=== PATIENT | male | born 1965 | race African-American/Black ===

== ENCOUNTER 2018-11-26 22:31 | Emergency (ER) | payer OTHER ==
[2018-11-27 00:40] LABS: Absolute Lymphocytes (CBC) 1.5 K/uL (0.7-4.9); Absolute Monocytes 0.5 K/uL (0.1-1.3); Absolute Neutrophil 3.4 K/uL (1.8-8.0); Basophils % 0.4 % (0-1.3); Hematocrit 39.9 % (39.6-49.0); Lymphocytes % 27.3 % (15.3-44.8); MPV 11.8 fL (7.6-11.3); Monocytes % 8.3 % (3.3-12.3); RBC Red Blood Cell Count 4.22 M/uL (4.33-5.43)
[2018-11-27 00:41] LABS: Protime INR 0.99
[2018-11-27 00:57] LABS: ALT/SGPT 129 U/L (12-78); AST/SGOT 76 U/L (15-37); Albumin 3.2 g/dL (3.4-5.0); Alkaline Phosphatase 85 U/L (45-117); BUN Blood Urea Nitrogen 17 mg/dL (7-18); Bicarbonate 30 mmol/L (21-32); Bilirubin Direct < 0.1 mg/dL (0-0.2); Bilirubin Total 0.2 mg/dL (0.2-1.0); Creatine Phosphokinase 102 U/L (39-308); Glucose Level 74 mg/dL (74-106); Lipase 246 U/L (73-393); Potassium 4.1 mmol/L (3.5-5.1); Sodium Level 140 mmol/L (136-145); Troponin (Emerg Dept Use Only) < 0.02 ng/mL (0.0-0.045)
[2018-11-27] MEDS ORDERED: NA CHLORIDE 0.9% 1,000 ML ONE (01:10)
[2018-11-27 01:36] LABS: Urine Bacteria <20 /HPF (NONE SEEN); Urine Culture Reflex Order NOT NEEDED; Urine Mucus LIGHT /HPF (NONE SEEN); Urine RBC <5 /HPF (NONE SEEN)
[2018-11-27 01:58] LABS: Urine Blood NEGATIVE (NEG); Urine Glucose NEGATIVE (NEG); Urine Protein NEGATIVE (NEG)
[2018-11-27] MEDS ORDERED: D50W 25 GM/50 ML SYRINGE IV ONE (03:33)
[2018-11-27] MEDS ORDERED: D5 0.45 NS 1,000 ML IV ONE (03:33)
--- NOTE | 2018-11-27 04:40 | EDPHYS ---
Physician Documentation [facility] Name: Mariano Mauricio Age: 53 yrs Sex: Male : 1965 Arrival Date: 11/26/2018 Time: 22:32 Bed 4 Private MD: ED Physician Valerio Goff HPI: 11/27 04:31 This 53 yrs old Black Male presents to ER via EMS with complaints of Probable Seizure. gs 04:31 The patient presents after having a single isolated seizure, that lasted 30 second(s). gs Character of seizure(s): Loss of consciousness: the patient experienced loss of consciousness, Motor activity: focal activity. Seizure onset: just prior to arrival. Seizure Hx: Seizure medications: valproic acid. Associated injury: The patient did not suffer any apparent associated injury. Current symptoms: confusion, decreased level of consciousness. Unable to obtain HPI due to obtunded state. It is unknown whether or not the patient has had similar symptoms in the past. Historical: - Allergies: 11/26 23:07 No Known Allergies; lp1 - Home Meds: 23:07 baclofen 10 mg Oral tab twice a day [Active]; Depakote ER 500 mg Oral Tb24 1.5 tabs lp1 three times a day [Active]; docusate sodium 100 mg Oral cap 1 cap once daily [Active]; Risperdal Consta 12.5 mg/2 mL intramuscular syrg 2 mL every 14 days [Active]; trazodone 50 mg Oral tab nightly [Active]; acetaminophen-codeine 300 mg-30 mg /12.5 mL Oral soln 1 tab twice a day [Active]; Valium 5 mg Oral tab 2 times per day [Active]; Vitamin D2 50,000 unit oral cap [Active]; Vitamin D3 5,000 unit oral tab daily [Active]; Zyprexa 15 mg oral tab nightly [Active]; - PMHx: 23:07 Schizophrenia; Acute conjunctivitis; Vit D deficiency; Insomnia; Dehydration; Autonomic 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 - Social history:: Smoking status: unknown. - Ebola Screening: : No symptoms or risks identified at this time. ROS: 11/27 04:31 Unable to obtain ROS due to obtunded state. gs Exam: 04:31 Head/Face: Normocephalic, atraumatic. Neck: Trachea midline, no thyromegaly or masses gs palpated, and no cervical lymphadenopathy. Supple, full range of motion without nuchal rigidity, or vertebral point tenderness. No Meningismus. Chest/axilla: Normal chest wall appearance and motion. Nontender with no deformity. No lesions are appreciated. Cardiovascular: Regular rate and rhythm with a normal S1 and S2. No gallops, murmurs, or rubs. Normal PMI, no JVD. No pulse deficits. Respiratory: Lungs have equal breath sounds bilaterally, clear to auscultation and percussion. No rales, rhonchi or wheezes noted. No increased work of breathing, no retractions or nasal flaring. Abdomen/GI: Soft, non-tender, with normal bowel sounds. No distension or tympany. No guarding or rebound. No evidence of tenderness throughout. Back: No spinal tenderness. No costovertebral tenderness. Full range of motion. 04:31 Constitutional: The patient appears comatose. 04:31 ECG was reviewed by the Attending Physician. 04:31 Neuro: Orientation: Not oriented to person, place, time, situation. Vital Signs: 11/26 22:54 BP 110 / 72; Pulse 62; Resp 13; Temp 95.5(A); Pulse Ox 100% on R/A; Weight 83.91 kg; lp1 23:13 BP 123 / 75; Pulse 53; Resp 13; Temp 94.3(R); Pulse Ox 100% on R/A; mw2 23:35 BP 113 / 86; Pulse 52; Resp 14; Pulse Ox 100% on R/A; lp1 11/27 00:00 BP 98 / 71; Pulse 47; Resp 12; Pulse Ox 100% on R/A; lp1 00:30 BP 116 / 69; Pulse 46; Resp 12; Pulse Ox 100% on R/A; lp1 01:00 BP 122 / 77; Pulse 54; Resp 12; Temp 92.2(C); Pulse Ox 100% on R/A; lp1 01:30 BP 116 / 64; Pulse 54; Resp 20; Pulse Ox 100% on R/A; lp1 02:00 BP 101 / 49; Pulse 53; Resp 13; Temp 92.7(C); Pulse Ox 96% on R/A; lp1 02:30 BP 108 / 59; Pulse 62; Resp 15; Pulse Ox 95% on R/A; lp1 03:00 BP 113 / 57; Pulse 69; Resp 18; Temp 94.2(C); Pulse Ox 94% on R/A; lp1 03:30 BP 111 / 54; Pulse 91; Resp 19; Pulse Ox 97% on R/A; lp1 04:00 BP 118 / 73; Pulse 101; Resp 20; Temp 96.5(C); Pulse Ox 97% on R/A; lp1 04:30 BP 99 / 52; Pulse 98; Resp 20; Pulse Ox 97% on R/A; lp1 05:00 BP 125 / 80; Pulse 99; Resp 20; Temp 96.6(C); Pulse Ox 98% on R/A; lp1 Thayer Coma Score: 11/26 23:00 Eye Response: spontaneous(4). Verbal Response: confused(4). Motor Response: localizes lp1 pain(5). Total: 13. 23:00 Eye Response: spontaneous(4). Verbal Response: confused(4). Motor Response: localizes lp1 pain(5). Total: 13. 11/27 04:00 Eye Response: spontaneous(4). Verbal Response: oriented(5). Motor Response: obeys lp1 commands(6). Total: 15. MDM: 11/26 22:55 Patient medically screened. 11/27 04:31 Differential diagnosis: cerebral vascular accident, cardiac arrhythmia, seizure, gs hypoglycemia. Data reviewed: vital signs, nurses notes, lab test result(s), EKG, radiologic studies. Response to treatment: the patient's symptoms have markedly improved after treatment. ED course: pt bs was 75 still obtunded, bs dropped to 44 temp improving, gave d50, pt much more alert what is probably his baseline dr cormier will still see in icu. 11/26 23:03 Order name: Basic Metabolic Panel 11/26 23:03 Order name: Blood Culture Adult (2) 11/26 23:03 Order name: CBC with Diff 11/26 23:03 Order name: CPK; Complete Time: 02:24 11/26 23:03 Order name: Lactate; Complete Time: 02:24 gs 11/26 23:03 Order name: LFT's; Complete Time: 02:24 gs 11/26 23:03 Order name: Lipase; Complete Time: 02:24 gs 11/26 23:03 Order name: Procalcitonin; Complete Time: 02:24 gs 11/26 23:03 Order name: Protime (+inr); Complete Time: 02:24 gs 11/26 23:03 Order name: Troponin (emerg Dept Use Only); Complete Time: 02:24 gs 11/26 23:03 Order name: Urine Microscopic Only; Complete Time: 02:24 gs 11/26 23:04 Order name: Basic Metabolic Panel; Complete Time: 02:24 EDMS 11/26 23:04 Order name: Blood Culture EDMS 11/26 23:04 Order name: CBC with Automated Diff; Complete Time: 02:24 EDMS 11/26 23:03 Order name: CT Head Brain wo Cont gs 11/26 23:03 Order name: Chest Single View XRAY gs 11/26 23:03 Order name: Accucheck; Complete Time: 23:52 gs 11/26 23:03 Order name: Cardiac monitoring; Complete Time: 23:52 gs 11/26 23:03 Order name: EKG - Nurse/Tech; Complete Time: 23:53 gs 11/26 23:03 Order name: IV Saline Lock - Large Bore; Complete Time: 00:56 gs 11/26 23:03 Order name: Labs collected and sent; Complete Time: 01:22 gs 11/26 23:08 Order name: Glucose, Ancillary Testing; Complete Time: 00:24 EDMS 11/27 01:26 Order name: Urine Dipstick--Ancillary (enter results); Complete Time: 02:24 ms 11/27 03:21 Order name: Depakote; Complete Time: 04:40 gs 11/27 04:05 Order name: Glucose, Ancillary Testing; Complete Time: 04:40 EDMS 11/27 04:06 Order name: Glucose, Ancillary Testing; Complete Time: 04:40 EDMS 11/26 23:03 Order name: O2 Per Protocol; Complete Time: 23:53 gs 11/26 23:03 Order name: O2 Sat Monitoring; Complete Time: 23:53 gs 11/26 23:03 Order name: Urine Dipstick-Ancillary (obtain specimen); Complete Time: 01:33 gs 11/27 00:25 Order name: Luisa. Order; Complete Time: : gs 11/27 00:25 Order name: Dolores Robb; Complete Time: 00:30 EC: Rate is 60 beats/min. Rhythm is regular. [place] interval is normal. QRS interval is normal. gs QT interval is normal. Clinical impression: NSR w/ Non-specific ST/T Changes. Interpreted by me. Administered Medications: 01:00 Drug: NS 0.9% 1000 ml Route: IV; Rate: 1 bolus; Site: right antecubital; lp1 02:30 Follow up: IV Status: Completed infusion; IV Intake: 1000ml lp1 03:25 Drug: D50W 50 ml Route: IVP; Site: right antecubital; lp1 04:00 Follow up: Response: Blood sugar is elevated lp1 03:30 Drug: D5-1/2 NS 125 ml Route: IV; Rate: bolus; Site: right antecubital; lp1 05:30 Follow up: IV Status: Infusion continued upon transfer lp1 Point of Care Testing: Blood Glucose: 11/26 23:07 Blood Glucose: 78 mg/dL; lp1 11/27 03:20 Blood Glucose: 44 mg/dL; lp1 04:06 Blood Glucose: 115 mg/dL; mw2 Ranges: Critical Glucose Levels:Adult <50 mg/dl or >400 mg/dl <40 mg/dl or >180 mg/dl Disposition: 11/27/18 04:39 Transfer ordered to [facility]. Diagnosis are Epilepsy and recurrent seizures, Hypoglycemia, unspecified, Hypothermia. - Reason for transfer: Higher level of care. - Accepting physician is cormier. - Condition is Stable. - Problem is new. - Symptoms have improved. Critical care time excluding procedures: :31 Critical care time: Bedside Care: 10 minutes, Consultation: 10 minutes, Family gs Intervention: 10 minutes. Total time: 30 minutes Signatures: Dispatcher [employer] Mery Lazar RN RN lp1 Valerio Goff MD MD gs Corrections: (The following items were deleted from the chart) 05:47 04:39 11/27/2018 04:39 Transfer ordered to [facility]. Diagnosis is lp1 Epilepsy and recurrent seizures; Hypoglycemia, unspecified; Hypothermia. Reason for transfer: Higher level of care. Accepting physician is genia. Condition is Stable. Problem is new. Symptoms have improved. gs
--- NOTE | 2018-11-27 04:40 | ER ---
Nurse's Notes [facility] Name: Mariano Mauricio Age: 53 yrs Sex: Male : 1965 Arrival Date: 11/26/2018 Time: 22:32 Bed 4 Private MD: Diagnosis: Epilepsy and recurrent seizures;Hypoglycemia, unspecified;Hypothermia Presentation: 11/26 22:40 Presenting complaint: EMS states: Called for patient who had witnessed seizure lasting lp1 about 30 seconds by staff at 2140 where "he was shaking", Staff states patient was post ictal after but never went back to his baseline mental status and called EMS;. Transition of care: patient was not received from another setting of care. Onset of symptoms was November 26, 2018 at 21:40. Risk Assessment: Do you want to hurt yourself or someone else? Patient reports no desire to harm self or others. Initial Sepsis Screen:. Care prior to arrival: Glucose check: 80. 22:40 Method Of Arrival: EMS: [facility] lp1 22:40 Acuity: KEV 2 lp1 23:15 Initial Sepsis Screen: Does the patient meet any 2 criteria? Temp <36.0*C (96.8*F)) or lp1 > 38.3*C (100.9*F). Altered Mental Status. Yes. 11/27 05:43 Initial Sepsis Screen: Does the patient have a suspected source of infection? No. lp1 Patient's initial sepsis screen is negative. Historical: - Allergies: 11/26 23:07 No Known Allergies; lp1 - Home Meds: 23:07 baclofen 10 mg Oral tab twice a day [Active]; Depakote ER 500 mg Oral Tb24 1.5 tabs lp1 three times a day [Active]; docusate sodium 100 mg Oral cap 1 cap once daily [Active]; Risperdal Consta 12.5 mg/2 mL intramuscular syrg 2 mL every 14 days [Active]; trazodone 50 mg Oral tab nightly [Active]; acetaminophen-codeine 300 mg-30 mg /12.5 mL Oral soln 1 tab twice a day [Active]; Valium 5 mg Oral tab 2 times per day [Active]; Vitamin D2 50,000 unit oral cap [Active]; Vitamin D3 5,000 unit oral tab daily [Active]; Zyprexa 15 mg oral tab nightly [Active]; - PMHx: 23:07 Schizophrenia; Acute conjunctivitis; Vit D deficiency; Insomnia; Dehydration; Autonomic 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 - Social history:: Smoking status: unknown. - Ebola Screening: : No symptoms or risks identified at this time. Screenin/07 00:20 Abuse screen: Denies threats or abuse. Denies injuries from another. Nutritional lp1 screening: No deficits noted. Tuberculosis screening: No symptoms or risk factors identified. Fall Risk Total Quinn Fall Scale indicates High Risk Score (45 or more points). Fall prevention measures have been instituted. Side Rails Up X 2 Placed Close to Nursing Station Frequent Obs/Assessments Occuring. Assessment: 11/26 23:00 General: Appears ill, Behavior is drowsy. Pain: Unable to use pain scale. Does not lp1 appear to understand pain scale. FLACC scale score is 0 out of 10. Neuro: Level of Consciousness is lethargic, Oriented to person, Pupils are PERRLA. Cardiovascular: Capillary refill < 3 seconds in bilateral fingers Rhythm is sinus rhythm. Respiratory: Airway is patent Respiratory effort is even, unlabored, Respiratory pattern is regular, Breath sounds are clear bilaterally. GI: Abdomen is flat. : No deficits noted. EENT: No deficits noted. Derm: Skin with poor turgor Skin is dry, Skin is normal, Skin temperature is warm. Musculoskeletal: Contractures noted to right and left hands. 11/27 00:00 Reassessment: Patient resting, eyes closed, respirations unlabored. Cardiovascular: lp1 Rhythm is sinus bradycardia. 00:10 Reassessment: Lab at bedside for blood draw. lp1 01:10 Reassessment: Patient appears in no apparent distress at this time. Patient resting, lp1 eyes closed, respirations unlabored; States "I'm peeing on myself", educated on Burkett catheter placement. 02:15 Reassessment: Patient appears in no apparent distress at this time. Patient and/or lp1 family updated on plan of care and expected duration. Pain level reassessed. Patient resting, eyes closed, respirations unlabored; Dolores hugger remains in place. 03:10 Reassessment: Patient appears in no apparent distress at this time. No changes from lp1 previously documented assessment. Patient and/or family updated on plan of care and expected duration. Pain level reassessed. 04:06 Reassessment: Patient more alert at this time; uncooperative with blood glucose, lp1 shouting; States "Y'all aren't going to poke me anymore". Reassessment: Dolores hugger removed by patient at this time, refusing to keep it on. Neuro: Level of Consciousness is awake, alert, Oriented to person, place. Respiratory: Respiratory effort is even, unlabored. 04:57 Reassessment: Report called to TEDDY Ambrosio at [facility] for patient for transfer. lp1 05:00 Reassessment: Patient appears in no apparent distress at this time. Patient and/or lp1 family updated on plan of care and expected duration. Pain level reassessed. Patient resting, eyes closed, respirations unlabored;. Vital Signs: 11/26 22:54 BP 110 / 72; Pulse 62; Resp 13; Temp 95.5(A); Pulse Ox 100% on R/A; Weight 83.91 kg; lp1 23:13 BP 123 / 75; Pulse 53; Resp 13; Temp 94.3(R); Pulse Ox 100% on R/A; mw2 23:35 BP 113 / 86; Pulse 52; Resp 14; Pulse Ox 100% on R/A; lp1 11/27 00:00 BP 98 / 71; Pulse 47; Resp 12; Pulse Ox 100% on R/A; lp1 00:30 BP 116 / 69; Pulse 46; Resp 12; Pulse Ox 100% on R/A; lp1 01:00 BP 122 / 77; Pulse 54; Resp 12; Temp 92.2(C); Pulse Ox 100% on R/A; lp1 01:30 BP 116 / 64; Pulse 54; Resp 20; Pulse Ox 100% on R/A; lp1 02:00 BP 101 / 49; Pulse 53; Resp 13; Temp 92.7(C); Pulse Ox 96% on R/A; lp1 02:30 BP 108 / 59; Pulse 62; Resp 15; Pulse Ox 95% on R/A; lp1 03:00 BP 113 / 57; Pulse 69; Resp 18; Temp 94.2(C); Pulse Ox 94% on R/A; lp1 03:30 BP 111 / 54; Pulse 91; Resp 19; Pulse Ox 97% on R/A; lp1 04:00 BP 118 / 73; Pulse 101; Resp 20; Temp 96.5(C); Pulse Ox 97% on R/A; lp1 04:30 BP 99 / 52; Pulse 98; Resp 20; Pulse Ox 97% on R/A; lp1 05:00 BP 125 / 80; Pulse 99; Resp 20; Temp 96.6(C); Pulse Ox 98% on R/A; lp1 Raffy Coma Score: 11/26 23:00 Eye Response: spontaneous(4). Verbal Response: confused(4). Motor Response: localizes lp1 pain(5). Total: 13. 23:00 Eye Response: spontaneous(4). Verbal Response: confused(4). Motor Response: localizes lp1 pain(5). Total: 13. 11/27 04:00 Eye Response: spontaneous(4). Verbal Response: oriented(5). Motor Response: obeys lp1 commands(6). Total: 15. ED Course: 11/26 22:32 Patient arrived in ED. bb 22:34 Valerio Goff MD is Attending Physician. gs 22:40 Mery Shankar, RN is Primary Nurse. lp1 22:51 Triage completed. lp1 22:52 Arm band placed on right wrist. lp1 23:00 Patient has correct armband on for positive identification. Placed in gown. Side rails lp1 up X2. Seizure precautions initiated. monitoring tech on. Pulse ox on. NIBP on. 23:18 Radiology exam delayed due to Patient is currently have labs drawn. kw1 23:30 Missed attempt(s): 22 gauge in left forearm. Missed attempt(s): 22 gauge in left lp1 antecubital area. 23:30 First set of blood cultures drawn by me. lp1 23:57 CT Head Brain wo Cont In Process Unspecified. EDMS 23:58 Chest Single View XRAY In Process Unspecified. EDMS 11/27 00:45 Missed attempt(s): 18 gauge in right upper arm. Bleeding controlled, band aid applied, bb catheter tip intact. 00:56 Inserted saline lock: 22 gauge in right antecubital area, using aseptic technique. bb 01:00 Burkett cath inserted, using sterile technique, 16 Fr., by ks, balloon inflated, to lp1 gravity drainage, urine specimen collected. 01:00 Thermoregulation: Dolores blanket applied. lp1 05:04 No provider procedures requiring assistance completed. lp1 05:30 Patient transferred, IV remains in place. lp1 Administered Medications: 01:00 Drug: NS 0.9% 1000 ml Route: IV; Rate: 1 bolus; Site: right antecubital; lp1 02:30 Follow up: IV Status: Completed infusion; IV Intake: 1000ml lp1 03:25 Drug: D50W 50 ml Route: IVP; Site: right antecubital; lp1 04:00 Follow up: Response: Blood sugar is elevated lp1 03:30 Drug: D5-1/2 NS 125 ml Route: IV; Rate: bolus; Site: right antecubital; lp1 05:30 Follow up: IV Status: Infusion continued upon transfer lp1 Point of Care Testing: Blood Glucose: 11/26 23:07 Blood Glucose: 78 mg/dL; lp1 04/07 03:20 Blood Glucose: 44 mg/dL; lp1 04:06 Blood Glucose: 115 mg/dL; mw2 Ranges: Intake: 02:30 IV: 1000ml; Total: 1000ml. lp1 Outcome: 04:39 ER care complete, transfer ordered by . 05:30 Transferred by ground EMS to [facility], Transfer form completed. lp1 X-rays sent w/ patient. 05:30 Condition: improved 05:30 Instructed on the need for transfer. 05:30 Patient left the ED. lp1 Signatures: Dispatcher [employer] EDMS Neha Willard RN RN Mery Freitas RN RN lp1 Valerio Goff MD MD Ai Ledesma kw1 Geovanna De Leon mw2 Corrections: (The following items were deleted from the chart) 05:48 05:47 Patient left the ED. lp1 lp1
--- NOTE | 2018-11-27 11:40 | RAD REPORT ---
EXAM DESCRIPTION: RAD - Chest Single View - 11/27/2018 12:00 am CLINICAL HISTORY: FEVER Chest pain. COMPARISON: No comparisons FINDINGS: Portable technique limits examination quality. The lungs are grossly clear. The heart is normal in size. No displaced fractures. IMPRESSION: No acute intrathoracic process suspected.
--- NOTE | 2018-11-28 13:47 | RAD REPORT ---
EXAM DESCRIPTION: CT of the head without contrast CLINICAL HISTORY: SEIZURE COMPARISON: None available TECHNIQUE: Axial CT of the head obtained from the skull apex to the skull base without contrast. FINDINGS: No acute intracranial hemorrhage identified. No mass, mass effect, shift of the midline, a bnormal extra-axial fluid collection or CT evidence of acute ischemic change identified. The ventricu lar system is enlarged and proportional to the sulcal spaces. Scattered areas of hypodensity throug hout the supratentorial white matter are nonspecific and may be related to chronic small vessel ische chance change. The visualized paranasal sinuses and the mastoids are clear. No skull fracture identified. Visua lized orbits and globes are unremarkable. DLP: 96.8 mGy-cm IMPRESSION: 1. No acute intracranial abnormality by CT criteria. 2. The ventricular system is enlarged proportion to the sulcal spaces. Communicating hydrocephalus could produce this appearance. This exam was performed according to our departmental dose-optimization program, which includes autom ated exposure control, adjustment of the mA and/or kV according to patient size and/or use of iterati ve reconstruction technique. Electronically signed by: Victor M Maynard 11/27/2018 12:37 AM CDT Due to temporary technical issues with the PACS/Fluency reporting system, reports are being signed by the in house radiologist as a courtesy to ensure prompt reporting. The interpreting radiologist is f ully responsible for the content of the report.
--- NOTE | 2018-11-29 11:38 | EKG ---
Test Date: 2018-11-26 Test Time: 22:42:18 Manual Arts Therapist: DEMETRI MEASUREMENT RESULTS: Intervals: Rate: 60 [place]: 156 QRSD: 96 QT: 412 QTc: 412 [place]: P: 56 [place]: 156 QRS: 34 T: 193 INTERPRETIVE STATEMENTS: Normal sinus rhythm ST & T wave abnormality, consider inferolateral ischemia Abnormal ECG Compared to ECG 06/22/2016 09:46:59 ST (T wave) deviation now present Possible ischemia now present Electronically Signed On 11-28-18 10:53:17 CDT by Moose Briseno
== END 2018-11-27 05:47 | disposition short-term general hospital (02) ==
LOC: ER 22:31
DX: G40.909 Epilepsy, unspecified, not intractable, without status epilepticus (principal); E16.2 Hypoglycemia, unspecified; T68.XXXA Hypothermia, initial encounter; F20.9 Schizophrenia, unspecified; E55.9 Vitamin D deficiency, unspecified; F32.9 Major depressive disorder, single episode, unspecified; F41.9 Anxiety disorder, unspecified
CPT/HCPCS: 36415; 51702; 70450; 71045; 80048; 80076; 80164; 81003; 81015; 82550; 82962; 83605; 83690; 84145; 84484; 85025; 85610; 87040; 93005; 96361; 96374; 99285; J7030

== ENCOUNTER 2018-12-24 21:10 | Emergency (ER) | payer OTHER ==
--- OUTSIDE RECORDS SUMMARY | 2018-12-24 21:14 | XMS REPORT | Clinical Summary ---
:1965 Author Organization [facility] Address [address] [place] [address] Care Team Providers Name Role Phone Unavailable Primary Care Provider Unavailable Allergies No Known Allergies Medications Medication Sig Dispensed Refills Start End Date Status Date baclofen Take 10 mg by mouth 0 Active (LIORESAL) 10 MG 3 (three) times tablet daily. docusate sodium Take 100 mg by 0 Active (COLACE) 100 MG mouth daily. capsule traZODone Take 50 mg by mouth 0 Active (DESYREL) 50 MG nightly. tablet acetaminophen-code Take 1 tablet by 0 Active ine (TYLENOL #3) mouth 2 (two) times 300-30 mg per daily. tablet ergocalciferol Take 50,000 Units 0 Active (ERGOCALCIFEROL) by mouth once a 50,000 unit week Every Wednesday . capsule OLANZapine Take 15 mg by mouth 0 Active (ZYPREXA) 15 MG nightly. tablet diazePAM (VALIUM) Take 1 tablet (5 mg 30 tablet 0 Active 5 MG tablet total) by mouth 3 9 (three) times daily. Max Daily Amount: 15 mg divalproex Take 1 tablet (500 0 Active (DEPAKOTE) 500 MG mg total) by mouth 9 24 hr tablet 3 (three) times daily. divalproex Take by mouth. 0 12/08/19 Discontinued (DEPAKOTE) 500 MG 19 24 hr tablet risperiDONE Inject 12.5 mg 0 12/08/19 Discontinued microspheres intramuscularly 19 (RISPERDAL CONSTA) every 14 (fourteen) 25 mg/2 mL days On Wednesdays injection . diazePAM (VALIUM) Take 5 mg by mouth 0 12/08/19 Discontinued 5 MG tablet 2 (two) times 19 daily. diazePAM (VALIUM) Take 10 mg by mouth 0 12/08/19 Discontinued 10 MG tablet every 6 (six) hours 9 19 as needed (for agitation). Active Problems Problem Noted Date Seizures 11/27/2018 Acute encephalopathy 11/27/2018 Hypoglycemia 11/27/2018 Thrombocytopenia 11/27/2018 Elevated liver enzymes 11/27/2018 Macrocytic anemia 11/27/2018 Encounters Date Type Specialty Care Team Description 12/06/2018 Travel 11/27/2018 [facility] Son, Hypoglycemia ( Primary Dx); - Encounter Medicine Chethan Seizures (HCC); 12/07/2018 MD Brad Hypothermia, initial encounter; Nilson Kamara Acute encephalopathy; MD Alissa Elevated liver enzymes; Yue Pedroza Macrocytic anemia; MD Olivia Thrombocytopenia (HCC); Polysubstance abuse (HCC); Spell of abnormal behavior; Disorganized schizophrenia (HCC); Traumatic brain injury of unknown intent (HCC) after 12/23/2017 Social History Tobacco Use Types Packs/Day Years Used Date Former Smoker Smokeless Tobacco: Never Used Comments: unable to assess Alcohol Use Drinks/Week oz/Week Comments No Alcohol Habits Answer Date Recorded How often do you have a drink containing alcohol? Never 11/29/2018 How many drinks containing alcohol do you have on a typical Not asked day when you are drinking? How often do you have six or more drinks on one occasion? Not asked Sex Assigned at Date Recorded Not on file Job Start Date Occupation Industry Not on file Not on file Not on file Travel History Travel Start Travel End No recent travel history available. Last Filed Vital Signs Vital Sign Reading Time Taken Blood Pressure 103/58 12/07/2018 5:23 AM CDT Pulse 73 12/07/2018 5:23 AM CDT Temperature 36.7 C (98.1 F) 12/07/2018 5:23 AM CDT Respiratory Rate 18 12/07/2018 5:23 AM CDT Oxygen Saturation 94% 12/07/2018 5:23 AM CDT Inhaled Oxygen Concentration - - Weight 91.6 kg (202 lb) 12/07/2018 6:00 AM CDT Height - - Body Mass Index - - Plan of Treatment Not on file Procedures Procedure Name Priority Date/Time Associated Comments Diagnosis RHYTHM STRIP - SCAN 12/08/2018 11:40 AM CDT POCT-GLUCOSE METER Routine 12/07/2018 5:15 Results for this AM CDT procedure are in the results section. POCT-GLUCOSE METER Routine 12/06/2018 9:44 Results for this PM CDT procedure are in the results section. POCT-GLUCOSE METER Routine 12/06/2018 5:50 Results for this PM CDT procedure are in the results section. CORTISOL,60 MIN Routine 12/06/2018 5:41 Results for this PM CDT procedure are in the results section. CORTISOL,30 MIN Routine 12/06/2018 5:09 Results for this PM CDT procedure are in the results section. ACTH STIMULATION Routine 12/06/2018 5:09 Results for this PM CDT procedure are in the results section. BLOOD CULTURE STAT 12/06/2018 1:15 Results for this PM CDT procedure are in the results section. CORTISOL,BASELINE Routine 12/06/2018 1:14 Results for this PM CDT procedure are in the results section. CBC W/PLT COUNT & AUTO Routine 12/06/2018 1:14 Results for this DIFFERENTIAL PM CDT procedure are in the results section. ACTH STIMULATION Routine 12/06/2018 1:14 Results for this PM CDT procedure are in the results section. LACTIC ACID, ARTERIAL Routine 12/06/2018 1:14 Results for this PM CDT procedure are in the results section. BASIC METABOLIC PANEL Routine 12/06/2018 1:14 Results for this (7) PM CDT procedure are in the results section. CBC W/PLT COUNT & AUTO Routine 12/06/2018 1:14 Results for this DIFFERENTIAL PM CDT procedure are in the results section. PROTHROMBIN TIME/INR Routine 12/06/2018 1:14 Results for this PM CDT procedure are in the results section. MISCELLANEOUS LAB Routine 12/06/2018 1:13 ORDER PM CDT POCT-GLUCOSE METER Routine 12/06/2018 1:07 Results for this PM CDT procedure are in the results section. POCT-GLUCOSE METER Routine 12/06/2018 8:07 Results for this AM CDT procedure are in the results section. POCT-GLUCOSE METER Routine 12/06/2018 7:22 Results for this AM CDT procedure are in the results section. POCT-GLUCOSE METER Routine 12/06/2018 1:40 Results for this AM CDT procedure are in the results section. POCT-GLUCOSE METER Routine 12/05/2018 6:52 Results for this PM CDT procedure are in the results section. POCT-GLUCOSE METER Routine 12/05/2018 6:09 Results for this PM CDT procedure are in the results section. POCT-GLUCOSE METER Routine 12/05/2018 1:16 Results for this PM CDT procedure are in the results section. POCT-GLUCOSE METER Routine 12/05/2018 8:04 Results for this AM CDT procedure are in the results section. POCT-GLUCOSE METER Routine 12/05/2018 7:26 Results for this AM CDT procedure are in the results section. URINALYSIS WITH Routine 12/05/2018 5:14 Results for this MICROSCOPIC IF AM CDT procedure are in INDICATED the results section. XR CHEST 1 VIEW Routine 12/04/2018 10:11 Results for this PORTABLE/BEDSIDE PM CDT procedure are in the results section. POCT-GLUCOSE METER Routine 12/04/2018 9:28 Results for this PM CDT procedure are in the results section. PROTHROMBIN TIME/INR Routine 12/04/2018 8:28 Results for this PM CDT procedure are in the results section. LACTIC ACID, VENOUS STAT 12/04/2018 8:27 Results for this PM CDT procedure are in the results section. VALPROIC ACID LEVEL, STAT 12/04/2018 8:27 Results for this TOTAL PM CDT procedure are in the results section. POCT-HEMOGLOBIN Routine 12/04/2018 8:03 Results for this PM CDT procedure are in the results section. POCT-HEMATOCRIT Routine 12/04/2018 8:03 Results for this PM CDT procedure are in the results section. POCT-CALCIUM IONIZED Routine 12/04/2018 8:03 Results for this PM CDT procedure are in the results section. POCT-GLUCOSE Routine 12/04/2018 8:03 Results for this PM CDT procedure are in the results section. POCT-POTASSIUM Routine 12/04/2018 8:03 Results for this PM CDT procedure are in the results section. POCT-SODIUM Routine 12/04/2018 8:03 Results for this PM CDT procedure are in the results section. POCT-BLOOD GASES, Routine 12/04/2018 8:03 Results for this VENOUS PM CDT procedure are in the results section. BLOOD CULTURE STAT 12/04/2018 8:01 Results for this PM CDT procedure are in the results section. CBC W/PLT COUNT & AUTO Routine 12/04/2018 8:00 Results for this DIFFERENTIAL PM CDT procedure are in the results section. CBC W/PLT COUNT & AUTO Routine 12/04/2018 8:00 Results for this DIFFERENTIAL PM CDT procedure are in the results section. BASIC METABOLIC PANEL STAT 12/04/2018 8:00 Results for this (7) PM CDT procedure are in the results section. MAGNESIUM Routine 12/04/2018 8:00 Results for this PM CDT procedure are in the results section. PHOSPHORUS Routine 12/04/2018 8:00 Results for this PM CDT procedure are in the results section. POCT-LACTIC ACID, Routine 12/04/2018 7:52 Results for this ARTERIAL PM CDT procedure are in the results section. POCT-GLUCOSE METER Routine 12/04/2018 7:08 Results for this PM CDT procedure are in the results section. POCT-GLUCOSE METER Routine 12/03/2018 10:25 Results for this PM CDT procedure are in the results section. INSULIN-LIKE GROWTH Routine 12/03/2018 7:52 Results for this FACTOR AM CDT procedure are in the results section. POCT-GLUCOSE METER Routine 12/03/2018 4:50 Results for this AM CDT procedure are in the results section. POCT-GLUCOSE METER Routine 12/03/2018 12:07 Results for this AM CDT procedure are in the results section. POCT-GLUCOSE METER Routine 12/02/2018 9:36 Results for this PM CDT procedure are in the results section. POCT-GLUCOSE METER Routine 12/02/2018 6:38 Results for this AM CDT procedure are in the results section. POCT-GLUCOSE METER Routine 12/02/2018 6:06 Results for this AM CDT procedure are in the results section. POCT-GLUCOSE METER Routine 12/02/2018 5:18 Results for this AM CDT procedure are in the results section. POCT-GLUCOSE METER Routine 12/02/2018 3:12 Results for this AM CDT procedure are in the results section. POCT-GLUCOSE METER Routine 12/02/2018 12:41 Results for this AM CDT procedure are in the results section. POCT-GLUCOSE METER Routine 12/01/2018 6:13 Results for this PM CDT procedure are in the results section. POCT-GLUCOSE METER Routine 12/01/2018 12:34 Results for this PM CDT procedure are in the results section. POCT-GLUCOSE METER Routine 12/01/2018 12:02 Results for this AM CDT procedure are in the results section. POCT-GLUCOSE METER Routine 11/30/2018 6:02 Results for this PM CDT procedure are in the results section. REPORT OF PROCEDURE - 11/30/2018 1:35 ENDOSCOPY SCAN PM CDT POCT-GLUCOSE METER Routine 11/30/2018 1:18 Results for this PM CDT procedure are in the results section. POCT-GLUCOSE METER Routine 11/30/2018 10:08 Results for this AM CDT procedure are in the results section. POCT-GLUCOSE METER Routine 11/30/2018 8:59 Results for this AM CDT procedure are in the results section. POCT-GLUCOSE METER Routine 11/30/2018 8:15 Results for this AM CDT procedure are in the results section. POCT-GLUCOSE METER Routine 11/29/2018 9:47 Results for this PM CDT procedure are in the results section. POCT-GLUCOSE METER Routine 11/29/2018 8:03 Results for this PM CDT procedure are in the results section. POCT-GLUCOSE METER Routine 11/29/2018 5:49 Results for this PM CDT procedure are in the results section. POCT-GLUCOSE METER Routine 11/29/2018 5:06 Results for this PM CDT procedure are in the results section. POCT-GLUCOSE METER Routine 11/29/2018 4:31 Results for this PM CDT procedure are in the results section. POCT-GLUCOSE METER Routine 11/29/2018 3:24 Results for this PM CDT procedure are in the results section. POCT-GLUCOSE METER Routine 11/29/2018 1:56 Results for this PM CDT procedure are in the results section. POCT-GLUCOSE METER Routine 11/29/2018 1:04 Results for this PM CDT procedure are in the results section. POCT-GLUCOSE METER Routine 11/29/2018 12:13 Results for this PM CDT procedure are in the results section. POCT-GLUCOSE METER Routine 11/29/2018 11:03 Results for this AM CDT procedure are in the results section. POCT-GLUCOSE METER Routine 11/29/2018 10:01 Results for this AM CDT procedure are in the results section. POCT-GLUCOSE METER Routine 11/29/2018 9:00 Results for this AM CDT procedure are in the results section. POCT-GLUCOSE METER Routine 11/29/2018 8:19 Results for this AM CDT procedure are in the results section. POCT-GLUCOSE METER Routine 11/29/2018 7:27 Results for this AM CDT procedure are in the results section. US ABDOMINAL WITH Routine 11/29/2018 6:40 Results for this DOPPLER AM CDT procedure are in the results section. POCT-GLUCOSE METER Routine 11/29/2018 6:09 Results for this AM CDT procedure are in the results section. POCT-GLUCOSE METER Routine 11/29/2018 4:57 Results for this AM CDT procedure are in the results section. POCT-GLUCOSE METER Routine 11/29/2018 4:08 Results for this AM CDT procedure are in the results section. POCT-GLUCOSE METER Routine 11/29/2018 3:11 Results for this AM CDT procedure are in the results section. HEMOGLOBIN A1C Routine 11/29/2018 2:29 Results for this AM CDT procedure are in the results section. CBC W/PLT COUNT & AUTO Routine 11/29/2018 2:28 Results for this DIFFERENTIAL AM CDT procedure are in the results section. BASIC METABOLIC PANEL Routine 11/29/2018 2:28 Results for this (7) AM CDT procedure are in the results section. CBC W/PLT COUNT & AUTO Routine 11/29/2018 2:28 Results for this DIFFERENTIAL AM CDT procedure are in the results section. MAGNESIUM Routine 11/29/2018 2:28 Results for this AM CDT procedure are in the results section. PHOSPHORUS Routine 11/29/2018 2:28 Results for this AM CDT procedure are in the results section. PROTHROMBIN TIME/INR Routine 11/29/2018 2:28 Results for this AM CDT procedure are in the results section. MISCELLANEOUS LAB Routine 11/29/2018 2:28 ORDER AM CDT POCT-GLUCOSE METER Routine 11/29/2018 2:00 Results for this AM CDT procedure are in the results section. GLUCOSE Routine 11/29/2018 1:56 Results for this AM CDT procedure are in the results section. GROWTH HORMONE Routine 11/29/2018 1:56 Results for this AM CDT procedure are in the results section. C-PEPTIDE Routine 11/29/2018 1:56 Results for this AM CDT procedure are in the results section. CORTISOL Routine 11/29/2018 1:56 Results for this AM CDT procedure are in the results section. KETONE, BLOOD Routine 11/29/2018 1:56 Results for this AM CDT procedure are in the results section. INSULIN, FASTING Routine 11/29/2018 1:56 Results for this AM CDT procedure are in the results section. INSULIN-LIKE GROWTH Routine 11/29/2018 1:56 Results for this FACTOR AM CDT procedure are in the results section. POCT-GLUCOSE METER Routine 11/29/2018 1:19 Results for this AM CDT procedure are in the results section. POCT-GLUCOSE METER Routine 11/28/2018 11:50 Results for this PM CDT procedure are in the results section. POCT-GLUCOSE METER Routine 11/28/2018 9:52 Results for this PM CDT procedure are in the results section. POCT-GLUCOSE METER Routine 11/28/2018 9:14 Results for this PM CDT procedure are in the results section. POCT-GLUCOSE METER Routine 11/28/2018 6:18 Results for this PM CDT procedure are in the results section. XR CHEST 1 VIEW Routine 11/28/2018 5:40 Results for this PORTABLE/BEDSIDE PM CDT procedure are in the results section. XR SKULL LESS THAN 4 Routine 11/28/2018 5:35 Results for this VIEWS PM CDT procedure are in the results section. EEG AWAKE AND DROWSY Routine 11/28/2018 3:36 Results for this PM CDT procedure are in the results section. POCT-GLUCOSE METER Routine 11/28/2018 2:14 Results for this PM CDT procedure are in the results section. POCT-GLUCOSE METER Routine 11/28/2018 1:35 Results for this PM CDT procedure are in the results section. POCT-GLUCOSE METER Routine 11/28/2018 1:16 Results for this PM CDT procedure are in the results section. HEPATITIS PANEL, ACUTE Routine 11/28/2018 11:27 Results for this AM CDT procedure are in the results section. VITAMIN B12 Routine 11/28/2018 11:27 Results for this AM CDT procedure are in the results section. FOLATE, SERUM Routine 11/28/2018 11:27 Results for this AM CDT procedure are in the results section. VALPROIC ACID LEVEL, Routine 11/28/2018 11:27 Results for this TOTAL AM CDT procedure are in the results section. CBC W/PLT COUNT & AUTO Routine 11/28/2018 11:23 Results for this DIFFERENTIAL AM CDT procedure are in the results section. BASIC METABOLIC PANEL Routine 11/28/2018 11:23 Results for this (7) AM CDT procedure are in the results section. CBC W/PLT COUNT & AUTO Routine 11/28/2018 11:23 Results for this DIFFERENTIAL AM CDT procedure are in the results section. COMPREHENSIVE Routine 11/28/2018 11:23 Results for this METABOLIC PANEL AM CDT procedure are in the results section. POCT-GLUCOSE METER Routine 11/28/2018 9:17 Results for this AM CDT procedure are in the results section. POCT-GLUCOSE METER Routine 11/28/2018 8:56 Results for this AM CDT procedure are in the results section. POCT-GLUCOSE METER Routine 11/27/2018 11:19 Results for this PM CDT procedure are in the results section. POCT-GLUCOSE METER Routine 11/27/2018 8:30 Results for this PM CDT procedure are in the results section. POCT-GLUCOSE METER Routine 11/27/2018 6:28 Results for this PM CDT procedure are in the results section. POCT-GLUCOSE METER Routine 11/27/2018 12:10 Results for this PM CDT procedure are in the results section. COMPREHENSIVE Routine 11/27/2018 10:45 Results for this METABOLIC PANEL AM CDT procedure are in the results section. DRUG SCREEN, URINE, Routine 11/27/2018 9:03 COMPREHENSIVE AM CDT CBC W/PLT COUNT & AUTO Routine 11/27/2018 8:59 Results for this DIFFERENTIAL AM CDT procedure are in the results section. CORTISOL Routine 11/27/2018 8:59 Results for this AM CDT procedure are in the results section. TSH/FREE T4 IF Routine 11/27/2018 8:59 Results for this INDICATED AM CDT procedure are in the results section. PROTHROMBIN TIME/INR Routine 11/27/2018 8:59 Results for this AM CDT procedure are in the results section. CBC W/PLT COUNT & AUTO Routine 11/27/2018 8:59 Results for this DIFFERENTIAL AM CDT procedure are in the results section. TROPONIN I Routine 11/27/2018 8:59 Results for this AM CDT procedure are in the results section. POCT-GLUCOSE METER Routine 11/27/2018 7:11 Results for this AM CDT procedure are in the results section. POCT-GLUCOSE METER Routine 11/27/2018 6:36 Results for this AM CDT procedure are in the results section. after 12/23/2017 Results RHYTHM STRIP - SCAN (12/08/2018 11:40 AM CDT) Narrative Performed At POC-Glucose meter (12/07/2018 5:15 AM CDT)Only the most recent of66 resultswithin the time period is included. POC-Glucose Meter 83Comment: TESTED AT 70 - 110 mg/dL [facility] [address] [facility] [id number] Specimen Blood Performing Organization Address City/State/Zipcode Phone Number [address] [phone] CENTER CORTISOL,60 MIN (12/06/2018 5:41 PM CDT) Cortisol, Baseline 9.7 mcg/dL [facility] [place] [place] Cortisol 30 minute 17.8 mcg/dL [facility] [place] [place] Cortisol, 60 Minute 23.6 ug/dL [facility] [place] [place] Specimen Blood Narrative Performed At ACTH STIMULATION TEST INTERPRETATION [facility] [place] [place] GUIDELINES (Synonyms: Cortrosyn Test, Cosyntropin or Corticotropin Stimulation Test) Adenocorticotropic hormone (ACTH)is a tropic hormone, made in the pituitary gland, which travels trhough the bloodstream and stimulates the cortex of the adrenal glands to release cortisol. Cortisol is a primary hormone, which aids the body's metabolism of fats, carbohydrates, and protein as well as sodium and potassium regulation. ACTH Stimulation Test: Exogenous administration of biologically active ACTH stimulates the secretion of cortisol from the adrenal gland. This test is used to evaluate adrenal function by measuring cortisol levels at baseline and at 30 and 60 minutes after the administration of 250 micrograms of cosyntropin (Cortrosyn). Patients who have received exogenous corticosteroids immediately prior to performing the ACTH Stimulation Test will often have elevated baseline cortisol levels, which may lead to erroneous interpretation of test results. The notable exception is with dexamethasone. Normal Response: An increase in cortisol after stimulation by ACTH is normal. Post-stimulation cortisol concentration should be greater than 20 mcg/dL or the rate of rise from baseline cortisol should be greater than or equal to 9 mcg/dL. Patients with sepsis or septic shock: According to a study by Harjinder et al (CARLOS 2000,283(8):3829-45), the ACTH Stimulation Test provides important prognostic information. This study defined 3 groups of patients with sepsis or septic shock: 1. Good Survival: Low basal cortisol (<or=34 mcg/dL) and high ACTH response (>9mcg/dL) 2.Intermediate Survival: Low basal cortisol (<34 mcg/dL) and low response to ACTH (<or=9 mcg/dL) OR High basal cortisol (>34 mcg/dL) or high ACTH response (>9 mcg/dL) 3.Poor Survival: High basal cortisol (>34 mcg/dL) and low ACTH response (<or=9 mcg/dL). Treatment of patients with relative adrenal dysfunction may be indicated based on test results and the clinical condition of the patient. Additional information, including treatment recommendations, is available in critically ill patients, approved by the Pharmacy, Nutrition, and Therapeutics Committee on 08/01/2004 and available through the Pharmacy Policy and Procedure Section on [employer]. Do not run this test if systemic hydrocortisone, methylprednisolone, prednisolone or prednisone has been administered within the past 24 hours.Draw baseline cortisol level just prior to cosyntropin administration.Administer cosyntropin 0.25 mg diluted in 2-5 mL of normal saline slow IV Push over a period of 2 minutes.Draw serum cortisol level 30 minutes after cosyntropin administration.Draw serum cortisol level 60 minutes after cosyntropin administration. Performing Organization Address City/State/Zipcode Phone Number [address] [address] CENTER CORTISOL,30 MIN (12/06/2018 5:09 PM CDT) Cortisol, Baseline 9.7 mcg/dL [facility] [place] [place] Cortisol, 30 Minute 17.8 ug/dL [facility] [place] [place] Specimen Blood Narrative Performed At ACTH STIMULATION TEST INTERPRETATION [facility] [place] [place] GUIDELINES (Synonyms: Cortrosyn Test, Cosyntropin or Corticotropin Stimulation Test) Adenocorticotropic hormone (ACTH)is a tropic hormone, made in the pituitary gland, which travels trhough the bloodstream and stimulates the cortex of the adrenal glands to release cortisol. Cortisol is a primary hormone, which aids the body's metabolism of fats, carbohydrates, and protein as well as sodium and potassium regulation. ACTH Stimulation Test: Exogenous administration of biologically active ACTH stimulates the secretion of cortisol from the adrenal gland. This test is used to evaluate adrenal function by measuring cortisol levels at baseline and at 30 and 60 minutes after the administration of 250 micrograms of cosyntropin (Cortrosyn). Patients who have received exogenous corticosteroids immediately prior to performing the ACTH Stimulation Test will often have elevated baseline cortisol levels, which may lead to erroneous interpretation of test results. The notable exception is with dexamethasone. Normal Response: An increase in cortisol after stimulation by ACTH is normal. Post-stimulation cortisol concentration should be greater than 20 mcg/dL or the rate of rise from baseline cortisol should be greater than or equal to 9 mcg/dL. Patients with sepsis or septic shock: According to a study by Harjinder et al (CARLOS 2000,283(8):1038-45), the ACTH Stimulation Test provides important prognostic information. This study defined 3 groups of patients with sepsis or septic shock: 1. Good Survival: Low basal cortisol (<or=34 mcg/dL) and high ACTH response (>9mcg/dL) 2.Intermediate Survival: Low basal cortisol (<34 mcg/dL) and low response to ACTH (<or=9 mcg/dL) OR High basal cortisol (>34 mcg/dL) or high ACTH response (>9 mcg/dL) 3.Poor Survival: High basal cortisol (>34 mcg/dL) and low ACTH response (<or=9 mcg/dL). Treatment of patients with relative adrenal dysfunction may be indicated based on test results and the clinical condition of the patient. Additional information, including treatment recommendations, is available in critically ill patients, approved by the Pharmacy, Nutrition, and Therapeutics Committee on 08/01/2004 and available through the Pharmacy Policy and Procedure Section on [employer]. Do not run this test if systemic hydrocortisone, methylprednisolone, prednisolone or prednisone has been administered within the past 24 hours.Draw baseline cortisol level just prior to cosyntropin administration.Administer cosyntropin 0.25 mg diluted in 2-5 mL of normal saline slow IV Push over a period of 2 minutes.Draw serum cortisol level 30 minutes after cosyntropin administration.Draw serum cortisol level 60 minutes after cosyntropin administration. Performing Organization Address City/[facility]/Zipcode Phone Number [facility] [address] [place] [address] [place] Blood Culture - Routine (Left Venipuncture) (12/06/2018 1:15 PM CDT)Only the most recent of2 resultswithin the time period is included. Result No growth in [address] [facility] Specimen Blood Performing Organization Address City/[facility]/Zipcode Phone Number [facility] [address] [place] [address] [place] CORTISOL,BASELINE (12/06/2018 1:14 PM CDT) Cortisol, Baseline 9.7 ug/dL [facility] Specimen Blood Narrative Performed At ACTH STIMULATION TEST INTERPRETATION [facility] [place] GUIDELINES (Synonyms: Cortrosyn Test, Cosyntropin or Corticotropin Stimulation Test) Adenocorticotropic hormone (ACTH)is a tropic hormone, made in the pituitary gland, which travels trhough the bloodstream and stimulates the cortex of the adrenal glands to release cortisol. Cortisol is a primary hormone, which aids the body's metabolism of fats, carbohydrates, and protein as well as sodium and potassium regulation. ACTH Stimulation Test: Exogenous administration of biologically active ACTH stimulates the secretion of cortisol from the adrenal gland. This test is used to evaluate adrenal function by measuring cortisol levels at baseline and at 30 and 60 minutes after the administration of 250 micrograms of cosyntropin (Cortrosyn). Patients who have received exogenous corticosteroids immediately prior to performing the ACTH Stimulation Test will often have elevated baseline cortisol levels, which may lead to erroneous interpretation of test results. The notable exception is with dexamethasone. Normal Response: An increase in cortisol after stimulation by ACTH is normal. Post-stimulation cortisol concentration should be greater than 20 mcg/dL or the rate of rise from baseline cortisol should be greater than or equal to 9 mcg/dL. Patients with sepsis or septic shock: According to a study by Harjinder et al (CARLOS 2000,283(8):7010-45), the ACTH Stimulation Test provides important prognostic information. This study defined 3 groups of patients with sepsis or septic shock: 1. Good Survival: Low basal cortisol (<or=34 mcg/dL) and high ACTH response (>9mcg/dL) 2.Intermediate Survival: Low basal cortisol (<34 mcg/dL) and low response to ACTH (<or=9 mcg/dL) OR High basal cortisol (>34 mcg/dL) or high ACTH response (>9 mcg/dL) 3.Poor Survival: High basal cortisol (>34 mcg/dL) and low ACTH response (<or=9 mcg/dL). Treatment of patients with relative adrenal dysfunction may be indicated based on test results and the clinical condition of the patient. Additional information, including treatment recommendations, is available in critically ill patients, approved by the Pharmacy, Nutrition, and Therapeutics Committee on 08/01/2004 and available through the Pharmacy Policy and Procedure Section on The Source. Performing Organization Address City/State/Zipcode Phone Number [address] [address] CENTER CBC with platelet count + automated diff (12/06/2018 1:14 PM CDT)Only the most recent of5 resultswithin the time period is included. WBC 7.8 3.5 - 10.5 K/L [facility] [place] [place] RBC 3.96 (L) 4.63 - 6.08 M/L [facility] [place] [place] Hemoglobin 12.4 (L) 13.7 - 17.5 GM/DL [facility] [place] [place] Hematocrit 39.0 (L) 40.1 - 51.0 % [facility] [place] [place] MCV 98.5 (H) 79.0 - 92.[address] [facility] [place] MCH 31.3 25.7 - 32.[address] [facility] [place] MCHC 31.8 (L) 32.3 - 36.5 GM/DL [facility] [place] RDW 15.6 (H) 11.6 - 14.4 % [facility] [place] Platelets 219 150 - 450 K/CU MM [facility] MPV 12.3 9.4 - 12.[address] [facility] nRBC 0 0 - 0 /[address] [facility] % Neutros 43 % [facility] [place] % Lymphs 44 % [facility] [place] % Monos 10 % [facility] [place] % Eos 3 % [facility] % Baso 0 % [facility] [place] # Neutros 3.32 1.78 - 5.38 K/L [facility] [place] # Lymphs 3.41 1.32 - 3.57 K/L [facility] [place] # Monos 0.81 0.30 - 0.82 K/L [facility] [place] # Eos 0.20 0.04 - 0.54 K/L [facility] # Baso 0.03 0.01 - 0.08 K/L [facility] [place] Immature Granulocytes-Relative 0 0 - 1 % [facility] [place] Specimen Blood Performing Organization Address City/State/Zipcode Phone Number [address] [address] [phone] [place] Lactic Acid, Arterial (12/06/2018 1:14 PM CDT) Lactate, Art 4.6 (H)Comment: Specimen 0.5 - 2.2 mmol/L [facility] slightly hemolyzed [facility]ICAL [place] Specimen Blood, Arterial Performing Organization Address City/[facility]/Zipcode Phone Number [facility] [address] [place] [address] CENTER Prothrombin time/INR (12/06/2018 1:14 PM CDT)Only the most recent of4 resultswithin the time period is included. Protime 12.4 11.7 - 14.[address] [facility] [place] INR 0.9 <=5.[address] [facility] Specimen Blood Narrative Performed At RECOMMENDED COUMADIN/WARFARIN INR THERAPY [facility] [place] RANGES STANDARD DOSE: 2.0 - 3.0 Includes: PROPHYLAXIS for venous thrombosis, systemic embolization; TREATMENT for venous thrombosis and/or pulmonary embolus. HIGH RISK: Target INR is 2.5-3.5 for patients with mechanical heart valves. Performing Organization Address City/[facility]/Zipcode Phone Number [address] [phone] CENTER Basic Metabolic Panel (12/06/2018 1:14 PM CDT)Only the most recent of4 resultswithin the time period is included. Sodium 142 136 - 145 meq/L [facility] [place] Potassium 4.8Comment: Specimen slightly 3.5 - 5.1 meq/L [facility] Chlor[facility] 103 98 - 107 meq/L [facility] [place] [place] CO2 30 (H) 22 - 29 meq/L [facility] [place] BUN 10 7 - 21 mg/dL [facility] [place] Creatinine 0.67Comment: Specimen 0.57 - 1.25 mg/dL [facility] slightly hemolyzed [facility] Glucose 105 70 - 105 mg/dL [facility] [place] [place] Calcium 9.7 8.4 - 10.2 mg/dL [facility] EGFR 150Comment: ESTIMATED GFR IS mL/min/1.73 sq m [facility] NOT ACCURATE CREATININE [facility] CENTER CLEARANCE IN PREDICTING GLOMERULAR FILTRATION RATE. ESTIMATED GFR IS NOT APPLICABLE FOR DIALYSIS PATIENTS. Specimen Blood Performing Organization Address [facility] Centercode Phone Number [place] [phone] [place] [address] [phone] CENTER Insulin-like Growth Factor 2 (IGF-2) (12/06/2018 1:13 PM CDT)Only the most recent of2 resultswithin the time period is included. Scan Result [facility] Specimen Blood Narrative Performed At Performing Organization Address City/State/Zipcode Phone Number [facility] [address] [place], [place] Urinalysis with Microscopic If Indicated (12/05/2018 5:14 AM CDT) Color, UA Yellow [facility] [place] Clarity, UA Clear [facility] Specific [place], UA 1.016 1.001 - 1.[address] [facility] pH, UA 7.0 5.0 - 8.[address] [facility] Protein, UA Negative Negative [facility] Glucose, UA Negative Negative [facility] Ketones, UA Negative Negative [facility] Bilirubin, UA Negative Negative [facility] Blood, UA Negative Negative [facility] Nitrite, UA Negative Negative [facility] Leukocytes, UA Negative Negative [facility] Urobilinogen, UA 0.2 0.2 - 1.0 mg/dL [facility] Specimen Source [facility] Specimen Urine Performing Organization Address City/State/Zipcode Phone Number [facility] [address] [place] [address] CENTER XR chest 1 view portable / bedside (12/04/2018 10:11 PM CDT)Only the most recent of2 resultswithin the time period is included. Specimen Narrative Performed At FINAL REPORT [facility] INDICATION: Fever COMPARISON: November 28, 2018 TECHNIQUE: Single frontal view of the chest. FINDINGS: Lungs and pleura: Asymmetric airspace opacity within the left lung. No effusion. Heart and mediastinum: Normal heart size. Unremarkable mediastinal contours. Osseous structures: No acute abnormality. Other: None. IMPRESSION: Asymmetric airspace opacity within the left lung, which, in the appropriate clinical setting, may represent sequela of infection Signed: Ro Correa MD Report Verified Date/Time:12/04/2018 23:12:24 Reading Location: [facility] [id number] Neuro Reading Room Procedure Note Interface, External Ris In - 12/04/2018 11:14 PM CDT FINAL REPORT INDICATION: Fever COMPARISON: November 28, 2018 TECHNIQUE: Single frontal view of the chest. FINDINGS: Lungs and pleura: Asymmetric airspace opacity within the left lung. No effusion. Heart and mediastinum: Normal heart size. Unremarkable mediastinal contours. Osseous structures: No acute abnormality. Other: None. IMPRESSION: Asymmetric airspace opacity within the left lung, which, in the appropriate clinical setting, may represent sequela of infection Signed: Ro Correa MD Report Verified Date/Time: 12/04/2018 23:12:24 Reading Location: [address] Neuro Reading Room Performing Organization Address City/[facility] Centercode Phone Number GE RIS Lactic acid, venous (12/04/2018 8:27 PM CDT) Lactate, Venous 2.3 (H)Comment: Specimen 0.5 - 2.2 mmol/L [facility] slightly hemolyzed [facility] Specimen Blood Performing Organization Address [facility] Centercode Phone Number [address] [address] [phone] [place] Valproic acid level, total (12/04/2018 8:27 PM CDT)Only the most recent of2 resultswithin the time period is included. Valproic Acid, Total 37 (L) 50 - 100 ug/mL [facility] Specimen Blood Narrative Performed At Therapeutic range for some clinical [facility] [place] conditions may be >100 ug/mL Performing Organization Address [facility] CentercoGeoVS Phone Number [address] [address] CENTER POCT-HEMATOCRIT (12/04/2018 8:03 PM CDT) POC-Hematocrit 34 (L)Comment: TESTED AT 40 - 50 % [facility] [address] [place] [address] Specimen Blood Performing Organization Address City/[facility] Centercode Phone Number [address] [address] [phone] [place] POCT-HEMOGLOBIN (12/04/2018 8:03 PM CDT) POC-Hemoglobin 11.6 (L)Comment: TESTED AT 13.0 - 16.8 g/dL [address] [place] [address]OSBRRG AT [address] [address] Specimen Blood Performing Organization Address [facility] Centerconj Phone Number [address] [address] [phone] [place] POCT-GLUCOSE (12/04/2018 8:03 PM CDT) POC-Glucose 84Comment: TESTED AT [facility] 70 - 110 mg/dL [address] [address] Specimen Blood Performing Organization Address [facility] Phone Number [address] [address] [place] POC-Sodium (12/04/2018 8:03 PM CDT) POC-Sodium 136Comment: TESTED AT [facility] 135 - 148 meq/L [address] [address] Specimen Blood Performing Organization Address [facility] Centerconj Phone Number [address] [address] [place] POC-Potassium (12/04/2018 8:03 PM CDT) POC-Potassium 4.5Comment: TESTED AT [facility] 3.6 - 5.5 meq/L [address] [address] Specimen Blood Performing Organization Address [facility] Centerconj Phone Number [address] [address] [place] POC-Calcium ionized (12/04/2018 8:03 PM CDT) POC-Calcium Ionized 1.25Comment: TESTED AT 1.12 - 1.27 mmol/L [address] [address] Specimen Blood Performing Organization Address City/[facility]/Zipcode Phone Number [address] [address] [place] POC-Blood gases, venous (12/04/2018 8:03 PM CDT) Temp. Celsius-POC 37.[address] [facility] FIO2-POC Comment: TESTED AT [address] [address] pH, Venous-POC 7.483 (H) 7.320 - 7.[address] [facility] [place] PCO2, Venous-POC 42.8 41.0 - 51.[address] [facility] PO2, Venous-POC 50.0 (H) 25.0 - 40.[address] [facility] SO2, Venous-POC 87.0 (H) 40.0 - 70.0 % [facility] HCO3, Venous-POC 32.1 (H) 21.0 - 29.0 meq/L [facility] [place] BE, Venous-POC 9.0 (H) -2.0 - 3.0 meq/L [facility] Specimen Blood Performing Organization Address City/[facility] Centercode Phone Number [address] [address] [phone] [place] Phosphorus (12/04/2018 8:00 PM CDT)Only the most recent of2 resultswithin the time period is included. Phosphorus 2.9 2.3 - 4.7 mg/dL [facility] Specimen Blood Narrative Performed At Check Serum Phosphorus level 4 hours after IV [facility] [place] phosphorus replacement or 8 hours after PO replacement completed. Performing Organization Address City/State/Zipcode Phone Number [address] [place] [address] CENTER Magnesium (12/04/2018 8:00 PM CDT)Only the most recent of2 resultswithin the time period is included. Magnesium 1.7 1.6 - 2.6 mg/dL [facility] Specimen Blood Narrative Performed At Check Serum Phosphorus level 4 hours after IV [facility] [place] phosphorus replacement or 8 hours after PO replacement completed. Performing Organization Address City/[facility] Centerconj Phone Number [address] [address] [place] POC-Lactic Acid, Arterial (12/04/2018 7:52 PM CDT) POC-Lactic Acid, 2.6 (H)Comment: 0.4 - 1.3 mmol/L [facility] Arterial TESTED AT [address] [address] Specimen Blood Performing Organization Address [facility] Phone Number [address] [address] [place] Insulin-like growth factor (12/03/2018 7:52 AM CDT)Only the most recent of2 resultswithin the time period is included. Igf-1(Somatomedin-C) 92 50 - 317 ng/mL [facility] Z-Score Male: -0.9 -2.0 - 2.0 SD [facility] Comment: [facility] This test was developed and its analytical performance characteristics have been determined by [facility]. It has not been cleared or approved by FDA. This assay has been validated pursuant to the CLIA regulations and is used for clinical purposes. Z-Score Female: DNR [facility] Specimen Blood Narrative Performed At Performing Lab [facility] EZ [facility] [address] [address] Mohsen Fair MD, PhD, KATHY Performing Organization Address City/[facility] Centercode Phone Number [employer] [place] [address] [address] [place] [address] EKG-SCANNED (11/30/2018 1:35 PM CDT) Narrative Performed At US abdominal with doppler (11/29/2018 6:40 AM CDT) Specimen Narrative Performed At FINAL REPORT [facility] HISTORY : Transaminitis COMPARISON : None. COMMENT : Ultrasound examination of the right upper quadrant with color Doppler and spectral evaluation of the abdominal vasculature was performed. Please note evaluation of midline structures is limited secondary to prominent overlying bowel gas. The patient has pancreas is unremarkable. The liver is normal in size measuring 13.7 cm in length. There is a focal hyperechoic lesion identified within the right hepatic lobe measuring 2.6 x 2.3 x 2.4 cm. The remaining hepatic parenchyma is homogeneous. The gallbladder is unremarkable. There is no evidence for cholelithiasis, gallbladder wall thickening, or pericholecystic fluid. There is no intra or extrahepatic biliary ductal dilatation. The common bile duct measures 4 mm. Sonographic Servin's sign is negative. The spleen is normal in size measuring 10.4 cm in length and demonstrates unremarkable sonographic appearance. The kidneys are normal in size measuring 12.3 cm in length on the right and 11.0 cm in length on the left. Cortical thickness and echogenicity are within normal limits. There is no evidence for solid renal mass, hydronephrosis, or shadowing calculi. There is no ascites or pleural fluid visualized. Vascular: The main portal vein is patent with antegrade flow and diameter of 0.9 cm. Peak systolic velocity is 34.7 cm/s. The right and left portal veins are patent with antegrade flow. The proper hepatic artery is patent with resistive index of 0.6. The right left hepatic arteries are patent with resistive indices of 0.6 bilaterally. The IVC is patent and unremarkable. The middle, right, and left hepatic veins are patent. The visualized splenic artery and vein are patent and unremarkable. The aorta tapers normally. IMPRESSION : 1. 2.6 x 2.3 x 2.4 cm hyperechoic lesion identified within the right hepatic lobe which is not definitively characterized on this ultrasound examination. Further evaluation with dedicated contrast enhanced liver CT or MRI is recommended. 2. Otherwise, unremarkable abdominal ultrasound examination and Doppler evaluation. Signed: Gonzalo Richard MD Report Verified Date/Time:11/29/2018 08:23:38 Reading Location: [facility] [id number] Ultrasound Reading Room Procedure Note Interface, External Ris In - 11/29/2018 8:25 AM CDT FINAL REPORT HISTORY : Transaminitis COMPARISON : None. COMMENT : Ultrasound examination of the right upper quadrant with color Doppler and spectral evaluation of the abdominal vasculature was performed. Please note evaluation of midline structures is limited secondary to prominent overlying bowel gas. The patient has pancreas is unremarkable. The liver is normal in size measuring 13.7 cm in length. There is a focal hyperechoic lesion identified within the right hepatic lobe measuring 2.6 x 2.3 x 2.4 cm. The remaining hepatic parenchyma is homogeneous. The gallbladder is unremarkable. There is no evidence for cholelithiasis, gallbladder wall thickening, or pericholecystic fluid. There is no intra or extrahepatic biliary ductal dilatation. The common bile duct measures 4 mm. Sonographic Servin's sign is negative. The spleen is normal in size measuring 10.4 cm in length and demonstrates unremarkable sonographic appearance. The kidneys are normal in size measuring 12.3 cm in length on the right and 11.0 cm in length on the left. Cortical thickness and echogenicity are within normal limits. There is no evidence for solid renal mass, hydronephrosis, or shadowing calculi. There is no ascites or pleural fluid visualized. Vascular: The main portal vein is patent with antegrade flow and diameter of 0.9 cm. Peak systolic velocity is 34.7 cm/s. The right and left portal veins are patent with antegrade flow. The proper hepatic artery is patent with resistive index of 0.6. The right left hepatic arteries are patent with resistive indices of 0.6 bilaterally. The IVC is patent and unremarkable. The middle, right, and left hepatic veins are patent. The visualized splenic artery and vein are patent and unremarkable. The aorta tapers normally. IMPRESSION : 1. 2.6 x 2.3 x 2.4 cm hyperechoic lesion identified within the right hepatic lobe which is not definitively characterized on this ultrasound examination. Further evaluation with dedicated contrast enhanced liver CT or MRI is recommended. 2. Otherwise, unremarkable abdominal ultrasound examination and Doppler evaluation. Signed: Gonzalo Richard MD Report Verified Date/Time: 11/29/2018 08:23:38 Reading Location: [facility] [id number] Ultrasound Reading Room Performing Organization Address City/State/[facility] Centercode Phone Number GE RIS Hemoglobin A1c (11/29/2018 2:29 AM CDT) Hemoglobin A1C 5.5 4.3 - 6.1 % [facility] [place] Specimen Blood Performing Organization Address City/[facility] Centercode Phone Number [address] [address] CENTER Cortisol (11/29/2018 1:56 AM CDT)Only the most recent of2 resultswithin the time period is included. Cortisol, Total 10.1 3.7 - 19.4 ug/dL [facility] [place] Specimen Blood Narrative Performed At Obtain if BG < [address] [facility] [place] Performing Organization Address [facility] Centerconj Phone Number [address] [address] [place] Insulin, fasting (11/29/2018 1:56 AM CDT) Insulin, Fasting 3.0 2.0 - 19.6 uIU/mL [facility] Comment: [facility] This insulin shows strong cross-reactivity for some insulin analogs (lispro, aspart, and glargine) and much lower cross-reactivity with others (detemir, glulisine). Specimen Blood Narrative Performed At Performing Lab [facility] [id number] [place] [address] Mohsen Fair MD, PhD, KATHY Performing Organization Address City/[facility] Centerconj Phone Number [place] [address] [facility] [address] [facility] Growth hormone (11/29/2018 1:56 AM CDT) Growth Hormone 0.6 < OR=7.1 ng/mL [facility] Comment: INC[facility]POR[facility] Because of a pulsatile secretion pattern, random (unstimulated) growth hormone (GH) levels are frequently undetectable in normal children and adults and are not reliable for diagnosing GH deficiency. Regarding suppression tests, failure to suppress GH is diagnostic of acromegaly. Typical GH response in healthy subjects: Using the glucose tolerance (GH suppression) test, acromegaly would be ruled out if the patient's GH level is <1.0 ng/mL at any point in the timed sequence.[Vivian L, [facility], Rich S, et al. Acromegaly: an Endocrine Society Clinical Practice Guideline. J Clin Endocrinol Metab 2014; 99: 5029-0095]. Using GH stimulation testing, the following result at any point in the timed sequence makes GH deficiency unlikely: Adults (> or=20 years): Insulin Hypoglycemia > or=5.1 ng/mL Arginine/GHRH> or=4.1 ng/mL Glucagon > or=3.0 ng/mL Children (<20 years): All Stimulation Tests> or=10.0 ng/mL Specimen Blood Narrative Performed At Performing Lab [facility] [id number] [place] [address] Mohsen Fair MD, PhD, KATHY Performing Organization Address [facility] [place] [address] [employer] [id number] [facility] C-peptide (11/29/2018 1:56 AM CDT) C-Peptide 1.00 0.80 - 3.85 ng/mL [facility] Specimen Blood Narrative Performed At Performing Lab [facility] [address] [address] Mohsen Fair MD, PhD, KATHY Performing Organization Address [facility] [place] [address] [employer] [address] [facility] Glucose (11/29/2018 1:56 AM CDT) Glucose 59 (L) 70 - 105 mg/dL [facility] [place] Specimen Blood Narrative Performed At Obtain if BG < [address] [facility] [place] [place] Performing Organization Address [facility]/Zipcode Phone Number [address] [address] CENTER Ketone, blood (11/29/2018 1:56 AM CDT) Ketones, Blood 0.1 <0.4 mmol/L [facility] C[facility] Specimen Blood Performing Organization Address City/[facility]/Zipcode Phone Number [facility] [address] [place] [address] CENTER XR skull less than 4 views (11/28/2018 5:35 PM CDT) Specimen Narrative Performed At FINAL REPORT GE RIS Skull dated 11/28/2018 Comment: 2 views of skull obtained in frontal and lateral projection. No metallic foreign body is seen in the calvarium. The frontal, sphenoid, ethmoid, maxillary sinuses are clear. Orbital rim is intact. Signed: Jaciel Rodriguez MD Report Verified Date/Time:11/29/2018 17:37:13 Reading Location: [address] Consult Reading Room Procedure Note Interface, External Ris In - 11/29/2018 5:39 PM CDT FINAL REPORT Skull dated 11/28/2018 Comment: 2 views of skull obtained in frontal and lateral projection. No metallic foreign body is seen in the calvarium. The frontal, sphenoid, ethmoid, maxillary sinuses are clear. Orbital rim is intact. Signed: Jaciel Rodriguez MD Report Verified Date/Time: 11/29/2018 17:37:13 Reading Location: [facility] C013 Consult Reading Room Performing Organization Address City/State/[facility] Centercode Phone Number GE GEOLID EEG AWAKE AND DROWSY (11/28/2018 3:36 PM CDT) Specimen Narrative Performed At Date(s) of EE11/28/18 GE RIS DATE OF REPORT: 11/28/18 ACC: [id number] EEG Number: [id number] Test Location: Inpatient ICU Start time: 15:15 Stop time: 15:36 ICD-10: R56.9 CPT Code: 51343 HISTORY: 53 yo male with history of schizophrenia, autonomic neuropathy, TBI, MDD, anxiety who presents from OSH after a 30 second generalized seizure with LOC. MEDICATIONS THAT COULD AFFECT EEG: Baclofen, Divalproex, Docusate sodium, Famotidine, Lidocaine, NS, Olanzapine TECHNICAL SUMMARY: This is a digital video-EEG recorded with 32 input channels reviewed with bipolar and referential montages using the modified [employer] system nomenclature. DESCRIPTION OF RECORD: During the maximally alert state, a poorly formed 7-8 Hz posterior dominant rhythm which is symmetric, minimally reactive to eye opening and closure. Low voltage beta activity was seen diffusely, prominent. Drowsiness was characterized by decreased EMG activity, eye blinks, increased frontocentral theta. No stage II sleep structures were seen. SIGNIFICANT VIDEO EVENTS: None SIGNIFICANT ELECTROCARDIOGRAM EVENTS:Normal EKG HV: Hyperventilation was not performed PHOTIC STIMULATION: Photic stimulation was not performed. IMPRESSION: Abnormal Awake and Drowsy EEG Background slow CLINICAL CORRELATION: This is an abnormal EEG consistent with a mild encephalopathy. No epileptiform discharges or areas of focal dysfunction were seen. An EEG without epileptiform discharges does not exclude the possibility of epilepsy. If the clinical suspicion of epilepsy remains, consider additional EEG recordings. Edu Burns MD, MS Neurophysiology/Epilepsy Attending Procedure Note Interface, External Ris In - 11/28/2018 4:20 PM CDT Date(s) of EE11/28/18 DATE OF REPORT: 11/28/18 ACC: [id number] EEG Number: [id number] Test Location: Inpatient ICU Start time: 15:15 Stop time: 15:36 ICD-10: R56.9 CPT Code: 29665 HISTORY: 53 yo male with history of schizophrenia, autonomic neuropathy, TBI, MDD, anxiety who presents from OSH after a 30 second generalized seizure with LOC. MEDICATIONS THAT COULD AFFECT EEG: Baclofen, Divalproex, Docusate sodium, Famotidine, Lidocaine, NS, Olanzapine TECHNICAL SUMMARY: This is a digital video-EEG recorded with 32 input channels reviewed with bipolar and referential montages using the modified [employer] system nomenclature. DESCRIPTION OF RECORD: During the maximally alert state, a poorly formed 7-8 Hz posterior dominant rhythm which is symmetric, minimally reactive to eye opening and closure. Low voltage beta activity was seen diffusely, prominent. Drowsiness was characterized by decreased EMG activity, eye blinks, increased frontocentral theta. No stage II sleep structures were seen. SIGNIFICANT VIDEO EVENTS: None SIGNIFICANT ELECTROCARDIOGRAM EVENTS: Normal EKG HV: Hyperventilation was not performed PHOTIC STIMULATION: Photic stimulation was not performed. IMPRESSION: Abnormal Awake and Drowsy EEG Background slow CLINICAL CORRELATION: This is an abnormal EEG consistent with a mild encephalopathy. No epileptiform discharges or areas of focal dysfunction were seen. An EEG without epileptiform discharges does not exclude the possibility of epilepsy. If the clinical suspicion of epilepsy remains, consider additional EEG recordings. Edu Burns MD, MS Neurophysiology/Epilepsy Attending Performing Organization Address City/State/[facility] Centercode Phone Number [facility] Hepatitis panel, acute (11/28/2018 11:27 AM CDT) Hep A IgM HEPATITIS A TEST NEGATIVE Nonreactive [facility] [place] Hep B C IgM NON-REACTIVE Nonreactive [facility] [place] Hepatitis C Ab NON-REACTIVE Nonreactive [facility] [place] hepatitis B Surface Ag NON-REACTIVE Nonreactive [facility] [place] [place] Specimen Blood Performing Organization Address [facility] Phone Number [address] [address] [phone] [place] Folate, Serum (11/28/2018 11:27 AM CDT) Folate 9.4 >=7.0 ng/mL [facility] [place] Specimen Blood Performing Organization Address [facility] Centercode Phone Number [address] [address] [place] Vitamin B12 (11/28/2018 11:27 AM CDT) Vitamin B12 1,054 (H) 213 - 816 pg/mL [facility] [place] [place] Specimen Blood Performing Organization Address [facility] Centercode Phone Number [address] [address] [phone] [place] Comprehensive metabolic panel (11/28/2018 11:23 AM CDT)Only the most recent of2 resultswithin the time period is included. Protein, Total 6.9Comment: Specimen 6.0 - 8.3 gm/dL [facility] hemolyzed [facility] Albumin 3.0 (L)Comment: Specimen 3.5 - 5.0 g/dL [facility] hemolyzed [facility] Alkaline Phosphatase 66 40 - 150 U/L [facility] [place] [place] Total Bilirubin 0.3Comment: Specimen 0.2 - 1.2 mg/dL [facility] hemolyzed [facility] Sodium 140 136 - 145 meq/L [facility] [place] [place] Potassium 4.4Comment: Specimen 3.5 - 5.1 meq/L [facility] Chloride 107 98 - 107 meq/L [facility] [place] [place] CO2 26 22 - 29 meq/L [facility] [place] [place] BUN 8 7 - 21 mg/dL [facility] [place] [place] Creatinine 0.60Comment: Specimen 0.57 - 1.25 mg/dL [facility] hemolyzed [facility] Glucose 70 70 - 105 mg/dL [facility] [place] [place] Calcium 9.2 8.4 - 10.2 mg/dL [facility] [place] [place] AST 42 (H)Comment: Specimen 5 - 34 U/L [facility] ALT 70 (H)Comment: Specimen 6 - 55 U/L [facility] hemolyzed [facility] EGFR 171Comment: ESTIMATED mL/min/1.73 sq m [facility] GFR IS NOT ACCURATE [facility] CREATININE CLEARANCE IN PREDICTING GLOMERULAR FILTRATION RATE. ESTIMATED GFR IS NOT APPLICABLE FOR DIALYSIS PATIENTS. Specimen Blood Performing Organization Address City/State/Zipcode Phone Number [facility] [address] [place] [address] CENTER Drug screen, urine, comprehensive (11/27/2018 9:03 AM CDT) Specimen Urine Narrative Performed At TSH/Free T4 If Indicated (11/27/2018 8:59 AM CDT) TSH 0.48 0.35 - 4.94 uIU/mL [facility] [place] [place] Specimen Blood Performing Organization Address [facility] Centercode Phone Number [address] [address] CENTER Troponin I (11/27/2018 8:59 AM CDT) Troponin I <0.01 0.00 - 0.03 ng/mL [facility] [place] [place] Specimen Blood Narrative Performed At Troponin I (TnI) levels must be interpreted [facility] [place] in the context of the presenting symptoms and the clinical findings. Elevated TnI levels indicate myocardial damage, but are not specific for ischemic heart disease. Elevated TnI levels are seen in patients with other cardiac conditions (including myocarditis and congestive heart failure), and slight TnI elevations occur in patients with other conditions, including sepsis, renal failure, acidosis, acute neurological disease, and persistent tachyarrhythmia. Performing Organization Address [facility] Phone Number [address] [address] [place] after 12/23/2017 Insurance Payer Benefit Plan / Group Subscriber ID Type Phone Address MEDICAID - MEDICAID MEDICAID [employer] xxxxxxxxx Medicaid [employer]GD CARE Non-Contracted Advance Directives For more information, please contact:[address] [phone] Code Status Date Activated Date Inactivated Comments Full Code 11/27/2018 6:40 AM 12/07/2018 6:23 PM This code status was determined by: Patient
--- OUTSIDE RECORDS SUMMARY | 2018-12-24 21:15 | XMS REPORT ---
:1965 [facility] [address] [place] [address] Care Team Providers Name Role Phone JEANNIE MONROE GERARDOJESSI GUNTER Unavailable Unavailable Problems This patient has no known problems. Allergies, Adverse Reactions, Alerts This patient has no known allergies or adverse reactions. Medications This patient has no known medications. Results Test Description Test Time Test Comments Text Results Atomic Results Result Comments MISCELLANEOUS LAB ORDER 2018-12-13 11:35:00 Test Item Value Reference Range Comments SCAN RESULT (test mozs=[id number]) MISCELLANEOUS LAB [id number] 12:54:00 Test Item Value Reference Range Comments SCAN RESULT (test ctlo=[id number]) BLOOD [id number] 20:01:00 Test Item Value Reference Range Comments CULTURE (BEAKER) (test ocfd=9697) No growth in 5 days BLOOD [id number] 02:01:00 Test Item Value Reference Range Comments CULTURE (BEAKER) (test bdxj=5488) No growth in 5 days POCT-GLUCOSE [id number] 05:16:00 Test Item Value Reference Range Comments POC-GLUCOSE METER (BEAKER) 83 mg/dL 70-[address] [facility] [address] [facility] (test qtqv=3833) [employer] [address] POCT-GLUCOSE [id number] 21:57:00 Test Item Value Reference Range Comments POC-GLUCOSE METER (BEAKER) 75 mg/dL 70-[address] [facility] [address] [facility] (test quba=0298) [employer] [address] CORTISOL,60 [id number] 18:57:00 Test Item Value Reference Range Comments CORTISOL BASELINE NETWORKED (BEAKER) (test 9.7 mcg/dL itom=6576) CORTISOL 30 MINUTE NETWORKED (BEAKER) (test 17.8 mcg/dL irfx=4095) CORTISOL, 60 MINUTE (BEAKER) (test lnli=3969) 23.6 ug/dL ACTH STIMULATION TEST INTERPRETATION GUIDELINES(Synonyms: Cortrosyn Test, Cosyntropin or Corticotropin Stimulation Test)Adenocorticotropic hormone (ACTH) is a tropic hormone, made in the pituitary gland, which travels trhough the bloodstream and stimulates the cortex of the adrenal glands to release cortisol. Cortisol is a primary hormone, which aids the body's metabolism of fats, carbohydrates, and protein as well as sodium and potassium regulation.ACTH Stimulation Test: Exogenous administrationof biologically active ACTH stimulates the secretion of cortisol from the adrenal gland. This test is used to evaluate adrenal function by measuring cortisol levels at baseline and at 30 and 60 minutesafter the administration of 250 micrograms of cosyntropin (Cortrosyn). Patients who have received exogenous corticosteroids immediately prior to performing the ACTH Stimulation Test will often have elevated baseline cortisol levels, which may lead to erroneous interpretation of test results. The notable exception is with dexamethasone.Normal Response: An increase in cortisol after stimulation by ACTHis normal. Post-stimulation cortisol concentration should be greater than 20 mcg/dL or the rate of rise from baseline cortisol should be greater than or equal to 9 mcg/dL.Patients with sepsis or septicshock: According to a study by Harjinder et al (CARLOS 2000,283( 8):1038-45), the ACTH Stimulation Test provides important prognostic information. This study defined 3 groups of patients with sepsis or septic shock : 1. Good Survival: Low basal cortisol (<or=34 mcg/dL) and high ACTH response (>9mcg/dL) 2. Intermediate Survival: Low basal cortisol (< 34 mcg/dL) and low response to ACTH (<or=9 mcg/dL) OR High basal cortisol (>34 mcg/dL) or high ACTH response (>9 mcg/dL) 3.Poor Survival: High basal cortisol (>34 mcg/dL) and low ACTH response (<or=9 mcg/dL) .Treatment of patients with relative adrenal dysfunction may be indicated based on test results and the clinical condition of the patient. Additional information, including treatment recommendations, is available in critically ill patients, approved by the Pharmacy, Nutrition, and Therapeutics Committee on 08/01/2004 and available through the Pharmacy Policy and Procedure Section on The Source.Do not run this test if systemic hydrocortisone, methylprednisolone, prednisolone or prednisone has been administered within the past 24 hours. Draw baseline cortisol level just prior to cosyntropin administration. Administer cosyntropin 0.25 mg diluted in 2-5 mL of normal saline slow IV Push over a period of 2 minutes. Draw serum cortisol level 30 minutes after cosyntropin administration. Draw serum cortisollevel 60 minutes after cosyntropin administration.CORTISOL,30 [id number] 18:11:00 Test Item Value Reference Range Comments CORTISOL BASELINE NETWORKED (BEAKER) (test 9.7 mcg/dL plfj=8903) CORTISOL, 30 MINUTE (BEAKER) (test oawm=4241) 17.8 ug/dL ACTH STIMULATION TEST INTERPRETATION GUIDELINES(Synonyms: Cortrosyn Test, Cosyntropin or Corticotropin Stimulation Test)Adenocorticotropic hormone (ACTH) is a tropic hormone, made in the pituitary gland, which travels trhough the bloodstream and stimulates the cortex of the adrenal glands to release cortisol. Cortisol is a primary hormone, which aids the body's metabolism of fats, carbohydrates, and protein as well as sodium and potassium regulation.ACTH Stimulation Test: Exogenous administrationof biologically active ACTH stimulates the secretion of cortisol from the adrenal gland. This test is used to evaluate adrenal function by measuring cortisol levels at baseline and at 30 and 60 minutesafter the administration of 250 micrograms of cosyntropin (Cortrosyn). Patients who have received exogenous corticosteroids immediately prior to performing the ACTH Stimulation Test will often have elevated baseline cortisol levels, which may lead to erroneous interpretation of test results. The notable exception is with dexamethasone.Normal Response: An increase in cortisol after stimulation by ACTHis normal. Post-stimulation cortisol concentration should be greater than 20 mcg/dL or the rate of rise from baseline cortisol should be greater than or equal to 9 mcg/dL.Patients with sepsis or septicshock: According to a study by Harjinder et al (CARLOS 2000,283( 8):1038-45), the ACTH Stimulation Test provides important prognostic information. This study defined 3 groups of patients with sepsis or septic shock : 1. Good Survival: Low basal cortisol (<or=34 mcg/dL) and high ACTH response (>9mcg/dL) 2. Intermediate Survival: Low basal cortisol (< 34 mcg/dL) and low response to ACTH (<or=9 mcg/dL) OR High basal cortisol (>34 mcg/dL) or high ACTH response (>9 mcg/dL) 3.Poor Survival: High basal cortisol (>34 mcg/dL) and low ACTH response (<or=9 mcg/dL) .Treatment of patients with relative adrenal dysfunction may be indicated based on test results and the clinical condition of the patient. Additional information, including treatment recommendations, is available in critically ill patients, approved by the Pharmacy, Nutrition, and Therapeutics Committee on 08/01/2004 and available through the Pharmacy Policy and Procedure Section on The Source.Do not run this test if systemic hydrocortisone, methylprednisolone, prednisolone or prednisone has been administered within the past 24 hours. Draw baseline cortisol level just prior to cosyntropin administration. Administer cosyntropin 0.25 mg diluted in 2-5 mL of normal saline slow IV Push over a period of 2 minutes. Draw serum cortisol level 30 minutes after cosyntropin administration. Draw serum cortisollevel 60 minutes after cosyntropin administration.POCT-GLUCOSE [id number] 17:52:00 Test Item Value Reference Range Comments POC-GLUCOSE METER (BEAKER) 74 mg/dL 70-110 TESTED AT [address] (test adhi=8878) [employer] [address] CORTISOL,[id number] 15:02:00 Test Item Value Reference Range Comments CORTISOL, BASELINE (BEAKER) (test qltf=3681) 9.7 ug/dL ACTH STIMULATION TEST INTERPRETATION GUIDELINES(Synonyms: Cortrosyn Test, Cosyntropin or Corticotropin Stimulation Test)Adenocorticotropic hormone (ACTH) is a tropic hormone, made in the pituitary gland, which travels trhough the bloodstream and stimulates the cortex of the adrenal glands to release cortisol. Cortisol is a primary hormone, which aids the body's metabolism of fats, carbohydrates, and protein as well as sodium and potassium regulation.ACTH Stimulation Test: Exogenous administrationof biologically active ACTH stimulates the secretion of cortisol from the adrenal gland. This test is used to evaluate adrenal function by measuring cortisol levels at baseline and at 30 and 60 minutesafter the administration of 250 micrograms of cosyntropin (Cortrosyn). Patients who have received exogenous corticosteroids immediately prior to performing the ACTH Stimulation Test will often have elevated baseline cortisol levels, which may lead to erroneous interpretation of test results. The notable exception is with dexamethasone.Normal Response: An increase in cortisol after stimulation by ACTHis normal. Post-stimulation cortisol concentration should be greater than 20 mcg/dL or the rate of rise from baseline cortisol should be greater than or equal to 9 mcg/dL.Patients with sepsis or septicshock: According to a study by Harjinder et al (CARLOS 2000,283( 8):1038-45), the ACTH Stimulation Test provides important prognostic information. This study defined 3 groups of patients with sepsis or septic shock : 1. Good Survival: Low basal cortisol (<or=34 mcg/dL) and high ACTH response (>9mcg/dL) 2. Intermediate Survival: Low basal cortisol (< 34 mcg/dL) and low response to ACTH (<or=9 mcg/dL) OR High basal cortisol (>34 mcg/dL) or high ACTH response (>9 mcg/dL) 3.Poor Survival: High basal cortisol (>34 mcg/dL) and low ACTH response (<or=9 mcg/dL) .Treatment of patients with relative adrenal dysfunction may be indicated based on test results and the clinical condition of the patient. Additional information, including treatment recommendations, is available in critically ill patients, approved by the Pharmacy, Nutrition, and Therapeutics Committee on 08/01/2004 and available through the Pharmacy Policy and Procedure Section on The Source.BASIC METABOLIC [id number] 14:44:00 Test Item Value Reference Range Comments SODIUM (BEAKER) (test 142 meq/L 136-145 qbqg=495) POTASSIUM (BEAKER) (test 4.8 meq/L 3.5-5.1 Specimen slightly yfxl=358) hemolyzed CHLORIDE (BEAKER) (test 103 meq/L 98-107 zvzl=803) CO2 (BEAKER) (test 30 meq/L 22-29 zuoa=327) BLOOD UREA NITROGEN 10 mg/dL 7-21 (BEAKER) (test fgdl=416) CREATININE (BEAKER) (test 0.67 mg/dL 0.57-1.25 Specimen slightly pfdj=492) hemolyzed GLUCOSE RANDOM (BEAKER) 105 mg/dL 70-105 (test hbxh=356) CALCIUM (BEAKER) (test 9.7 mg/dL 8.4-10.2 fisu=659) EGFR (BEAKER) (test 150 mL/min/1.73 sq m ESTIMATED GFR IS NOT rxef=2385) ACCURATE CREATININE CLEARANCE IN PREDICTING GLOMERULAR FILTRATION RATE. ESTIMATED GFR IS NOT APPLICABLE FOR DIALYSIS PATIENTS. LACTIC ACID, [id number] 14:39:00 Test Item Value Reference Range Comments LACTATE BLOOD ARTERIAL (2) 4.6 mmol/L 0.5-2.2 Specimen slightly hemolyzed (BEAKER) (test mjbc=5260) PROTHROMBIN [id number] 14:05:00 Test Item Value Reference Range Comments PROTIME (BEAKER) (test ktsu=391) 12.4 seconds 11.7-14.7 INR (BEAKER) (test jttt=310) 0.9 <=5.9 RECOMMENDED COUMADIN/WARFARIN INR THERAPY RANGESSTANDARD DOSE: 2.0 - 3.0 Includes: PROPHYLAXIS forvenous thrombosis, systemic embolization; TREATMENT for venous thrombosis and/or pulmonary embolus.HIGH RISK: Target INR is 2.5-3.5 for patients with mechanical heart valves.CBC W/PLT COUNT & AUTO [id number] 14:02:00 Test Item Value Reference Range Comments WHITE BLOOD CELL COUNT (BEAKER) (test myab=140) 7.8 K/ L 3.5-10.5 RED BLOOD CELL COUNT (BEAKER) (test hmgy=206) 3.96 M/ L 4.63-6.08 HEMOGLOBIN (BEAKER) (test zwvh=913) 12.4 GM/DL 13.7-17.5 HEMATOCRIT (BEAKER) (test oegw=095) 39.0 % 40.1-51.0 MEAN CORPUSCULAR VOLUME (BEAKER) (test iwcs=868) 98.5 fL 79.0-92.2 MEAN CORPUSCULAR HEMOGLOBIN (BEAKER) (test 31.3 pg 25.7-32.2 ejdt=069) MEAN CORPUSCULAR HEMOGLOBIN CONC (BEAKER) (test 31.8 GM/DL 32.3-36.5 ymod=922) RED CELL DISTRIBUTION WIDTH (BEAKER) (test 15.6 % 11.6-14.4 ysjf=466) PLATELET COUNT (BEAKER) (test bbka=188) 219 K/CU MM 150-450 MEAN PLATELET VOLUME (BEAKER) (test dhrv=438) 12.3 fL 9.4-12.4 NUCLEATED RED BLOOD CELLS (BEAKER) (test 0 /100 WBC 0-0 ljff=993) NEUTROPHILS RELATIVE PERCENT (BEAKER) (test 43 % blmz=686) LYMPHOCYTES RELATIVE PERCENT (BEAKER) (test 44 % jgyp=280) MONOCYTES RELATIVE PERCENT (BEAKER) (test 10 % czsx=927) EOSINOPHILS RELATIVE PERCENT (BEAKER) (test 3 % gbzv=445) BASOPHILS RELATIVE PERCENT (BEAKER) (test 0 % wdme=532) NEUTROPHILS ABSOLUTE COUNT (BEAKER) (test 3.32 K/ L 1.78-5.38 dvjs=467) LYMPHOCYTES ABSOLUTE COUNT (BEAKER) (test 3.41 K/ L 1.32-3.57 zazk=765) MONOCYTES ABSOLUTE COUNT (BEAKER) (test 0.81 K/ L 0.30-0.82 ewyv=194) EOSINOPHILS ABSOLUTE COUNT (BEAKER) (test 0.20 K/ L 0.04-0.54 jjdt=651) BASOPHILS ABSOLUTE COUNT (BEAKER) (test 0.03 K/ L 0.01-0.08 sfyc=240) IMMATURE GRANULOCYTES-RELATIVE PERCENT (BEAKER) 0 % 0-1 (test nhzk=2494) POCT-GLUCOSE [id number] 13:12:00 Test Item Value Reference Range Comments POC-GLUCOSE METER (BEAKER) 126 mg/dL 70-110 TESTED AT [address] (test wkso=4074) [employer] [address] POCT-GLUCOSE [id number] 08:09:00 Test Item Value Reference Range Comments POC-GLUCOSE METER (BEAKER) 87 mg/dL 70-110 TESTED AT [address] (test jcbh=4225) [employer] [address] POCT-GLUCOSE [id number] 07:29:00 Test Item Value Reference Range Comments POC-GLUCOSE METER (BEAKER) 52 mg/dL 70-110 TESTED AT [address] (test hatj=0238) [employer] [address] POCT-GLUCOSE [id number] 01:49:00 Test Item Value Reference Range Comments POC-GLUCOSE METER (BEAKER) 94 mg/dL 70-110 TESTED AT [address] (test qxpi=8210) [employer] [address] POCT-GLUCOSE [id number] 18:53:00 Test Item Value Reference Range Comments POC-GLUCOSE METER (BEAKER) 124 mg/dL 70-110 TESTED AT [address] (test iaov=5845) [employer] [address] POCT-GLUCOSE [id number] 18:12:00 Test Item Value Reference Range Comments POC-GLUCOSE METER (BEAKER) 60 mg/dL 70-110 Notified TEDDY GREENBERG/TESTED AT [facility] (test rtcp=5496) [address] [place] [address] POCT-GLUCOSE [id number] 13:18:00 Test Item Value Reference Range Comments POC-GLUCOSE METER (BEAKER) 81 mg/dL 70-110 TESTED AT [address] (test hljp=6635) [employer] [address] POCT-GLUCOSE [id number] 08:05:00 Test Item Value Reference Range Comments POC-GLUCOSE METER (BEAKER) 108 mg/dL 70-110 TESTED AT [address] (test gbwp=0950) [place] [id number] POCT-GLUCOSE [id number] 08:02:00 Test Item Value Reference Range Comments POC-GLUCOSE METER (BEAKER) 67 mg/dL 70-110 Notified TEDDY GREENBERG/TESTED AT [facility] (test xixd=4292) [address] [place], [place] [id number] URINALYSIS WITH MICROSCOPIC IF [id number] 06:38:00 Test Item Value Reference Range Comments COLOR (BEAKER) (test mvgw=947) Yellow CLARITY (BEAKER) (test rvlk=935) Clear SPECIFIC GRAVITY UA (BEAKER) (test jyyt=503) 1.016 1.001-1.035 PH UA (BEAKER) (test vbdl=774) 7.0 5.0-8.0 PROTEIN UA (BEAKER) (test yqip=047) Negative Negative GLUCOSE UA (BEAKER) (test ttts=967) Negative Negative KETONES UA (BEAKER) (test sdvq=104) Negative Negative BILIRUBIN UA (BEAKER) (test iuiv=538) Negative Negative BLOOD UA (BEAKER) (test nluy=750) Negative Negative NITRITE UA (BEAKER) (test pgok=985) Negative Negative LEUKOCYTE ESTERASE UA (BEAKER) (test hbfb=106) Negative Negative UROBILINOGEN UA (BEAKER) (test cxcl=631) 0.2 mg/dL 0.2-1.0 SOURCE(BEAKER) (test vrmj=0612) RAD, CHEST, 1 VIEW, NON [id number] 23:12:00Reason for exam:->FeverShould this be performed at the bedside?->YesFINAL REPORT INDICATION: Fever COMPARISON: November 28, 2018 TECHNIQUE: Single frontal view of the chest. FINDINGS: Lungs and pleura: Asymmetric airspace opacity within the left lung. No effusion.Heart and mediastinum: Normal heart size. Unremarkable mediastinal contours.Osseous structures: No acute abnormality.Other: None. IMPRESSION: Asymmetric airspace opacity within the left lung, which, in the appropriate clinical setting, may represent sequela of infection Signed: Ro Correaeport Verified Date/Time: 12/04/2018 23:12:24 Reading Location: [address] [facility] Reading[facility] VALPROIC ACID LEVEL, [id number] 21:41:00 Test Item Value Reference Range Comments VALPROIC ACID TOTAL (BEAKER) (test jhss=128) 37 ug/mL 50-100 Therapeutic range for some clinical conditions may be >100 ug/mLPOCT-GLUCOSE [id number] 21:30:00 Test Item Value Reference Range Comments POC-GLUCOSE METER (BEAKER) 86 mg/dL 70-110 TESTED AT [address] (test bigk=3854) [employer] [address] PROTHROMBIN [id number] 21:00:00 Test Item Value Reference Range Comments PROTIME (BEAKER) (test lchc=021) 13.9 seconds 11.7-14.7 INR (BEAKER) (test drlt=601) 1.1 <=5.9 RECOMMENDED COUMADIN/WARFARIN INR THERAPY RANGESSTANDARD DOSE: 2.0 - 3.0 Includes: PROPHYLAXIS forvenous thrombosis, systemic embolization; TREATMENT for venous thrombosis and/or pulmonary embolus.HIGH RISK: Target INR is 2.5-3.5 for patients with mechanical heart valves.LACTIC ACID, [id number] 20:58:00 Test Item Value Reference Range Comments LACTATE BLOOD VENOUS (2) 2.3 mmol/L 0.5-2.2 Specimen slightly hemolyzed (BEAKER) (test ipng=8697) [id number] 20:51:00 Test Item Value Reference Range Comments PHOSPHORUS (BEAKER) (test hcmu=360) 2.9 mg/dL 2.3-4.7 Check Serum Phosphorus level 4 hours after IV phosphorus replacement or 8 hours after PO replacementcompleted.[id number] 20:51:00 Test Item Value Reference Range Comments MAGNESIUM (BEAKER) (test anhu=873) 1.7 mg/dL 1.6-2.6 Check Serum Phosphorus level 4 hours after IV phosphorus replacement or 8 hours after PO replacementcompleted.BASIC METABOLIC [id number] 20:51:00 Test Item Value Reference Range Comments SODIUM (BEAKER) (test 138 meq/L 136-145 kdue=096) POTASSIUM (BEAKER) (test 4.2 meq/L 3.5-5.1 cjkn=159) CHLORIDE (BEAKER) (test 101 meq/L 98-107 vmtq=980) CO2 (BEAKER) (test 30 meq/L 22-29 zzkr=588) BLOOD UREA NITROGEN 13 mg/dL 7-21 (BEAKER) (test sbsa=338) CREATININE (BEAKER) (test 0.74 mg/dL 0.57-1.25 ctlq=696) GLUCOSE RANDOM (BEAKER) 84 mg/dL 70-105 (test aaxb=120) CALCIUM (BEAKER) (test 9.4 mg/dL 8.4-10.2 obhk=489) EGFR (BEAKER) (test 134 mL/min/1.73 sq m ESTIMATED GFR IS NOT bxwz=5096) ACCURATE CREATININE CLEARANCE IN PREDICTING GLOMERULAR FILTRATION RATE. ESTIMATED GFR IS NOT APPLICABLE FOR DIALYSIS PATIENTS. Check Serum Phosphorus level 4 hours after IV phosphorus replacement or 8 hours after PO replacementcompleted.CBC W/PLT COUNT & AUTO [id number] 20:28:00 Test Item Value Reference Range Comments WHITE BLOOD CELL COUNT (BEAKER) (test zpff=934) 8.7 K/ L 3.5-10.5 RED BLOOD CELL COUNT (BEAKER) (test qajs=263) 3.66 M/ L 4.63-6.08 HEMOGLOBIN (BEAKER) (test lbgf=405) 11.3 GM/DL 13.7-17.5 HEMATOCRIT (BEAKER) (test wyfq=113) 34.8 % 40.1-51.0 MEAN CORPUSCULAR VOLUME (BEAKER) (test xlpf=408) 95.1 fL 79.0-92.2 MEAN CORPUSCULAR HEMOGLOBIN (BEAKER) (test 30.9 pg 25.7-32.2 pikx=035) MEAN CORPUSCULAR HEMOGLOBIN CONC (BEAKER) (test 32.5 GM/DL 32.3-36.5 phvn=199) RED CELL DISTRIBUTION WIDTH (BEAKER) (test 15.4 % 11.6-14.4 kgnb=264) PLATELET COUNT (BEAKER) (test shtu=375) 191 K/CU MM 150-450 MEAN PLATELET VOLUME (BEAKER) (test senh=948) 11.6 fL 9.4-12.4 NUCLEATED RED BLOOD CELLS (BEAKER) (test 0 /100 WBC 0-0 sqrh=651) NEUTROPHILS RELATIVE PERCENT (BEAKER) (test 33 % xrvx=964) LYMPHOCYTES RELATIVE PERCENT (BEAKER) (test 52 % wfyo=523) MONOCYTES RELATIVE PERCENT (BEAKER) (test 13 % difv=376) EOSINOPHILS RELATIVE PERCENT (BEAKER) (test 3 % upzu=315) BASOPHILS RELATIVE PERCENT (BEAKER) (test 0 % ywaj=309) NEUTROPHILS ABSOLUTE COUNT (BEAKER) (test 2.81 K/ L 1.78-5.38 vumb=156) LYMPHOCYTES ABSOLUTE COUNT (BEAKER) (test 4.50 K/ L 1.32-3.57 ycdp=609) MONOCYTES ABSOLUTE COUNT (BEAKER) (test 1.10 K/ L 0.30-0.82 meaq=767) EOSINOPHILS ABSOLUTE COUNT (BEAKER) (test 0.23 K/ L 0.04-0.54 whdq=448) BASOPHILS ABSOLUTE COUNT (BEAKER) (test 0.03 K/ L 0.01-0.08 mkmm=583) IMMATURE GRANULOCYTES-RELATIVE PERCENT (BEAKER) 0 % 0-1 (test bgqu=8875) [id number] 20:09:00 Test Item Value Reference Range Comments POC-HEMATOCRIT (BEAKER) (test 34 % 40-50 TESTED AT [address] qhfc=5987) [place] [address] [id number] 20:09:00 Test Item Value Reference Range Comments POC-HEMOGLOBIN (BEAKER) 11.6 g/dL 13.0-16.8 TESTED AT [address] (test bhhn=8209) [place] [address]TESTED AT [place] [address] POCT-BLOOD GASES, [id number] 20:08:00 Test Item Value Reference Range Comments TEMP, CELSIUS-POC (BEAKER) 37.0 (test bcar=9695) FIO2-POC (BEAKER) (test TESTED AT [address] cuip=1057) [place] [address] PH, VENOUS-POC (BEAKER) 7.483 7.320-7.420 (test rrjc=3334) PCO2, VENOUS-POC (BEAKER) 42.8 mm Hg 41.0-51.0 (test qlxw=6480) PO2, VENOUS-POC (BEAKER) 50.0 mm Hg 25.0-40.0 (test vhri=8871) SO2, VENOUS-POC (BEAKER) 87.0 % 40.0-70.0 (test dycv=1785) HCO3, VENOUS-POC (BEAKER) 32.1 meq/L 21.0-29.0 (test gpdr=1849) BASE EXCESS, VENOUS-POC 9.0 meq/L -2.0-3.0 (BEAKER) (test zuzf=7322) [id number] 20:08:00 Test Item Value Reference Range Comments POC-SODIUM (BEAKER) (test 136 meq/L 135-148 TESTED AT [address] kwkj=0920) [place] [address] [id number] 20:08:00 Test Item Value Reference Range Comments POC-POTASSIUM (BEAKER) (test 4.5 meq/L 3.6-5.5 TESTED AT [address] hngw=8982) [place] [address] [id number] 20:08:00 Test Item Value Reference Range Comments POC-GLUCOSE (BEAKER) (test 84 mg/dL 70-110 TESTED AT [address] panh=9405) [place] [address] POCT-CALCIUM [id number] 20:08:00 Test Item Value Reference Range Comments POC-CALCIUM IONIZED (BEAKER) 1.25 mmol/L 1.12-1.27 TESTED AT [address] (test ijej=7816) [employer] [address] POCT-LACTIC ACID, [id number] 20:08:00 Test Item Value Reference Range Comments POC-LACTIC ACID, ARTERIAL 2.6 mmol/L 0.4-1.3 TESTED AT [address] (BEAKER) (test jmoy=2396) [employer] [address] POCT-GLUCOSE [id number] 19:25:00 Test Item Value Reference Range Comments POC-GLUCOSE METER (BEAKER) 81 mg/dL 70-110 TESTED AT [address] (test wpxm=1558) [employer] [address] POCT-GLUCOSE [id number] 22:27:00 Test Item Value Reference Range Comments POC-GLUCOSE METER (BEAKER) 110 mg/dL 70-110 TESTED AT [address] (test djlv=8842) [employer] [address] POCT-GLUCOSE [id number] 04:51:00 Test Item Value Reference Range Comments POC-GLUCOSE METER (BEAKER) 75 mg/dL 70-110 TESTED AT [address] (test bubx=6422) [employer] [address] POCT-GLUCOSE [id number] 00:08:00 Test Item Value Reference Range Comments POC-GLUCOSE METER (BEAKER) 76 mg/dL 70-110 TESTED AT [address] (test bnuo=5832) [employer] [address] POCT-GLUCOSE [id number] 21:37:00 Test Item Value Reference Range Comments POC-GLUCOSE METER (BEAKER) 69 mg/dL 70-110 TESTED AT [address] (test gcqv=1805) [employer] [address] POCT-GLUCOSE [id number] 06:40:00 Test Item Value Reference Range Comments POC-GLUCOSE METER (BEAKER) 72 mg/dL 70-110 TESTED AT [address] (test oncz=5890) [employer] [address] POCT-GLUCOSE [id number] 06:14:00 Test Item Value Reference Range Comments POC-GLUCOSE METER (BEAKER) 64 mg/dL 70-110 TESTED AT [address] (test nrer=9192) [employer] [address] POCT-GLUCOSE [id number] 05:42:00 Test Item Value Reference Range Comments POC-GLUCOSE METER (BEAKER) 58 mg/dL 70-110 TESTED AT [address] (test fjig=5719) [employer] [address] POCT-GLUCOSE [id number] 03:44:00 Test Item Value Reference Range Comments POC-GLUCOSE METER (BEAKER) 73 mg/dL 70-110 TESTED AT [address] (test hizq=1396) [employer] [address] POCT-GLUCOSE [id number] 00:42:00 Test Item Value Reference Range Comments POC-GLUCOSE METER (BEAKER) 77 mg/dL 70-110 TESTED AT [address] (test vvlo=5713) [employer] [address] POCT-GLUCOSE [id number] 18:17:00 Test Item Value Reference Range Comments POC-GLUCOSE METER (BEAKER) 84 mg/dL 70-110 TESTED AT [address] (test dggj=0511) [employer] [address] POCT-GLUCOSE [id number] 12:37:00 Test Item Value Reference Range Comments POC-GLUCOSE METER (BEAKER) 90 mg/dL 70-110 TESTED AT [address] (test weic=5338) [employer] [address] POCT-GLUCOSE [id number] 00:13:00 Test Item Value Reference Range Comments POC-GLUCOSE METER (BEAKER) 82 mg/dL 70-110 TESTED AT [address] (test udzq=5373) [employer] [address] POCT-GLUCOSE [id number] 18:06:00 Test Item Value Reference Range Comments POC-GLUCOSE METER (BEAKER) 109 mg/dL 70-110 TESTED AT [address] (test qrpe=7930) [employer] [address] POCT-GLUCOSE [id number] 13:37:00 Test Item Value Reference Range Comments POC-GLUCOSE METER (BEAKER) 103 mg/dL 70-110 TESTED AT [address] (test bzqf=0399) [employer] [address] POCT-GLUCOSE [id number] 10:10:00 Test Item Value Reference Range Comments POC-GLUCOSE METER (BEAKER) 72 mg/dL 70-110 TESTED AT [address] (test wyex=9472) [employer] [address] POCT-GLUCOSE [id number] 09:02:00 Test Item Value Reference Range Comments POC-GLUCOSE METER (BEAKER) 65 mg/dL 70-110 TESTED AT [address] (test vhnb=0919) [employer] [address] POCT-GLUCOSE [id number] 08:18:00 Test Item Value Reference Range Comments POC-GLUCOSE METER (BEAKER) 67 mg/dL 70-110 Notified TEDDY GREENBERG/TESTED AT [facility] (test qqjg=4995) [address] [place] [address] POCT-GLUCOSE [id number] 21:48:00 Test Item Value Reference Range Comments POC-GLUCOSE METER (BEAKER) 101 mg/dL 70-110 TESTED AT [address] (test oibp=9707) [place] [id number] POCT-GLUCOSE [id number] 20:09:00 Test Item Value Reference Range Comments POC-GLUCOSE METER (BEAKER) 75 mg/dL 70-110 TESTED AT [address] (test vave=1121) [employer] [address] POCT-GLUCOSE [id number] 18:29:00 Test Item Value Reference Range Comments POC-GLUCOSE METER (BEAKER) 100 mg/dL 70-110 TESTED AT [address] (test xagu=9412) [place] [address] RAD, SKULL, LESS THAN 4 [id number] 17:37:00Reason for exam:->h/o head trauma, need to r/o retained metal or implantsShould this be performedat the bedside?->NoFINAL REPORT Skull dated 11/28/2018 Comment : 2 views of skull obtained in frontal and lateral projection. No metallic foreign body is seen in the calvarium. The frontal, sphenoid, ethmoid, maxillary sinuses are clear. Orbital rim is intact. Signed: Jaciel Rodriguez MDReport Verified Date/Time: 11/29/2018 17:37:13 Reading Location: [facility] C0[facility] Consult Reading Room Electronicallysigned by: JACIEL RODRIGUEZ M.D. on 11/29/2018 05:37 PMPOCT-GLUCOSE [id number] 17:08:00 Test Item Value Reference Range Comments POC-GLUCOSE METER (BEAKER) 75 mg/dL 70-110 TESTED AT [address] (test ppfr=2431) [employer] [address] POCT-GLUCOSE [id number] 16:33:00 Test Item Value Reference Range Comments POC-GLUCOSE METER (BEAKER) 87 mg/dL 70-110 TESTED AT [address] (test cwat=7655) [place] [id number] POCT-GLUCOSE [id number] 15:26:00 Test Item Value Reference Range Comments POC-GLUCOSE METER (BEAKER) 162 mg/dL 70-110 TESTED AT [address] (test jsnh=4556) [place] [address] POCT-GLUCOSE [id number] 13:59:00 Test Item Value Reference Range Comments POC-GLUCOSE METER (BEAKER) 96 mg/dL 70-110 TESTED AT [address] (test jxpf=6849) [place] [address] POCT-GLUCOSE [id number] 13:07:00 Test Item Value Reference Range Comments POC-GLUCOSE METER (BEAKER) 116 mg/dL 70-110 TESTED AT [address] (test lqbc=9508) [employer] [address] POCT-GLUCOSE [id number] 12:15:00 Test Item Value Reference Range Comments POC-GLUCOSE METER (BEAKER) 89 mg/dL 70-110 TESTED AT [address] (test hcya=9300) [place] [address] POCT-GLUCOSE [id number] 11:06:00 Test Item Value Reference Range Comments POC-GLUCOSE METER (BEAKER) 102 mg/dL 70-110 TESTED AT [address] (test xbbc=6745) [place] [address] POCT-GLUCOSE [id number] 10:02:00 Test Item Value Reference Range Comments POC-GLUCOSE METER (BEAKER) 87 mg/dL 70-110 TESTED AT [address] (test ntym=4031) [place] [address] HEMOGLOBIN [id number] 09:45:00 Test Item Value Reference Range Comments HEMOGLOBIN A1C (BEAKER) (test azju=987) 5.5 % 4.3-6.1 POCT-GLUCOSE [id number] 09:04:00 Test Item Value Reference Range Comments POC-GLUCOSE METER (BEAKER) 93 mg/dL 70-[address] [facility] [address] [facility] (test xphq=2197) [employer] [address] POCT-GLUCOSE [id number] 08:26:00 Test Item Value Reference Range Comments POC-GLUCOSE METER (BEAKER) 78 mg/dL 70-[address] [facility] [address] [facility] (test soha=9173) [employer] [address] U/S, ABDOMINAL, WITH [id number] 08:23:00Reason for exam:-> Transaminitis. RUQ U/s with doppler requested.FINAL REPORT HISTORY : Transaminitis COMPARISON : None. COMMENT :Ultrasound examination of the right upper quadrant with [...] in size measuring 10.4 cm in length anddemonstrates unremarkable sonographic appearance. The kidneys are normal in size measuring 12.3 cm in length on the right and 11.0 cm in length on the left. Cortical thickness and echogenicity are within normal limits. There is no evidence for solid renal mass , hydronephrosis, or shadowing calculi. There is no ascites or pleural fluid visualized. Vascular:The main portal vein is patent with antegradeflow and diameter of 0.9 cm. Peak systolic velocity is 34.7 cm/s. The right and left portal veins are patent with antegrade flow. The proper hepatic artery is patent with resistive index of 0.6. The right left hepatic arteries are patent with resistive indices of 0.6 bilaterally. The IVC is patent andunremarkable. The middle, right, and left hepatic veins are patent. The visualized splenic artery and vein are patent and unremarkable. The aorta tapers normally. IMPRESSION : 1. 2.6 x 2.3 x 2.4 cm hyperechoic lesion identified within the right hepatic lobe which is not definitively characterized onthis ultrasound examination. Further evaluation with dedicated contrast enhanced liver CT or MRI is recommended. 2. Otherwise, unremarkable abdominal ultrasound examination and Doppler evaluation. Signed: Gonzalo Richard Verified Date/Time: 04/2019 08:23:38 Reading Location: [facility] P006J Ultrasound Reading Room POCT- GLUCOSE [id number] 07:29:00 Test Item Value Reference Range Comments POC-GLUCOSE METER (BEAKER) 86 mg/dL 70-110 TESTED AT [address] (test wwfo=1407) [place] [address] POCT-GLUCOSE [id number] 06:50:00 Test Item Value Reference Range Comments POC-GLUCOSE METER (BEAKER) 56 mg/dL 70-110 TESTED AT [address] (test rdpm=8620) [place] [address] POCT-GLUCOSE [id number] 06:12:00 Test Item Value Reference Range Comments POC-GLUCOSE METER (BEAKER) 83 mg/dL 70-110 TESTED AT [address] (test betk=3378) [employer] [address] POCT-GLUCOSE [id number] 05:03:00 Test Item Value Reference Range Comments POC-GLUCOSE METER (BEAKER) 87 mg/dL 70-110 TESTED AT [address] (test whta=6101) [employer] [address] POCT-GLUCOSE [id number] 04:11:00 Test Item Value Reference Range Comments POC-GLUCOSE METER (BEAKER) 61 mg/dL 70-110 TESTED AT [address] (test albp=6786) [employer] [address] PROTHROMBIN [id number] 03:34:00 Test Item Value Reference Range Comments PROTIME (BEAKER) (test guas=030) 13.1 seconds 11.7-14.7 INR (BEAKER) (test osjb=578) 1.0 <=5.9 RECOMMENDED COUMADIN/WARFARIN INR THERAPY RANGESSTANDARD DOSE: 2.0 - 3.0 Includes: PROPHYLAXIS forvenous thrombosis, systemic embolization; TREATMENT for venous thrombosis and/or pulmonary embolus.HIGH RISK: Target INR is 2.5-3.5 for patients with mechanical heart valves.POCT-GLUCOSE [id number] 03:14:00 Test Item Value Reference Range Comments POC-GLUCOSE METER (BEAKER) 62 mg/dL 70-[address] [facility] [address] [facility] (test unan=0402) [employer] [address] [id number] 03:08:00 Test Item Value Reference Range Comments PHOSPHORUS (BEAKER) (test xglp=203) 2.7 mg/dL 2.3-4.7 Check Serum Phosphorus level 4 hours after IV phosphorus replacement or 8 hours after PO replacementcompleted.[id number] 03:08:00 Test Item Value Reference Range Comments MAGNESIUM (BEAKER) (test dzkb=123) 1.8 mg/dL 1.6-2.6 Check Serum Phosphorus level 4 hours after IV phosphorus replacement or 8 hours after PO replacementcompleted.BASIC METABOLIC [id number] 03:08:00 Test Item Value Reference Range Comments SODIUM (BEAKER) (test 139 meq/L 136-145 sdun=318) POTASSIUM (BEAKER) (test 4.3 meq/L 3.5-5.1 pcwi=356) CHLORIDE (BEAKER) (test 104 meq/L 98-107 hioq=959) CO2 (BEAKER) (test 29 meq/L 22-29 uhrs=203) BLOOD UREA NITROGEN 8 mg/dL 7-21 (BEAKER) (test bacq=470) CREATININE (BEAKER) (test 0.56 mg/dL 0.57-1.25 ipgs=531) GLUCOSE RANDOM (BEAKER) 62 mg/dL 70-105 (test jtng=683) CALCIUM (BEAKER) (test 9.2 mg/dL 8.4-10.2 rlgu=640) EGFR (BEAKER) (test 185 mL/min/1.73 sq m ESTIMATED GFR IS NOT kvyx=9349) ACCURATE CREATININE CLEARANCE IN PREDICTING GLOMERULAR FILTRATION RATE. ESTIMATED GFR IS NOT APPLICABLE FOR DIALYSIS PATIENTS. Check Serum Phosphorus level 4 hours after IV phosphorus replacement or 8 hours after PO replacementcompleted.[id number] 03:04:00 Test Item Value Reference Range Comments CORTISOL, TOTAL (BEAKER) (test fnjn=1265) 10.1 ug/dL 3.7-19.4 Obtain if BG < 60CBC W/PLT COUNT & AUTO [id number] 02:53:00 Test Item Value Reference Range Comments WHITE BLOOD CELL COUNT (BEAKER) (test vfko=872) 5.7 K/ L 3.5-10.5 RED BLOOD CELL COUNT (BEAKER) (test fknr=949) 3.49 M/ L 4.63-6.08 HEMOGLOBIN (BEAKER) (test fjyc=941) 11.0 GM/DL 13.7-17.5 HEMATOCRIT (BEAKER) (test lhkr=206) 34.0 % 40.1-51.0 MEAN CORPUSCULAR VOLUME (BEAKER) (test nyth=267) 97.4 fL 79.0-92.2 MEAN CORPUSCULAR HEMOGLOBIN (BEAKER) (test 31.5 pg 25.7-32.2 gmxe=030) MEAN CORPUSCULAR HEMOGLOBIN CONC (BEAKER) (test 32.4 GM/DL 32.3-36.5 dtpz=855) RED CELL DISTRIBUTION WIDTH (BEAKER) (test 15.8 % 11.6-14.4 gtfd=939) PLATELET COUNT (BEAKER) (test bqoc=759) 118 K/CU MM 150-450 MEAN PLATELET VOLUME (BEAKER) (test moai=969) 13.4 fL 9.4-12.4 NUCLEATED RED BLOOD CELLS (BEAKER) (test 0 /100 WBC 0-0 pmkw=045) NEUTROPHILS RELATIVE PERCENT (BEAKER) (test 38 % kfva=622) LYMPHOCYTES RELATIVE PERCENT (BEAKER) (test 49 % pjeg=851) MONOCYTES RELATIVE PERCENT (BEAKER) (test 10 % kbrx=771) EOSINOPHILS RELATIVE PERCENT (BEAKER) (test 2 % nlzc=107) BASOPHILS RELATIVE PERCENT (BEAKER) (test 1 % qgie=632) NEUTROPHILS ABSOLUTE COUNT (BEAKER) (test 2.17 K/ L 1.78-5.38 xfhz=086) LYMPHOCYTES ABSOLUTE COUNT (BEAKER) (test 2.79 K/ L 1.32-3.57 wmqg=183) MONOCYTES ABSOLUTE COUNT (BEAKER) (test 0.58 K/ L 0.30-0.82 gzoa=380) EOSINOPHILS ABSOLUTE COUNT (BEAKER) (test 0.13 K/ L 0.04-0.54 zbjk=116) BASOPHILS ABSOLUTE COUNT (BEAKER) (test 0.03 K/ L 0.01-0.08 itsj=397) IMMATURE GRANULOCYTES-RELATIVE PERCENT (BEAKER) 0 % 0-1 (test olik=5769) KETONE, [id number] 02:53:00 Test Item Value Reference Range Comments KETONES, BLOOD (BEAKER) (test xsfg=4470) 0.1 mmol/L <0.4 [id number] 02:39:00 Test Item Value Reference Range Comments GLUCOSE RANDOM (BEAKER) (test cifn=917) 59 mg/dL 70-105 Obtain if BG < 60POCT-GLUCOSE [id number] 02:05:00 Test Item Value Reference Range Comments POC-GLUCOSE METER (BEAKER) 55 mg/dL 70-[address] [facility] [address] [facility] (test ljpz=4018) [employer] [address] POCT-GLUCOSE [id number] 01:23:00 Test Item Value Reference Range Comments POC-GLUCOSE METER (BEAKER) 51 mg/dL 70-110 TESTED AT [address] (test dpoy=0101) [employer] [address] RAD, CHEST, 1 VIEW, NON [id number] 22:00:00Reason for exam:->assess for retained metal piecesShould this be performed at the bedside?->NoFINAL REPORT EXAMINATION: AP PORTABLE CHEST RADIOGRAPH CLINICAL INDICATION: Assess for retained metal. IMPRESSION: No evidence of a a metal foreign body. No evidence of focal lung consolidation, pleural effusion or pneumothorax. Heart is mildly prominent but magnified by the AP portable technique. Mediastinal contours are sharp. No evidence of an acute osseous abnormality. A subtle crescentic asymmetric radiolucency is noted along the peripheral margin of the left lung. Artifact versus a tiny pneumothorax. Consider dedicated upright PA and lateral chest radiograph for furtherevaluation. There is gaseous distention of the stomach and visualized bowel in the upper abdomen, nonspecific but possibly reflecting dysmotility. Dedicated abdominal imaging could be performed for further evaluation if warranted. Signed: Nicole Real MDReport Verified Date/Time: 11/28/2018 22:00: 23 Reading Location: [address] Reading Room POCT-GLUCOSE [id number] 21:53:00 Test Item Value Reference Range Comments POC-GLUCOSE METER (BEAKER) 146 mg/dL 70-110 TESTED AT [address] (test kqnh=9343) [place] [id number] POCT-GLUCOSE [id number] 21:50:00 Test Item Value Reference Range Comments POC-GLUCOSE METER (BEAKER) 57 mg/dL 70-110 TESTED AT [address] (test zvvx=4310) [place] [address] POCT-GLUCOSE [id number] 18:21:00 Test Item Value Reference Range Comments POC-GLUCOSE METER (BEAKER) 87 mg/dL 70-110 TESTED AT [address] (test dhaf=6581) [place] [address] EEG AWAKE AND [id number] 16:20:00Reason for exam:->seizureShould this be performed at the bedside?->YesDate(s) of EE11/28/18 DATE OF REPORT: ACC: [id number] EEG Number: [id number] Test Location: Inpatient ICU Start time: 15 :15 Stop time: 15:36 ICD-10: R56.9 CPT Code: 36565 HISTORY: 53 yo male withhistory of schizophrenia, autonomic neuropathy, TBI, MDD, anxiety who presents from OSH after a 30 second generalized seizure with LOC. MEDICATIONS THAT COULD AFFECT EEG: Baclofen, Divalproex, Docusate sodium, Famotidine, Lidocaine, NS, Olanzapine TECHNICAL SUMMARY: This is a digital video-EEG recorded with 32 input channels reviewed with bipolar and referential montages using the modified combinatorial system nomenclature. DESCRIPTION OF RECORD: During the maximally alert state, a poorlyformed 7-8 Hz posterior dominant rhythm which is [...] recordings. Edu Burns MD, MS Neurophysiology/Epilepsy Attending POCT- GLUCOSE [id number] 14:15:00 Test Item Value Reference Range Comments POC-GLUCOSE METER (BEAKER) 94 mg/dL 70-110 TESTED AT [address] (test dmbd=1773) [place] [address] VITAMIN [id number] 13:57:00 Test Item Value Reference Range Comments VITAMIN B12 (BEAKER) (test hxwa=981) 1054 pg/mL 213-816 FOLATE, [id number] 13:57:00 Test Item Value Reference Range Comments FOLATE (BEAKER) (test snzm=027) 9.4 ng/mL >=7.0 POCT-GLUCOSE [id number] 13:38:00 Test Item Value Reference Range Comments POC-GLUCOSE METER (BEAKER) 68 mg/dL 70-110 TESTED AT [address] (test boao=8609) [place] [id number] POCT-GLUCOSE [id number] 13:30:00 Test Item Value Reference Range Comments POC-GLUCOSE METER (BEAKER) 62 mg/dL 70-110 TESTED AT [address] (test trys=3506) [place] [address] VALPROIC ACID LEVEL, [id number] 13:18:00 Test Item Value Reference Range Comments VALPROIC ACID TOTAL (BEAKER) (test idqs=173) 43 ug/mL 50-100 Therapeutic range for some clinical conditions may be >100 ug/mLHEPATITIS PANEL, [id number] 13:14:00 Test Item Value Reference Range Comments HEPATITIS A IGM ANTIBODY (BEAKER) (test Nonreactive Nonreactive ekdz=192) HEPATITIS B CORE IGM ANTIBODY (BEAKER) (test Nonreactive Nonreactive pbpg=619) HEPATITIS C ANTIBODY (BEAKER) (test xfos=397) Nonreactive Nonreactive HEPATITIS B SURFACE ANTIGEN (2) (BEAKER) (test Nonreactive Nonreactive cxvj=4749) BASIC METABOLIC [id number] 12:07:00 Test Item Value Reference Range Comments SODIUM (BEAKER) (test 140 meq/L 136-145 lgto=914) POTASSIUM (BEAKER) (test 4.4 meq/L 3.5-5.1 Specimen slightly xgyr=796) hemolyzed CHLORIDE (BEAKER) (test 107 meq/L 98-107 urnz=858) CO2 (BEAKER) (test 26 meq/L 22-29 umjb=906) BLOOD UREA NITROGEN 8 mg/dL 7-21 (BEAKER) (test jzix=345) CREATININE (BEAKER) (test 0.60 mg/dL 0.57-1.25 Specimen slightly qhno=020) hemolyzed GLUCOSE RANDOM (BEAKER) 70 mg/dL 70-105 (test uqgc=763) CALCIUM (BEAKER) (test 9.2 mg/dL 8.4-10.2 vcfd=153) EGFR (BEAKER) (test 171 mL/min/1.73 sq m ESTIMATED GFR IS NOT wget=8954) ACCURATE CREATININE CLEARANCE IN PREDICTING GLOMERULAR FILTRATION RATE. ESTIMATED GFR IS NOT APPLICABLE FOR DIALYSIS PATIENTS. COMPREHENSIVE METABOLIC [id number] 12:07:00 Test Item Value Reference Range Comments TOTAL PROTEIN (BEAKER) 6.9 gm/dL 6.0-8.3 Specimen slightly (test kfva=328) hemolyzed ALBUMIN (BEAKER) (test 3.0 g/dL 3.5-5.0 Specimen slightly skof=0091) hemolyzed ALKALINE PHOSPHATASE 66 U/L 40-150 (BEAKER) (test vqos=821) BILIRUBIN TOTAL (BEAKER) 0.3 mg/dL 0.2-1.2 Specimen slightly (test otwn=900) hemolyzed SODIUM (BEAKER) (test 140 meq/L 136-145 ccmp=217) POTASSIUM (BEAKER) (test 4.4 meq/L 3.5-5.1 Specimen slightly tmqe=416) hemolyzed CHLORIDE (BEAKER) (test 107 meq/L 98-107 evzp=332) CO2 (BEAKER) (test 26 meq/L 22-29 nzuk=704) BLOOD UREA NITROGEN 8 mg/dL 7-21 (BEAKER) (test mhxu=633) CREATININE (BEAKER) (test 0.60 mg/dL 0.57-1.25 Specimen slightly jdjl=352) hemolyzed GLUCOSE RANDOM (BEAKER) 70 mg/dL 70-105 (test kmln=835) CALCIUM (BEAKER) (test 9.2 mg/dL 8.4-10.2 fxgf=883) AST (SGOT) (BEAKER) (test 42 U/L 5-34 Specimen slightly nlvc=343) hemolyzed ALT (SGPT) (BEAKER) (test 70 U/L 6-55 Specimen slightly sojs=740) hemolyzed EGFR (BEAKER) (test 171 mL/min/1.73 sq ESTIMATED GFR IS NOT eqoh=0816) m ACCURATE CREATININE CLEARANCE IN PREDICTING GLOMERULAR FILTRATION RATE. ESTIMATED GFR IS NOT APPLICABLE FOR DIALYSIS PATIENTS. CBC W/PLT COUNT & AUTO [id number] 11:39:00 Test Item Value Reference Range Comments WHITE BLOOD CELL COUNT (BEAKER) (test weil=897) 4.5 K/ L 3.5-10.5 RED BLOOD CELL COUNT (BEAKER) (test nhjj=956) 3.53 M/ L 4.63-6.08 HEMOGLOBIN (BEAKER) (test nyxr=123) 11.1 GM/DL 13.7-17.5 HEMATOCRIT (BEAKER) (test lrth=068) 36.2 % 40.1-51.0 MEAN CORPUSCULAR VOLUME (BEAKER) (test rdnb=174) 102.5 fL 79.0-92.2 MEAN CORPUSCULAR HEMOGLOBIN (BEAKER) (test 31.4 pg 25.7-32.2 tfbt=195) MEAN CORPUSCULAR HEMOGLOBIN CONC (BEAKER) (test 30.7 GM/DL 32.3-36.5 buxl=648) RED CELL DISTRIBUTION WIDTH (BEAKER) (test 16.2 % 11.6-14.4 sual=671) PLATELET COUNT (BEAKER) (test ckhp=959) 116 K/CU MM 150-450 MEAN PLATELET VOLUME (BEAKER) (test plta=952) 12.9 fL 9.4-12.4 NUCLEATED RED BLOOD CELLS (BEAKER) (test 0 /100 WBC 0-0 weuj=898) NEUTROPHILS RELATIVE PERCENT (BEAKER) (test 42 % wbdx=925) LYMPHOCYTES RELATIVE PERCENT (BEAKER) (test 51 % xxxh=513) MONOCYTES RELATIVE PERCENT (BEAKER) (test 6 % icgf=810) EOSINOPHILS RELATIVE PERCENT (BEAKER) (test 2 % xnut=263) BASOPHILS RELATIVE PERCENT (BEAKER) (test 0 % yrkn=585) NEUTROPHILS ABSOLUTE COUNT (BEAKER) (test 1.87 K/ L 1.78-5.38 lvzm=388) LYMPHOCYTES ABSOLUTE COUNT (BEAKER) (test 2.28 K/ L 1.32-3.57 budd=501) MONOCYTES ABSOLUTE COUNT (BEAKER) (test 0.25 K/ L 0.30-0.82 jfan=569) EOSINOPHILS ABSOLUTE COUNT (BEAKER) (test 0.09 K/ L 0.04-0.54 mdxu=276) BASOPHILS ABSOLUTE COUNT (BEAKER) (test 0.01 K/ L 0.01-0.08 rnro=820) IMMATURE GRANULOCYTES-RELATIVE PERCENT (BEAKER) 0 % 0-1 (test phoj=5062) POCT-GLUCOSE [id number] 09:29:00 Test Item Value Reference Range Comments POC-GLUCOSE METER (BEAKER) 71 mg/dL 70-110 TESTED AT [address] (test wujw=7492) [place] [address] POCT-GLUCOSE [id number] 08:59:00 Test Item Value Reference Range Comments POC-GLUCOSE METER (BEAKER) 49 mg/dL 70-110 TESTED AT [address] (test jnpm=9876) [place] [address] POCT-GLUCOSE [id number] 23:27:00 Test Item Value Reference Range Comments POC-GLUCOSE METER (BEAKER) 96 mg/dL 70-110 TESTED AT [address] (test nofc=5367) [place] [address] POCT-GLUCOSE [id number] 20:35:00 Test Item Value Reference Range Comments POC-GLUCOSE METER (BEAKER) 85 mg/dL 70-110 TESTED AT [address] (test rmqb=2272) [place] [address] POCT-GLUCOSE [id number] 18:55:00 Test Item Value Reference Range Comments POC-GLUCOSE METER (BEAKER) 98 mg/dL 70-110 TESTED AT [address] (test dqtv=1843) [place] [id number] POCT-GLUCOSE [id number] 12:28:00 Test Item Value Reference Range Comments POC-GLUCOSE METER (BEAKER) 74 mg/dL 70-[address] [facility] [facility] (test clab=8638) [employer] [address] COMPREHENSIVE METABOLIC [id number] 11:21:00 Test Item Value Reference Range Comments TOTAL PROTEIN (BEAKER) 7.6 gm/dL 6.0-8.3 (test vkec=738) ALBUMIN (BEAKER) (test 3.5 g/dL 3.5-5.0 dkvr=0436) ALKALINE PHOSPHATASE 76 U/L 40-150 (BEAKER) (test jgvp=675) BILIRUBIN TOTAL (BEAKER) 0.4 mg/dL 0.2-1.2 (test etqp=926) SODIUM (BEAKER) (test 140 meq/L 136-145 jrhd=977) POTASSIUM (BEAKER) (test 4.5 meq/L 3.5-5.1 rscf=990) CHLORIDE (BEAKER) (test 105 meq/L 98-107 shyz=546) CO2 (BEAKER) (test 30 meq/L 22-29 uulx=077) BLOOD UREA NITROGEN 12 mg/dL 7-21 (BEAKER) (test fgck=994) CREATININE (BEAKER) (test 0.62 mg/dL 0.57-1.25 ijdq=395) GLUCOSE RANDOM (BEAKER) 73 mg/dL 70-105 (test pkpi=894) CALCIUM (BEAKER) (test 9.5 mg/dL 8.4-10.2 wsjq=393) AST (SGOT) (BEAKER) (test 53 U/L 5-34 iqmy=915) ALT (SGPT) (BEAKER) (test 93 U/L 6-55 hade=974) EGFR (BEAKER) (test 164 mL/min/1.73 sq ESTIMATED GFR IS NOT zicd=9817) m ACCURATE CREATININE CLEARANCE IN PREDICTING GLOMERULAR FILTRATION RATE. ESTIMATED GFR IS NOT APPLICABLE FOR DIALYSIS PATIENTS. [id number] 10:19:00 Test Item Value Reference Range Comments CORTISOL, TOTAL (BEAKER) (test hjbu=0657) 6.9 ug/dL 3.7-19.4 TSH/FREE T4 IF [id number] 10:19:00 Test Item Value Reference Range Comments THYROID STIMULATING HORMONE (BEAKER) (test 0.48 uIU/mL 0.35-4.94 lmkh=580) TROPONIN [id number] 10:05:00 Test Item Value Reference Range Comments TROPONIN I (BEAKER) (test tnyq=064) < ng/mL 0.00-0.03 Troponin I (TnI) levels must be interpreted in the context of the presenting symptoms and the clinical findings. Elevated TnI levels indicate myocardial damage, but are not specific for ischemic heart disease. Elevated TnI levels are seen in patients with other cardiac conditions (including myocarditis and congestive heart failure), and slight TnI elevations occur in patients with other conditions, including sepsis, renal failure, acidosis, acute neurological disease, and persistent tachyarrhythmia.PROTHROMBIN [id number] 09:31:00 Test Item Value Reference Range Comments PROTIME (BEAKER) (test yeaa=053) 16.2 seconds 11.7-14.7 INR (BEAKER) (test keim=783) 1.3 <=5.9 RECOMMENDED COUMADIN/WARFARIN INR THERAPY RANGESSTANDARD DOSE: 2.0 - 3.0 Includes: PROPHYLAXIS forvenous thrombosis, systemic embolization; TREATMENT for venous thrombosis and/or pulmonary embolus.HIGH RISK: Target INR is 2.5-3.5 for patients with mechanical heart valves.CBC W/PLT COUNT & AUTO [id number] 09:26:00 Test Item Value Reference Range Comments WHITE BLOOD CELL COUNT (BEAKER) (test uqxv=746) 4.8 K/ L 3.5-10.5 RED BLOOD CELL COUNT (BEAKER) (test jtaw=447) 2.94 M/ L 4.63-6.08 HEMOGLOBIN (BEAKER) (test pouz=023) 9.2 GM/DL 13.7-17.5 HEMATOCRIT (BEAKER) (test zjjs=900) 30.1 % 40.1-51.0 MEAN CORPUSCULAR VOLUME (BEAKER) (test ohqa=445) 102.4 fL 79.0-92.2 MEAN CORPUSCULAR HEMOGLOBIN (BEAKER) (test 31.3 pg 25.7-32.2 jlum=760) MEAN CORPUSCULAR HEMOGLOBIN CONC (BEAKER) (test 30.6 GM/DL 32.3-36.5 mspo=420) RED CELL DISTRIBUTION WIDTH (BEAKER) (test 16.2 % 11.6-14.4 iinh=475) PLATELET COUNT (BEAKER) (test repu=136) 93 K/CU MM 150-450 MEAN PLATELET VOLUME (BEAKER) (test kwde=019) 12.9 fL 9.4-12.4 NUCLEATED RED BLOOD CELLS (BEAKER) (test 0 /100 WBC 0-0 stng=101) NEUTROPHILS RELATIVE PERCENT (BEAKER) (test 66 % bwga=839) LYMPHOCYTES RELATIVE PERCENT (BEAKER) (test 23 % ajit=603) MONOCYTES RELATIVE PERCENT (BEAKER) (test 10 % btwe=878) EOSINOPHILS RELATIVE PERCENT (BEAKER) (test 1 % omka=772) BASOPHILS RELATIVE PERCENT (BEAKER) (test 0 % gtym=133) NEUTROPHILS ABSOLUTE COUNT (BEAKER) (test 3.18 K/ L 1.78-5.38 hrkf=018) LYMPHOCYTES ABSOLUTE COUNT (BEAKER) (test 1.10 K/ L 1.32-3.57 lxkq=752) MONOCYTES ABSOLUTE COUNT (BEAKER) (test mguf=146) 0.47 K/ L 0.30-0.82 EOSINOPHILS ABSOLUTE COUNT (BEAKER) (test 0.06 K/ L 0.04-0.54 qoig=574) BASOPHILS ABSOLUTE COUNT (BEAKER) (test fbjj=394) 0.01 K/ L 0.01-0.08 IMMATURE GRANULOCYTES-RELATIVE PERCENT (BEAKER) 0 % 0-1 (test jfak=4660) POCT-GLUCOSE [id number] 07:19:00 Test Item Value Reference Range Comments POC-GLUCOSE METER (BEAKER) 128 mg/dL 70-110 TESTED AT [address] (test jhwn=[id number]) [place] [address] POCT-GLUCOSE [id number] 07:19:00 Test Item Value Reference Range Comments POC-GLUCOSE METER (BEAKER) 46 mg/dL 70-110 TESTED AT [address] (test qntk=2959) [place] [id number]
[2018-12-24] MEDS ORDERED: NA CHLORIDE 0.9% 1,000 ML ONE (21:54)
[2018-12-24 22:59] LABS: Absolute Lymphocytes (CBC) 1.6 K/uL (0.7-4.9); Absolute Monocytes 0.6 K/uL (0.1-1.3); Absolute Neutrophil 1.2 K/uL (1.8-8.0); Basophils % 0.6 % (0-1.3); Eosinophils % 2.4 % (0-4.4); Hematocrit 35.2 % (39.6-49.0); Lymphocytes % 44.8 % (15.3-44.8); MPV 10.8 fL (7.6-11.3); Monocytes % 18.1 % (3.3-12.3); RBC Red Blood Cell Count 3.73 M/uL (4.33-5.43)
[2018-12-24] MEDS ORDERED: D50W 25 GM/50 ML SYRINGE IV ONE (23:06)
[2018-12-24 23:18] LABS: BUN Blood Urea Nitrogen 18 mg/dL (7-18); Bicarbonate 30 mmol/L (21-32); Glucose Level 68 mg/dL (74-106); Sodium Level 142 mmol/L (136-145)
[2018-12-24 23:19] LABS: Potassium 5.6 mmol/L (3.5-5.1)
[2018-12-24] MEDS ORDERED: HALOPERIDOL LACT 5 MG/ML INJ ONE (23:44)
[2018-12-24 23:52] LABS: Blood Morphology Comment NOT SEEN (NOT SEEN); Platelet Estimate ADEQ; Urine White Blood Cell Casts OK
[2018-12-25] MEDS ORDERED: D50W 25 GM/50 ML SYRINGE IV ONE (00:34)
--- NOTE | 2018-12-25 03:16 | EDPHYS ---
Physician Documentation [facility] Name: Mariano Mauricio Age: 53 yrs Sex: Male : 1965 Arrival Date: 12/24/2018 Time: 21:12 Bed 7 Private MD: ED Physician Jesus Spear HPI: 12/24 22:04 This 53 yrs old Black Male presents to ER via EMS with complaints of seizure. rn 22:04 The patient presents after having a single isolated seizure. Seizure onset: just prior rn to arrival. Associated injury: The patient did not suffer any apparent associated injury. Current symptoms: Currently, the patient is not experiencing any symptoms. The patient has experienced similar episodes in the past. + known seizure disorder, had seizure at long-term, take s seizure medication, patient reports not being fed, unknown baseline, patient more alert and holding conversation, no meds given by EMS, EMS blood sugar in 70s. . Historical: - Allergies: 23:09 No Known Allergies; rv - PMHx: 23:09 Anxiety; Autonomic neuropathy; constipation; dehydration; insomnia; Major Depressive rv Disorder; personailty disorder; pseudobulbar affect; Schizophrenia; traumatic brain injury; vit d deficiency; - PSHx: 23:09 Unable to obtain; rv - Immunization history:: Adult Immunizations unknown. - Social history:: Smoking status: unknown. - Family history:: not pertinent. - Ebola Screening: : Patient negative for fever greater than or equal to 101.5 degrees Fahrenheit, and additional compatible Ebola Virus Disease symptoms Patient denies exposure to infectious person Patient denies travel to an Ebola-affected area in the 21 days before illness onset. - Hospitalizations: : No recent hospitalization is reported. ROS: 22:04 Constitutional: Negative for fever, chills, and weight loss, Eyes: Negative for injury, rn pain, redness, and discharge, Cardiovascular: Negative for chest pain, palpitations, and edema, Respiratory: Negative for shortness of breath, cough, wheezing, and pleuritic chest pain, Abdomen/GI: Negative for abdominal pain, nausea, vomiting, diarrhea, and constipation, MS/Extremity: Negative for injury and deformity, Skin: Negative for injury, rash, and discoloration, Neuro: Negative for headache, weakness, numbness, tingling Exam: 22:04 Constitutional: Patient laying in bed, awake, alert, talking, evidence of previous rn TBI. Head/Face: Normocephalic, atraumatic. ENT: MMM Cardiovascular: Regular rate, no murmur Respiratory: No increased work of breathing, no retractions or nasal flaring. Abdomen/GI: soft, non-tender MS/ Extremity: + upper and lower ext contractures Neuro: Awake, alert, talkative, and answers questions, playful and joking Vital Signs: 21:15 BP 156 / 110 LA Supine; Pulse 96; Resp 17 S; Pulse Ox 100% on R/A; rv 22:00 BP 128 / 81; Pulse 85; Resp 18; Pulse Ox 100% ; rv 23:00 BP 131 / 86; Pulse 87; Resp 18; Pulse Ox 100% ; rv 12/25 00:00 BP 124 / 86; Pulse 78; Resp 15; Pulse Ox 100% ; rv 00:30 BP 112 / 69; Pulse 78; Resp 17; Pulse Ox 100% ; rv 02:49 BP 116 / 65; Pulse 57; Resp 16; Temp 97.0; Pulse Ox 100% on R/A; Pain 0/10; aa1 03:30 BP 99 / 74; Pulse 62; Resp 18; Pulse Ox 100% on R/A; aa1 04:54 BP 102 / 89; Pulse 60; Resp 18; Pulse Ox 100% on R/A; Pain 0/10; aa1 05:59 BP 99 / 65; Pulse 56; Resp 18; Temp 97.2; Pulse Ox 100% on R/A; Pain 0/10; aa1 MDM: 12/24 21:12 Patient medically screened. rn 12/25 03:13 Differential diagnosis: seizure, hypoglycemia. Data reviewed: vital signs, nurses rn notes, lab test result(s), EKG, radiologic studies, CT scan, and as a result, I will admit patient. Counseling: I had a detailed discussion with the patient and/or guardian regarding: the historical points, exam findings, and any diagnostic results supporting the discharge/admit diagnosis, lab results, radiology results, the need for further work-up and treatment in the hospital. Response to treatment: the patient's symptoms have mildly improved after treatment, and as a result, I will admit patient. Admission orders: after a detailed discussion of the patient's condition and case, the admit orders are written by me. ED course: Not sure why patient continues to become hypoglycemic, requiring multiple doses of d50 and started on D5 infusion, still low, ct head no change, and recent full neurological w/u that resulted in discharge with continuation of his medication. . 03:55 ED course: Spoke with Dr. Nichols, requests transfer due to seizure and no neuro here rn for consultation. . 04:26 ED course: Patient accepted for transfer to [facility] for further evaluation of rn seizures, and persistent hypoglycemia. . 12/24 21:13 Order name: CBC with Diff; Complete Time: 00:24 rn 12/24 21:13 Order name: Basic Metabolic Panel; Complete Time: 23:28 rn 12/24 22:51 Order name: Glucose, Ancillary Testing; Complete Time: 22:59 EDMS 12/24 23:28 Order name: Glucose, Ancillary Testing; Complete Time: 00:24 EDMS 12/24 23:52 Order name: CBC Smear Scan; Complete Time: 00:24 EDMS 12/24 21:13 Order name: CT Head Brain wo Cont rn 12/25 00:46 Order name: Glucose, Ancillary Testing; Complete Time: 01:23 EDMS 12/25 00:46 Order name: Glucose, Ancillary Testing; Complete Time: 01:23 EDMS 12/25 01:25 Order name: Glucose, Ancillary Testing; Complete Time: 01:50 EDMS 12/25 02:07 Order name: Glucose, Ancillary Testing; Complete Time: 03:10 EDMS 12/24 21:13 Order name: IV Start; Complete Time: 22:56 rn 12/24 21:13 Order name: Glucose Level; Complete Time: 22:55 rn 12/24 22:17 Order name: EKG; Complete Time: 22:17 [facility] 12/24 22:43 Order name: Glucose Level; Complete Time: 22:55 rn Administered Medications: 12/24 22:30 Drug: NS 0.9% 1000 ml Route: IV; Rate: 1000 ml; Site: left upper arm; rv 23:00 Drug: D50W 50 ml Route: IVP; Site: left upper arm; rv 23:37 Follow up: Response: Blood sugar is elevated rv 23:37 Drug: HALdol (as decanoate) 5 mg Route: IM; Site: right deltoid; rv 12/25 00:28 Follow up: Response: No adverse reaction rv 00:30 Drug: D50W 50 ml Route: IVP; Site: left upper arm; rv 00:30 Drug: D5W 1000 ml Route: IV; Rate: 100 ml/hr; Site: left upper arm; rv 05:15 Follow up: IV Status: Infusion continued upon transfer aa1 Point of Care Testing: Blood Glucose: 00:30 Blood Glucose: 40 mg/dL; rv 02:04 Blood Glucose: 77 mg/dL; lt1 05:00 Blood Glucose: 70 mg/dL; ea 06:16 Blood Glucose: 83 mg/dL; aa1 Ranges: Critical Glucose Levels:Adult <50 mg/dl or >400 mg/dl <40 mg/dl or >180 mg/dl Disposition: 12/25/18 04:27 Transfer ordered to [facility]. Diagnosis are Epilepsy and recurrent seizures, Dehydration, Hypoglycemia, unspecified. - Reason for transfer: Higher level of care. - Accepting physician is . - Condition is Stable. - Problem is new. - Symptoms have improved. Signatures: Dispatcher [employer] EDKelli Melvin RN RN aa1 Jesus Spear MD MD rn Vicente, Ronaldo, RN RN rv Corrections: (The following items were deleted from the chart) 03:55 03:15 Hospitalization Ordered by Rosalina Ingram MD for Observation. Preliminary rn diagnosis is Epilepsy and recurrent seizures; Hypoglycemia, unspecified; Dehydration. Bed requested for Telemetry/MedSurg (observation). Status is Observation. Condition is Stable. Problem is new. Symptoms have improved. UTI on Admission? No. rn 06:40 04:27 12/25/2018 04:27 Transfer ordered to [facility]. Diagnosis is aa1 Epilepsy and recurrent seizures; Dehydration; Hypoglycemia, unspecified. Reason for transfer: Higher level of care. Accepting physician is . Condition is Stable. Problem is new. Symptoms have improved. rn
--- NOTE | 2018-12-25 03:16 | ER ---
Nurse's Notes [facility] Name: Mariano Mauricio Age: 53 yrs Sex: Male : 1965 Arrival Date: 12/24/2018 Time: 21:12 Bed 7 Private MD: Diagnosis: Epilepsy and recurrent seizures;Dehydration;Hypoglycemia, unspecified Presentation: 12/24 21:14 Presenting complaint: EMS states: PATIENT IS FROM [facility]. HAD A rv SEIZURE ONCE. UNRESPONSIVE UPON ARRIVAL. CHECKED BLOOD SUGAR, 72. PATIENT IS HYPERTENSIVE AT THE TIME. MARYCHUY LYNIKAKATHY OF [facility]: PATIENT IS A AND O X 3. SPEECH IS CLEAR. 21:14 Method Of Arrival: EMS: [facility] rv 22:58 Transition of care: [facility]. Onset of symptoms was December 24, 2018 at rv 21:00. Risk Assessment: Do you want to hurt yourself or someone else? Patient reports no desire to harm self or others. Initial Sepsis Screen: Does the patient meet any 2 criteria? No. Patient's initial sepsis screen is negative. Does the patient have a suspected source of infection? No. Patient's initial sepsis screen is negative. Care prior to arrival: None. 22:58 Acuity: KEV 3 rv Triage Assessment: 21:17 General: Appears in no apparent distress. Behavior is anxious, combative. Pain: Denies rv pain. EENT: No signs and/or symptoms were reported regarding the EENT system. Neuro: Level of Consciousness is confused, Oriented to none. Cardiovascular: Capillary refill < 3 seconds. Respiratory: Airway is patent. GI: No signs and/or symptoms were reported involving the gastrointestinal system. : No signs and/or symptoms were reported regarding the genitourinary system. Derm: Skin with poor turgor. Musculoskeletal: No signs and/or symptoms reported regarding the musculoskeletal system. Historical: - Allergies: 23:09 No Known Allergies; rv - PMHx: 23:09 Anxiety; Autonomic neuropathy; constipation; dehydration; insomnia; Major Depressive rv Disorder; personailty disorder; pseudobulbar affect; Schizophrenia; traumatic brain injury; vit d deficiency; - PSHx: 23:09 Unable to obtain; rv - Immunization history:: Adult Immunizations unknown. - Social history:: Smoking status: unknown. - Family history:: not pertinent. - Ebola Screening: : Patient negative for fever greater than or equal to 101.5 degrees Fahrenheit, and additional compatible Ebola Virus Disease symptoms Patient denies exposure to infectious person Patient denies travel to an Ebola-affected area in the 21 days before illness onset. - Hospitalizations: : No recent hospitalization is reported. Screenin:58 Abuse screen: Denies threats or abuse. Denies injuries from another. Nutritional rv screening: No deficits noted. Tuberculosis screening: No symptoms or risk factors identified. Fall Risk No fall in past 12 months (0 pts). Secondary diagnosis (15 points) dementia, No IV (0 pts). Ambulatory Aid- None/Bed Rest/Nurse Assist (0 pts). Gait- Impaired (20 pts.). Mental Status- Overestimates/Forgets Limitations (15 pts.). Total Quinn Fall Scale indicates High Risk Score (45 or more points). Side Rails Up X 2 Placed Close to Nursing Station Frequent Obs/Assessments Occuring. Assessment: 22:59 Reassessment: Patient appears in no apparent distress at this time. No changes from rv previously documented assessment. Patient and/or family updated on plan of care and expected duration. Pain level reassessed. Patient is alert, oriented x 3, equal unlabored respirations, skin warm/dry/pink. patient is extremely combative. 12/25 00:34 Reassessment: Patient appears in no apparent distress at this time. Patient and/or rv family updated on plan of care and expected duration. Pain level reassessed. Patient is alert, oriented x 3, equal unlabored respirations, skin warm/dry/pink. patient sleeping after the Haldol IM was given. awaiting CT scan result. 03:10 Reassessment: Patient appears in no apparent distress at this time. Pt resting quietly, aa1 eyes closed. Respirations even and unlabored. Skin warm and dry. 04:00 Reassessment: Patient appears in no apparent distress at this time. No changes from [facility] previously documented assessment. Awaiting admission. 05:06 Reassessment: Patient appears in no apparent distress at this time. Resting quietly, aa1 respirations even \T\ unlabored. Report given to Macie Hector RN at [facility]. 05:10 Reassessment: Notified pt's guardian Kerri Donis that pt is being transferred to [address] [place] med [place]. 05:59 Reassessment: Patient appears in no apparent distress at this time. No changes from aa1 previously documented assessment. Awaiting EMS for transfer. 06:16 Reassessment: Patient appears in no apparent distress at this time. No changes from aa1 previously documented assessment. [facility] present for transfer. Vital Signs: 12/24 21:15 BP 156 / 110 LA Supine; Pulse 96; Resp 17 S; Pulse Ox 100% on R/A; rv 22:00 BP 128 / 81; Pulse 85; Resp 18; Pulse Ox 100% ; rv 23:00 BP 131 / 86; Pulse 87; Resp 18; Pulse Ox 100% ; rv 05 00:00 BP 124 / 86; Pulse 78; Resp 15; Pulse Ox 100% ; rv 00:30 BP 112 / 69; Pulse 78; Resp 17; Pulse Ox 100% ; rv 02:49 BP 116 / 65; Pulse 57; Resp 16; Temp 97.0; Pulse Ox 100% on R/A; Pain 0/10; aa1 03:30 BP 99 / 74; Pulse 62; Resp 18; Pulse Ox 100% on R/A; aa1 04:54 BP 102 / 89; Pulse 60; Resp 18; Pulse Ox 100% on R/A; Pain 0/10; aa1 05:59 BP 99 / 65; Pulse 56; Resp 18; Temp 97.2; Pulse Ox 100% on R/A; Pain 0/10; aa1 ED Course: 12/24 21:12 Patient arrived in ED. rv 21:12 Jesus Spear MD is Attending Physician. rn 21:28 Abdoul Rosenthal RN is Primary Nurse. rv 21:49 Radiology exam delayed due to PT NOT READY, RITU TO CALL WHEN PT IS. mw3 22:39 Radiology exam delayed due to PT WILL NOT STAY STILL FOR EXAM. NURSE STILL TRYING TO mw3 GET IV ON PT TO GIVE MEDS. 22:59 Triage completed. rv 23:00 Arm band placed on right wrist. rv 23:10 Patient has correct armband on for positive identification. Bed in low position. Call rv light in reach. Side rails up X2. Pulse ox on. NIBP on. 23:10 Inserted saline lock: 22 gauge in left upper arm, using aseptic technique. Blood rv collected. Missed attempt(s): 20 gauge in left antecubital area. 12/25 00:41 CT Head Brain wo Cont Sent. rv 03:15 Rosalina Ingram MD is Hospitalizing Provider. rn 03:20 pt blood sugar 80 TEDDY DAVIS NOTIFIED. kj1 04:22 CT Head Brain wo Cont In Process Unspecified. EDMS Administered Medications: 12/24 22:30 Drug: NS 0.9% 1000 ml Route: IV; Rate: 1000 ml; Site: left upper arm; rv 23:00 Drug: D50W 50 ml Route: IVP; Site: left upper arm; rv 23:37 Follow up: Response: Blood sugar is elevated rv 23:37 Drug: HALdol (as decanoate) 5 mg Route: IM; Site: right deltoid; rv 12/25 00:28 Follow up: Response: No adverse reaction rv 00:30 Drug: D50W 50 ml Route: IVP; Site: left upper arm; rv 00:30 Drug: D5W 1000 ml Route: IV; Rate: 100 ml/hr; Site: left upper arm; rv 05:15 Follow up: IV Status: Infusion continued upon transfer aa1 Point of Care Testing: Blood Glucose: 00:30 Blood Glucose: 40 mg/dL; rv 02:04 Blood Glucose: 77 mg/dL; lt1 05:00 Blood Glucose: 70 mg/dL; ea 06:16 Blood Glucose: 83 mg/dL; aa1 Ranges: Outcome: 03:15 Decision to Hospitalize by Provider. rn 04:27 ER care complete, transfer ordered by MD. rn 06:40 Patient left the ED. aa1 Signatures: Dispatcher [employer] EDMS Kelli Silva RN RN aa1 Jesus Spear MD MD rn Antunez, Elena, RN RN ea Willis, Michelle mw3 Abdoul Rosenthal RN RN rv Tran, Leah lt1 Lisbeth Land kj1 Corrections: (The following items were deleted from the chart) 02:50 02:49 BP 116 / 5; Pulse 57bpm; Resp 16bpm; Pulse Ox 100% RA; Temp 97.0F; Pain 0/10; aa1 aa1
[2018-12-25] MEDS ORDERED: D5W 1,000 ML IV ONE (03:31)
--- NOTE | 2018-12-27 10:52 | RAD REPORT ---
EXAM DESCRIPTION: CT - Head Brain Wo Cont - 12/25/2018 4:22 am CLINICAL HISTORY: Seizure COMPARISON: 2016 TECHNIQUE: Computed axial tomography of the head was obtained. IV contrast was not requested. All CT scans are performed using dose optimization technique as appropriate and may include automated exposure control or mA/KV adjustment according to patient size. FINDINGS: An intracranial bleed is not seen . The ventricles are normal in caliber. No extra-axial fluid collection is noted. Cerebral atrophy. Prominence of the ventricles is is withou t significant change from 2016 presumably related to white matter atrophy Fluid within the sinuses/ mastoids is not seen. IMPRESSION: No significant change since 2016. No acute abnormality displayed. If patient's symptoms persist unexplained MR of the brain would be recommended Exam was discussed with Dr Spear in the Emergency Room
== END 2018-12-25 06:40 | disposition short-term general hospital (02) ==
LOC: ER 21:10
DX: G40.909 Epilepsy, unspecified, not intractable, without status epilepticus (principal); R56.9 Unspecified convulsions; E16.2 Hypoglycemia, unspecified; E86.0 Dehydration
CPT/HCPCS: 36415; 70450; 80048; 82962; 85025; 96361; 96372; 96374; 99285; J1630; J7030; J7060

== ENCOUNTER 2019-07-30 18:14 | Emergency (ER) | payer OTHER ==
--- OUTSIDE RECORDS SUMMARY | 2019-07-30 18:20 | XMS REPORT ---
:1965 Author Organization [facility] Address [address] [place] [address] Care Team Providers Name Role Phone LAISHA CUBA Unavailable Unavailable CHASE KING Unavailable Unavailable Problems This patient has no known problems. Allergies, Adverse Reactions, Alerts This patient has no known allergies or adverse reactions. Medications This patient has no known medications. Results Test Description Test Time Test Comments Text Results Atomic Results Result Comments POCT-GLUCOSE METER 2019-01-07 05:12:00 Test Item Value Reference Range Comments POC-GLUCOSE METER (BEAKER) (test 83 mg/dL 70-110 TESTED AT [address] gfjm=7783) [facility] [address] POCT-GLUCOSE [id number] 00:21:00 Test Item Value Reference Range Comments POC-GLUCOSE METER (BEAKER) 105 mg/dL 70-110 TESTED AT [address] (test cjzj=4612) [facility] [address] POCT-GLUCOSE [id number] 21:50:00 Test Item Value Reference Range Comments POC-GLUCOSE METER (BEAKER) 131 mg/dL 70-110 TESTED AT [address] (test fksh=2567) [facility] [address] POCT-GLUCOSE [id number] 21:11:00 Test Item Value Reference Range Comments POC-GLUCOSE METER (BEAKER) 117 mg/dL 70-110 TESTED AT [address] (test ljmw=3043) [facility] [address] POCT-GLUCOSE [id number] 06:11:00 Test Item Value Reference Range Comments POC-GLUCOSE METER (BEAKER) 70 mg/dL 70-110 TESTED AT [address] (test dhjz=8977) [facility] [address] BASIC METABOLIC [id number] 04:55:00 Test Item Value Reference Range Comments SODIUM (BEAKER) (test 141 meq/L 136-145 eyfi=370) POTASSIUM (BEAKER) (test 4.0 meq/L 3.5-5.1 ofpu=214) CHLORIDE (BEAKER) (test 103 meq/L 98-107 nyvy=472) CO2 (BEAKER) (test 33 meq/L 22-29 vjdx=649) BLOOD UREA NITROGEN 8 mg/dL 7-21 (BEAKER) (test wscm=265) CREATININE (BEAKER) (test 0.62 mg/dL 0.57-1.25 dktx=334) GLUCOSE RANDOM (BEAKER) 76 mg/dL 70-105 (test vnkk=520) CALCIUM (BEAKER) (test 9.0 mg/dL 8.4-10.2 pbpx=989) EGFR (BEAKER) (test 164 mL/min/1.73 sq m ESTIMATED GFR IS NOT awgv=3529) ACCURATE CREATININE CLEARANCE IN PREDICTING GLOMERULAR FILTRATION RATE. ESTIMATED GFR IS NOT APPLICABLE FOR DIALYSIS PATIENTS. POCT-GLUCOSE [id number] 04:08:00 Test Item Value Reference Range Comments POC-GLUCOSE METER (BEAKER) 78 mg/dL 70-110 TESTED AT [address] (test mlwj=5481) [facility] [address] POCT-GLUCOSE [id number] 02:11:00 Test Item Value Reference Range Comments POC-GLUCOSE METER (BEAKER) 106 mg/dL 70-110 TESTED AT [address] (test fppv=2200) [facility] [address] POCT-GLUCOSE [id number] 23:55:00 Test Item Value Reference Range Comments POC-GLUCOSE METER (BEAKER) 101 mg/dL 70-110 TESTED AT [address] (test ltok=9851) [facility] [address] POCT-GLUCOSE [id number] 22:27:00 Test Item Value Reference Range Comments POC-GLUCOSE METER (BEAKER) 86 mg/dL 70-110 TESTED AT [address] (test fbqx=2172) [facility] [address] POCT-GLUCOSE [id number] 20:03:00 Test Item Value Reference Range Comments POC-GLUCOSE METER (BEAKER) 139 mg/dL 70-110 TESTED AT [address] (test qntd=3439) [facility] [address] POCT-GLUCOSE [id number] 12:24:00 Test Item Value Reference Range Comments POC-GLUCOSE METER (BEAKER) 89 mg/dL 70-110 TESTED AT [address] (test cxvu=3776) [facility] [address] MISCELLANEOUS LAB [id number] 07:51:00 Test Item Value Reference Range Comments SCAN RESULT (test nuey=[id number]) POCT-GLUCOSE [id number] 05:36:00 Test Item Value Reference Range Comments POC-GLUCOSE METER (BEAKER) 73 mg/dL 70-110 TESTED AT [address] (test nvsn=0395) [facility] [address] POCT-GLUCOSE [id number] 02:11:00 Test Item Value Reference Range Comments POC-GLUCOSE METER (BEAKER) 86 mg/dL 70-110 TESTED AT [address] (test blrh=0245) [facility] [address] POCT-GLUCOSE [id number] 00:09:00 Test Item Value Reference Range Comments POC-GLUCOSE METER (BEAKER) 84 mg/dL 70-110 TESTED AT [address] (test gudh=9489) [facility] [address] POCT-GLUCOSE [id number] 22:11:00 Test Item Value Reference Range Comments POC-GLUCOSE METER (BEAKER) 93 mg/dL 70-110 TESTED AT [address] (test dfdg=2442) [facility] [address] POCT-GLUCOSE [id number] 20:14:00 Test Item Value Reference Range Comments POC-GLUCOSE METER (BEAKER) 98 mg/dL 70-110 TESTED AT [address] (test ahgv=1636) [facility] [address] POCT-GLUCOSE [id number] 15:36:00 Test Item Value Reference Range Comments POC-GLUCOSE METER (BEAKER) 60 mg/dL 70-110 TESTED AT [address] (test kjbr=1009) [facility] [address] POCT-GLUCOSE [id number] 12:10:00 Test Item Value Reference Range Comments POC-GLUCOSE METER (BEAKER) 73 mg/dL 70-110 TESTED AT [address] (test yfsz=4814) [facility] [address] POCT-GLUCOSE [id number] 09:25:00 Test Item Value Reference Range Comments POC-GLUCOSE METER (BEAKER) 95 mg/dL 70-[address] [facility] [address] (test ufoq=5959) [facility] [address] BASIC METABOLIC [id number] 07:34:00 Test Item Value Reference Range Comments SODIUM (BEAKER) (test 138 meq/L 136-145 jcpi=466) POTASSIUM (BEAKER) (test 3.9 meq/L 3.5-5.1 ebtn=579) CHLORIDE (BEAKER) (test 101 meq/L 98-107 yhhu=645) CO2 (BEAKER) (test 30 meq/L 22-29 rbvb=140) BLOOD UREA NITROGEN 11 mg/dL 7-21 (BEAKER) (test hqcy=618) CREATININE (BEAKER) (test 0.64 mg/dL 0.57-1.25 clnm=348) GLUCOSE RANDOM (BEAKER) 71 mg/dL 70-105 (test okgy=010) CALCIUM (BEAKER) (test 9.5 mg/dL 8.4-10.2 rywh=520) EGFR (BEAKER) (test 159 mL/min/1.73 sq m ESTIMATED GFR IS NOT tyed=3482) ACCURATE CREATININE CLEARANCE IN PREDICTING GLOMERULAR FILTRATION RATE. ESTIMATED GFR IS NOT APPLICABLE FOR DIALYSIS PATIENTS. CBC W/PLT COUNT & AUTO [id number] 06:35:00 Test Item Value Reference Range Comments WHITE BLOOD CELL COUNT (BEAKER) (test wmpc=318) 8.7 K/ L 3.5-10.5 RED BLOOD CELL COUNT (BEAKER) (test siej=385) 3.71 M/ L 4.63-6.08 HEMOGLOBIN (BEAKER) (test xtqe=765) 11.4 GM/DL 13.7-17.5 HEMATOCRIT (BEAKER) (test ttuj=794) 35.1 % 40.1-51.0 MEAN CORPUSCULAR VOLUME (BEAKER) (test ruba=810) 94.6 fL 79.0-92.2 MEAN CORPUSCULAR HEMOGLOBIN (BEAKER) (test 30.7 pg 25.7-32.2 wvvh=584) MEAN CORPUSCULAR HEMOGLOBIN CONC (BEAKER) (test 32.5 GM/DL 32.3-36.5 zrxy=666) RED CELL DISTRIBUTION WIDTH (BEAKER) (test 15.6 % 11.6-14.4 gztz=016) PLATELET COUNT (BEAKER) (test wqeo=503) 139 K/CU MM 150-450 MEAN PLATELET VOLUME (BEAKER) (test uwnq=760) 11.1 fL 9.4-12.4 NUCLEATED RED BLOOD CELLS (BEAKER) (test 0 /100 WBC 0-0 mljc=980) NEUTROPHILS RELATIVE PERCENT (BEAKER) (test 44 % itjk=941) LYMPHOCYTES RELATIVE PERCENT (BEAKER) (test 45 % bjut=608) MONOCYTES RELATIVE PERCENT (BEAKER) (test 7 % omye=510) EOSINOPHILS RELATIVE PERCENT (BEAKER) (test 3 % lusy=082) BASOPHILS RELATIVE PERCENT (BEAKER) (test 0 % ajtc=533) NEUTROPHILS ABSOLUTE COUNT (BEAKER) (test 3.79 K/ L 1.78-5.38 fjkf=449) LYMPHOCYTES ABSOLUTE COUNT (BEAKER) (test 3.95 K/ L 1.32-3.57 yowl=003) MONOCYTES ABSOLUTE COUNT (BEAKER) (test 0.57 K/ L 0.30-0.82 uzyu=539) EOSINOPHILS ABSOLUTE COUNT (BEAKER) (test 0.25 K/ L 0.04-0.54 ymes=787) BASOPHILS ABSOLUTE COUNT (BEAKER) (test 0.03 K/ L 0.01-0.08 rozl=299) IMMATURE GRANULOCYTES-RELATIVE PERCENT (BEAKER) 2 % 0-1 (test oomg=7320) POCT-GLUCOSE [id number] 23:54:00 Test Item Value Reference Range Comments POC-GLUCOSE METER (BEAKER) 105 mg/dL 70-110 TESTED AT [address] (test hetv=7359) [place] [id number] POCT-GLUCOSE [id number] 20:19:00 Test Item Value Reference Range Comments POC-GLUCOSE METER (BEAKER) 128 mg/dL 70-110 TESTED AT [address] (test zqgz=9626) [place] [address] [id number] 13:24:00 Test Item Value Reference Range Comments GLUCOSE RANDOM (BEAKER) (test nqth=774) 99 mg/dL 70-105 BASIC METABOLIC [id number] 13:24:00 Test Item Value Reference Range Comments SODIUM (BEAKER) (test 136 meq/L 136-145 cgss=743) POTASSIUM (BEAKER) (test 4.7 meq/L 3.5-5.1 Specimen slightly ibrz=019) hemolyzed CHLORIDE (BEAKER) (test 101 meq/L 98-107 qipt=475) CO2 (BEAKER) (test 27 meq/L 22-29 rsji=901) BLOOD UREA NITROGEN 13 mg/dL 7-21 (BEAKER) (test ywpe=160) CREATININE (BEAKER) (test 0.78 mg/dL 0.57-1.25 Specimen slightly cbcb=475) hemolyzed GLUCOSE RANDOM (BEAKER) 99 mg/dL 70-105 (test fnaw=249) CALCIUM (BEAKER) (test 9.6 mg/dL 8.4-10.2 hhcs=548) EGFR (BEAKER) (test 126 mL/min/1.73 sq m ESTIMATED GFR IS NOT fstu=0681) ACCURATE CREATININE CLEARANCE IN PREDICTING GLOMERULAR FILTRATION RATE. ESTIMATED GFR IS NOT APPLICABLE FOR DIALYSIS PATIENTS. KETONE, [id number] 13:11:00 Test Item Value Reference Range Comments KETONES, BLOOD (BEAKER) (test wbid=4743) 0.1 mmol/L <0.4 TISSUE [id number] 12:48:00Surgical Pathology Report Case: [id number] Authorizing Provider: Blaine Venegas Collected: 12/30/2018 1728 Ordering Location: [place] [address] ICU Received: 01/02/2019 0754 Pathologist: Catracho Early MD Specimens: A) - Stomach, Antrum, Lesser curvature Bx B) - Pancreas, Head, fnb of lesion C) -Pancreas, mando-pancreatic mass fnb PART A GASTRIC ANTRUM LESSER CURVATURE, BIOPSY:ACTIVE CHRONIC GASTRITIS WITH INTESTINAL METAPLASIA.NEGATIVE FOR DYSPLASIAOR INVASIVE CARCINOMA.WARTHIN STARRY STAIN FOR HELICOBACTER IS NEGATIVE.IMMUNOSTAINS FOR HELICOBACTER ARE NEGATIVE.PART B HEAD OF PANCREAS, BIOPSY FOR SUSPECTED MASS:SCANT PORTIONS OF BENIGN GLANDULAR TISSUE.INSUFFICIENT FOR CONFIRMATION OR EXCLUSION OF MALIGNANCY.PART C MANDO-PANCREATIC TISSUE, BIOPSYFOR SUSPECTED MASS:RARE LYMPHOID MATERIAL.INSUFFICIENT FOR CONFIRMATION OR EXCLUSION OF MALIGNANCY.SEE DIAGNOSTIC COMMENT. Signing Pathologist Direct Phone Line: [phone] Preliminary result electronically signed by Catracho Early MD on 01/02 at 5:33 PMPART A: A dense reactive lymphoid population is identified in the lamina propria. Immunohistochemical studies performed on block A1 demonstrate the lymphoid population to be comprised of CD20 positive B cells and CD3 positive T cells. Plasma cells are small and mature and they are polytypic for kappa and lambda light chains. There is no evidence of a hematopoietic neoplasm.PART C: Histological sections demonstrate rare portions of cytologically unremarkable lymphoid tissue. Immunohistochemical studies performed on block C1 demonstrate this population to be positive for CD45 and negative for cam 5.2 and synaptophysin. The sampled material is insufficient to confirm or exclude the presence of a malignancy.[id number], 36334, 93324q5, 50092k1 , 20788Iurpqbsxl is upper endoscopy, biopsy, FNA with ultrasound. Preoperative and postoperative diagnoses pancreatic mass.A. Stomach antrum lesser curvature biopsy. B. Pancreas head FNB of lesion. C. Pancreas peripancreatic mass FNBThe specimen is received in three parts labeled with the patient's name, Marvin Mauricio, and accession number, [id number], which corresponds to the accompanying requisition.Specimen A is received in a biohazard bag in a specimen container and in formalin labeled "stomach antrum" and consistsof four irregular fragments of veliz-white tissue measuring 0.5 x 0.4 x 0.2 cm in aggregate, which aresubmitted in toto in one cassette.Specimen B is received in the same biohazard bag in a specimen container and in formalin labeled "pancreas head" and consists of a single minute core of veliz-red tissuemeasuring 0.3 cm in length x less than 0.1 cm in diameter, which is submitted in toto in one cassette.Specimen C is received in the same biohazard bag in a specimen container and in formalin labeled "pancreas" and consists of three cores of veliz- red tissue measuring 1.5 cm in length x less than 0.1 cm in diameter on average , which are submitted in toto in one cassette. AG/ew Performed. The interpretation of this case included the use of immunohistochemistry or special stains.BLOCK A1- HELICOBACTER, CD20, CD3, KAPPA, LAMBDA WARTHIN STARRYBLOCK C1- CD45, CAM 5.2, SYNAPTOPHYSINControl Slides Examined:In-house known positive controls were evaluated along with the test tissue. These control slides run alongside of the patients sample show appropriate staining. Internal positive and negative controlswhen available are evaluated Immunohistochemistry technical testing was performed at [facility] Pathology Laboratory where it was developed and its performance characteristics were determined. It has not been cleared or approved by the U.S. Food and Drug Administration. The FDA has determined that such clearance or approval is not necessary. The test is used for clinical purposes. It should not be regarded as investigational or for research. This laboratory is certified under the Clinical Laboratory Improvement Amendments of 1988 (CLIA-88) as qualified to perform high complexity clinical laboratory testing.POCT-GLUCOSE [id number] 08:57:00 Test Item Value Reference Range Comments POC-GLUCOSE METER (BEAKER) 60 mg/dL 70-110 TESTED AT [address] (test vkvm=9250) [place] [address] POCT-GLUCOSE [id number] 18:36:00 Test Item Value Reference Range Comments POC-GLUCOSE METER (BEAKER) 82 mg/dL 70-110 TESTED AT [address] (test tkbt=8877) [place] [address] BLOOD [id number] 12:01:00 Test Item Value Reference Range Comments CULTURE (BEAKER) (test mlwu=7617) No growth in 5 days BLOOD [id number] 12:01:00 Test Item Value Reference Range Comments CULTURE (BEAKER) (test fxuj=4175) No growth in 5 days [id number] 08:38:00 Test Item Value Reference Range Comments SCAN RESULT (test eytx=[id number]) INSULIN-LIKE GROWTH [id number] 08:38:00 Test Item Value Reference Range Comments SCAN RESULT (test boyy=1370125) POCT-GLUCOSE [id number] 20:47:00 Test Item Value Reference Range Comments POC-GLUCOSE METER (BEAKER) 109 mg/dL 70-110 TESTED AT [address] (test sxnt=2650) [place] [address] POCT-GLUCOSE [id number] 19:04:00 Test Item Value Reference Range Comments POC-GLUCOSE METER (BEAKER) 86 mg/dL 70-110 TESTED AT [address] (test amjo=0531) [facility] [address] BASIC METABOLIC [id number] 16:38:00 Test Item Value Reference Range Comments SODIUM (BEAKER) (test 141 meq/L 136-145 gaqq=823) POTASSIUM (BEAKER) (test 4.7 meq/L 3.5-5.1 jvwz=181) CHLORIDE (BEAKER) (test 105 meq/L 98-107 iecc=029) CO2 (BEAKER) (test 29 meq/L 22-29 rwee=865) BLOOD UREA NITROGEN 5 mg/dL 7-21 (BEAKER) (test kvdj=181) CREATININE (BEAKER) (test 0.67 mg/dL 0.57-1.25 byax=741) GLUCOSE RANDOM (BEAKER) 75 mg/dL 70-105 (test kcbs=446) CALCIUM (BEAKER) (test 9.3 mg/dL 8.4-10.2 bxbz=194) EGFR (BEAKER) (test 150 mL/min/1.73 sq m ESTIMATED GFR IS NOT wmws=4927) ACCURATE CREATININE CLEARANCE IN PREDICTING GLOMERULAR FILTRATION RATE. ESTIMATED GFR IS NOT APPLICABLE FOR DIALYSIS PATIENTS. CBC W/PLT COUNT & AUTO [id number] 07:03:00 Test Item Value Reference Range Comments WHITE BLOOD CELL COUNT (BEAKER) (test lfml=486) 6.1 K/ L 3.5-10.5 RED BLOOD CELL COUNT (BEAKER) (test vpyt=729) 3.18 M/ L 4.63-6.08 HEMOGLOBIN (BEAKER) (test wifa=901) 9.8 GM/DL 13.7-17.5 HEMATOCRIT (BEAKER) (test acdg=709) 30.7 % 40.1-51.0 MEAN CORPUSCULAR VOLUME (BEAKER) (test ynog=085) 96.5 fL 79.0-92.2 MEAN CORPUSCULAR HEMOGLOBIN (BEAKER) (test 30.8 pg 25.7-32.2 ufvn=694) MEAN CORPUSCULAR HEMOGLOBIN CONC (BEAKER) (test 31.9 GM/DL 32.3-36.5 serf=502) RED CELL DISTRIBUTION WIDTH (BEAKER) (test 15.9 % 11.6-14.4 zxzw=778) PLATELET COUNT (BEAKER) (test qwuv=465) 128 K/CU MM 150-450 MEAN PLATELET VOLUME (BEAKER) (test pfvp=596) 11.8 fL 9.4-12.4 NUCLEATED RED BLOOD CELLS (BEAKER) (test 0 /100 WBC 0-0 tygk=348) NEUTROPHILS RELATIVE PERCENT (BEAKER) (test 43 % eubg=523) LYMPHOCYTES RELATIVE PERCENT (BEAKER) (test 45 % ahzs=053) MONOCYTES RELATIVE PERCENT (BEAKER) (test 7 % eqho=692) EOSINOPHILS RELATIVE PERCENT (BEAKER) (test 4 % xdri=266) BASOPHILS RELATIVE PERCENT (BEAKER) (test 1 % ttyy=496) NEUTROPHILS ABSOLUTE COUNT (BEAKER) (test 2.62 K/ L 1.78-5.38 dmxi=556) LYMPHOCYTES ABSOLUTE COUNT (BEAKER) (test 2.71 K/ L 1.32-3.57 hiyc=545) MONOCYTES ABSOLUTE COUNT (BEAKER) (test 0.40 K/ L 0.30-0.82 fljj=754) EOSINOPHILS ABSOLUTE COUNT (BEAKER) (test 0.22 K/ L 0.04-0.54 clvq=727) BASOPHILS ABSOLUTE COUNT (BEAKER) (test 0.03 K/ L 0.01-0.08 vflb=288) IMMATURE GRANULOCYTES-RELATIVE PERCENT (BEAKER) 1 % 0-1 (test sazb=7424) [id number] 06:49:00 Test Item Value Reference Range Comments PHOSPHORUS (BEAKER) (test nyua=595) 4.0 mg/dL 2.3-4.7 [id number] 06:49:00 Test Item Value Reference Range Comments MAGNESIUM (BEAKER) (test ctdo=528) 1.7 mg/dL 1.6-2.6 BASIC METABOLIC [id number] 06:49:00 Test Item Value Reference Range Comments SODIUM (BEAKER) (test 142 meq/L 136-145 cacq=139) POTASSIUM (BEAKER) (test 3.8 meq/L 3.5-5.1 bwcj=595) CHLORIDE (BEAKER) (test 105 meq/L 98-107 cuel=991) CO2 (BEAKER) (test 31 meq/L 22-29 vexq=431) BLOOD UREA NITROGEN 7 mg/dL 7-21 (BEAKER) (test wlfs=327) CREATININE (BEAKER) (test 0.62 mg/dL 0.57-1.25 dlvo=422) GLUCOSE RANDOM (BEAKER) 99 mg/dL 70-105 (test odiy=771) CALCIUM (BEAKER) (test 8.9 mg/dL 8.4-10.2 regt=945) EGFR (BEAKER) (test 164 mL/min/1.73 sq m ESTIMATED GFR IS NOT jzgg=1845) ACCURATE CREATININE CLEARANCE IN PREDICTING GLOMERULAR FILTRATION RATE. ESTIMATED GFR IS NOT APPLICABLE FOR DIALYSIS PATIENTS. POCT-GLUCOSE [id number] 06:18:00 Test Item Value Reference Range Comments POC-GLUCOSE METER (BEAKER) 112 mg/dL 70-110 TESTED AT [address] (test gbrr=9379) [place] [address] POCT-GLUCOSE [id number] 02:10:00 Test Item Value Reference Range Comments POC-GLUCOSE METER (BEAKER) 106 mg/dL 70-110 TESTED AT [address] (test pzoz=2146) [place] [address] BASIC METABOLIC [id number] 23:16:00 Test Item Value Reference Range Comments SODIUM (BEAKER) (test 140 meq/L 136-145 bndm=107) POTASSIUM (BEAKER) (test 3.8 meq/L 3.5-5.1 Specimen slightly zaur=526) hemolyzed CHLORIDE (BEAKER) (test 105 meq/L 98-107 oxkz=932) CO2 (BEAKER) (test 26 meq/L 22-29 elka=116) BLOOD UREA NITROGEN 7 mg/dL 7-21 (BEAKER) (test rxoo=467) CREATININE (BEAKER) (test 0.70 mg/dL 0.57-1.25 Specimen slightly ekqy=760) hemolyzed GLUCOSE RANDOM (BEAKER) 134 mg/dL 70-105 (test pipo=903) CALCIUM (BEAKER) (test 8.9 mg/dL 8.4-10.2 bebm=485) EGFR (BEAKER) (test 143 mL/min/1.73 sq m ESTIMATED GFR IS NOT bybe=3879) ACCURATE CREATININE CLEARANCE IN PREDICTING GLOMERULAR FILTRATION RATE. ESTIMATED GFR IS NOT APPLICABLE FOR DIALYSIS PATIENTS. POCT-GLUCOSE [id number] 22:45:00 Test Item Value Reference Range Comments POC-GLUCOSE METER (BEAKER) 151 mg/dL 70-110 TESTED AT [address] (test rjvb=7067) [facility] [address] POCT-GLUCOSE [id number] 16:40:00 Test Item Value Reference Range Comments POC-GLUCOSE METER (BEAKER) 83 mg/dL 70-110 TESTED AT [address] (test jerm=5480) [place] [id number] VALPROIC ACID LEVEL, [id number] 14:48:00 Test Item Value Reference Range Comments VALPROIC ACID TOTAL (BEAKER) (test pbbk=928) 36 ug/mL 50-100 Therapeutic range for some clinical conditions may be >100 ug/mLDraw as trough 30-60 minutes prior to next dosePOCT-GLUCOSE [id number] 11:42:00 Test Item Value Reference Range Comments POC-GLUCOSE METER (BEAKER) 88 mg/dL 70-110 TESTED AT [address] (test fqvg=8572) [place] [id number] POCT-GLUCOSE [id number] 08:35:00 Test Item Value Reference Range Comments POC-GLUCOSE METER (BEAKER) 127 mg/dL 70-110 TESTED AT [address] (test vrtd=4443) [place] [id number] CBC W/PLT COUNT & AUTO [id number] 08:20:00 Test Item Value Reference Range Comments WHITE BLOOD CELL COUNT (BEAKER) (test jpjg=947) 5.9 K/ L 3.5-10.5 RED BLOOD CELL COUNT (BEAKER) (test iyor=203) 3.27 M/ L 4.63-6.08 HEMOGLOBIN (BEAKER) (test qclr=016) 10.2 GM/DL 13.7-17.5 HEMATOCRIT (BEAKER) (test iufx=210) 31.5 % 40.1-51.0 MEAN CORPUSCULAR VOLUME (BEAKER) (test wwfk=935) 96.3 fL 79.0-92.2 MEAN CORPUSCULAR HEMOGLOBIN (BEAKER) (test 31.2 pg 25.7-32.2 ihlp=672) MEAN CORPUSCULAR HEMOGLOBIN CONC (BEAKER) (test 32.4 GM/DL 32.3-36.5 ukzx=317) RED CELL DISTRIBUTION WIDTH (BEAKER) (test 16.2 % 11.6-14.4 gcwu=492) PLATELET COUNT (BEAKER) (test kjmx=841) 142 K/CU MM 150-450 MEAN PLATELET VOLUME (BEAKER) (test zyxj=447) 12.3 fL 9.4-12.4 NUCLEATED RED BLOOD CELLS (BEAKER) (test 0 /100 WBC 0-0 aley=288) NEUTROPHILS RELATIVE PERCENT (BEAKER) (test 49 % ilst=624) LYMPHOCYTES RELATIVE PERCENT (BEAKER) (test 37 % vqnz=742) MONOCYTES RELATIVE PERCENT (BEAKER) (test 11 % nlgx=659) EOSINOPHILS RELATIVE PERCENT (BEAKER) (test 3 % pgif=914) BASOPHILS RELATIVE PERCENT (BEAKER) (test 1 % aryj=504) NEUTROPHILS ABSOLUTE COUNT (BEAKER) (test 2.89 K/ L 1.78-5.38 sfud=817) LYMPHOCYTES ABSOLUTE COUNT (BEAKER) (test 2.15 K/ L 1.32-3.57 nhkw=140) MONOCYTES ABSOLUTE COUNT (BEAKER) (test 0.63 K/ L 0.30-0.82 xkpu=884) EOSINOPHILS ABSOLUTE COUNT (BEAKER) (test 0.15 K/ L 0.04-0.54 swzx=803) BASOPHILS ABSOLUTE COUNT (BEAKER) (test 0.03 K/ L 0.01-0.08 lufd=673) IMMATURE GRANULOCYTES-RELATIVE PERCENT (BEAKER) 1 % 0-1 (test vezz=6560) [id number] 05:58:00 Test Item Value Reference Range Comments PHOSPHORUS (BEAKER) (test bvxs=710) 3.7 mg/dL 2.3-4.7 [id number] 05:58:00 Test Item Value Reference Range Comments MAGNESIUM (BEAKER) (test dbhw=292) 1.9 mg/dL 1.6-2.6 BASIC METABOLIC [id number] 05:58:00 Test Item Value Reference Range Comments SODIUM (BEAKER) (test 143 meq/L 136-145 aesh=128) POTASSIUM (BEAKER) (test 4.0 meq/L 3.5-5.1 rpni=965) CHLORIDE (BEAKER) (test 106 meq/L 98-107 aodw=533) CO2 (BEAKER) (test 30 meq/L 22-29 ynkp=555) BLOOD UREA NITROGEN 5 mg/dL 7-21 (BEAKER) (test xoga=607) CREATININE (BEAKER) (test 0.63 mg/dL 0.57-1.25 qsnq=202) GLUCOSE RANDOM (BEAKER) 101 mg/dL 70-105 (test auhq=738) CALCIUM (BEAKER) (test 9.1 mg/dL 8.4-10.2 embm=149) EGFR (BEAKER) (test 161 mL/min/1.73 sq m ESTIMATED GFR IS NOT zjjb=3007) ACCURATE CREATININE CLEARANCE IN PREDICTING GLOMERULAR FILTRATION RATE. ESTIMATED GFR IS NOT APPLICABLE FOR DIALYSIS PATIENTS. POCT-GLUCOSE [id number] 21:55:00 Test Item Value Reference Range Comments POC-GLUCOSE METER (BEAKER) 114 mg/dL 70-[address] [facility] [address] [facility] (test ajkg=2748) [facility] [address] BASIC METABOLIC [id number] 19:08:00 Test Item Value Reference Range Comments SODIUM (BEAKER) (test 143 meq/L 136-145 jyrx=584) POTASSIUM (BEAKER) (test 3.7 meq/L 3.5-5.1 stty=709) CHLORIDE (BEAKER) (test 106 meq/L 98-107 mgpt=944) CO2 (BEAKER) (test 31 meq/L 22-29 wewx=989) BLOOD UREA NITROGEN 5 mg/dL 7-21 (BEAKER) (test ozfk=830) CREATININE (BEAKER) (test 0.66 mg/dL 0.57-1.25 uacb=539) GLUCOSE RANDOM (BEAKER) 116 mg/dL 70-105 (test ayck=606) CALCIUM (BEAKER) (test 8.7 mg/dL 8.4-10.2 dnrb=785) EGFR (BEAKER) (test 153 mL/min/1.73 sq m ESTIMATED GFR IS NOT jtmu=5091) ACCURATE CREATININE CLEARANCE IN PREDICTING GLOMERULAR FILTRATION RATE. ESTIMATED GFR IS NOT APPLICABLE FOR DIALYSIS PATIENTS. VANCOMYCIN LEVEL, [id number] 13:10:00 Test Item Value Reference Range Comments VANCOMYCIN TROUGH (BEAKER) (test dxuw=363) 14.6 ug/mL 10.0-20.0 INSULIN, [id number] 12:44:00 Test Item Value Reference Range Comments SCAN RESULT (test [id number]) POCT-GLUCOSE [id number] 12:29:00 Test Item Value Reference Range Comments POC-GLUCOSE METER (BEAKER) 113 mg/dL 70-[address] [facility] [address] [facility] (test hfwo=6723) [facility] [address] POCT-GLUCOSE [id number] 08:28:00 Test Item Value Reference Range Comments POC-GLUCOSE METER (BEAKER) 102 mg/dL 70-[address] [facility] [address] [facility] (test xhiv=2453) [facility] [address] VANCOMYCIN LEVEL, [id number] 04:16:00 Test Item Value Reference Range Comments VANCOMYCIN TROUGH (BEAKER) (test zsnu=786) 38.8 ug/mL 10.0-20.0 CBC W/PLT COUNT & AUTO [id number] 03:36:00 Test Item Value Reference Range Comments WHITE BLOOD CELL COUNT (BEAKER) (test nuzh=076) 5.6 K/ L 3.5-10.5 RED BLOOD CELL COUNT (BEAKER) (test rijq=797) 3.13 M/ L 4.63-6.08 HEMOGLOBIN (BEAKER) (test ovpi=344) 9.7 GM/DL 13.7-17.5 HEMATOCRIT (BEAKER) (test oxgl=215) 30.2 % 40.1-51.0 MEAN CORPUSCULAR VOLUME (BEAKER) (test knkv=781) 96.5 fL 79.0-92.2 MEAN CORPUSCULAR HEMOGLOBIN (BEAKER) (test 31.0 pg 25.7-32.2 raki=489) MEAN CORPUSCULAR HEMOGLOBIN CONC (BEAKER) (test 32.1 GM/DL 32.3-36.5 mkhw=769) RED CELL DISTRIBUTION WIDTH (BEAKER) (test 16.4 % 11.6-14.4 osuy=373) PLATELET COUNT (BEAKER) (test yirl=546) 144 K/CU MM 150-450 MEAN PLATELET VOLUME (BEAKER) (test ibvf=174) 11.4 fL 9.4-12.4 NUCLEATED RED BLOOD CELLS (BEAKER) (test 0 /100 WBC 0-0 gbrm=178) NEUTROPHILS RELATIVE PERCENT (BEAKER) (test 31 % jclw=861) LYMPHOCYTES RELATIVE PERCENT (BEAKER) (test 52 % cixw=989) MONOCYTES RELATIVE PERCENT (BEAKER) (test 14 % adet=867) EOSINOPHILS RELATIVE PERCENT (BEAKER) (test 1 % gwry=486) BASOPHILS RELATIVE PERCENT (BEAKER) (test 0 % gzzb=632) NEUTROPHILS ABSOLUTE COUNT (BEAKER) (test 1.71 K/ L 1.78-5.38 lntn=119) LYMPHOCYTES ABSOLUTE COUNT (BEAKER) (test 2.90 K/ L 1.32-3.57 afhe=567) MONOCYTES ABSOLUTE COUNT (BEAKER) (test 0.80 K/ L 0.30-0.82 ycmv=014) EOSINOPHILS ABSOLUTE COUNT (BEAKER) (test 0.08 K/ L 0.04-0.54 pjav=905) BASOPHILS ABSOLUTE COUNT (BEAKER) (test 0.01 K/ L 0.01-0.08 vhei=596) IMMATURE GRANULOCYTES-RELATIVE PERCENT (BEAKER) 1 % 0-1 (test xsex=2979) [id number] 03:35:00 Test Item Value Reference Range Comments PHOSPHORUS (BEAKER) (test asfv=057) 4.4 mg/dL 2.3-4.7 [id number] 03:35:00 Test Item Value Reference Range Comments MAGNESIUM (BEAKER) (test csfy=591) 1.7 mg/dL 1.6-2.6 BASIC METABOLIC [id number] 03:35:00 Test Item Value Reference Range Comments SODIUM (BEAKER) (test 146 meq/L 136-145 hepm=790) POTASSIUM (BEAKER) (test 3.9 meq/L 3.5-5.1 hxnw=066) CHLORIDE (BEAKER) (test 108 meq/L 98-107 xjii=929) CO2 (BEAKER) (test 32 meq/L 22-29 syni=656) BLOOD UREA NITROGEN 6 mg/dL 7-21 (BEAKER) (test daxw=579) CREATININE (BEAKER) (test 0.69 mg/dL 0.57-1.25 fpuu=650) GLUCOSE RANDOM (BEAKER) 96 mg/dL 70-105 (test jibz=549) CALCIUM (BEAKER) (test 9.5 mg/dL 8.4-10.2 mdlx=340) EGFR (BEAKER) (test 145 mL/min/1.73 sq m ESTIMATED GFR IS NOT aktt=5261) ACCURATE CREATININE CLEARANCE IN PREDICTING GLOMERULAR FILTRATION RATE. ESTIMATED GFR IS NOT APPLICABLE FOR DIALYSIS PATIENTS. POCT-GLUCOSE [id number] 00:16:00 Test Item Value Reference Range Comments POC-GLUCOSE METER (BEAKER) 91 mg/dL 70-110 TESTED AT [address] (test ltbd=5978) [facility] [address] POCT-GLUCOSE [id number] 17:57:00 Test Item Value Reference Range Comments POC-GLUCOSE METER (BEAKER) 88 mg/dL 70-110 TESTED AT [address] (test ktnj=4930) [facility] [address] POCT-GLUCOSE [id number] 11:45:00 Test Item Value Reference Range Comments POC-GLUCOSE METER (BEAKER) 81 mg/dL 70-110 TESTED AT [address] (test khqs=9450) [facility] [address] POCT-GLUCOSE [id number] 09:14:00 Test Item Value Reference Range Comments POC-GLUCOSE METER (BEAKER) 92 mg/dL 70-110 TESTED AT [address] (test isfw=8998) [facility] [address] POCT-GLUCOSE [id number] 08:32:00 Test Item Value Reference Range Comments POC-GLUCOSE METER (BEAKER) 69 mg/dL 70-110 Notified TEDDY GREENBERG/TESTED AT [facility] (test ihqe=1686) [address] [place] [address] HEPATIC FUNCTION [id number] 07:07:00 Test Item Value Reference Range Comments TOTAL PROTEIN (BEAKER) (test xken=779) 5.9 gm/dL 6.0-8.3 ALBUMIN (BEAKER) (test tbgb=4961) 2.6 g/dL 3.5-5.0 BILIRUBIN TOTAL (BEAKER) (test lmbd=116) 0.2 mg/dL 0.2-1.2 BILIRUBIN DIRECT (BEAKER) (test ajye=267) 0.1 mg/dL 0.1-0.5 ALKALINE PHOSPHATASE (BEAKER) (test fecs=556) 55 U/L 40-150 AST (SGOT) (BEAKER) (test dntu=460) 29 U/L 5-34 ALT (SGPT) (BEAKER) (test vabr=543) 41 U/L 6-55 POCT-GLUCOSE [id number] 06:29:00 Test Item Value Reference Range Comments POC-GLUCOSE METER (BEAKER) 82 mg/dL 70-[address] [facility] [address] (test wrxx=0275) [facility] [address] [id number] 05:12:00 Test Item Value Reference Range Comments PHOSPHORUS (BEAKER) (test ljvd=480) 3.1 mg/dL 2.3-4.7 [id number] 05:12:00 Test Item Value Reference Range Comments MAGNESIUM (BEAKER) (test zlvu=112) 1.6 mg/dL 1.6-2.6 BASIC METABOLIC [id number] 05:12:00 Test Item Value Reference Range Comments SODIUM (BEAKER) (test 143 meq/L 136-145 cgna=378) POTASSIUM (BEAKER) (test 3.7 meq/L 3.5-5.1 zywh=359) CHLORIDE (BEAKER) (test 107 meq/L 98-107 jerr=351) CO2 (BEAKER) (test 31 meq/L 22-29 untu=514) BLOOD UREA NITROGEN 3 mg/dL 7-21 (BEAKER) (test jkie=117) CREATININE (BEAKER) (test 0.61 mg/dL 0.57-1.25 xfuo=585) GLUCOSE RANDOM (BEAKER) 79 mg/dL 70-105 (test ngzy=223) CALCIUM (BEAKER) (test 8.6 mg/dL 8.4-10.2 qprj=929) EGFR (BEAKER) (test 168 mL/min/1.73 sq m ESTIMATED GFR IS NOT qofe=9495) ACCURATE CREATININE CLEARANCE IN PREDICTING GLOMERULAR FILTRATION RATE. ESTIMATED GFR IS NOT APPLICABLE FOR DIALYSIS PATIENTS. LACTIC ACID, [id number] 05:05:00 Test Item Value Reference Range Comments LACTATE BLOOD VENOUS (2) (BEAKER) (test 0.8 mmol/L 0.5-2.2 qxzd=3641) CBC W/PLT COUNT & AUTO [id number] 04:51:00 Test Item Value Reference Range Comments WHITE BLOOD CELL COUNT (BEAKER) (test nqml=258) 5.6 K/ L 3.5-10.5 RED BLOOD CELL COUNT (BEAKER) (test myrq=914) 3.03 M/ L 4.63-6.08 HEMOGLOBIN (BEAKER) (test ftfr=866) 9.4 GM/DL 13.7-17.5 HEMATOCRIT (BEAKER) (test htwe=508) 29.6 % 40.1-51.0 MEAN CORPUSCULAR VOLUME (BEAKER) (test qqxa=675) 97.7 fL 79.0-92.2 MEAN CORPUSCULAR HEMOGLOBIN (BEAKER) (test 31.0 pg 25.7-32.2 szff=417) MEAN CORPUSCULAR HEMOGLOBIN CONC (BEAKER) (test 31.8 GM/DL 32.3-36.5 bsxy=323) RED CELL DISTRIBUTION WIDTH (BEAKER) (test 16.5 % 11.6-14.4 wdur=639) PLATELET COUNT (BEAKER) (test eaid=550) 150 K/CU MM 150-450 MEAN PLATELET VOLUME (BEAKER) (test xwim=881) 12.0 fL 9.4-12.4 NUCLEATED RED BLOOD CELLS (BEAKER) (test 0 /100 WBC 0-0 pqmh=525) NEUTROPHILS RELATIVE PERCENT (BEAKER) (test 39 % pwns=171) LYMPHOCYTES RELATIVE PERCENT (BEAKER) (test 48 % dzvw=671) MONOCYTES RELATIVE PERCENT (BEAKER) (test 11 % fday=422) EOSINOPHILS RELATIVE PERCENT (BEAKER) (test 1 % gzps=428) BASOPHILS RELATIVE PERCENT (BEAKER) (test 0 % pgfs=051) NEUTROPHILS ABSOLUTE COUNT (BEAKER) (test 2.18 K/ L 1.78-5.38 itjx=637) LYMPHOCYTES ABSOLUTE COUNT (BEAKER) (test 2.69 K/ L 1.32-3.57 xtsj=095) MONOCYTES ABSOLUTE COUNT (BEAKER) (test 0.59 K/ L 0.30-0.82 qnqo=565) EOSINOPHILS ABSOLUTE COUNT (BEAKER) (test 0.05 K/ L 0.04-0.54 iuwf=458) BASOPHILS ABSOLUTE COUNT (BEAKER) (test 0.02 K/ L 0.01-0.08 tnls=566) IMMATURE GRANULOCYTES-RELATIVE PERCENT (BEAKER) 1 % 0-1 (test jwfc=2794) CT, [id number] 03:14:00Pt will require sedation given by the nurses prior to the his exam. He has TBI and does not have capacity to make decisions. Guardian consents to sedation for CT scanFINAL REPORT EXAMINATION: Noncontrast and contrast-enhanced CT examinations of the abdomen and pelvis CLINICAL HISTORY: Hypoglycemia concerning for pancreatic mass. Pancreatic mass protocol. COMPARISON EXAM: Ultrasound 11/29/2018. TECHNIQUE : Axial noncontrast tomographic images were initially acquired through the abdomen. Following the administration of IV contrast, axial tomographic images were acquired during the arterial phase through the abdomen. After a brief delay additional axial tomographic images were acquired during the venous and delayed phases through the abdomen and pelvis. Postprocessing was performed and coronal and sagittal reformatted images were created and reviewed. The exam was performed according to our departmental dose optimization program which includes automated exposure control, adjustment of the mA and/or kV according to patient's size and/or use of iterative reconstructive technique. FINDINGS: The heart is mildly enlarged. Trace fluid is noted in the dependent portion of both pleural spaces. Subtle opacities are also noted at the lung bases, right greater than left. Although a component of the lung consolidation is favored to reflect atelectasis, asymmetric reticulonodular opacities are also noted in the right lower lobe which may reflect a superimposed pneumonia. The pancreas demonstrates homogeneous enhancement but is mildly atrophic withfatty infiltration. No evidence of a discrete pancreatic mass, pancreatitis or pancreatic ductal dilatation.. The liver demonstrates relatively homogeneous contrast-enhancement without discrete mass. The gallbladder and bile ducts are decompressed. The spleen is unremarkable. The adrenal glands are normal in size and shape. No evidence of renal obstruction, nephrolithiasis or perinephric edema. The left kidney is associated with a 4 cm cyst. The ureters are decompressed. The bladder demonstrates circumferential wall thickening, nonspecific but possibly reflecting chronic mucosal hypertrophy related to low- grade lateral obstruction. A cystitis or underlying mucosal mass lesion cannot be excluded. The abdominal aorta is normal in caliber. Contrast also opacifies the portal venous system, mesenteric vessels, renal vessels, IVC, iliac and visualized femoral vessels. Evaluation of the bowel is limited by the absence of enteric contrast. The stomach is grossly unremarkable. The loops of small bowel are normal in caliber. A large volume of inspissated stool is noted in the colon extending to the rectum including a large stool ball in the rectal vault. In the left flank deep subcutaneous tissues there is an oval-shaped 8 cm fluid collection with a thickened wall, chronicity and clinical significance indeterminate. Diffuse degenerative changes are noted involving the lumbar spine , most pronounced at L4-L5 with associated spinal canal narrowing/stenosis. IMPRESSION: Asymmetric incompletely imaged right lung reticulonodular opacities (axial image 1, series 1). Although a component may reflect atelectasis, the morphology is concerning for a possible superimposed pneumonia. Recommend clinical correlation. Dedicated chest CT could be performed for further characterization if warranted. Mildly enlarged heart and small bilateral pleural effusions, possible mild fluid overload / CHF. No evidence of a liver mass to correlate with the recent ultrasound (11/29/2018). Nonspecific bladder wall thickening,urinalysis correlation recommended. Large colonic fecal burden concerning for constipation/impaction. No evidence of a pancreatic mass. Signed: Nicole Real MDReport Verified Date/Time: 12/29/2018 03:14:03 Reading Location: [address] Reading Room POCT- GLUCOSE [id number] 00:20:00 Test Item Value Reference Range Comments POC-GLUCOSE METER (BEAKER) 88 mg/dL 70-110 TESTED AT [address] (test leee=5044) [place] [address] POCT-GLUCOSE [id number] 22:16:00 Test Item Value Reference Range Comments POC-GLUCOSE METER (BEAKER) 70 mg/dL 70-110 TESTED AT [address] (test xfub=5446) [place] [address] POCT-GLUCOSE [id number] 18:45:00 Test Item Value Reference Range Comments POC-GLUCOSE METER (BEAKER) 87 mg/dL 70-110 TESTED AT [address] (test lrbn=0907) [place] [address] LACTIC ACID, [id number] 17:43:00 Test Item Value Reference Range Comments LACTATE BLOOD VENOUS (2) (BEAKER) (test 0.6 mmol/L 0.5-2.2 eoid=8707) POCT-GLUCOSE [id number] 15:52:00 Test Item Value Reference Range Comments POC-GLUCOSE METER (BEAKER) 74 mg/dL 70-110 TESTED AT [address] (test hfrt=5344) [place] [address] URINALYSIS W/ REFLEX URINE [id number] 15:43:00 Test Item Value Reference Range Comments COLOR (BEAKER) (test eoul=501) Light Yellow CLARITY (BEAKER) (test emph=843) Clear SPECIFIC GRAVITY UA (BEAKER) (test mjwr=036) 1.003 1.001-1.035 PH UA (BEAKER) (test wzlj=915) 6.5 5.0-8.0 PROTEIN UA (BEAKER) (test ywgn=377) Negative Negative GLUCOSE UA (BEAKER) (test lscc=298) Negative Negative KETONES UA (BEAKER) (test jftx=378) Negative Negative BILIRUBIN UA (BEAKER) (test jimh=823) Negative Negative BLOOD UA (BEAKER) (test nupb=848) Negative Negative NITRITE UA (BEAKER) (test yiam=567) Negative Negative LEUKOCYTE ESTERASE UA (BEAKER) (test rhaz=653) Negative Negative UROBILINOGEN UA (BEAKER) (test skpz=073) 0.2 mg/dL 0.2-1.0 RBC UA (BEAKER) (test ebgx=389) < /HPF WBC UA (BEAKER) (test avwq=511) < /HPF SOURCE(BEAKER) (test tplb=5541) RAPID DRUG SCREEN, [id number] 15:31:00 Test Item Value Reference Range Comments BARBITURATE URINE (BEAKER) (test mbuj=015) Negative Negative BENZODIAZEPINE SCREEN URINE (BEAKER) (test Positive Negative kznf=379) COCAINE (METAB.) SCREEN (BEAKER) (test xuvy=9681) Negative Negative METHADONE SCREEN (BEAKER) (test mdwz=6058) Negative Negative OPIATE SCREEN URINE (BEAKER) (test clos=998) Positive Negative CANNABINOID SCREEN URINE (BEAKER) (test xsjx=111) Negative Negative AMPH/METHAMPH SCREEN (BEAKER) (test axju=4212) Negative Negative PHENCYCLIDINE SCREEN URINE (BEAKER) (test bakx=012) Negative Negative OXYCODONE SCREEN URINE (BEAKER) (test xzhl=2342) Negative Negative DRUG CUTOFF CONC.Cocaine 300 ng/mL Cannabinoid 50 ng/mL Benzodiazepine 200 ng/mLBarbiturate 200 ng/ mLPhencyclidine 25 ng/mLOpiate 300 ng/mLMethadone 300 ng/mLAmphetamine/ 1000 ng/mL MethamphetamineOxycodone 300 ng/mLThis assay provides an unconfirmed qualitative test result for the clinical management of patients in emergency situations. Chain of custody not maintained. Some eoli-ahf-ehaecmu medications, as well as adulterants, may cause inaccurate results. Clinical correlation should be applied. A more comprehensive drug screen or confirmation of a detected drug may be performed upon request.LACTIC ACID, [id number] 15:22:00 Test Item Value Reference Range Comments LACTATE BLOOD VENOUS (2) 0.7 mmol/L 0.5-2.2 Specimen slightly hemolyzed (BEAKER) (test glbl=0952) POCT-GLUCOSE [id number] 15:02:00 Test Item Value Reference Range Comments POC-GLUCOSE METER (BEAKER) 69 mg/dL 70-110 Notified TEDDY GREENBERG/TESTED AT [facility] (test saek=0753) [address] [place] [address] POCT-GLUCOSE [id number] 14:09:00 Test Item Value Reference Range Comments POC-GLUCOSE METER (BEAKER) 59 mg/dL 70-110 Notified TEDDY GREENBERG/TESTED AT [facility] (test dbfz=9603) [address] [place] [address] [id number] 13:13:00 Test Item Value Reference Range Comments PROCALCITONIN (BEAKER) (test zoxw=3458) < ng/mL <0.05 SEPSIS RISK (ng/mL)Low: 0.05-0.50Intermediate: 0.51-2.00High: & gt;=2.01LACTIC ACID, [id number] 12:59:00 Test Item Value Reference Range Comments LACTATE BLOOD VENOUS (2) 0.7 mmol/L 0.5-2.2 Specimen slightly hemolyzed (BEAKER) (test nvnm=6118) POCT-GLUCOSE [id number] 12:59:00 Test Item Value Reference Range Comments POC-GLUCOSE METER (BEAKER) 74 mg/dL 70-110 TESTED AT [address] (test qiaq=8513) [facility] [address] [id number] 11:13:00 Test Item Value Reference Range Comments PHOSPHORUS (BEAKER) (test bkqe=150) 2.7 mg/dL 2.3-4.7 [id number] 11:13:00 Test Item Value Reference Range Comments MAGNESIUM (BEAKER) (test stlr=385) 1.7 mg/dL 1.6-2.6 POCT-GLUCOSE [id number] 11:03:00 Test Item Value Reference Range Comments POC-GLUCOSE METER (BEAKER) 198 mg/dL 70-[address] [facility] [address] [facility] (test mggq=4379) [facility] [address] CBC W/PLT COUNT & AUTO [id number] 10:56:00 Test Item Value Reference Range Comments WHITE BLOOD CELL COUNT (BEAKER) (test ljdu=785) 5.9 K/ L 3.5-10.5 RED BLOOD CELL COUNT (BEAKER) (test hipo=648) 3.11 M/ L 4.63-6.08 HEMOGLOBIN (BEAKER) (test siqd=445) 9.6 GM/DL 13.7-17.5 HEMATOCRIT (BEAKER) (test crfs=733) 30.1 % 40.1-51.0 MEAN CORPUSCULAR VOLUME (BEAKER) (test cgmy=006) 96.8 fL 79.0-92.2 MEAN CORPUSCULAR HEMOGLOBIN (BEAKER) (test 30.9 pg 25.7-32.2 pzie=161) MEAN CORPUSCULAR HEMOGLOBIN CONC (BEAKER) (test 31.9 GM/DL 32.3-36.5 jhuv=018) RED CELL DISTRIBUTION WIDTH (BEAKER) (test 16.2 % 11.6-14.4 tllr=555) PLATELET COUNT (BEAKER) (test cbue=110) 158 K/CU MM 150-450 MEAN PLATELET VOLUME (BEAKER) (test fjpx=460) 11.9 fL 9.4-12.4 NUCLEATED RED BLOOD CELLS (BEAKER) (test 0 /100 WBC 0-0 iwbc=220) (CELLAVISION MANUAL DIFF)[id number] 10:56:00 Test Item Value Reference Range Comments NEUTROPHILS - REL (CELLAVISION)(BEAKER) (test 54 % bcsz=8580) LYMPHOCYTES - REL (CELLAVISION)(BEAKER) (test 30 % xsdc=0110) MONOCYTES - REL (CELLAVISION)(BEAKER) (test 8 % kxpb=7531) EOSINOPHILS - REL (CELLAVISION)(BEAKER) (test 1 % ckqg=8681) BANDS - REL (CELLAVISION)(BEAKER) (test yxea=2754) 7 % 0-10 NEUTROPHILS - ABS (CELLAVISION)(BEAKER) (test 3.19 K/ul 1.78-5.38 qysl=1589) LYMPHOCYTES - ABS (CELLAVISION)(BEAKER) (test 1.77 K/ul 1.32-3.57 yeku=1142) MONOCYTES - ABS (CELLAVISION)(BEAKER) (test 0.47 K/uL 0.30-0.82 lbvm=8106) EOSINOPHILS - ABS (CELLAVISION)(BEAKER) (test 0.06 K/uL 0.04-0.54 cjop=3327) BANDS - ABS (CELLAVISION)(BEAKER) (test bsoc=4009) 0.41 K/uL 0.00-0.80 TOTAL COUNTED (BEAKER) (test luht=1070) 100 GIANT PLATELETS (BEAKER) (test lltn=837) Present TOXIC GRANULATION (BEAKER) (test vfmd=399) Present ANISOCYTOSIS (BEAKER) (test bwzw=984) 1+ few MACROCYTES (BEAKER) (test sbxk=315) 1+ few POIKILOCYTES (BEAKER) (test xkor=505) 1+ few ROULEAUX (BEAKER) (test rohb=055) 1+ few OVALOCYTES (BEAKER) (test ajpx=070) 1+ few BASOPHILIC STIPPLING (BEAKER) (test kuuy=360) Present ARTIFACT (CELLAVISION)(BEAKER) (test xibr=7160) Present PLATELET CONCENTRATION (CELLAVISION)(BEAKER) (test Adequate bpia=2621) Received comment: User comments: Slide comments:BLOOD GAS, [id number] 10 :55:00 Test Item Value Reference Range Comments PH ARTERIAL (BEAKER) (test ypvh=010) 7.41 7.35-7.45 PCO2 ARTERIAL (BEAKER) (test jqxf=040) 49 mmHg 35-45 PO2 ARTERIAL (BEAKER) (test zfvc=778) 73 mmHg 80-90 O2 SATURATION ARTERIAL (BEAKER) (test hhqs=776) 96.6 % 96.0-97.0 HCO3 ARTERIAL (BEAKER) (test mxlt=914) 31 mmol/L 21-29 BASE EXCESS ARTERIAL (BEAKER) (test rtpj=243) 4.5 mmol/L -2.0-3.0 PATIENT TEMPERATURE (BEAKER) (test aanz=1665) 33.0 C FIO2 (BEAKER) (test arjj=9374) 21.0 % LACTIC ACID, [id number] 10:20:00 Test Item Value Reference Range Comments LACTATE BLOOD VENOUS (2) 0.7 mmol/L 0.5-2.2 Specimen markedly hemolyzed (BEAKER) (test hvgm=8847) POCT-GLUCOSE [id number] 10:17:00 Test Item Value Reference Range Comments POC-GLUCOSE METER (BEAKER) 78 mg/dL 70-110 TESTED AT [address] (test gywx=4193) [facility] [address] BLOOD GAS, [id number] 10:04:00 Test Item Value Reference Range Comments PH VENOUS (BEAKER) (test bnxu=204) 7.41 7.32-7.42 PCO2 VENOUS (BEAKER) (test brqz=456) 49 mmHg 41-51 PO2 VENOUS (BEAKER) (test igbb=396) 33 mmHg 25-40 O2 SATURATION VENOUS (BEAKER) (test aqvd=484) 79.6 % 40.0-70.0 HCO3 VENOUS (BEAKER) (test zdeb=720) 33 mmol/L 21-29 BASE EXCESS VENOUS (BEAKER) (test igbq=926) 5.4 mmol/L -2.0-3.0 PATIENT TEMPERATURE (BEAKER) (test jibn=1257) 32.0 C FIO2 (BEAKER) (test jblw=8673) 21.0 % POCT-GLUCOSE [id number] 08:21:00 Test Item Value Reference Range Comments POC-GLUCOSE METER (BEAKER) 98 mg/dL 70-110 TESTED AT [address] (test vdrf=9511) [facility] [address] POCT-GLUCOSE [id number] 05:51:00 Test Item Value Reference Range Comments POC-GLUCOSE METER (BEAKER) 108 mg/dL 70-110 TESTED AT [address] (test okba=4001) [facility] [address] POCT-GLUCOSE [id number] 04:28:00 Test Item Value Reference Range Comments POC-GLUCOSE METER (BEAKER) 112 mg/dL 70-110 TESTED AT [address] (test zdvk=5114) [facility] [address] TSH/FREE T4 IF [id number] 04:05:00 Test Item Value Reference Range Comments THYROID STIMULATING HORMONE (BEAKER) (test 0.58 uIU/mL 0.35-4.94 suxn=431) BASIC METABOLIC [id number] 03:47:00 Test Item Value Reference Range Comments SODIUM (BEAKER) (test 141 meq/L 136-145 cguy=353) POTASSIUM (BEAKER) (test 3.9 meq/L 3.5-5.1 lzzf=396) CHLORIDE (BEAKER) (test 108 meq/L 98-107 xmnk=691) CO2 (BEAKER) (test 30 meq/L 22-29 mubk=294) BLOOD UREA NITROGEN 4 mg/dL 7-21 (BEAKER) (test fzwz=746) CREATININE (BEAKER) (test 0.48 mg/dL 0.57-1.25 rwbr=733) GLUCOSE RANDOM (BEAKER) 122 mg/dL 70-105 (test hxxb=659) CALCIUM (BEAKER) (test 8.9 mg/dL 8.4-10.2 hsfm=489) EGFR (BEAKER) (test 221 mL/min/1.73 sq m ESTIMATED GFR IS NOT rujf=3902) ACCURATE CREATININE CLEARANCE IN PREDICTING GLOMERULAR FILTRATION RATE. ESTIMATED GFR IS NOT APPLICABLE FOR DIALYSIS PATIENTS. POCT-GLUCOSE [id number] 01:57:00 Test Item Value Reference Range Comments POC-GLUCOSE METER (BEAKER) 130 mg/dL 70-110 TESTED AT [address] (test zpjy=1097) [facility] [address] POCT-GLUCOSE [id number] 00:11:00 Test Item Value Reference Range Comments POC-GLUCOSE METER (BEAKER) 122 mg/dL 70-110 TESTED AT [address] (test jqwu=8423) [facility] [address] POCT-GLUCOSE [id number] 22:23:00 Test Item Value Reference Range Comments POC-GLUCOSE METER (BEAKER) 103 mg/dL 70-110 TESTED AT [address] (test dohk=2090) [facility] [address] POCT-GLUCOSE [id number] 20:34:00 Test Item Value Reference Range Comments POC-GLUCOSE METER (BEAKER) 114 mg/dL 70-110 TESTED AT [address] (test fhqd=9521) [place] [id number] POCT-GLUCOSE [id number] 15:59:00 Test Item Value Reference Range Comments POC-GLUCOSE METER (BEAKER) 158 mg/dL 70-110 TESTED AT [address] (test sabg=7009) [place] [id number] POCT-GLUCOSE [id number] 12:26:00 Test Item Value Reference Range Comments POC-GLUCOSE METER (BEAKER) 104 mg/dL 70-110 TESTED AT [address] (test mzkf=1986) [place] [address] KETONE, [id number] 10:04:00 Test Item Value Reference Range Comments KETONES, BLOOD (BEAKER) (test wkaw=8538) 0.1 mmol/L <0.4 POCT-GLUCOSE [id number] 08:37:00 Test Item Value Reference Range Comments POC-GLUCOSE METER (BEAKER) 153 mg/dL 70-110 TESTED AT [address] (test pmsh=3966) [place] [id number] POCT-GLUCOSE [id number] 08:37:00 Test Item Value Reference Range Comments POC-GLUCOSE METER (BEAKER) 61 mg/dL 70-110 Notified TEDDY GREENBERG/TESTED AT [facility] (test fcmd=9651) [address] [place] [address] VALPROIC ACID LEVEL, [id number] 06:44:00 Test Item Value Reference Range Comments VALPROIC ACID TOTAL (BEAKER) (test kcts=785) 34 ug/mL 50-100 Therapeutic range for some clinical conditions may be >100 ug/mLPOCT-GLUCOSE [id number] 06:30:00 Test Item Value Reference Range Comments POC-GLUCOSE METER (BEAKER) 129 mg/dL 70-110 TESTED AT [address] (test rijq=7432) [place] [id number] POCT-GLUCOSE [id number] 00:19:00 Test Item Value Reference Range Comments POC-GLUCOSE METER (BEAKER) 113 mg/dL 70-110 TESTED AT [address] (test zmli=1491) [place] [id number] POCT-GLUCOSE [id number] 20:22:00 Test Item Value Reference Range Comments POC-GLUCOSE METER (BEAKER) 74 mg/dL 70-110 TESTED AT [address] (test lxoe=7635) [facility] [address] POCT-GLUCOSE [id number] 18:07:00 Test Item Value Reference Range Comments POC-GLUCOSE METER (BEAKER) 108 mg/dL 70-110 TESTED AT [address] (test dylk=0418) [facility] [address] [id number] 18:02:00 Test Item Value Reference Range Comments GLUCOSE RANDOM (BEAKER) (test lpgj=481) 65 mg/dL 70-105 [place], [id number] 18:00:00 Test Item Value Reference Range Comments KETONES, BLOOD (BEAKER) (test kulv=9559) 0.1 mmol/L <0.4 POCT-GLUCOSE [id number] 17:03:00 Test Item Value Reference Range Comments POC-GLUCOSE METER (BEAKER) 66 mg/dL 70-110 Notified TEDDY GREENBERG/TESTED AT [facility] (test lmgv=6361) [address] [place] [address] POCT-GLUCOSE [id number] 16:05:00 Test Item Value Reference Range Comments POC-GLUCOSE METER (BEAKER) 76 mg/dL 70-110 TESTED AT [address] (test fqrj=6090) [facility] [address] POCT-GLUCOSE [id number] 13:19:00 Test Item Value Reference Range Comments POC-GLUCOSE METER (BEAKER) 103 mg/dL 70-110 TESTED AT [address] (test uhcf=7817) [facility] [address] POCT-GLUCOSE [id number] 10:02:00 Test Item Value Reference Range Comments POC-GLUCOSE METER (BEAKER) 75 mg/dL 70-110 TESTED AT [address] (test pkzg=6967) [facility] [address] POCT-GLUCOSE [id number] 08:29:00 Test Item Value Reference Range Comments POC-GLUCOSE METER (BEAKER) 89 mg/dL 70-110 TESTED AT [address] (test whgg=2034) [facility] [address] POCT-GLUCOSE [id number] 04:10:00 Test Item Value Reference Range Comments POC-GLUCOSE METER (BEAKER) 114 mg/dL 70-110 TESTED AT [address] (test kswa=7678) [facility] [address] POCT-GLUCOSE [id number] 01:15:00 Test Item Value Reference Range Comments POC-GLUCOSE METER (BEAKER) 137 mg/dL 70-110 TESTED AT [address] (test dyfb=9945) [place] [id number] POCT-GLUCOSE [id number] 21:27:00 Test Item Value Reference Range Comments POC-GLUCOSE METER (BEAKER) 105 mg/dL 70-110 TESTED AT [address] (test eqix=6096) [place] [id number] POCT-GLUCOSE [id number] 17:30:00 Test Item Value Reference Range Comments POC-GLUCOSE METER (BEAKER) 109 mg/dL 70-110 TESTED AT [address] (test zcut=7559) [place] [id number] POCT-GLUCOSE [id number] 13:03:00 Test Item Value Reference Range Comments POC-GLUCOSE METER (BEAKER) 125 mg/dL 70-110 TESTED AT [address] (test gpht=6335) [place] [id number] POCT-GLUCOSE [id number] 13:03:00 Test Item Value Reference Range Comments POC-GLUCOSE METER (BEAKER) 63 mg/dL 70-110 TESTED AT [address] (test drfo=4868) [facility] [address] BASIC METABOLIC [id number] 12:34:00 Test Item Value Reference Range Comments SODIUM (BEAKER) (test 140 meq/L 136-145 ffus=560) POTASSIUM (BEAKER) (test 4.3 meq/L 3.5-5.1 Specimen slightly yinq=880) hemolyzed CHLORIDE (BEAKER) (test 105 meq/L 98-107 imgo=439) CO2 (BEAKER) (test 30 meq/L 22-29 dohh=335) BLOOD UREA NITROGEN 10 mg/dL 7-21 (BEAKER) (test wysf=779) CREATININE (BEAKER) (test 0.52 mg/dL 0.57-1.25 Specimen slightly bmrq=530) hemolyzed GLUCOSE RANDOM (BEAKER) 60 mg/dL 70-105 (test rbqz=585) CALCIUM (BEAKER) (test 8.7 mg/dL 8.4-10.2 zwoz=233) EGFR (BEAKER) (test 201 mL/min/1.73 sq m ESTIMATED GFR IS NOT kftj=2039) ACCURATE CREATININE CLEARANCE IN PREDICTING GLOMERULAR FILTRATION RATE. ESTIMATED GFR IS NOT APPLICABLE FOR DIALYSIS PATIENTS. CBC W/PLT COUNT & AUTO [id number] 11:13:00 Test Item Value Reference Range Comments WHITE BLOOD CELL COUNT (BEAKER) (test zjxi=405) 4.2 K/ L 3.5-10.5 RED BLOOD CELL COUNT (BEAKER) (test zmoy=731) 3.51 M/ L 4.63-6.08 HEMOGLOBIN (BEAKER) (test zgmn=018) 11.1 GM/DL 13.7-17.5 HEMATOCRIT (BEAKER) (test wycx=010) 34.0 % 40.1-51.0 MEAN CORPUSCULAR VOLUME (BEAKER) (test jrbr=222) 96.9 fL 79.0-92.2 MEAN CORPUSCULAR HEMOGLOBIN (BEAKER) (test 31.6 pg 25.7-32.2 zfzn=835) MEAN CORPUSCULAR HEMOGLOBIN CONC (BEAKER) (test 32.6 GM/DL 32.3-36.5 exdp=935) RED CELL DISTRIBUTION WIDTH (BEAKER) (test 16.1 % 11.6-14.4 uphe=600) PLATELET COUNT (BEAKER) (test cczf=080) 211 K/CU MM 150-450 MEAN PLATELET VOLUME (BEAKER) (test ytym=418) 11.2 fL 9.4-12.4 NUCLEATED RED BLOOD CELLS (BEAKER) (test 0 /100 WBC 0-0 yvlo=063) NEUTROPHILS RELATIVE PERCENT (BEAKER) (test 42 % lodv=883) LYMPHOCYTES RELATIVE PERCENT (BEAKER) (test 40 % ilzk=111) MONOCYTES RELATIVE PERCENT (BEAKER) (test 15 % leae=794) EOSINOPHILS RELATIVE PERCENT (BEAKER) (test 3 % bmiq=324) BASOPHILS RELATIVE PERCENT (BEAKER) (test 1 % idja=671) NEUTROPHILS ABSOLUTE COUNT (BEAKER) (test 1.78 K/ L 1.78-5.38 kipa=237) LYMPHOCYTES ABSOLUTE COUNT (BEAKER) (test 1.67 K/ L 1.32-3.57 zsya=752) MONOCYTES ABSOLUTE COUNT (BEAKER) (test 0.62 K/ L 0.30-0.82 wezz=614) EOSINOPHILS ABSOLUTE COUNT (BEAKER) (test 0.12 K/ L 0.04-0.54 gfmd=114) BASOPHILS ABSOLUTE COUNT (BEAKER) (test 0.02 K/ L 0.01-0.08 jgrl=498) IMMATURE GRANULOCYTES-RELATIVE PERCENT (BEAKER) 0 % 0-1 (test lyyc=4050) POCT-GLUCOSE [id number] 10:16:00 Test Item Value Reference Range Comments POC-GLUCOSE METER (BEAKER) 130 mg/dL 70-110 TESTED AT [address] (test hhar=9133) [place] [address] POCT-GLUCOSE [id number] 08:29:00 Test Item Value Reference Range Comments POC-GLUCOSE METER (BEAKER) 75 mg/dL 70-110 TESTED AT [address] (test kkys=7740) [place] [address] POCT-GLUCOSE [id number] 08:29:00 Test Item Value Reference Range Comments POC-GLUCOSE METER (BEAKER) 48 mg/dL 70-110 Notified TEDDY GREENBERG/TESTED AT [facility] (test rcbk=6913) [address] [place] [address] MISCELLANEOUS LAB [id number] 11:35:00 Test Item Value Reference Range Comments SCAN RESULT (test tbds=[id number]) MISCELLANEOUS LAB [id number] 12:54:00 Test Item Value Reference Range Comments SCAN RESULT (test neeq=[id number]) BLOOD [id number] 20:01:00 Test Item Value Reference Range Comments CULTURE (BEAKER) (test aulg=0003) No growth in 5 days BLOOD [id number] 02:01:00 Test Item Value Reference Range Comments CULTURE (BEAKER) (test equk=1076) No growth in 5 days POCT-GLUCOSE [id number] 05:16:00 Test Item Value Reference Range Comments POC-GLUCOSE METER (BEAKER) 83 mg/dL 70-110 TESTED AT [address] (test uqsp=0738) [place] [id number] POCT-GLUCOSE [id number] 21:57:00 Test Item Value Reference Range Comments POC-GLUCOSE METER (BEAKER) 75 mg/dL 70-110 TESTED AT [address] (test gowg=7341) [place] [address] CORTISOL,60 [id number] 18:57:00 Test Item Value Reference Range Comments CORTISOL BASELINE NETWORKED (BEAKER) (test 9.7 mcg/dL hgcs=3577) CORTISOL 30 MINUTE NETWORKED (BEAKER) (test 17.8 mcg/dL kkyz=0534) CORTISOL, 60 MINUTE (BEAKER) (test fjgf=6733) 23.6 ug/dL ACTH STIMULATION TEST INTERPRETATION GUIDELINES(Synonyms: [...] study by Harjinder et al (CARLOS 2000,283( 8):6327-45), the ACTH Stimulation Test provides important prognostic [...] serum cortisollevel 60 minutes after cosyntropin administration.CORTISOL,30 [id number] 18:11:00 Test Item Value Reference Range Comments CORTISOL BASELINE NETWORKED (BEAKER) (test 9.7 mcg/dL ajjk=4097) CORTISOL, 30 MINUTE (BEAKER) (test fpti=0500) 17.8 ug/dL ACTH STIMULATION TEST INTERPRETATION GUIDELINES(Synonyms: [...] serum cortisollevel 60 minutes after cosyntropin administration.POCT-GLUCOSE [id number] 17:52:00 Test Item Value Reference Range Comments POC-GLUCOSE METER (BEAKER) 74 mg/dL 70-[address] [facility] [address] [facility] (test qjwd=0273) [facility] [address] CORTISOL,[id number] 15:02:00 Test Item Value Reference Range Comments CORTISOL, BASELINE (BEAKER) (test qudn=7967) 9.7 ug/dL ACTH STIMULATION TEST INTERPRETATION GUIDELINES(Synonyms: [...] and Procedure Section on [employer] Source.BASIC METABOLIC [id number] 14:44:00 Test Item Value Reference Range Comments SODIUM (BEAKER) (test 142 meq/L 136-145 prxb=644) POTASSIUM (BEAKER) (test 4.8 meq/L 3.5-5.1 Specimen slightly crnd=052) hemolyzed CHLORIDE (BEAKER) (test 103 meq/L 98-107 egcf=967) CO2 (BEAKER) (test 30 meq/L 22-29 twto=377) BLOOD UREA NITROGEN 10 mg/dL 7-21 (BEAKER) (test xkze=035) CREATININE (BEAKER) (test 0.67 mg/dL 0.57-1.25 Specimen slightly grju=212) hemolyzed GLUCOSE RANDOM (BEAKER) 105 mg/dL 70-105 (test qscl=716) CALCIUM (BEAKER) (test 9.7 mg/dL 8.4-10.2 hpac=896) EGFR (BEAKER) (test 150 mL/min/1.73 sq m ESTIMATED GFR IS NOT bnnl=5839) ACCURATE CREATININE CLEARANCE IN PREDICTING GLOMERULAR FILTRATION RATE. ESTIMATED GFR IS NOT APPLICABLE FOR DIALYSIS PATIENTS. LACTIC ACID, [id number] 14:39:00 Test Item Value Reference Range Comments LACTATE BLOOD ARTERIAL (2) 4.6 mmol/L 0.5-2.2 Specimen slightly hemolyzed (BEAKER) (test sjwc=3378) PROTHROMBIN [id number] 14:05:00 Test Item Value Reference Range Comments PROTIME (BEAKER) (test omnf=063) 12.4 seconds 11.7-14.7 INR (BEAKER) (test whbw=696) 0.9 <=5.9 RECOMMENDED COUMADIN/WARFARIN INR THERAPY RANGESSTANDARD DOSE: 2.0 - 3.0 Includes: PROPHYLAXIS forvenous thrombosis, systemic embolization; TREATMENT for venous thrombosis and/or pulmonary embolus.HIGH RISK: Target INR is 2.5-3.5 for patients with mechanical heart valves.CBC W/PLT COUNT & AUTO [id number] 14:02:00 Test Item Value Reference Range Comments WHITE BLOOD CELL COUNT (BEAKER) (test vqmf=702) 7.8 K/ L 3.5-10.5 RED BLOOD CELL COUNT (BEAKER) (test tnum=674) 3.96 M/ L 4.63-6.08 HEMOGLOBIN (BEAKER) (test dogb=004) 12.4 GM/DL 13.7-17.5 HEMATOCRIT (BEAKER) (test uoas=043) 39.0 % 40.1-51.0 MEAN CORPUSCULAR VOLUME (BEAKER) (test fqyn=714) 98.5 fL 79.0-92.2 MEAN CORPUSCULAR HEMOGLOBIN (BEAKER) (test 31.3 pg 25.7-32.2 xpap=136) MEAN CORPUSCULAR HEMOGLOBIN CONC (BEAKER) (test 31.8 GM/DL 32.3-36.5 vkpp=255) RED CELL DISTRIBUTION WIDTH (BEAKER) (test 15.6 % 11.6-14.4 wwnh=644) PLATELET COUNT (BEAKER) (test kdpp=603) 219 K/CU MM 150-450 MEAN PLATELET VOLUME (BEAKER) (test bznf=988) 12.3 fL 9.4-12.4 NUCLEATED RED BLOOD CELLS (BEAKER) (test 0 /100 WBC 0-0 cyxh=482) NEUTROPHILS RELATIVE PERCENT (BEAKER) (test 43 % gvbp=871) LYMPHOCYTES RELATIVE PERCENT (BEAKER) (test 44 % vozd=621) MONOCYTES RELATIVE PERCENT (BEAKER) (test 10 % tnxr=662) EOSINOPHILS RELATIVE PERCENT (BEAKER) (test 3 % tmbb=492) BASOPHILS RELATIVE PERCENT (BEAKER) (test 0 % ltcz=831) NEUTROPHILS ABSOLUTE COUNT (BEAKER) (test 3.32 K/ L 1.78-5.38 flfw=275) LYMPHOCYTES ABSOLUTE COUNT (BEAKER) (test 3.41 K/ L 1.32-3.57 wehg=837) MONOCYTES ABSOLUTE COUNT (BEAKER) (test 0.81 K/ L 0.30-0.82 gxio=631) EOSINOPHILS ABSOLUTE COUNT (BEAKER) (test 0.20 K/ L 0.04-0.54 iutn=627) BASOPHILS ABSOLUTE COUNT (BEAKER) (test 0.03 K/ L 0.01-0.08 uzjw=899) IMMATURE GRANULOCYTES-RELATIVE PERCENT (BEAKER) 0 % 0-1 (test mdid=1683) POCT-GLUCOSE [id number] 13:12:00 Test Item Value Reference Range Comments POC-GLUCOSE METER (BEAKER) 126 mg/dL 70-110 TESTED AT [address] (test kjjy=3950) [facility] [address] POCT-GLUCOSE [id number] 08:09:00 Test Item Value Reference Range Comments POC-GLUCOSE METER (BEAKER) 87 mg/dL 70-110 TESTED AT [address] (test ludj=4178) [facility] [address] POCT-GLUCOSE [id number] 07:29:00 Test Item Value Reference Range Comments POC-GLUCOSE METER (BEAKER) 52 mg/dL 70-110 TESTED AT [address] (test gljq=2788) [facility] [address] POCT-GLUCOSE [id number] 01:49:00 Test Item Value Reference Range Comments POC-GLUCOSE METER (BEAKER) 94 mg/dL 70-110 TESTED AT [address] (test wntv=6224) [facility] [address] POCT-GLUCOSE [id number] 18:53:00 Test Item Value Reference Range Comments POC-GLUCOSE METER (BEAKER) 124 mg/dL 70-110 TESTED AT [address] (test hjcd=9695) [place] [id number] POCT-GLUCOSE [id number] 18:12:00 Test Item Value Reference Range Comments POC-GLUCOSE METER (BEAKER) 60 mg/dL 70-110 Notified TEDDY GREENBERG/TESTED AT [facility] (test clez=2946) [address] [place], [place] [address] POCT-GLUCOSE [id number] 13:18:00 Test Item Value Reference Range Comments POC-GLUCOSE METER (BEAKER) 81 mg/dL 70-110 TESTED AT [address] (test eyxx=0909) [place] [id number] POCT-GLUCOSE [id number] 08:05:00 Test Item Value Reference Range Comments POC-GLUCOSE METER (BEAKER) 108 mg/dL 70-110 TESTED AT [address] (test eanr=1376) [place] [id number] POCT-GLUCOSE [id number] 08:02:00 Test Item Value Reference Range Comments POC-GLUCOSE METER (BEAKER) 67 mg/dL 70-110 Notified TEDDY GREENBERG/TESTED AT [facility] (test hgqv=8082) [address] [place], [place] [address] URINALYSIS WITH MICROSCOPIC IF [id number] 06:38:00 Test Item Value Reference Range Comments COLOR (BEAKER) (test oibw=362) Yellow CLARITY (BEAKER) (test zjom=352) Clear SPECIFIC GRAVITY UA (BEAKER) (test yfkn=038) 1.016 1.001-1.035 PH UA (BEAKER) (test bkpc=151) 7.0 5.0-8.0 PROTEIN UA (BEAKER) (test evzs=116) Negative Negative GLUCOSE UA (BEAKER) (test ecyu=077) Negative Negative KETONES UA (BEAKER) (test eqox=110) Negative Negative BILIRUBIN UA (BEAKER) (test tjnw=159) Negative Negative BLOOD UA (BEAKER) (test dzhz=514) Negative Negative NITRITE UA (BEAKER) (test lnab=316) Negative Negative LEUKOCYTE ESTERASE UA (BEAKER) (test kavi=025) Negative Negative UROBILINOGEN UA (BEAKER) (test vxuj=886) 0.2 mg/dL 0.2-1.0 SOURCE(BEAKER) (test lkul=9697) RAD, CHEST, 1 VIEW, NON [id number] 23:12:00Reason for exam:->FeverShould this be performed at [...] may represent sequela of infection Signed: Ro Suazo MDR[facility]ort Verified Date/Time: 12/04/2018 23:12:24 Reading Location: [address] Neuro ReadingRoom VALPROIC ACID LEVEL, [id number] 21:41:00 Test Item Value Reference Range Comments VALPROIC ACID TOTAL (BEAKER) (test lanm=295) 37 ug/mL 50-100 Therapeutic range for some clinical conditions may be >100 ug/mLPOCT-GLUCOSE [id number] 21:30:00 Test Item Value Reference Range Comments POC-GLUCOSE METER (BEAKER) 86 mg/dL 70-[address] [facility] [address] [facility] (test seki=1686) [facility] [address] PROTHROMBIN [id number] 21:00:00 Test Item Value Reference Range Comments PROTIME (BEAKER) (test mtod=129) 13.9 seconds 11.7-14.7 INR (BEAKER) (test grxz=317) 1.1 <=5.9 RECOMMENDED COUMADIN/WARFARIN INR THERAPY RANGESSTANDARD DOSE: 2.0 - 3.0 Includes: PROPHYLAXIS forvenous thrombosis, systemic embolization; TREATMENT for venous thrombosis and/or pulmonary embolus.HIGH RISK: Target INR is 2.5-3.5 for patients with mechanical heart valves.LACTIC ACID, [id number] 20:58:00 Test Item Value Reference Range Comments LACTATE BLOOD VENOUS (2) 2.3 mmol/L 0.5-2.2 Specimen slightly hemolyzed (BEAKER) (test skdl=4494) [id number] 20:51:00 Test Item Value Reference Range Comments PHOSPHORUS (BEAKER) (test yfgg=501) 2.9 mg/dL 2.3-4.7 Check Serum Phosphorus level 4 hours after IV phosphorus replacement or 8 hours after PO replacementcompleted.[id number] 20:51:00 Test Item Value Reference Range Comments MAGNESIUM (BEAKER) (test ustx=939) 1.7 mg/dL 1.6-2.6 Check Serum Phosphorus level 4 hours after IV phosphorus replacement or 8 hours after PO replacementcompleted.BASIC METABOLIC [id number] 20:51:00 Test Item Value Reference Range Comments SODIUM (BEAKER) (test 138 meq/L 136-145 swuq=074) POTASSIUM (BEAKER) (test 4.2 meq/L 3.5-5.1 oeyl=774) CHLORIDE (BEAKER) (test 101 meq/L 98-107 nphj=457) CO2 (BEAKER) (test 30 meq/L 22-29 jnco=626) BLOOD UREA NITROGEN 13 mg/dL 7-21 (BEAKER) (test fkop=645) CREATININE (BEAKER) (test 0.74 mg/dL 0.57-1.25 wseh=254) GLUCOSE RANDOM (BEAKER) 84 mg/dL 70-105 (test upfm=816) CALCIUM (BEAKER) (test 9.4 mg/dL 8.4-10.2 luao=167) EGFR (BEAKER) (test 134 mL/min/1.73 sq m ESTIMATED GFR IS NOT kvgd=1346) ACCURATE CREATININE CLEARANCE IN PREDICTING GLOMERULAR FILTRATION RATE. ESTIMATED GFR IS NOT APPLICABLE FOR DIALYSIS PATIENTS. Check Serum Phosphorus level 4 hours after IV phosphorus replacement or 8 hours after PO replacementcompleted.CBC W/PLT COUNT & AUTO [id number] 20:28:00 Test Item Value Reference Range Comments WHITE BLOOD CELL COUNT (BEAKER) (test qztx=047) 8.7 K/ L 3.5-10.5 RED BLOOD CELL COUNT (BEAKER) (test cmmc=441) 3.66 M/ L 4.63-6.08 HEMOGLOBIN (BEAKER) (test ovux=739) 11.3 GM/DL 13.7-17.5 HEMATOCRIT (BEAKER) (test iery=146) 34.8 % 40.1-51.0 MEAN CORPUSCULAR VOLUME (BEAKER) (test nhri=661) 95.1 fL 79.0-92.2 MEAN CORPUSCULAR HEMOGLOBIN (BEAKER) (test 30.9 pg 25.7-32.2 sxyj=195) MEAN CORPUSCULAR HEMOGLOBIN CONC (BEAKER) (test 32.5 GM/DL 32.3-36.5 geax=755) RED CELL DISTRIBUTION WIDTH (BEAKER) (test 15.4 % 11.6-14.4 iywa=604) PLATELET COUNT (BEAKER) (test gldc=074) 191 K/CU MM 150-450 MEAN PLATELET VOLUME (BEAKER) (test zbpt=413) 11.6 fL 9.4-12.4 NUCLEATED RED BLOOD CELLS (BEAKER) (test 0 /100 WBC 0-0 qxkv=900) NEUTROPHILS RELATIVE PERCENT (BEAKER) (test 33 % azaj=622) LYMPHOCYTES RELATIVE PERCENT (BEAKER) (test 52 % izph=736) MONOCYTES RELATIVE PERCENT (BEAKER) (test 13 % hwcl=652) EOSINOPHILS RELATIVE PERCENT (BEAKER) (test 3 % kgvk=066) BASOPHILS RELATIVE PERCENT (BEAKER) (test 0 % xvwi=400) NEUTROPHILS ABSOLUTE COUNT (BEAKER) (test 2.81 K/ L 1.78-5.38 tdrw=174) LYMPHOCYTES ABSOLUTE COUNT (BEAKER) (test 4.50 K/ L 1.32-3.57 dfxg=566) MONOCYTES ABSOLUTE COUNT (BEAKER) (test 1.10 K/ L 0.30-0.82 izvm=608) EOSINOPHILS ABSOLUTE COUNT (BEAKER) (test 0.23 K/ L 0.04-0.54 xaox=775) BASOPHILS ABSOLUTE COUNT (BEAKER) (test 0.03 K/ L 0.01-0.08 vufy=987) IMMATURE GRANULOCYTES-RELATIVE PERCENT (BEAKER) 0 % 0-1 (test waex=3680) [id number] 20:09:00 Test Item Value Reference Range Comments POC-HEMATOCRIT (BEAKER) (test 34 % 40-50 TESTED AT [address] ywiz=6345) [place] [address] [id number] 20:09:00 Test Item Value Reference Range Comments POC-HEMOGLOBIN (BEAKER) 11.6 g/dL 13.0-16.8 TESTED AT [address] (test yckx=8449) [place] [address]TESTED AT [place] [address] POCT-BLOOD GASES, [id number] 20:08:00 Test Item Value Reference Range Comments TEMP, CELSIUS-POC (BEAKER) 37.0 (test cxwt=5407) FIO2-POC (BEAKER) (test TESTED AT [address] bigw=9114) [place] [address] PH, VENOUS-POC (BEAKER) 7.483 7.320-7.420 (test jbfa=6937) PCO2, VENOUS-POC (BEAKER) 42.8 mm Hg 41.0-51.0 (test wfws=5259) PO2, VENOUS-POC (BEAKER) 50.0 mm Hg 25.0-40.0 (test kpmr=1683) SO2, VENOUS-POC (BEAKER) 87.0 % 40.0-70.0 (test loit=2531) HCO3, VENOUS-POC (BEAKER) 32.1 meq/L 21.0-29.0 (test qsyc=4545) BASE EXCESS, VENOUS-POC 9.0 meq/L -2.0-3.0 (BEAKER) (test uexe=4425) [id number] 20:08:00 Test Item Value Reference Range Comments POC-SODIUM (BEAKER) (test 136 meq/L 135-148 TESTED AT [address] noar=1147) [place] [address] [id number] 20:08:00 Test Item Value Reference Range Comments POC-POTASSIUM (BEAKER) (test 4.5 meq/L 3.6-5.5 TESTED AT [address] eomu=8316) [place] [address] [id number] 20:08:00 Test Item Value Reference Range Comments POC-GLUCOSE (BEAKER) (test 84 mg/dL 70-110 TESTED AT [address] phfx=0076) [facility] [address] POCT-CALCIUM [id number] 20:08:00 Test Item Value Reference Range Comments POC-CALCIUM IONIZED (BEAKER) 1.25 mmol/L 1.12-1.27 TESTED AT [address] (test woxr=7864) [facility] [address] POCT-LACTIC ACID, [id number] 20:08:00 Test Item Value Reference Range Comments POC-LACTIC ACID, ARTERIAL 2.6 mmol/L 0.4-1.3 TESTED AT [address] (BEAKER) (test hfhl=0239) [facility] [address] POCT-GLUCOSE [id number] 19:25:00 Test Item Value Reference Range Comments POC-GLUCOSE METER (BEAKER) 81 mg/dL 70-110 TESTED AT [address] (test efus=8611) [facility] [address] POCT-GLUCOSE [id number] 22:27:00 Test Item Value Reference Range Comments POC-GLUCOSE METER (BEAKER) 110 mg/dL 70-110 TESTED AT [address] (test rydc=1186) [facility] [address] POCT-GLUCOSE [id number] 04:51:00 Test Item Value Reference Range Comments POC-GLUCOSE METER (BEAKER) 75 mg/dL 70-110 TESTED AT [address] (test anvd=1798) [facility] [address] POCT-GLUCOSE [id number] 00:08:00 Test Item Value Reference Range Comments POC-GLUCOSE METER (BEAKER) 76 mg/dL 70-110 TESTED AT [address] (test dbhz=3859) [facility] [address] POCT-GLUCOSE [id number] 21:37:00 Test Item Value Reference Range Comments POC-GLUCOSE METER (BEAKER) 69 mg/dL 70-110 TESTED AT [address] (test avbq=6087) [facility] [address] POCT-GLUCOSE [id number] 06:40:00 Test Item Value Reference Range Comments POC-GLUCOSE METER (BEAKER) 72 mg/dL 70-110 TESTED AT [address] (test ypug=1370) [facility] [address] POCT-GLUCOSE [id number] 06:14:00 Test Item Value Reference Range Comments POC-GLUCOSE METER (BEAKER) 64 mg/dL 70-110 TESTED AT [address] (test nwgt=3293) [facility] [address] POCT-GLUCOSE [id number] 05:42:00 Test Item Value Reference Range Comments POC-GLUCOSE METER (BEAKER) 58 mg/dL 70-110 TESTED AT [address] (test ejfb=0415) [facility] [address] POCT-GLUCOSE [id number] 03:44:00 Test Item Value Reference Range Comments POC-GLUCOSE METER (BEAKER) 73 mg/dL 70-110 TESTED AT [address] (test ohfl=5764) [facility] [address] POCT-GLUCOSE [id number] 00:42:00 Test Item Value Reference Range Comments POC-GLUCOSE METER (BEAKER) 77 mg/dL 70-110 TESTED AT [address] (test shsp=0495) [facility] [address] POCT-GLUCOSE [id number] 18:17:00 Test Item Value Reference Range Comments POC-GLUCOSE METER (BEAKER) 84 mg/dL 70-110 TESTED AT [address] (test whyp=0292) [facility] [address] POCT-GLUCOSE [id number] 12:37:00 Test Item Value Reference Range Comments POC-GLUCOSE METER (BEAKER) 90 mg/dL 70-110 TESTED AT [address] (test kwwm=4937) [facility] [address] POCT-GLUCOSE [id number] 00:13:00 Test Item Value Reference Range Comments POC-GLUCOSE METER (BEAKER) 82 mg/dL 70-110 TESTED AT [address] (test kwqa=0880) [facility] [address] POCT-GLUCOSE [id number] 18:06:00 Test Item Value Reference Range Comments POC-GLUCOSE METER (BEAKER) 109 mg/dL 70-110 TESTED AT [address] (test syfm=8652) [facility] [address] POCT-GLUCOSE [id number] 13:37:00 Test Item Value Reference Range Comments POC-GLUCOSE METER (BEAKER) 103 mg/dL 70-110 TESTED AT [address] (test gnqw=1241) [place] [id number] POCT-GLUCOSE [id number] 10:10:00 Test Item Value Reference Range Comments POC-GLUCOSE METER (BEAKER) 72 mg/dL 70-110 TESTED AT [address] (test uqjf=9927) [facility] [address] POCT-GLUCOSE [id number] 09:02:00 Test Item Value Reference Range Comments POC-GLUCOSE METER (BEAKER) 65 mg/dL 70-110 TESTED AT [address] (test whqk=7895) [place] [id number] POCT-GLUCOSE [id number] 08:18:00 Test Item Value Reference Range Comments POC-GLUCOSE METER (BEAKER) 67 mg/dL 70-110 Notified TEDDY GREENBERG/TESTED AT [facility] (test xkxo=4464) [address] [place], [place] [id number] POCT-GLUCOSE [id number] 21:48:00 Test Item Value Reference Range Comments POC-GLUCOSE METER (BEAKER) 101 mg/dL 70-110 TESTED AT [address] (test wlro=0264) [place] [id number] POCT-GLUCOSE [id number] 20:09:00 Test Item Value Reference Range Comments POC-GLUCOSE METER (BEAKER) 75 mg/dL 70-110 TESTED AT [address] (test pyuo=6193) [place] [id number] POCT-GLUCOSE [id number] 18:29:00 Test Item Value Reference Range Comments POC-GLUCOSE METER (BEAKER) 100 mg/dL 70-110 TESTED AT [address] (test yfmk=8689) [place] [address] RAD, SKULL, LESS THAN 4 [id number] 17:37:00Reason for exam:->h/o head trauma, need to [...] MDReport Verified Date/Time: 11/29/2018 17:37:13 Reading Location: [facility] [id number] Consult Reading Room Electronicallysigned by: JACIEL RODRIGUEZ M.D. on 11/29/2018 05:37 PMPOCT-GLUCOSE [id number] 17:08:00 Test Item Value Reference Range Comments POC-GLUCOSE METER (BEAKER) 75 mg/dL 70-110 TESTED AT [address] (test zeww=0093) [facility] [address] POCT-GLUCOSE [id number] 16:33:00 Test Item Value Reference Range Comments POC-GLUCOSE METER (BEAKER) 87 mg/dL 70-110 TESTED AT [address] (test mtod=0831) [facility] [address] POCT-GLUCOSE [id number] 15:26:00 Test Item Value Reference Range Comments POC-GLUCOSE METER (BEAKER) 162 mg/dL 70-110 TESTED AT [address] (test xjem=0515) [facility] [address] POCT-GLUCOSE [id number] 13:59:00 Test Item Value Reference Range Comments POC-GLUCOSE METER (BEAKER) 96 mg/dL 70-110 TESTED AT [address] (test cxqh=8190) [facility] [address] POCT-GLUCOSE [id number] 13:07:00 Test Item Value Reference Range Comments POC-GLUCOSE METER (BEAKER) 116 mg/dL 70-110 TESTED AT [address] (test bham=6790) [facility] [address] POCT-GLUCOSE [id number] 12:15:00 Test Item Value Reference Range Comments POC-GLUCOSE METER (BEAKER) 89 mg/dL 70-110 TESTED AT [address] (test ejjt=3660) [facility] [address] POCT-GLUCOSE [id number] 11:06:00 Test Item Value Reference Range Comments POC-GLUCOSE METER (BEAKER) 102 mg/dL 70-110 TESTED AT [address] (test tvet=8341) [facility] [address] POCT-GLUCOSE [id number] 10:02:00 Test Item Value Reference Range Comments POC-GLUCOSE METER (BEAKER) 87 mg/dL 70-110 TESTED AT [address] (test ztkp=0186) [facility] [address] HEMOGLOBIN [id number] 09:45:00 Test Item Value Reference Range Comments HEMOGLOBIN A1C (RANDAL) (test cvgb=578) 5.5 % 4.3-6.1 POCT-GLUCOSE [id number] 09:04:00 Test Item Value Reference Range Comments POC-GLUCOSE METER (RANDAL) 93 mg/dL 70-110 TESTED AT [address] (test vltg=8653) [facility] [address] POCT-GLUCOSE [id number] 08:26:00 Test Item Value Reference Range Comments POC-GLUCOSE METER (RANDAL) 78 mg/dL 70-110 TESTED AT [address] (test zaly=5791) [facility] [address] U/S, ABDOMINAL, WITH [id number] 08:23:00Reason for exam:-> Transaminitis. RUQ U/s with [...] examination and Doppler evaluation. Signed: Gonzalo Richard MDReport Verified Date/Time: 04/2019 08:23:38 Reading Location: [address] Ultrasound Reading Room POCT- GLUCOSE [id number] 07:29:00 Test Item Value Reference Range Comments POC-GLUCOSE METER (BEAKER) 86 mg/dL 70-110 TESTED AT [address] (test gvlq=4413) [facility] [address] POCT-GLUCOSE [id number] 06:50:00 Test Item Value Reference Range Comments POC-GLUCOSE METER (BEAKER) 56 mg/dL 70-110 TESTED AT [address] (test zzsy=6138) [facility] [address] POCT-GLUCOSE [id number] 06:12:00 Test Item Value Reference Range Comments POC-GLUCOSE METER (BEAKER) 83 mg/dL 70-110 TESTED AT [address] (test vvut=6676) [facility] [address] POCT-GLUCOSE [id number] 05:03:00 Test Item Value Reference Range Comments POC-GLUCOSE METER (BEAKER) 87 mg/dL 70-110 TESTED AT [address] (test bdcf=4115) [facility] [address] POCT-GLUCOSE [id number] 04:11:00 Test Item Value Reference Range Comments POC-GLUCOSE METER (BEAKER) 61 mg/dL 70-110 TESTED AT [address] (test zyzi=2648) [facility] [address] PROTHROMBIN [id number] 03:34:00 Test Item Value Reference Range Comments PROTIME (BEAKER) (test rjrp=349) 13.1 seconds 11.7-14.7 INR (BEAKER) (test jksh=182) 1.0 <=5.9 RECOMMENDED COUMADIN/WARFARIN INR THERAPY RANGESSTANDARD DOSE: 2.0 - 3.0 Includes: PROPHYLAXIS forvenous thrombosis, systemic embolization; TREATMENT for venous thrombosis and/or pulmonary embolus.HIGH RISK: Target INR is 2.5-3.5 for patients with mechanical heart valves.POCT-GLUCOSE [id number] 03:14:00 Test Item Value Reference Range Comments POC-GLUCOSE METER (BEAKER) 62 mg/dL 70-[address] [facility] [address] [facility] (test pawu=6563) [facility] [address] [id number] 03:08:00 Test Item Value Reference Range Comments PHOSPHORUS (BEAKER) (test bfbi=934) 2.7 mg/dL 2.3-4.7 Check Serum Phosphorus level 4 hours after IV phosphorus replacement or 8 hours after PO replacementcompleted.[id number] 03:08:00 Test Item Value Reference Range Comments MAGNESIUM (BEAKER) (test noao=923) 1.8 mg/dL 1.6-2.6 Check Serum Phosphorus level 4 hours after IV phosphorus replacement or 8 hours after PO replacementcompleted.BASIC METABOLIC [id number] 03:08:00 Test Item Value Reference Range Comments SODIUM (BEAKER) (test 139 meq/L 136-145 cplb=935) POTASSIUM (BEAKER) (test 4.3 meq/L 3.5-5.1 oykf=302) CHLORIDE (BEAKER) (test 104 meq/L 98-107 vjgv=663) CO2 (BEAKER) (test 29 meq/L 22-29 lcts=921) BLOOD UREA NITROGEN 8 mg/dL 7-21 (BEAKER) (test emfq=355) CREATININE (BEAKER) (test 0.56 mg/dL 0.57-1.25 fesi=739) GLUCOSE RANDOM (BEAKER) 62 mg/dL 70-105 (test zllq=214) CALCIUM (BEAKER) (test 9.2 mg/dL 8.4-10.2 fyvv=202) EGFR (BEAKER) (test 185 mL/min/1.73 sq m ESTIMATED GFR IS NOT qtzd=2418) ACCURATE CREATININE CLEARANCE IN PREDICTING GLOMERULAR FILTRATION RATE. ESTIMATED GFR IS NOT APPLICABLE FOR DIALYSIS PATIENTS. Check Serum Phosphorus level 4 hours after IV phosphorus replacement or 8 hours after PO replacementcompleted.[id number] 03:04:00 Test Item Value Reference Range Comments CORTISOL, TOTAL (BEAKER) (test pkvb=0089) 10.1 ug/dL 3.7-19.4 Obtain if BG < 60CBC W/PLT COUNT & AUTO [id number] 02:53:00 Test Item Value Reference Range Comments WHITE BLOOD CELL COUNT (BEAKER) (test osfe=711) 5.7 K/ L 3.5-10.5 RED BLOOD CELL COUNT (BEAKER) (test pfjk=603) 3.49 M/ L 4.63-6.08 HEMOGLOBIN (BEAKER) (test dpba=732) 11.0 GM/DL 13.7-17.5 HEMATOCRIT (BEAKER) (test ihbz=803) 34.0 % 40.1-51.0 MEAN CORPUSCULAR VOLUME (BEAKER) (test txqz=714) 97.4 fL 79.0-92.2 MEAN CORPUSCULAR HEMOGLOBIN (BEAKER) (test 31.5 pg 25.7-32.2 lmbt=857) MEAN CORPUSCULAR HEMOGLOBIN CONC (BEAKER) (test 32.4 GM/DL 32.3-36.5 bziy=815) RED CELL DISTRIBUTION WIDTH (BEAKER) (test 15.8 % 11.6-14.4 pztk=521) PLATELET COUNT (BEAKER) (test sntw=493) 118 K/CU MM 150-450 MEAN PLATELET VOLUME (BEAKER) (test fzyn=061) 13.4 fL 9.4-12.4 NUCLEATED RED BLOOD CELLS (BEAKER) (test 0 /100 WBC 0-0 nsub=382) NEUTROPHILS RELATIVE PERCENT (BEAKER) (test 38 % mqoq=480) LYMPHOCYTES RELATIVE PERCENT (BEAKER) (test 49 % wayv=798) MONOCYTES RELATIVE PERCENT (BEAKER) (test 10 % wjlo=843) EOSINOPHILS RELATIVE PERCENT (BEAKER) (test 2 % ddri=688) BASOPHILS RELATIVE PERCENT (BEAKER) (test 1 % qsqc=169) NEUTROPHILS ABSOLUTE COUNT (BEAKER) (test 2.17 K/ L 1.78-5.38 rwor=229) LYMPHOCYTES ABSOLUTE COUNT (BEAKER) (test 2.79 K/ L 1.32-3.57 ewxz=352) MONOCYTES ABSOLUTE COUNT (BEAKER) (test 0.58 K/ L 0.30-0.82 zgwf=587) EOSINOPHILS ABSOLUTE COUNT (BEAKER) (test 0.13 K/ L 0.04-0.54 fluq=350) BASOPHILS ABSOLUTE COUNT (BEAKER) (test 0.03 K/ L 0.01-0.08 lxdk=332) IMMATURE GRANULOCYTES-RELATIVE PERCENT (BEAKER) 0 % 0-1 (test ldlz=3556) KETONE, [id number] 02:53:00 Test Item Value Reference Range Comments KETONES, BLOOD (BEAKER) (test ykgr=3455) 0.1 mmol/L <0.4 [id number] 02:39:00 Test Item Value Reference Range Comments GLUCOSE RANDOM (BEAKER) (test zslc=079) 59 mg/dL 70-105 Obtain if BG < 60POCT-GLUCOSE [id number] 02:05:00 Test Item Value Reference Range Comments POC-GLUCOSE METER (BEAKER) 55 mg/dL 70-110 TESTED AT [address] (test fiuy=1231) [facility] [address] POCT-GLUCOSE [id number] 01:23:00 Test Item Value Reference Range Comments POC-GLUCOSE METER (BEAKER) 51 mg/dL 70-110 TESTED AT [address] (test tlgk=7410) [facility] [address] RAD, CHEST, 1 VIEW, NON [id number] 22:00:00Reason for exam:->assess for retained metal piecesShould [...] for further evaluation if warranted. Signed: Nicole Realeport Verified Date/Time: 11/28/2018 22:00: 23 Reading Location: [address] Reading Room POCT-GLUCOSE [id number] 21:53:00 Test Item Value Reference Range Comments POC-GLUCOSE METER (BEAKER) 146 mg/dL 70-110 TESTED AT [address] (test xpdv=5765) [facility] [address] POCT-GLUCOSE [id number] 21:50:00 Test Item Value Reference Range Comments POC-GLUCOSE METER (BEAKER) 57 mg/dL 70-110 TESTED AT [address] (test imeo=1965) [place] [id number] POCT-GLUCOSE [id number] 18:21:00 Test Item Value Reference Range Comments POC-GLUCOSE METER (BEAKER) 87 mg/dL 70-110 TESTED AT [address] (test aaxw=7020) [facility] [address] EEG AWAKE AND [id number] 16:20:00Reason for exam:->seizureShould this be performed at the bedside?->YesDate(s) of EE11/28/18 DATE OF REPORT: ACC: [id number] EEG Number: [id number] Test Location: Inpatient ICU Start time: 15 :15 Stop time: 15:36 ICD-10: R56.9 CPT Code: 36863 HISTORY: 53 yo male withhistory of schizophrenia, [...] Burns MD, MS Neurophysiology/Epilepsy Attending POCT- GLUCOSE [id number] 14:15:00 Test Item Value Reference Range Comments POC-GLUCOSE METER (BEAKER) 94 mg/dL 70-110 TESTED AT [address] (test lxys=1413) [place] [id number] VITAMIN [id number] 13:57:00 Test Item Value Reference Range Comments VITAMIN B12 (BEAKER) (test wyme=326) 1054 pg/mL 213-816 FOLATE, [id number] 13:57:00 Test Item Value Reference Range Comments FOLATE (BEAKER) (test svqz=024) 9.4 ng/mL >=7.0 POCT-GLUCOSE [id number] 13:38:00 Test Item Value Reference Range Comments POC-GLUCOSE METER (BEAKER) 68 mg/dL 70-110 TESTED AT [address] (test bohz=2859) [facility] [address] POCT-GLUCOSE [id number] 13:30:00 Test Item Value Reference Range Comments POC-GLUCOSE METER (BEAKER) 62 mg/dL 70-110 TESTED AT [address] (test ghbv=0907) [place] [id number] VALPROIC ACID LEVEL, [id number] 13:18:00 Test Item Value Reference Range Comments VALPROIC ACID TOTAL (BEAKER) (test aaak=249) 43 ug/mL 50-100 Therapeutic range for some clinical conditions may be >100 ug/mLHEPATITIS PANEL, [id number] 13:14:00 Test Item Value Reference Range Comments HEPATITIS A IGM ANTIBODY (BEAKER) (test Nonreactive Nonreactive nlss=698) HEPATITIS B CORE IGM ANTIBODY (BEAKER) (test Nonreactive Nonreactive ebko=421) HEPATITIS C ANTIBODY (BEAKER) (test pqpc=022) Nonreactive Nonreactive HEPATITIS B SURFACE ANTIGEN (2) (BEAKER) (test Nonreactive Nonreactive gdvd=8739) BASIC METABOLIC [id number] 12:07:00 Test Item Value Reference Range Comments SODIUM (BEAKER) (test 140 meq/L 136-145 ybuz=580) POTASSIUM (BEAKER) (test 4.4 meq/L 3.5-5.1 Specimen slightly rvlf=878) hemolyzed CHLORIDE (BEAKER) (test 107 meq/L 98-107 xhyx=551) CO2 (BEAKER) (test 26 meq/L 22-29 gxho=288) BLOOD UREA NITROGEN 8 mg/dL 7-21 (BEAKER) (test olij=418) CREATININE (BEAKER) (test 0.60 mg/dL 0.57-1.25 Specimen slightly ytte=314) hemolyzed GLUCOSE RANDOM (BEAKER) 70 mg/dL 70-105 (test ownc=980) CALCIUM (BEAKER) (test 9.2 mg/dL 8.4-10.2 nfwx=431) EGFR (BEAKER) (test 171 mL/min/1.73 sq m ESTIMATED GFR IS NOT gbsp=7109) ACCURATE CREATININE CLEARANCE IN PREDICTING GLOMERULAR FILTRATION RATE. ESTIMATED GFR IS NOT APPLICABLE FOR DIALYSIS PATIENTS. COMPREHENSIVE METABOLIC [id number] 12:07:00 Test Item Value Reference Range Comments TOTAL PROTEIN (BEAKER) 6.9 gm/dL 6.0-8.3 Specimen slightly (test fldx=701) hemolyzed ALBUMIN (BEAKER) (test 3.0 g/dL 3.5-5.0 Specimen slightly csyj=6765) hemolyzed ALKALINE PHOSPHATASE 66 U/L 40-150 (BEAKER) (test gvlh=880) BILIRUBIN TOTAL (BEAKER) 0.3 mg/dL 0.2-1.2 Specimen slightly (test whta=850) hemolyzed SODIUM (BEAKER) (test 140 meq/L 136-145 ztid=275) POTASSIUM (BEAKER) (test 4.4 meq/L 3.5-5.1 Specimen slightly oivg=002) hemolyzed CHLORIDE (BEAKER) (test 107 meq/L 98-107 ujbh=594) CO2 (BEAKER) (test 26 meq/L 22-29 zmec=625) BLOOD UREA NITROGEN 8 mg/dL 7-21 (BEAKER) (test ekyb=784) CREATININE (BEAKER) (test 0.60 mg/dL 0.57-1.25 Specimen slightly nmqt=336) hemolyzed GLUCOSE RANDOM (BEAKER) 70 mg/dL 70-105 (test ikmt=184) CALCIUM (BEAKER) (test 9.2 mg/dL 8.4-10.2 vnrq=281) AST (SGOT) (BEAKER) (test 42 U/L 5-34 Specimen slightly yzzo=598) hemolyzed ALT (SGPT) (BEAKER) (test 70 U/L 6-55 Specimen slightly xewj=912) hemolyzed EGFR (BEAKER) (test 171 mL/min/1.73 sq ESTIMATED GFR IS NOT rogk=7667) m ACCURATE CREATININE CLEARANCE IN PREDICTING GLOMERULAR FILTRATION RATE. ESTIMATED GFR IS NOT APPLICABLE FOR DIALYSIS PATIENTS. CBC W/PLT COUNT & AUTO [id number] 11:39:00 Test Item Value Reference Range Comments WHITE BLOOD CELL COUNT (BEAKER) (test awbz=368) 4.5 K/ L 3.5-10.5 RED BLOOD CELL COUNT (BEAKER) (test wwhm=314) 3.53 M/ L 4.63-6.08 HEMOGLOBIN (BEAKER) (test iabc=079) 11.1 GM/DL 13.7-17.5 HEMATOCRIT (BEAKER) (test sskd=122) 36.2 % 40.1-51.0 MEAN CORPUSCULAR VOLUME (BEAKER) (test mica=015) 102.5 fL 79.0-92.2 MEAN CORPUSCULAR HEMOGLOBIN (BEAKER) (test 31.4 pg 25.7-32.2 tajp=488) MEAN CORPUSCULAR HEMOGLOBIN CONC (BEAKER) (test 30.7 GM/DL 32.3-36.5 qoom=029) RED CELL DISTRIBUTION WIDTH (BEAKER) (test 16.2 % 11.6-14.4 tqgv=111) PLATELET COUNT (BEAKER) (test tagx=914) 116 K/CU MM 150-450 MEAN PLATELET VOLUME (BEAKER) (test gsxm=114) 12.9 fL 9.4-12.4 NUCLEATED RED BLOOD CELLS (BEAKER) (test 0 /100 WBC 0-0 sfgc=028) NEUTROPHILS RELATIVE PERCENT (BEAKER) (test 42 % gkti=596) LYMPHOCYTES RELATIVE PERCENT (BEAKER) (test 51 % vtbk=334) MONOCYTES RELATIVE PERCENT (BEAKER) (test 6 % qpno=704) EOSINOPHILS RELATIVE PERCENT (BEAKER) (test 2 % pzxj=532) BASOPHILS RELATIVE PERCENT (BEAKER) (test 0 % kifp=685) NEUTROPHILS ABSOLUTE COUNT (BEAKER) (test 1.87 K/ L 1.78-5.38 lloq=436) LYMPHOCYTES ABSOLUTE COUNT (BEAKER) (test 2.28 K/ L 1.32-3.57 thwi=224) MONOCYTES ABSOLUTE COUNT (BEAKER) (test 0.25 K/ L 0.30-0.82 gvst=161) EOSINOPHILS ABSOLUTE COUNT (BEAKER) (test 0.09 K/ L 0.04-0.54 ifch=512) BASOPHILS ABSOLUTE COUNT (BEAKER) (test 0.01 K/ L 0.01-0.08 tydz=135) IMMATURE GRANULOCYTES-RELATIVE PERCENT (BEAKER) 0 % 0-1 (test nbiw=3509) POCT-GLUCOSE [id number] 09:29:00 Test Item Value Reference Range Comments POC-GLUCOSE METER (BEAKER) 71 mg/dL 70-110 TESTED AT [address] (test aidq=8355) [place] [id number] POCT-GLUCOSE [id number] 08:59:00 Test Item Value Reference Range Comments POC-GLUCOSE METER (BEAKER) 49 mg/dL 70-110 TESTED AT [address] (test bmun=2425) [facility] [address] POCT-GLUCOSE [id number] 23:27:00 Test Item Value Reference Range Comments POC-GLUCOSE METER (BEAKER) 96 mg/dL 70-110 TESTED AT [address] (test injy=1812) [place] [id number] POCT-GLUCOSE [id number] 20:35:00 Test Item Value Reference Range Comments POC-GLUCOSE METER (BEAKER) 85 mg/dL 70-110 TESTED AT [address] (test raug=9879) [place] [id number] POCT-GLUCOSE [id number] 18:55:00 Test Item Value Reference Range Comments POC-GLUCOSE METER (BEAKER) 98 mg/dL 70-[address] [facility] [address] [facility] (test thou=4130) [facility] [address] POCT-GLUCOSE [id number] 12:28:00 Test Item Value Reference Range Comments POC-GLUCOSE METER (BEAKER) 74 mg/dL 70-110 TESTED AT [place] [id number] [facility] (test qlqv=0949) [facility] [address] COMPREHENSIVE METABOLIC [id number] 11:21:00 Test Item Value Reference Range Comments TOTAL PROTEIN (BEAKER) 7.6 gm/dL 6.0-8.3 (test plam=658) ALBUMIN (BEAKER) (test 3.5 g/dL 3.5-5.0 nxik=2408) ALKALINE PHOSPHATASE 76 U/L 40-150 (BEAKER) (test hycg=515) BILIRUBIN TOTAL (BEAKER) 0.4 mg/dL 0.2-1.2 (test igkm=768) SODIUM (BEAKER) (test 140 meq/L 136-145 beoi=620) POTASSIUM (BEAKER) (test 4.5 meq/L 3.5-5.1 xqko=659) CHLORIDE (BEAKER) (test 105 meq/L 98-107 tghv=994) CO2 (BEAKER) (test 30 meq/L 22-29 gxyw=462) BLOOD UREA NITROGEN 12 mg/dL 7-21 (BEAKER) (test rmvx=037) CREATININE (BEAKER) (test 0.62 mg/dL 0.57-1.25 xkel=894) GLUCOSE RANDOM (BEAKER) 73 mg/dL 70-105 (test wutg=975) CALCIUM (BEAKER) (test 9.5 mg/dL 8.4-10.2 ywim=525) AST (SGOT) (BEAKER) (test 53 U/L 5-34 rsws=642) ALT (SGPT) (BEAKER) (test 93 U/L 6-55 elxz=160) EGFR (BEAKER) (test 164 mL/min/1.73 sq ESTIMATED GFR IS NOT rell=3457) m ACCURATE CREATININE CLEARANCE IN PREDICTING GLOMERULAR FILTRATION RATE. ESTIMATED GFR IS NOT APPLICABLE FOR DIALYSIS PATIENTS. [id number] 10:19:00 Test Item Value Reference Range Comments CORTISOL, TOTAL (BEAKER) (test envv=1983) 6.9 ug/dL 3.7-19.4 TSH/FREE T4 IF [id number] 10:19:00 Test Item Value Reference Range Comments THYROID STIMULATING HORMONE (BEAKER) (test 0.48 uIU/mL 0.35-4.94 rboy=636) TROPONIN [id number] 10:05:00 Test Item Value Reference Range Comments TROPONIN I (BEAKER) (test enwy=930) < ng/mL 0.00-0.03 Troponin I (TnI) levels [...] acidosis, acute neurological disease, and persistent tachyarrhythmia.PROTHROMBIN [id number] 09:31:00 Test Item Value Reference Range Comments PROTIME (BEAKER) (test syik=429) 16.2 seconds 11.7-14.7 INR (BEAKER) (test ipsn=771) 1.3 <=5.9 RECOMMENDED COUMADIN/WARFARIN INR THERAPY RANGESSTANDARD DOSE: 2.0 - 3.0 Includes: PROPHYLAXIS forvenous thrombosis, systemic embolization; TREATMENT for venous thrombosis and/or pulmonary embolus.HIGH RISK: Target INR is 2.5-3.5 for patients with mechanical heart valves.CBC W/PLT COUNT & AUTO [id number] 09:26:00 Test Item Value Reference Range Comments WHITE BLOOD CELL COUNT (BEAKER) (test aokq=725) 4.8 K/ L 3.5-10.5 RED BLOOD CELL COUNT (BEAKER) (test xlti=088) 2.94 M/ L 4.63-6.08 HEMOGLOBIN (BEAKER) (test ejfy=747) 9.2 GM/DL 13.7-17.5 HEMATOCRIT (BEAKER) (test gadr=094) 30.1 % 40.1-51.0 MEAN CORPUSCULAR VOLUME (BEAKER) (test bpuh=677) 102.4 fL 79.0-92.2 MEAN CORPUSCULAR HEMOGLOBIN (BEAKER) (test 31.3 pg 25.7-32.2 evql=871) MEAN CORPUSCULAR HEMOGLOBIN CONC (BEAKER) (test 30.6 GM/DL 32.3-36.5 xdnf=462) RED CELL DISTRIBUTION WIDTH (BEAKER) (test 16.2 % 11.6-14.4 ogbu=200) PLATELET COUNT (BEAKER) (test juio=757) 93 K/CU MM 150-450 MEAN PLATELET VOLUME (BEAKER) (test liif=359) 12.9 fL 9.4-12.4 NUCLEATED RED BLOOD CELLS (BEAKER) (test 0 /100 WBC 0-0 rrlz=409) NEUTROPHILS RELATIVE PERCENT (BEAKER) (test 66 % fpgf=428) LYMPHOCYTES RELATIVE PERCENT (BEAKER) (test 23 % dlgd=233) MONOCYTES RELATIVE PERCENT (BEAKER) (test 10 % akec=246) EOSINOPHILS RELATIVE PERCENT (BEAKER) (test 1 % usqw=351) BASOPHILS RELATIVE PERCENT (BEAKER) (test 0 % pipt=689) NEUTROPHILS ABSOLUTE COUNT (BEAKER) (test 3.18 K/ L 1.78-5.38 esgc=426) LYMPHOCYTES ABSOLUTE COUNT (BEAKER) (test 1.10 K/ L 1.32-3.57 fzmk=232) MONOCYTES ABSOLUTE COUNT (BEAKER) (test sepy=546) 0.47 K/ L 0.30-0.82 EOSINOPHILS ABSOLUTE COUNT (BEAKER) (test 0.06 K/ L 0.04-0.54 eths=194) BASOPHILS ABSOLUTE COUNT (BEAKER) (test mphw=214) 0.01 K/ L 0.01-0.08 IMMATURE GRANULOCYTES-RELATIVE PERCENT (BEAKER) 0 % 0-1 (test gcst=6194) POCT-GLUCOSE [id number] 07:19:00 Test Item Value Reference Range Comments POC-GLUCOSE METER (BEAKER) 128 mg/dL 70-110 TESTED AT [address] (test dste=7952) [place] [address] POCT-GLUCOSE [id number] 07:19:00 Test Item Value Reference Range Comments POC-GLUCOSE METER (BEAKER) 46 mg/dL 70-110 TESTED AT [address] (test vulp=6633) [place] [address]
[2019-07-30] MEDS ORDERED: LIDOCAINE 1% W/EPI 1:100,000 MDV 20 ML VIAL ONE (18:55)
--- NOTE | 2019-07-30 19:55 | RAD REPORT ---
EXAM DESCRIPTION: CT - CTHCSPWOC - 07/30/2019 7:28 pm CLINICAL HISTORY: Fall, head and neck injury COMPARISON: May 2016 TECHNIQUE: Axial 5 mm thick images of the head were obtained. Axial 2 mm thick images of the cervic al spine were obtained with sagittal and coronal reconstruction images generated and reviewed. All CT scans are performed using dose optimization technique as appropriate and may include automated exposure control or mA/KV adjustment according to patient size. FINDINGS: No intracranial hemorrhage, mass, edema or acute intracranial finding. No acute cortical b ased infarction. No cortical edema or sulcal effacement. Atrophy is minimal. Ventriculomegaly is pres ent for the amount of volume loss. Pattern is similar to the 2016 study. No extra-axial fluid collect ions. Mastoid air cells and paranasal sinuses are clear. No globe or orbit abnormality seen. Cervical body height is similar to the comparison. No acute compression fractures seen. Lordosis in t he upper cervical spine is stable. Partial basilar invagination into the skullbase also seen as stabl e. Patient has incomplete union of the anterior arch C1 on the right side and incomplete union of the posterior arch with the right lateral mass. Again, these are all chronic changes. No pathologic bone process. All disc levels show some component of disc space narrowing. Large anterior endplate spurs with bridging ossification spans C3-C7. Moderate bilateral foraminal encroachment at C2-3. Moderately severe bilateral foraminal encroachment at C3-4. Patient has very severe bilateral foraminal stenosi s at C4-5, C5-6 and C6-7. Foraminal stenosis at C7-T1 is moderately severe. These changes are all sim ilar to the comparison study. Central canal detail is inherently limited. Prominent thyroid gland present similar to comparison. No paraspinal mass or hematoma. IMPRESSION: No hemorrhage, edema or acute intracranial finding. Patient has ventriculomegaly out of proportion to any volume loss. Correlation is needed with any nor mal pressure hydrocephalus clinical findings. This is a stable presentation back to at least 2016. Advanced cervical spine degenerative change with severe multilevel foraminal stenoses. No fracture or acute cervical spine finding. No significant change from 2016. Negative CT cervical spine examination for acute or significant finding.
--- NOTE | 2019-07-30 20:23 | ER ---
Nurse's Notes [facility] Name: Mariano Mauricio Age: 54 yrs Sex: Male : 1965 Arrival Date: 07/30/2019 Time: 18:18 Bed 16 Private MD: Diagnosis: Fall from bed Presentation: 07/30 18:19 Presenting complaint: EMS states: Pt from [facility], hx of TBI, had unwitnessed ph fall from bed, found on floor by staff, lacerations x 2 to R side of face, pt oriented to person and place at baseline, does not take blood thinners. Transition of care: patient was not received from another setting of care. Onset of symptoms was July 30, 2019. 18:19 Method Of Arrival: EMS: [facility] 18:19 Acuity: KEV 4 ph 18:25 Risk Assessment: Do you want to hurt yourself or someone else? Patient reports no ph desire to harm self or others. Initial Sepsis Screen: Does the patient meet any 2 criteria? No. Patient's initial sepsis screen is negative. Does the patient have a suspected source of infection? No. Patient's initial sepsis screen is negative. 18:28 Care prior to arrival: None. ph Historical: - Allergies: 18:24 No Known Allergies; ph - PMHx: 18:24 Anxiety; Autonomic neuropathy; constipation; dehydration; insomnia; Major Depressive ph Disorder; personailty disorder; pseudobulbar affect; Schizophrenia; traumatic brain injury; vit d deficiency; - PSHx: 18:24 Unable to obtain; ph - Immunization history:: Adult Immunizations unknown. - Social history:: Smoking status: Patient/guardian denies using tobacco. - Ebola Screening: : No symptoms or risks identified at this time. Screenin:25 Abuse screen: Denies threats or abuse. Denies injuries from another. Nutritional ph screening: No deficits noted. Tuberculosis screening: No symptoms or risk factors identified. Fall Risk Fall in past 12 months (25 points). Secondary diagnosis (15 points) impaired mobility, No IV (0 pts). Ambulatory Aid- None/Bed Rest/Nurse Assist (0 pts). Gait- Impaired (20 pts.). Mental Status- Overestimates/Forgets Limitations (15 pts.). Total Quinn Fall Scale indicates High Risk Score (45 or more points). Fall prevention measures have been instituted. Side Rails Up X 2 Placed Close to Nursing Station Frequent Obs/Assessments Occuring As available patient and family educated on Fall Prevention Program and Strategies. Assessment: 18:26 General: Appears in no apparent distress. uncomfortable, Behavior is cooperative. Pain: ph Complains of pain in forehead, right cheek and right oriental orthodox. Neuro: Level of Consciousness is awake, alert, obeys commands, Oriented to person, place. Cardiovascular: Capillary refill < 3 seconds in bilateral fingers Patient's skin is warm and dry. Respiratory: Airway is patent Respiratory effort is even, unlabored, Respiratory pattern is regular, symmetrical. GI: No signs and/or symptoms were reported involving the gastrointestinal system. Derm: Skin is pink, warm \\T\\ dry. Musculoskeletal: Circulation, motion, and sensation intact. Range of motion: intact in all extremities. Injury Description: Laceration sustained to right side of forehead and right zygomatic area. 19:00 General: Appears in no apparent distress. comfortable, Behavior is calm, cooperative. rr5 19:00 Pain: Unable to use pain scale. Patient is disoriented. Neuro: Level of Consciousness rr5 is awake, alert, Oriented to person, place. Cardiovascular: Capillary refill < 3 seconds Patient's skin is warm and dry. Respiratory: Airway is patent Respiratory effort is even, unlabored, Respiratory pattern is regular, symmetrical. GI: No signs and/or symptoms were reported involving the gastrointestinal system. : No signs and/or symptoms were reported regarding the genitourinary system. EENT: No signs and/or symptoms were reported regarding the EENT system. Derm: Skin is fragile, is thin, Skin is pink, warm \\T\\ dry. Wound noted forehead and right cheek. Musculoskeletal: Capillary refill < 3 seconds, contracted extremities. 19:30 Reassessment: Patient appears in no apparent distress at this time. send to CT scan. rr5 20:30 Reassessment: call made to [facility] staff "parul " informed rr5 patient is for discharge. he said he came by EMS, you just arrange EMS for the transport. 21:10 Reassessment: Patient appears in no apparent distress at this time. report given to rr5 [facility] vitally stable. breathing spontaneously at room air. not in distress. Vital Signs: 18:22 BP 122 / 89; Pulse 85; Resp 18; Temp 97.9; Pulse Ox 99% on R/A; ph 19:00 BP 118 / 65; Pulse 75; Resp 16; Temp 98.5; Pulse Ox 99% ; rr5 20:10 BP 112 / 66; Pulse 78; Resp 18; Temp 98.9; Pulse Ox 94% on R/A; jb5 21:00 BP 117 / 62; Pulse 70; Resp 16; Temp 98.7; Pulse Ox 99% ; rr5 ED Course: 18:18 Patient arrived in ED. ph 18:22 Triage completed. ph 18:24 Arm band placed on. ph 18:25 Patient has correct armband on for positive identification. Placed in gown. Bed in low ph position. Call light in reach. Side rails up X2. Pulse ox on. NIBP on. Door closed. Noise minimized. Warm blanket given. 18:44 Phil[facility]clay [facility]C [facility]. la1 18:44 Russel Santana MD is Attending Physician. la1 19:28 CT completed. Patient tolerated procedure well. Patient moved back from CT. bq 19:29 CT Head C Spine In Process Unspecified. EDMS 19:30 Diet: Patient given snack. Tolerated well Required assistance. soda. rr5 19:50 Assist provider with laceration repair on forehead and right cheek that was 2.5 cm. or rr5 less using suture and steri strips on forehead. Set up tray. Performed by Philly GLOVER Dressed with Neosporin, Patient tolerated well. 20:09 Diet: Patient given a regular meal tray. Tolerated well Required assistance. jb5 20:22 Juan Springer, RN is Primary Nurse. rr5 21:15 Patient did not have IV access during this emergency room visit. rr5 Administered Medications: 19:50 Drug: Lidocaine-Epinephrine -1%: (1:100,000) 10 ml {Note: given by philly arreaga.} Volume: 20 rr5 ml; Route: Infiltration; 20:50 Follow up: Response: No adverse reaction rr5 Outcome: 20:22 Discharge ordered by . la1 21:16 Patient left the ED. rr5 21:16 Discharged to [facility] rr5 21:16 Condition: stable 21:16 Discharge instructions given to EMS, Instructed on discharge instructions, follow up and referral plans. Demonstrated understanding of instructions, follow-up care. Signatures: Dispatcher [employer] EDMS Mary Laguna Lee, FNP-C FNP-Cla1 Sally Tamayo, RN RN ph Audelia Tong jb5 Juan Springer RN RN rr5 Corrections: (The following items were deleted from the chart) 21:17 19:00 Musculoskeletal: Capillary refill < 3 seconds, rr5 rr5 21:31 19:50 Assist provider with laceration repair on forehead and right cheek that was 2.5 rr5 cm. or less using sutures. Set up tray. Performed by Philly GLOVER Dressed with Neosporin, Patient tolerated well. rr5
--- NOTE | 2019-07-30 20:23 | EDPHYS ---
Physician Documentation [facility] Name: Mariano Mauricio Age: 54 yrs Sex: Male : 1965 Arrival Date: 07/30/2019 Time: 18:18 Bed 16 Private MD: ED Physician Russel Santana HPI: 07/30 18:56 This 54 yrs old Black Male presents to ER via EMS with complaints of Fall Injury. la1 18:56 Details of fall: The patient fell from a height, from bed. Onset: The symptoms/episode la1 began/occurred just prior to arrival. Associated injuries: The patient sustained right cheek, laceration, 3.5 cm(s). Severity of symptoms: At their worst the symptoms were moderate, in the emergency department the symptoms are unchanged. It is unknown whether or not the patient has had similar symptoms in the past. Pt had unwitnessed fall from bed at [facility], found on floor, laceration to right cheek. Historical: - Allergies: 18:24 No Known Allergies; ph - PMHx: 18:24 Anxiety; Autonomic neuropathy; constipation; dehydration; insomnia; Major Depressive ph Disorder; personailty disorder; pseudobulbar affect; Schizophrenia; traumatic brain injury; vit d deficiency; - PSHx: 18:24 Unable to obtain; ph - Immunization history:: Adult Immunizations unknown. - Social history:: Smoking status: Patient/guardian denies using tobacco. - Ebola Screening: : No symptoms or risks identified at this time. ROS: 18:57 Unable to obtain ROS due to TBI pt, oriented x 1 only. la1 Exam: 18:58 Constitutional: This is a well developed, well nourished patient who is awake, alert, la1 and in no acute distress. 18:58 Eyes: Pupils equal round and reactive to light, extra-ocular motions intact. Periorbital areas with no swelling, redness, or edema. 18:58 ENT: Nares patent. No nasal discharge, no septal abnormalities noted. Tympanic membranes are normal and external auditory canals are clear. Oropharynx with no redness, swelling, or masses, exudates, or evidence of obstruction, uvula midline. Mucous membranes moist. Neck: Trachea midline, no thyromegaly or masses palpated, and no cervical lymphadenopathy. Supple, full range of motion without nuchal rigidity, or vertebral point tenderness. No Meningismus. Chest/axilla: Normal chest wall appearance and motion. Nontender with no deformity. No lesions are appreciated. Cardiovascular: Regular rate and rhythm with a normal S1 and S2. No gallops, murmurs, or rubs. Normal PMI, no JVD. No pulse deficits. Respiratory: Lungs have equal breath sounds bilaterally, clear to auscultation No rales, rhonchi or wheezes noted. No increased work of breathing, no retractions or nasal flaring. Abdomen/GI: Soft, non-tender, with normal bowel sounds. No distension or tympany. No guarding or rebound. No evidence of tenderness throughout. Back: No spinal tenderness. No costovertebral tenderness. Full range of motion. MS/ Extremity: Pulses equal, no cyanosis. Neurovascular intact. Full, normal range of motion. 18:58 Head/face: Noted is a laceration(s), that is linear, 3.5 cm(s), of the right cheek. Vital Signs: 18:22 BP 122 / 89; Pulse 85; Resp 18; Temp 97.9; Pulse Ox 99% on R/A; ph 19:00 BP 118 / 65; Pulse 75; Resp 16; Temp 98.5; Pulse Ox 99% ; rr5 20:10 BP 112 / 66; Pulse 78; Resp 18; Temp 98.9; Pulse Ox 94% on R/A; jb5 21:00 BP 117 / 62; Pulse 70; Resp 16; Temp 98.7; Pulse Ox 99% ; rr5 Laceration: 20:20 Wound Repair of 3.5cm ( 1.4in ) subcutaneous laceration to right cheek. Distal la1 neuro/vascular/tendon intact. Anesthesia: Local anesthetic administered with 3 mls of 1% lidocaine w/ Epi. Wound prep: Moderate cleansing, Wound irrigation with saline, Copious irrigation. Skin closed with 5 5-0 Prolene using simple sutures and sterile technique. MDM: 18:44 Patient medically screened. la1 20:21 Data reviewed: vital signs, nurses notes, EMS record, radiologic studies, and as a la1 result, I will discharge patient. Data interpreted: Pulse oximetry: on room air is 94 %. Interpretation: acceptable. Counseling: I had a detailed discussion with the patient and/or guardian regarding: the historical points, exam findings, and any diagnostic results supporting the discharge/admit diagnosis, radiology results, the need for outpatient follow up, a family practitioner. ED course: Pt at baseline mental status, fall was mechanical from bed. Pt denies any chest pain/SOB. isolated injury to face. Pt tolerated wound closure well.. 07/30 18:53 Order name: CT Head C Spine; Complete Time: 20:02 la1 07/30 18:53 Order name: Dressing - Wound; Complete Time: 20:23 la1 07/30 18:53 Order name: Gloves, Sterile; Complete Time: 19:01 la1 07/30 18:53 Order name: Setup Suture Tray; Complete Time: 19:01 la1 Administered Medications: 19:50 Drug: Lidocaine-Epinephrine -1%: (1:100,000) 10 ml {Note: given by philly arreaga.} Volume: 20 rr5 ml; Route: Infiltration; 20:50 Follow up: Response: No adverse reaction rr5 Disposition: 07/31 08:57 Co-signature as Attending Physician, Russel Santana MD I agree with the assessment and kdr plan of care. Disposition: 07/30/19 20:22 Discharged to Home. Impression: Fall from bed. - Condition is Stable. - Discharge Instructions: Fall Prevention in the Home, Facial Laceration, Sutured Wound Care, Fall Prevention in Hospitals, Adult. - Medication Reconciliation Form, Thank You Letter form. - Follow up: Private Physician; When: 5 - 6 days; Reason: Recheck today's complaints, Re-evaluation by your physician. - Problem is new. - Symptoms have improved. Signatures: Dispatcher [employer] EDMS Russel Santana MD MD [facility] Philly Barclay, VOCATIONAL NURSE-C VOCATIONAL NURSE-Cla1 Sally Tamayo, RN RN Juan Owen, RN RN rr5 Corrections: (The following items were deleted from the chart) 07/30 21:16 20:22 07/30/2019 20:22 Discharged to Home. Impression: Fall from bed. Condition is rr5 Stable. Forms are Medication Reconciliation Form, Thank You Letter, Antibiotic Education, Prescription Opioid Use. Follow up: Private Physician; When: 5 - 6 days; Reason: Recheck today's complaints, Re-evaluation by your physician. Problem is new. Symptoms have improved. la1
== END 2019-07-30 21:16 | disposition home or self-care (01) ==
LOC: ER 18:14
PROC: 0JQ10ZZ Repair Face Subcutaneous Tissue and Fascia, Open Approach (ICD-10-PCS; principal; 2019-07-30)
DX: S01.411A Laceration without foreign body of right cheek and temporomandibular area, initial encounter (principal); W06.XXXA Fall from bed, initial encounter; Y93.9 Activity, unspecified; Y92.122 Bedroom in nursing home as the place of occurrence of the external cause; Z87.820 Personal history of traumatic brain injury
CPT/HCPCS: 70450; 72125; 99284

== ENCOUNTER 2020-10-25 19:23 | Emergency (ER) | payer OTHER ==
--- OUTSIDE RECORDS SUMMARY | 2020-10-25 19:29 | XMS REPORT | Continuity of Care Document ---
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 HEMOGLOBIN (BEAKER) (test code = 10.2 GM/DL 13.7-17.5 L 410) HEMATOCRIT (BEAKER) (test code = 31.5 % 40.1-51.0 L 411) MEAN CORPUSCULAR VOLUME (BEAKER) 96.3 fL 79.0-92.2 H (test code = 753) MEAN CORPUSCULAR HEMOGLOBIN 31.2 pg 25.7-32.2 (BEAKER) (test code = 751) MEAN CORPUSCULAR HEMOGLOBIN CONC 32.4 GM/DL 32.3-36.5 (BEAKER) (test code = 752) RED CELL DISTRIBUTION WIDTH 16.2 % 11.6-14.4 H (BEAKER) (test code = 412) PLATELET COUNT (BEAKER) (test 142 K/CU MM 150-450 L code = 756) MEAN PLATELET VOLUME (BEAKER) 12.3 fL 9.4-12.4 (test code = 754) NUCLEATED RED BLOOD CELLS 0 /100 WBC 0-0 (BEAKER) (test code = 413) NEUTROPHILS RELATIVE PERCENT 49 % (BEAKER) (test code = 429) LYMPHOCYTES RELATIVE PERCENT 37 % (BEAKER) (test code = 430) MONOCYTES RELATIVE PERCENT 11 % (BEAKER) (test code = 431) EOSINOPHILS RELATIVE PERCENT 3 % (BEAKER) (test code = 432) BASOPHILS RELATIVE PERCENT 1 % (BEAKER) (test code = 437) NEUTROPHILS ABSOLUTE COUNT 2.89 K/ L 1.78-5.38 (BEAKER) (test code = 670) LYMPHOCYTES ABSOLUTE COUNT 2.15 K/ L 1.32-3.57 (BEAKER) (test code = 414) MONOCYTES ABSOLUTE COUNT (BEAKER) 0.63 K/ L 0.30-0.82 (test code = 415) EOSINOPHILS ABSOLUTE COUNT 0.15 K/ L 0.04-0.54 (BEAKER) (test code = 416) BASOPHILS ABSOLUTE COUNT (BEAKER) 0.03 K/ L 0.01-0.08 (test code = 417) IMMATURE GRANULOCYTES-RELATIVE 1 % 0-1 PERCENT (BEAKER) (test code = 2801) [id number] 05:58:00 Test Item Value Reference Range Interpretation Comments PHOSPHORUS (BEAKER) (test code = 3.7 mg/dL 2.3-4.7 604) [id number] 05:58:00 Test Item Value Reference Range Interpretation Comments MAGNESIUM (BEAKER) (test code = 1.9 mg/dL 1.6-2.6 627) BASIC METABOLIC [id number] 05:58:00 Test Item Value Reference Range Interpretation Comments SODIUM (BEAKER) 143 meq/L 136-145 (test code = 381) POTASSIUM (BEAKER) 4.0 meq/L 3.5-5.1 (test code = 379) CHLORIDE (BEAKER) 106 meq/L 98-107 (test code = 382) CO2 (BEAKER) (test 30 meq/L 22-29 H code = 355) BLOOD UREA NITROGEN 5 mg/dL 7-21 L (BEAKER) (test code = 354) CREATININE (BEAKER) 0.63 mg/dL 0.57-1.25 (test code = 358) GLUCOSE RANDOM 101 mg/dL 70-105 (BEAKER) (test code = 652) CALCIUM (BEAKER) 9.1 mg/dL 8.4-10.2 (test code = 697) EGFR (BEAKER) (test 161 mL/min/1.73 ESTIM ATED GFR IS code = 1092) sq m NOT ACCURATE CREATININE CLEARANCE IN PREDICTING GLOMERULAR FILTRATION RATE . ESTIMATED GFR I S NOT APPLICABLE FOR DIALYSIS PATIEN TS. POCT-GLUCOSE [id number] 21:55:00 Test Item Value Reference Range Interpretation Comments POC-GLUCOSE METER 114 mg/dL 70-110 H TESTED AT [facility] 6720 (BEAKER) (test code = ROWDY HILARIO 3578) [address] BASIC METABOLIC [id number] 19:08:00 Test Item Value Reference Range Interpretation Comments SODIUM (BEAKER) 143 meq/L 136-145 (test code = 381) POTASSIUM (BEAKER) 3.7 meq/L 3.5-5.1 (test code = 379) CHLORIDE (BEAKER) 106 meq/L 98-107 (test code = 382) CO2 (BEAKER) (test 31 meq/L 22-29 H code = 355) BLOOD UREA NITROGEN 5 mg/dL 7-21 L (AKER) (test code = 354) CREATININE (BEAKER) 0.66 mg/dL 0.57-1.25 (test code = 358) GLUCOSE RANDOM 116 mg/dL 70-105 H ([facility]) (test code = 652) CALCIUM (BEAKER) 8.7 mg/dL 8.4-10.2 (test code = 697) EGFR (BEAKER) (test 153 mL/min/1.73 ESTIM ATED GFR IS code = 1092) sq m NOT ACCURATE CREATININE CLEARANCE IN PREDICTING GLOMERULAR FILTRATION RATE . ESTIMATED GFR I S NOT APPLICABLE FOR DIALYSIS PATIEN TS. VANCOMYCIN LEVEL, [id number] 13:10:00 Test Item Value Reference Range Interpretation Comments VANCOMYCIN TROUGH (BEAKER) (test 14.6 ug/mL 10.0-20.0 code = 522) INSULIN, [id number] 12:44:00 Test Item Value Reference Range Interpretation Comments SCAN RESULT (test code = 5181534) POCT-GLUCOSE [id number] 12:29:00 Test Item Value Reference Range Interpretation Comments POC-GLUCOSE METER 113 mg/dL 70-110 H TESTED AT [place] [address] ([facility]) (test code = [facility] 1538) [address] POCT-GLUCOSE [id number] 08:28:00 Test Item Value Reference Range Interpretation Comments POC-GLUCOSE METER 102 mg/dL 70-110 TESTED AT [place] [address] ([facility]) (test code = [facility] 1538) [address] VANCOMYCIN LEVEL, [id number] 04:16:00 Test Item Value Reference Range Interpretation Comments VANCOMYCIN TROUGH (BEAKER) (test 38.8 ug/mL 10.0-20.0 HH code = 522) CBC W/PLT COUNT & AUTO [id number] 03:36:00 Test Item Value Reference Range Interpretation Comments WHITE BLOOD CELL COUNT (AKER) 5.6 K/ L 3.5-10.5 (test code = 775) RED BLOOD CELL COUNT (AKER) 3.13 M/ L 4.63-6.08 L (test code = 761) HEMOGLOBIN (BEAKER) (test code = 9.7 GM/DL 13.7-17.5 L 410) HEMATOCRIT (BEAKER) (test code = 30.2 % 40.1-51.0 L 411) MEAN CORPUSCULAR VOLUME (BEAKER) 96.5 fL 79.0-92.2 H (test code = 753) MEAN CORPUSCULAR HEMOGLOBIN 31.0 pg 25.7-32.2 (BEAKER) (test code = 751) MEAN CORPUSCULAR HEMOGLOBIN CONC 32.1 GM/DL 32.3-36.5 L (BEAKER) (test code = 752) RED CELL DISTRIBUTION WIDTH 16.4 % 11.6-14.4 H (BEAKER) (test code = 412) PLATELET COUNT (BEAKER) (test 144 K/CU MM 150-450 L code = 756) MEAN PLATELET VOLUME (BEAKER) 11.4 fL 9.4-12.4 (test code = 754) NUCLEATED RED BLOOD CELLS 0 /100 WBC 0-0 (BEAKER) (test code = 413) NEUTROPHILS RELATIVE PERCENT 31 % (BEAKER) (test code = 429) LYMPHOCYTES RELATIVE PERCENT 52 % (BEAKER) (test code = 430) MONOCYTES RELATIVE PERCENT 14 % (BEAKER) (test code = 431) EOSINOPHILS RELATIVE PERCENT 1 % (BEAKER) (test code = 432) BASOPHILS RELATIVE PERCENT 0 % (BEAKER) (test code = 437) NEUTROPHILS ABSOLUTE COUNT 1.71 K/ L 1.78-5.38 L (BEAKER) (test code = 670) LYMPHOCYTES ABSOLUTE COUNT 2.90 K/ L 1.32-3.57 (BEAKER) (test code = 414) MONOCYTES ABSOLUTE COUNT (BEAKER) 0.80 K/ L 0.30-0.82 (test code = 415) EOSINOPHILS ABSOLUTE COUNT 0.08 K/ L 0.04-0.54 (BEAKER) (test code = 416) BASOPHILS ABSOLUTE COUNT (BEAKER) 0.01 K/ L 0.01-0.08 (test code = 417) IMMATURE GRANULOCYTES-RELATIVE 1 % 0-1 PERCENT (BEAKER) (test code = 2801) [id number] 03:35:00 Test Item Value Reference Range Interpretation Comments PHOSPHORUS (BEAKER) (test code = 4.4 mg/dL 2.3-4.7 604) [id number] 03:35:00 Test Item Value Reference Range Interpretation Comments MAGNESIUM (BEAKER) (test code = 1.7 mg/dL 1.6-2.6 627) BASIC METABOLIC [id number] 03:35:00 Test Item Value Reference Range Interpretation Comments SODIUM (BEAKER) 146 meq/L 136-145 H (test code = 381) POTASSIUM (BEAKER) 3.9 meq/L 3.5-5.1 (test code = 379) CHLORIDE (BEAKER) 108 meq/L 98-107 H (test code = 382) CO2 (BEAKER) (test 32 meq/L 22-29 H code = 355) BLOOD UREA NITROGEN 6 mg/dL 7-21 L (BEAKER) (test code = 354) CREATININE (BEAKER) 0.69 mg/dL 0.57-1.25 (test code = 358) GLUCOSE RANDOM 96 mg/dL 70-105 (BEAKER) (test code = 652) CALCIUM (BEAKER) 9.5 mg/dL 8.4-10.2 (test code = 697) EGFR (BEAKER) (test 145 mL/min/1.73 ESTIM ATED GFR IS code = 1092) sq m NOT ACCURATE CREATININE CLEARANCE IN PREDICTING GLOMERULAR FILTRATION RATE . ESTIMATED GFR I S NOT APPLICABLE FOR DIALYSIS PATIEN TS. POCT-GLUCOSE [id number] 00:16:00 Test Item Value Reference Range Interpretation Comments POC-GLUCOSE METER 91 mg/dL 70-110 TESTED AT [facility] 6720 ([facility]) (test code = ROWDY Villatoro [facility] [address] 1538) POCT-GLUCOSE [id number] 17:57:00 Test Item Value Reference Range Interpretation Comments POC-GLUCOSE METER 88 mg/dL 70-110 TESTED AT [facility] 6720 ([facility] (test code = [facility] Shauna [facility] [address] 1538) POCT-GLUCOSE [id number] 11:45:00 Test Item Value Reference Range Interpretation Comments POC-GLUCOSE METER 81 mg/dL 70-110 TESTED AT [facility] 6720 ([facility] (test code = ROWDY Villatoro [facility] [address] 1538) POCT-GLUCOSE [id number] 09:14:00 Test Item Value Reference Range Interpretation Comments POC-GLUCOSE METER 92 mg/dL 70-110 TESTED AT [place] [address] ([facility] (test code = ROWDY Villatoro [facility] [address] 1538) POCT-GLUCOSE [id number] 08:32:00 Test Item Value Reference Range Interpretation Comments POC-GLUCOSE METER 69 mg/dL 70-110 L Notified Shauna Barney MD/TESTED AT (BEAKER) (test code = [place] [address] DL 1538) [facility] 7703 0 HEPATIC FUNCTION [id number] 07:07:00 Test Item Value Reference Range Interpretation Comments TOTAL PROTEIN (BEAKER) (test code = 5.9 gm/dL 6.0-8.3 L 770) ALBUMIN (BEAKER) (test code = 1145) 2.6 g/dL 3.5-5.0 L BILIRUBIN TOTAL (BEAKER) (test code 0.2 mg/dL 0.2-1.2 = 377) BILIRUBIN DIRECT (BEAKER) (test 0.1 mg/dL 0.1-0.5 code = 706) ALKALINE PHOSPHATASE (BEAKER) (test 55 U/L 40-150 code = 346) AST (SGOT) (BEAKER) (test code = 29 U/L 5-34 353) ALT (SGPT) (BEAKER) (test code = 41 U/L 6-55 347) POCT-GLUCOSE [id number] 06:29:00 Test Item Value Reference Range Interpretation Comments POC-GLUCOSE METER 82 mg/dL 70-110 TESTED AT [place] [address] (BEAKER) (test code = ROWDY Villatoro [facility] [address] 1538) [id number] 05:12:00 Test Item Value Reference Range Interpretation Comments PHOSPHORUS (BEAKER) (test code = 3.1 mg/dL 2.3-4.7 604) [id number] 05:12:00 Test Item Value Reference Range Interpretation Comments MAGNESIUM (BEAKER) (test code = 1.6 mg/dL 1.6-2.6 627) BASIC METABOLIC [id number] 05:12:00 Test Item Value Reference Range Interpretation Comments SODIUM (BEAKER) 143 meq/L 136-145 (test code = 381) POTASSIUM (BEAKER) 3.7 meq/L 3.5-5.1 (test code = 379) CHLORIDE (BEAKER) 107 meq/L 98-107 (test code = 382) CO2 (BEAKER) (test 31 meq/L 22-29 H code = 355) BLOOD UREA NITROGEN 3 mg/dL 7-21 L (BEAKER) (test code = 354) CREATININE (BEAKER) 0.61 mg/dL 0.57-1.25 (test code = 358) GLUCOSE RANDOM 79 mg/dL 70-105 (BEAKER) (test code = 652) CALCIUM (BEAKER) 8.6 mg/dL 8.4-10.2 (test code = 697) EGFR (BEAKER) (test 168 mL/min/1.73 ESTIM ATED GFR IS code = 1092) sq m NOT ACCURATE CREATININE CLEARANCE IN PREDICTING GLOMERULAR FILTRATION RATE . ESTIMATED GFR I S NOT APPLICABLE FOR DIALYSIS PATIEN TS. LACTIC ACID, [id number] 05:05:00 Test Item Value Reference Range Interpretation Comments LACTATE BLOOD VENOUS (2) (BEAKER) 0.8 mmol/L 0.5-2.2 (test code = 2872) CBC W/PLT COUNT & AUTO [id number] 04:51:00 Test Item Value Reference Range Interpretation Comments WHITE BLOOD CELL COUNT (BEAKER) 5.6 K/ L 3.5-10.5 (test code = 775) RED BLOOD CELL COUNT (BEAKER) 3.03 M/ L 4.63-6.08 L (test code = 761) HEMOGLOBIN (BEAKER) (test code = 9.4 GM/DL 13.7-17.5 L 410) HEMATOCRIT (BEAKER) (test code = 29.6 % 40.1-51.0 L 411) MEAN CORPUSCULAR VOLUME (BEAKER) 97.7 fL 79.0-92.2 H (test code = 753) MEAN CORPUSCULAR HEMOGLOBIN 31.0 pg 25.7-32.2 (BEAKER) (test code = 751) MEAN CORPUSCULAR HEMOGLOBIN CONC 31.8 GM/DL 32.3-36.5 L (BEAKER) (test code = 752) RED CELL DISTRIBUTION WIDTH 16.5 % 11.6-14.4 H (BEAKER) (test code = 412) PLATELET COUNT (BEAKER) (test 150 K/CU MM 150-450 code = 756) MEAN PLATELET VOLUME (BEAKER) 12.0 fL 9.4-12.4 (test code = 754) NUCLEATED RED BLOOD CELLS 0 /100 WBC 0-0 (BEAKER) (test code = 413) NEUTROPHILS RELATIVE PERCENT 39 % (BEAKER) (test code = 429) LYMPHOCYTES RELATIVE PERCENT 48 % (BEAKER) (test code = 430) MONOCYTES RELATIVE PERCENT 11 % (BEAKER) (test code = 431) EOSINOPHILS RELATIVE PERCENT 1 % (BEAKER) (test code = 432) BASOPHILS RELATIVE PERCENT 0 % (BEAKER) (test code = 437) NEUTROPHILS ABSOLUTE COUNT 2.18 K/ L 1.78-5.38 (BEAKER) (test code = 670) LYMPHOCYTES ABSOLUTE COUNT 2.69 K/ L 1.32-3.57 (BEAKER) (test code = 414) MONOCYTES ABSOLUTE COUNT (BEAKER) 0.59 K/ L 0.30-0.82 (test code = 415) EOSINOPHILS ABSOLUTE COUNT 0.05 K/ L 0.04-0.54 (BEAKER) (test code = 416) BASOPHILS ABSOLUTE COUNT (BEAKER) 0.02 K/ L 0.01-0.08 (test code = 417) IMMATURE GRANULOCYTES-RELATIVE 1 % 0-1 PERCENT (BEAKER) (test code = 2801) CT, [id number] 03:14:00Pt will require sedation given by the nurses prior to the his exam. He has TBI and does not have capacity to make decisions. Guardian consents to sedation for CT scanFINAL REPORT EXAMINATION: Noncontrast and contrast-enhanced CT examinations of the abdomen and pelvis CLINICAL HISTORY: Hypoglycemia concerning for pancreatic mass. Pancreatic mass protocol. COMPARISON EXAM: Ultrasound 11/29/2018. TECHNIQUE: Axial noncontrast tomographic images were initially acquired [...] discrete pancreatic mass, pancreatitis or pancreatic ductal dila tation.. The liver demonstrates relatively homogeneous contrast-enhancement without [...] possibly reflecting chronic mucosal hypertrophy related to low-grade lateral obstruction. A cystitis or underlying mucosal [...] noted in the colon extending to the rect um including a large stool ball in the rectal vault. In the left flank deep subcutaneous tissues there is an oval-shaped 8 cm fluid collection with a thickened wall, chronicity and clinical significance indeterminate. Diffuse degenerative changes are noted involving the lumbar spine, most pronounced at L4-L5 with associated spinal [...] MDReport Verified Date/Time: 12/29/2018 03:14:03 Reading Location: [address] Reading Room POCT-GLUCOSE [id number] 00:20:00 Test Item Value Reference Range Interpretation Comments POC-GLUCOSE METER 88 mg/dL 70-110 TESTED AT [place] [address] (BEAKER) [facility] [address] 1538) POCT-GLUCOSE [id number] 22:16:00 Test Item Value Reference Range Interpretation Comments POC-GLUCOSE METER 70 mg/dL 70-110 TESTED AT [place] [address] (BEAKER) (test code = [facility] [address] 1538) POCT-GLUCOSE [id number] 18:45:00 Test Item Value Reference Range Interpretation Comments POC-GLUCOSE METER 87 mg/dL 70-110 TESTED AT [place] [address] ([facility] (test code = [facility] [address] 1538) LACTIC ACID, [id number] 17:43:00 Test Item Value Reference Range Interpretation Comments LACTATE BLOOD VENOUS (2) (BEAKER) 0.6 mmol/L 0.5-2.2 (test code = 2872) POCT-GLUCOSE [id number] 15:52:00 Test Item Value Reference Range Interpretation Comments POC-GLUCOSE METER 74 mg/dL 70-110 TESTED AT [place] [address] ([facility]) (test code = [facility] [address] 1538) URINALYSIS W/ REFLEX URINE [id number] 15:43:00 Test Item Value Reference Range Interpretation Comments COLOR (BEAKER) (test code = 470) Light Yellow CLARITY (BEAKER) (test code = Clear 469) SPECIFIC GRAVITY UA (BEAKER) 1.003 1.001-1.035 (test code = 468) PH UA (BEAKER) (test code = 467) 6.5 5.0-8.0 PROTEIN UA (BEAKER) (test code = Negative Negative 464) GLUCOSE UA (BEAKER) (test code = Negative Negative 365) KETONES UA (BEAKER) (test code = Negative Negative 371) BILIRUBIN UA (BEAKER) (test code Negative Negative = 462) BLOOD UA (BEAKER) (test code = Negative Negative 461) NITRITE UA (BEAKER) (test code = Negative Negative 465) LEUKOCYTE ESTERASE UA (BEAKER) Negative Negative (test code = 466) UROBILINOGEN UA (BEAKER) (test 0.2 mg/dL 0.2-1.0 code = 463) RBC UA (BEAKER) (test code = < /HPF 519) WBC UA (BEAKER) (test code = < /HPF 520) SOURCE(BEAKER) (test code = 2795) RAPID DRUG SCREEN, [id number] 15:31:00 Test Item Value Reference Range Interpretation Comments BARBITURATE URINE (BEAKER) (test Negative Negative code = 725) BENZODIAZEPINE SCREEN URINE (BEAKER) Positive Negative A (test code = 726) COCAINE (METAB.) SCREEN (BEAKER) Negative Negative (test code = 1164) METHADONE SCREEN (BEAKER) (test code Negative Negative = 1436) OPIATE SCREEN URINE (BEAKER) (test Positive Negative A code = 734) CANNABINOID SCREEN URINE (BEAKER) Negative Negative (test code = 727) AMPH/METHAMPH SCREEN (BEAKER) (test Negative Negative code = 1438) PHENCYCLIDINE SCREEN URINE (BEAKER) Negative Negative (test code = 608) OXYCODONE SCREEN URINE (BEAKER) Negative Negative (test code = 2761) DRUG CUTOFF CONC.Cocaine 300 ng/mL Cannabinoid 50 ng/mL Benzodiazepine 200 ng/mLBarbiturate 200 ng/mLPhencyclidine 25 ng/mLOpiate 300 ng/mLMethadone 300 ng/mLAmphetamine/ 1000 ng/mL MethamphetamineOxycodone 300 ng/mLThis assay provides an unconfirmed qualitative test result for the clinical management of patients in emergency situations. Chain of custody not maintained. Some erzl-arn-bkfpbei medications, as well as adulterants, may cause inaccurate results. Clinical correlation should be applied. A more comprehensive drug screen or confirmation of a detected drug may be performed upon request. LACTIC ACID, [id number] 15:22:00 Test Item Value Reference Range Interpretation Comments LACTATE BLOOD VENOUS 0.7 mmol/L 0.5-2.2 Specime n slightly (2) (BEAKER) (test hemolyzed code = 2872) POCT-GLUCOSE [id number] 15:02:00 Test Item Value Reference Range Interpretation Comments POC-GLUCOSE METER 69 mg/dL 70-110 L Notified R Ector GREENBERG/TESTED AT (BEAKER) (test code = [place] [address] DL 6448) [facility] 7[address] 0 POCT-GLUCOSE [id number] 14:09:00 Test Item Value Reference Range Interpretation Comments POC-GLUCOSE METER 59 mg/dL 70-110 L Notified Shauna Barney MD/TESTED AT ([facility]) (test code = [address] 1538) [facility] 7[address] 0 [id number] 13:13:00 Test Item Value Reference Range Interpretation Comments PROCALCITONIN ([facility]) (test code = < ng/mL <0.05 3036) SEPSIS RISK (ng/mL)Low: 0.05-0.50Intermediate: 0.51-2.00High: >=2.01LACTIC ACID, [id number] 12:59:00 Test Item Value Reference Range Interpretation Comments LACTATE BLOOD VENOUS 0.7 mmol/L 0.5-2.2 Specime n slightly (2) ([facility]) (test hemolyzed code = 2872) POCT-GLUCOSE [id number] 12:59:00 Test Item Value Reference Range Interpretation Comments POC-GLUCOSE METER 74 mg/dL 70-110 TESTED AT [place] [address] ([facility]) (test code = ROWDY Villatoro [facility] [address] 1538) [id number] 11:13:00 Test Item Value Reference Range Interpretation Comments PHOSPHORUS ([facility]) (test code = 2.7 mg/dL 2.3-4.7 604) [id number] 11:13:00 Test Item Value Reference Range Interpretation Comments MAGNESIUM ([facility]) (test code = 1.7 mg/dL 1.6-2.6 627) POCT-GLUCOSE [id number] 11:03:00 Test Item Value Reference Range Interpretation Comments POC-GLUCOSE METER 198 mg/dL 70-110 H TESTED AT [place] [address] ([facility]) (test code = ROWDY Villatoro [facility] 1538) [address] CBC W/PLT COUNT & AUTO [id number] 10:56:00 Test Item Value Reference Range Interpretation Comments WHITE BLOOD CELL COUNT ([facility]) 5.9 K/ L 3.5-10.5 (test code = 775) RED BLOOD CELL COUNT ([facility]) 3.11 M/ L 4.63-6.08 L (test code = 761) HEMOGLOBIN (BEAKER) (test code = 9.6 GM/DL 13.7-17.5 L 410) HEMATOCRIT (BEAKER) (test code = 30.1 % 40.1-51.0 L 411) MEAN CORPUSCULAR VOLUME (BEAKER) 96.8 fL 79.0-92.2 H (test code = 753) MEAN CORPUSCULAR HEMOGLOBIN 30.9 pg 25.7-32.2 (BEAKER) (test code = 751) MEAN CORPUSCULAR HEMOGLOBIN CONC 31.9 GM/DL 32.3-36.5 L (BEAKER) (test code = 752) RED CELL DISTRIBUTION WIDTH 16.2 % 11.6-14.4 H (BEAKER) (test code = 412) PLATELET COUNT (BEAKER) (test 158 K/CU MM 150-450 code = 756) MEAN PLATELET VOLUME (BEAKER) 11.9 fL 9.4-12.4 (test code = 754) NUCLEATED RED BLOOD CELLS 0 /100 WBC 0-0 (BEAKER) (test code = 413) (CELLAVISION MANUAL DIFF)[id number] 10:56:00 Test Item Value Reference Range Interpretation Comments NEUTROPHILS - REL 54 % (CELLAVISION)(BEAKER) (test code = 2816) LYMPHOCYTES - REL 30 % (CELLAVISION)(BEAKER) (test code = 2817) MONOCYTES - REL 8 % (CELLAVISION)(BEAKER) (test code = 2818) EOSINOPHILS - REL 1 % (CELLAVISION)(BEAKER) (test code = 2819) BANDS - REL (CELLAVISION)(BEAKER) 7 % 0-10 (test code = 2826) NEUTROPHILS - ABS 3.19 K/ul 1.78-5.38 (CELLAVISION)(BEAKER) (test code = 2830) LYMPHOCYTES - ABS 1.77 K/ul 1.32-3.57 (CELLAVISION)(BEAKER) (test code = 2831) MONOCYTES - ABS 0.47 K/uL 0.30-0.82 (CELLAVISION)(BEAKER) (test code = 2832) EOSINOPHILS - ABS 0.06 K/uL 0.04-0.54 (CELLAVISION)(BEAKER) (test code = 2834) BANDS - ABS (CELLAVISION)(BEAKER) 0.41 K/uL 0.00-0.80 (test code = 2840) TOTAL COUNTED (BEAKER) (test code = 100 1351) GIANT PLATELETS (BEAKER) (test code Present = 313) TOXIC GRANULATION (BEAKER) (test Present code = 771) ANISOCYTOSIS (BEAKER) (test code = 1+ few 961) MACROCYTES (BEAKER) (test code = 1+ few 964) POIKILOCYTES (BEAKER) (test code = 1+ few 966) ROULEAUX (BEAKER) (test code = 763) 1+ few OVALOCYTES (BEAKER) (test code = 1+ few 477) BASOPHILIC STIPPLING (BEAKER) (test Present code = 473) ARTIFACT (CELLAVISION)(BEAKER) Present (test code = 3432) PLATELET CONCENTRATION Adequate (CELLAVISION)(BEAKER) (test code = 3438) Received comment: User comments: Slide comments:BLOOD GAS, [id number] 10:55:00 Test Item Value Reference Range Interpretation Comments PH ARTERIAL (BEAKER) (test code = 7.41 7.35-7.45 383) PCO2 ARTERIAL (BEAKER) (test code 49 mmHg 35-45 H = 384) PO2 ARTERIAL (BEAKER) (test code = 73 mmHg 80-90 L 385) O2 SATURATION ARTERIAL (BEAKER) 96.6 % 96.0-97.0 (test code = 386) HCO3 ARTERIAL (BEAKER) (test code 31 mmol/L 21-29 H = 388) BASE EXCESS ARTERIAL (BEAKER) 4.5 mmol/L -2.0-3.0 H (test code = 387) PATIENT TEMPERATURE (BEAKER) (test 33.0 C code = 1818) FIO2 (BEAKER) (test code = 1819) 21.0 % LACTIC ACID, [id number] 10:20:00 Test Item Value Reference Range Interpretation Comments LACTATE BLOOD VENOUS 0.7 mmol/L 0.5-2.2 Specime n markedly (2) (BEAKER) (test hemolyzed code = 2872) POCT-GLUCOSE [id number] 10:17:00 Test Item Value Reference Range Interpretation Comments POC-GLUCOSE METER 78 mg/dL 70-110 TESTED AT [facility] 6720 ([facility]) (test code = [facility] [place] [facility] [id number] 1538) BLOOD GAS, [id number] 10:04:00 Test Item Value Reference Range Interpretation Comments PH VENOUS (BEAKER) (test code = 7.41 7.32-7.42 701) PCO2 VENOUS (BEAKER) (test code = 49 mmHg 41-51 755) PO2 VENOUS (BEAKER) (test code = 33 mmHg 25-40 702) O2 SATURATION VENOUS (BEAKER) 79.6 % 40.0-70.0 H (test code = 703) HCO3 VENOUS (BEAKER) (test code = 33 mmol/L 21-29 H 705) BASE EXCESS VENOUS (BEAKER) (test 5.4 mmol/L -2.0-3.0 H code = 704) PATIENT TEMPERATURE (BEAKER) (test 32.0 C code = 1818) FIO2 (BEAKER) (test code = 1819) 21.0 % POCT-GLUCOSE [id number] 08:21:00 Test Item Value Reference Range Interpretation Comments POC-GLUCOSE METER 98 mg/dL 70-110 TESTED AT [place] [address] ([facility]) (test code = [facility] [address] 1538) POCT-GLUCOSE [id number] 05:51:00 Test Item Value Reference Range Interpretation Comments POC-GLUCOSE METER 108 mg/dL 70-110 TESTED AT [place] [address] ([facility]) (test code = [facility] 1538) [id number] POCT-GLUCOSE [id number] 04:28:00 Test Item Value Reference Range Interpretation Comments POC-GLUCOSE METER 112 mg/dL 70-110 H TEST[facility] AT [place] [address] [facility] (test code = [facility] 1538) [address] TSH/FREE T4 IF [id number] 04:05:00 Test Item Value Reference Range Interpretation Comments THYROID STIMULATING HORMONE 0.58 uIU/mL 0.35-4.94 (BEAKER) (test code = 772) BASIC METABOLIC [id number] 03:47:00 Test Item Value Reference Range Interpretation Comments SODIUM (BEAKER) 141 meq/L 136-145 (test code = 381) POTASSIUM (BEAKER) 3.9 meq/L 3.5-5.1 (test code = 379) CHLORIDE (BEAKER) 108 meq/L 98-107 H (test code = 382) CO2 (BEAKER) (test 30 meq/L 22-29 H code = 355) BLOOD UREA NITROGEN 4 mg/dL 7-21 L (BEAKER) (test code = 354) CREATININE (BEAKER) 0.48 mg/dL 0.57-1.25 L (test code = 358) GLUCOSE RANDOM 122 mg/dL 70-105 H (BEAKER) (test code = 652) CALCIUM (BEAKER) 8.9 mg/dL 8.4-10.2 (test code = 697) EGFR (BEAKER) (test 221 mL/min/1.73 ESTIM ATED GFR IS code = 1092) sq m NOT ACCURATE CREATININE CLEARANCE IN PREDICTING GLOMERULAR FILTRATION RATE . ESTIMATED GFR I S NOT APPLICABLE FOR DIALYSIS PATIEN TS. POCT-GLUCOSE [id number] 01:57:00 Test Item Value Reference Range Interpretation Comments POC-GLUCOSE METER 130 mg/dL 70-110 H TESTED AT [place] [address] ([facility]) (test code = [facility] 1538) [address] POCT-GLUCOSE [id number] 00:11:00 Test Item Value Reference Range Interpretation Comments POC-GLUCOSE METER 122 mg/dL 70-110 H TESTED AT [place] [address] ([facility]) (test code = [facility] 1538) [address] POCT-GLUCOSE [id number] 22:23:00 Test Item Value Reference Range Interpretation Comments POC-GLUCOSE METER 103 mg/dL 70-110 TESTED AT [place] [address] ([facility]) (test code = [facility] 1538) [address] POCT-GLUCOSE [id number] 20:34:00 Test Item Value Reference Range Interpretation Comments POC-GLUCOSE METER 114 mg/dL 70-110 H TESTED AT [place] [address] ([facility]) (test code = [facility] 1538) [address] POCT-GLUCOSE [id number] 15:59:00 Test Item Value Reference Range Interpretation Comments POC-GLUCOSE METER 158 mg/dL 70-110 H TESTED AT [place] [address] ([facility]) (test code = [facility] 1538) [address] POCT-GLUCOSE [id number] 12:26:00 Test Item Value Reference Range Interpretation Comments POC-GLUCOSE METER 104 mg/dL 70-110 TESTED AT [place] [address] ([facility]) (test code = ROWDY Villatoro [facility] 1538) [address] KETONE, [id number] 10:04:00 Test Item Value Reference Range Interpretation Comments KETONES, BLOOD ([facility]) (test code 0.1 mmol/L <0.4 = 1103) POCT-GLUCOSE [id number] 08:37:00 Test Item Value Reference Range Interpretation Comments POC-GLUCOSE METER 153 mg/dL 70-110 H TESTED AT [place] [address] ([facility]) (test code = ROWDY Villatoro [facility] 1538) [address] POCT-GLUCOSE [id number] 08:37:00 Test Item Value Reference Range Interpretation Comments POC-GLUCOSE METER 61 mg/dL 70-110 L Notified R Ector GREENBERG/TESTED AT ([facility]) (test code = [address] 1538) [facility] [address] VALPROIC ACID LEVEL, [id number] 06:44:00 Test Item Value Reference Range Interpretation Comments VALPROIC ACID TOTAL ([facility]) (test 34 ug/mL 50-100 L code = 924) Therapeutic range for some clinical conditions may be >100 ug/mLPOCT-GLUCOSE [id number] 06:30:00 Test Item Value Reference Range Interpretation Comments POC-GLUCOSE METER 129 mg/dL 70-110 H TESTED AT [place] [address] ([facility]) (test code = ROWDY Villatoro [facility] 1538) 118[address] POCT-GLUCOSE [id number] 00:19:00 Test Item Value Reference Range Interpretation Comments POC-GLUCOSE METER 113 mg/dL 70-110 H TESTED AT [place] [address] ([facility]) (test code = ROWDY Villatoro [place] 1538) [address] POCT-GLUCOSE [id number] 20:22:00 Test Item Value Reference Range Interpretation Comments POC-GLUCOSE METER 74 mg/dL 70-110 TESTED AT [place] [address] ([facility]) (test code = ROWDY Villatoro [facility] [address] 1538) POCT-GLUCOSE [id number] 18:07:00 Test Item Value Reference Range Interpretation Comments POC-GLUCOSE METER 108 mg/dL 70-110 TESTED AT [place] [address] ([facility]) (test code = ROWDY Villatoro [facility] 1538) [address] [id number] 18:02:00 Test Item Value Reference Range Interpretation Comments GLUCOSE RANDOM ([facility]) (test code = 65 mg/dL 70-105 L 652) KETONE, [id number] 18:00:00 Test Item Value Reference Range Interpretation Comments KETONES, BLOOD ([facility]) (test code 0.1 mmol/L <0.4 = 1103) POCT-GLUCOSE [id number] 17:03:00 Test Item Value Reference Range Interpretation Comments POC-GLUCOSE METER 66 mg/dL 70-110 L Trever Barney MD/TESTED AT ([facility]) (test code = [address] 1538) [facility] [address] POCT-GLUCOSE [id number] 16:05:00 Test Item Value Reference Range Interpretation Comments POC-GLUCOSE METER 76 mg/dL 70-110 TESTED AT [place] [address] ([facility]) (test code = ROWDY Villatoro [facility] [address] 1538) POCT-GLUCOSE [id number] 13:19:00 Test Item Value Reference Range Interpretation Comments POC-GLUCOSE METER 103 mg/dL 70-110 TESTED AT [place] [address] ([facility]) (test code = ROWDY Villatoro [facility] 1538) [address] POCT-GLUCOSE [id number] 10:02:00 Test Item Value Reference Range Interpretation Comments POC-GLUCOSE METER 75 mg/dL 70-110 TESTED AT [place] [address] ([facility]) (test code = ROWDY Villatoro [facility] [address] 1538) POCT-GLUCOSE [id number] 08:29:00 Test Item Value Reference Range Interpretation Comments POC-GLUCOSE METER 89 mg/dL 70-110 TESTED AT [place] [address] ([facility]) (test code = ROWDY Villatoro [facility] [address] 1538) POCT-GLUCOSE [id number] 04:10:00 Test Item Value Reference Range Interpretation Comments POC-GLUCOSE METER 114 mg/dL 70-110 H TESTED AT [place] [address] ([facility]) (test code = ROWDY Villatoro [facility] 1538) [address] POCT-GLUCOSE [id number] 01:15:00 Test Item Value Reference Range Interpretation Comments POC-GLUCOSE METER 137 mg/dL 70-110 H TESTED AT [facility] 6720 (BEAKER) (test code = ROWDY Villatoro [facility] 1538) [address] POCT-GLUCOSE [id number] 21:27:00 Test Item Value Reference Range Interpretation Comments POC-GLUCOSE METER 105 mg/dL 70-110 TESTED AT [facility] 6720 (BEAKER) (test code = [facility] Shauna [facility] 1538) [address] POCT-GLUCOSE [id number] 17:30:00 Test Item Value Reference Range Interpretation Comments POC-GLUCOSE METER 109 mg/dL 70-110 TESTED AT [place] [address] (BEAKER) (test code = [facility] Shauna [facility] 1538) [address] POCT-GLUCOSE [id number] 13:03:00 Test Item Value Reference Range Interpretation Comments POC-GLUCOSE METER 125 mg/dL 70-110 H TESTED AT [place] [address] ([facility] (test code = [facility] Shauna [facility] 1538) [address] POCT-GLUCOSE [id number] 13:03:00 Test Item Value Reference Range Interpretation Comments POC-GLUCOSE METER 63 mg/dL 70-110 L TESTED AT [place] [address] (BEAKER) (test code = [facility] Shauna [facility] [address] 1538) BASIC METABOLIC [id number] 12:34:00 Test Item Value Reference Range Interpretation Comments SODIUM (BEAKER) 140 meq/L 136-145 (test code = 381) POTASSIUM (BEAKER) 4.3 meq/L 3.5-5.1 Specimen slightly (test code = 379) hemolyzed CHLORIDE (BEAKER) 105 meq/L 98-107 (test code = 382) CO2 (BEAKER) (test 30 meq/L 22-29 H code = 355) BLOOD UREA NITROGEN 10 mg/dL 7-21 (BEAKER) (test code = 354) CREATININE (BEAKER) 0.52 mg/dL 0.57-1.25 L Specimen slightly (test code = 358) hemolyzed GLUCOSE RANDOM 60 mg/dL 70-105 L (BEAKER) (test code = 652) CALCIUM (BEAKER) 8.7 mg/dL 8.4-10.2 (test code = 697) EGFR (BEAKER) (test 201 mL/min/1.73 ESTIM ATED GFR IS code = 1092) sq m NOT ACCURATE CREATININE CLEARANCE IN PREDICTING GLOMERULAR FILTRATION RATE . ESTIMATED GFR I S NOT APPLICABLE FOR DIALYSIS PATIEN TS. CBC W/PLT COUNT & AUTO [id number] 11:13:00 Test Item Value Reference Range Interpretation Comments WHITE BLOOD CELL COUNT (BEAKER) 4.2 K/ L 3.5-10.5 (test code = 775) RED BLOOD CELL COUNT (BEAKER) 3.51 M/ L 4.63-6.08 L (test code = 761) HEMOGLOBIN (BEAKER) (test code = 11.1 GM/DL 13.7-17.5 L 410) HEMATOCRIT (BEAKER) (test code = 34.0 % 40.1-51.0 L 411) MEAN CORPUSCULAR VOLUME (BEAKER) 96.9 fL 79.0-92.2 H (test code = 753) MEAN CORPUSCULAR HEMOGLOBIN 31.6 pg 25.7-32.2 (BEAKER) (test code = 751) MEAN CORPUSCULAR HEMOGLOBIN CONC 32.6 GM/DL 32.3-36.5 (BEAKER) (test code = 752) RED CELL DISTRIBUTION WIDTH 16.1 % 11.6-14.4 H (BEAKER) (test code = 412) PLATELET COUNT (BEAKER) (test 211 K/CU MM 150-450 code = 756) MEAN PLATELET VOLUME (BEAKER) 11.2 fL 9.4-12.4 (test code = 754) NUCLEATED RED BLOOD CELLS 0 /100 WBC 0-0 (BEAKER) (test code = 413) NEUTROPHILS RELATIVE PERCENT 42 % (BEAKER) (test code = 429) LYMPHOCYTES RELATIVE PERCENT 40 % (BEAKER) (test code = 430) MONOCYTES RELATIVE PERCENT 15 % (BEAKER) (test code = 431) EOSINOPHILS RELATIVE PERCENT 3 % (BEAKER) (test code = 432) BASOPHILS RELATIVE PERCENT 1 % (BEAKER) (test code = 437) NEUTROPHILS ABSOLUTE COUNT 1.78 K/ L 1.78-5.38 (BEAKER) (test code = 670) LYMPHOCYTES ABSOLUTE COUNT 1.67 K/ L 1.32-3.57 (BEAKER) (test code = 414) MONOCYTES ABSOLUTE COUNT (BEAKER) 0.62 K/ L 0.30-0.82 (test code = 415) EOSINOPHILS ABSOLUTE COUNT 0.12 K/ L 0.04-0.54 ([facility]) (test code = 416) BASOPHILS ABSOLUTE COUNT ([facility]) 0.02 K/ L 0.01-0.08 (test code = 417) IMMATURE GRANULOCYTES-RELATIVE 0 % 0-1 PERCENT ([facility]) (test code = 2801) POCT-GLUCOSE [id number] 10:16:00 Test Item Value Reference Range Interpretation Comments POC-GLUCOSE METER 130 mg/dL 70-110 H TESTED AT [place] [address] ([facility]) (test code = [place] Shauna [facility] 1538) [address] POCT-GLUCOSE [id number] 08:29:00 Test Item Value Reference Range Interpretation Comments POC-GLUCOSE METER 75 mg/dL 70-110 TESTED AT [place] [address] ([facility]) (test code = [facility] [address] 1538) POCT-GLUCOSE [id number] 08:29:00 Test Item Value Reference Range Interpretation Comments POC-GLUCOSE METER 48 mg/dL 70-110 L Notified R Ector GREENBERG/TESTED AT ([facility]) (test code = [address] 1538) [facility] [address] MISCELLANEOUS LAB [id number] 11:35:00 Test Item Value Reference Range Interpretation Comments SCAN RESULT (test code = 6905339) MISCELLANEOUS LAB [id number] 12:54:00 Test Item Value Reference Range Interpretation Comments SCAN RESULT (test code = 6213177) BLOOD [id number] 20:01:00 Test Item Value Reference Range Interpretation Comments CULTURE (BEAKER) (test No growth in 5 days code = 1095) BLOOD [id number] 02:01:00 Test Item Value Reference Range Interpretation Comments CULTURE (BEAKER) (test No growth in 5 days code = 1095) POCT-GLUCOSE [id number] 05:16:00 Test Item Value Reference Range Interpretation Comments POC-GLUCOSE METER 83 mg/dL 70-110 TESTED AT [place] [address] ([facility]) (test code = [facility] [address] 1538) POCT-GLUCOSE [id number] 21:57:00 Test Item Value Reference Range Interpretation Comments POC-GLUCOSE METER 75 mg/dL 70-110 TESTED AT [place] [address] ([facility]) (test code = [facility] [address] 1538) CORTISOL,60 [id number] 18:57:00 Test Item Value Reference Range Interpretation Comments CORTISOL BASELINE NETWORKED 9.7 mcg/dL (BEAKER) (test code = 2307) CORTISOL 30 MINUTE NETWORKED 17.8 mcg/dL (BEAKER) (test code = 2308) CORTISOL, 60 MINUTE (BEAKER) 23.6 ug/dL (test code = 1805) ACTH STIMULATION TEST INTERPRETATION GUIDELINES(Synonyms: Cortrosyn Test, Cosyntropin or Corticotropin Stimulation Test)Adenocorticotropic hormone (ACTH)is a tropic hormone, made in [...] (>9mcg/dL) 2. Intermediate Survival: Low basal cortisol (<34 mcg/dL) and low response to ACTH (&l t;or=9 mcg/dL) OR High basal cortisol (>34 mcg/dL) or high ACTH response (>9 mcg/dL) 3.Poor Survival: High basal cortisol (>34 mcg/dL) and low ACTH response (<or=9 mcg/dL).Treatment of patients with relative adrenal dysfunction may [...] serum cortisollevel 60 minutes after cosyntropin administration.CORTISOL,30 [id number] 18:11:00 Test Item Value Reference Range Interpretation Comments CORTISOL BASELINE NETWORKED 9.7 mcg/dL (BEAKER) (test code = 2307) CORTISOL, 30 MINUTE (BEAKER) (test 17.8 ug/dL code = 1804) ACTH STIMULATION TEST INTERPRETATION GUIDELINES(Synonyms: Cortrosyn Test, Cosyntropin or Corticotropin Stimulation Test)Adenocorticotropic hormone (ACTH)is a tropic hormone, made in [...] (>9mcg/dL) 2. Intermediate Survival: Low basal cortisol (<34 mcg/dL) and low response to ACTH (&l t;or=9 mcg/dL) OR High basal cortisol (>34 mcg/dL) or high ACTH response (>9 mcg/dL) 3.Poor Survival: High basal cortisol (>34 mcg/dL) and low ACTH response (<or=9 mcg/dL).Treatment of patients with relative adrenal dysfunction may [...] serum cortisollevel 60 minutes after cosyntropin administration.POCT-GLUCOSE [id number] 17:52:00 Test Item Value Reference Range Interpretation Comments POC-GLUCOSE METER 74 mg/dL 70-110 TESTED AT [place] [address] ([facility]) (test code = ROWDY Villatoro [facility] [address] 1538) CORTISOL,[id number] 15:02:00 Test Item Value Reference Range Interpretation Comments CORTISOL, BASELINE ([facility]) (test 9.7 ug/dL code = 1803) ACTH STIMULATION TEST INTERPRETATION GUIDELINES(Synonyms: Cortrosyn Test, Cosyntropin or Corticotropin Stimulation Test)Adenocorticotropic hormone (ACTH)is a tropic hormone, made in [...] (>9mcg/dL) 2. Intermediate Survival: Low basal cortisol (<34 mcg/dL) and low response to ACTH (&l t;or=9 mcg/dL) OR High basal cortisol (>34 mcg/dL) or high ACTH response (>9 mcg/dL) 3.Poor Survival: High basal cortisol (>34 mcg/dL) and low ACTH response (<or=9 mcg/dL).Treatment of patients with relative adrenal dysfunction may be indicated based on test results and the clinical condition of the patient. Additional information, including treatment recommendations, is available in critically ill patients, approved by the Pharmacy, Nutrition, and Therapeutics Committee on 08/01/2004 and available through the Pharmacy Policy and Procedure Section on [employer].BASIC METABOLIC [id number] 14:44:00 Test Item Value Reference Range Interpretation Comments SODIUM (BEAKER) 142 meq/L 136-145 (test code = 381) POTASSIUM (BEAKER) 4.8 meq/L 3.5-5.1 Specimen slightly (test code = 379) hemolyzed CHLORIDE (BEAKER) 103 meq/L 98-107 (test code = 382) CO2 (BEAKER) (test 30 meq/L 22-29 H code = 355) BLOOD UREA NITROGEN 10 mg/dL 7-21 (BEAKER) (test code = 354) CREATININE (BEAKER) 0.67 mg/dL 0.57-1.25 Specimen slightly (test code = 358) hemolyzed GLUCOSE RANDOM 105 mg/dL 70-105 (BEAKER) (test code = 652) CALCIUM (BEAKER) 9.7 mg/dL 8.4-10.2 (test code = 697) EGFR (BEAKER) (test 150 mL/min/1.73 ESTIM ATED GFR IS code = 1092) sq m NOT ACCURATE CREATININE CLEARANCE IN PREDICTING GLOMERULAR FILTRATION RATE . ESTIMATED GFR I S NOT APPLICABLE FOR DIALYSIS PATIEN TS. LACTIC ACID, [id number] 14:39:00 Test Item Value Reference Range Interpretation Comments LACTATE BLOOD 4.6 mmol/L 0.5-2.2 H Specimen sligh tly ARTERIAL (2) (BEAKER) hemoly zed (test code = 2874) PROTHROMBIN [id number] 14:05:00 Test Item Value Reference Range Interpretation Comments PROTIME (BEAKER) (test code = 12.4 seconds 11.7-14.7 759) INR (BEAKER) (test code = 370) 0.9 <=5.9 RECOMMENDED COUMADIN/WARFARIN INR THERAPY RANGESSTANDARD DOSE: 2.0 - 3.0 Includes: PROPHYLAXIS forvenous thrombosis, systemic embolization; TREATMENT for venous thrombosis and/or pulmonary embolus.HIGH RISK: Target INR is 2.5-3.5 for patients with mechanical heart valves.CBC W/PLT COUNT & AUTO DIFFERENTIAL 2018-12-06 14:02:00 Test Item Value Reference Range Interpretation Comments WHITE BLOOD CELL COUNT (BEAKER) 7.8 K/ L 3.5-10.5 (test code = 775) RED BLOOD CELL COUNT (BEAKER) 3.96 M/ L 4.63-6.08 L (test code = 761) HEMOGLOBIN (BEAKER) (test code = 12.4 GM/DL 13.7-17.5 L 410) HEMATOCRIT (BEAKER) (test code = 39.0 % 40.1-51.0 L 411) MEAN CORPUSCULAR VOLUME (BEAKER) 98.5 fL 79.0-92.2 H (test code = 753) MEAN CORPUSCULAR HEMOGLOBIN 31.3 pg 25.7-32.2 (BEAKER) (test code = 751) MEAN CORPUSCULAR HEMOGLOBIN CONC 31.8 GM/DL 32.3-36.5 L (BEAKER) (test code = 752) RED CELL DISTRIBUTION WIDTH 15.6 % 11.6-14.4 H (BEAKER) (test code = 412) PLATELET COUNT (BEAKER) (test 219 K/CU MM 150-450 code = 756) MEAN PLATELET VOLUME (BEAKER) 12.3 fL 9.4-12.4 (test code = 754) NUCLEATED RED BLOOD CELLS 0 /100 WBC 0-0 (BEAKER) (test code = 413) NEUTROPHILS RELATIVE PERCENT 43 % (BEAKER) (test code = 429) LYMPHOCYTES RELATIVE PERCENT 44 % (BEAKER) (test code = 430) MONOCYTES RELATIVE PERCENT 10 % (BEAKER) (test code = 431) EOSINOPHILS RELATIVE PERCENT 3 % (BEAKER) (test code = 432) BASOPHILS RELATIVE PERCENT 0 % (BEAKER) (test code = 437) NEUTROPHILS ABSOLUTE COUNT 3.32 K/ L 1.78-5.38 (BEAKER) (test code = 670) LYMPHOCYTES ABSOLUTE COUNT 3.41 K/ L 1.32-3.57 (BEAKER) (test code = 414) MONOCYTES ABSOLUTE COUNT (BEAKER) 0.81 K/ L 0.30-0.82 (test code = 415) EOSINOPHILS ABSOLUTE COUNT 0.20 K/ L 0.04-0.54 (BEAKER) (test code = 416) BASOPHILS ABSOLUTE COUNT (BEAKER) 0.03 K/ L 0.01-0.08 (test code = 417) IMMATURE GRANULOCYTES-RELATIVE 0 % 0-1 PERCENT (BEAKER) (test code = 2801) POCT-GLUCOSE [id number] 13:12:00 Test Item Value Reference Range Interpretation Comments POC-GLUCOSE METER 126 mg/dL 70-110 H TESTED AT [place] [address] [facility] (test code = [place] 1538) [address] POCT-GLUCOSE [id number] 08:09:00 Test Item Value Reference Range Interpretation Comments POC-GLUCOSE METER 87 mg/dL 70-110 TESTED AT [facility] 6720 ([facility] (test code = ROWDY Villatoro [facility] [address] 1538) POCT-GLUCOSE [id number] 07:29:00 Test Item Value Reference Range Interpretation Comments POC-GLUCOSE METER 52 mg/dL 70-110 L TESTED AT [place] [address] ([facility] (test code = ROWDY Villatoro [facility] [address] 1538) POCT-GLUCOSE [id number] 01:49:00 Test Item Value Reference Range Interpretation Comments POC-GLUCOSE METER 94 mg/dL 70-110 TESTED AT [place] [address] ([facility] (test code = ROWDY Villatoro [facility] [address] 1538) POCT-GLUCOSE [id number] 18:53:00 Test Item Value Reference Range Interpretation Comments POC-GLUCOSE METER 124 mg/dL 70-110 H TESTED AT [place] [address] ([facility]) (test code = ROWDY Villatoro [facility] 1538) [address] POCT-GLUCOSE [id number] 18:12:00 Test Item Value Reference Range Interpretation Comments POC-GLUCOSE METER 60 mg/dL 70-110 L Notified R Ector GREENBERG/TESTED AT ([facility]) (test code = [place] [address] [place] 1538) [place] [address] 0 POCT-GLUCOSE [id number] 13:18:00 Test Item Value Reference Range Interpretation Comments POC-GLUCOSE METER 81 mg/dL 70-110 TESTED AT [place] [address] ([facility]) (test code = ROWDY Villatoro [facility] [address] 1538) POCT-GLUCOSE [id number] 08:05:00 Test Item Value Reference Range Interpretation Comments POC-GLUCOSE METER 108 mg/dL 70-110 TESTED AT [place] [address] ([facility]) (test code = ROWDY Villatoro [facility] 1538) [address] POCT-GLUCOSE [id number] 08:02:00 Test Item Value Reference Range Interpretation Comments POC-GLUCOSE METER 67 mg/dL 70-110 L Notified R Ector GREENBERG/TESTED AT ([facility]) (test code = [place] [address] DL 1538) [facility] [address] 0 URINALYSIS WITH MICROSCOPIC IF [id number] 06:38:00 Test Item Value Reference Range Interpretation Comments COLOR (BEAKER) (test code = 470) Yellow CLARITY (BEAKER) (test code = 469) Clear SPECIFIC GRAVITY UA (BEAKER) (test 1.016 1.001-1.035 code = 468) PH UA (BEAKER) (test code = 467) 7.0 5.0-8.0 PROTEIN UA (BEAKER) (test code = Negative Negative 464) GLUCOSE UA (BEAKER) (test code = Negative Negative 365) KETONES UA (BEAKER) (test code = Negative Negative 371) BILIRUBIN UA (BEAKER) (test code = Negative Negative 462) BLOOD UA (BEAKER) (test code = 461) Negative Negative NITRITE UA (BEAKER) (test code = Negative Negative 465) LEUKOCYTE ESTERASE UA (BEAKER) Negative Negative (test code = 466) UROBILINOGEN UA (BEAKER) (test code 0.2 mg/dL 0.2-1.0 = 463) SOURCE(BEAKER) (test code = 2795) RAD, CHEST, 1 VIEW, NON [id number] 23:12:00Reason for exam:->FeverShould this be performed at [...] MDReport Verified Date/Time: 12/04/2018 23:12:24 Reading Location: [address] [facility] ReadingRoom VALPROIC ACID LEVEL, TOTAL 2018-12-04 21:41:00 Test Item Value Reference Range Interpretation Comments VALPROIC ACID TOTAL (BEAKER) (test 37 ug/mL 50-100 L code = 924) Therapeutic range for some clinical conditions may be >100 ug/mLPOCT-GLUCOSE [id number] 21:30:00 Test Item Value Reference Range Interpretation Comments POC-GLUCOSE METER 86 mg/dL 70-110 TESTED AT [facility] 6720 (BEAKER) (test code = [place] [address] 1538) PROTHROMBIN [id number] 21:00:00 Test Item Value Reference Range Interpretation Comments PROTIME (BEAKER) (test code = 13.9 seconds 11.7-14.7 759) INR (BEAKER) (test code = 370) 1.1 <=5.9 RECOMMENDED COUMADIN/WARFARIN INR THERAPY RANGESSTANDARD DOSE: 2.0 - 3.0 Includes: PROPHYLAXIS forvenous thrombosis, systemic embolization; TREATMENT for venous thrombosis and/or pulmonary embolus.HIGH RISK: Target INR is 2.5-3.5 for patients with mechanical heart valves.LACTIC ACID, [id number] 20:58:00 Test Item Value Reference Range Interpretation Comments LACTATE BLOOD VENOUS 2.3 mmol/L 0.5-2.2 H Specime n slightly (2) (BEAKER) (test hemolyzed code = 5352) [id number] 20:51:00 Test Item Value Reference Range Interpretation Comments PHOSPHORUS (BEAKER) (test code = 2.9 mg/dL 2.3-4.7 604) Check Serum Phosphorus level 4 hours after IV phosphorus replacement or 8 hours after PO replacementcompleted.[id number] 20:51:00 Test Item Value Reference Range Interpretation Comments MAGNESIUM (BEAKER) (test code = 1.7 mg/dL 1.6-2.6 627) Check Serum Phosphorus level 4 hours after IV phosphorus replacement or 8 hours after PO replacementcompleted.BASIC METABOLIC [id number] 20:51:00 Test Item Value Reference Range Interpretation Comments SODIUM (BEAKER) 138 meq/L 136-145 (test code = 381) POTASSIUM (BEAKER) 4.2 meq/L 3.5-5.1 (test code = 379) CHLORIDE (BEAKER) 101 meq/L 98-107 (test code = 382) CO2 (BEAKER) (test 30 meq/L 22-29 H code = 355) BLOOD UREA NITROGEN 13 mg/dL 7-21 (BEAKER) (test code = 354) CREATININE (BEAKER) 0.74 mg/dL 0.57-1.25 (test code = 358) GLUCOSE RANDOM 84 mg/dL 70-105 (BEAKER) (test code = 652) CALCIUM (BEAKER) 9.4 mg/dL 8.4-10.2 (test code = 697) EGFR (BEAKER) (test 134 mL/min/1.73 ESTIM ATED GFR IS code = 1092) sq m NOT ACCURATE CREATININE CLEARANCE IN PREDICTING GLOMERULAR FILTRATION RATE . ESTIMATED GFR I S NOT APPLICABLE FOR DIALYSIS PATIEN TS. Check Serum Phosphorus level 4 hours after IV phosphorus replacement or 8 hours after PO replacementcompleted.CBC W/PLT COUNT & AUTO [id number] 20:28:00 Test Item Value Reference Range Interpretation Comments WHITE BLOOD CELL COUNT (BEAKER) 8.7 K/ L 3.5-10.5 (test code = 775) RED BLOOD CELL COUNT (BEAKER) 3.66 M/ L 4.63-6.08 L (test code = 761) HEMOGLOBIN (BEAKER) (test code = 11.3 GM/DL 13.7-17.5 L 410) HEMATOCRIT (BEAKER) (test code = 34.8 % 40.1-51.0 L 411) MEAN CORPUSCULAR VOLUME (BEAKER) 95.1 fL 79.0-92.2 H (test code = 753) MEAN CORPUSCULAR HEMOGLOBIN 30.9 pg 25.7-32.2 (BEAKER) (test code = 751) MEAN CORPUSCULAR HEMOGLOBIN CONC 32.5 GM/DL 32.3-36.5 (BEAKER) (test code = 752) RED CELL DISTRIBUTION WIDTH 15.4 % 11.6-14.4 H (BEAKER) (test code = 412) PLATELET COUNT (BEAKER) (test 191 K/CU MM 150-450 code = 756) MEAN PLATELET VOLUME (BEAKER) 11.6 fL 9.4-12.4 (test code = 754) NUCLEATED RED BLOOD CELLS 0 /100 WBC 0-0 (BEAKER) (test code = 413) NEUTROPHILS RELATIVE PERCENT 33 % (BEAKER) (test code = 429) LYMPHOCYTES RELATIVE PERCENT 52 % (BEAKER) (test code = 430) MONOCYTES RELATIVE PERCENT 13 % (BEAKER) (test code = 431) EOSINOPHILS RELATIVE PERCENT 3 % (BEAKER) (test code = 432) BASOPHILS RELATIVE PERCENT 0 % (BEAKER) (test code = 437) NEUTROPHILS ABSOLUTE COUNT 2.81 K/ L 1.78-5.38 (BEAKER) (test code = 670) LYMPHOCYTES ABSOLUTE COUNT 4.50 K/ L 1.32-3.57 H (BEAKER) (test code = 414) MONOCYTES ABSOLUTE COUNT (BEAKER) 1.10 K/ L 0.30-0.82 H (test code = 415) EOSINOPHILS ABSOLUTE COUNT 0.23 K/ L 0.04-0.54 (BEAKER) (test code = 416) BASOPHILS ABSOLUTE COUNT (BEAKER) 0.03 K/ L 0.01-0.08 (test code = 417) IMMATURE GRANULOCYTES-RELATIVE 0 % 0-1 PERCENT (BEAKER) (test code = 2801) [id number] 20:09:00 Test Item Value Reference Range Interpretation Comments POC-HEMATOCRIT 34 % 40-50 L TESTED AT [facility] 6720 (BEAKER) (test code = [place] [address] 1857) [id number] 20:09:00 Test Item Value Reference Range Interpretation Comments POC-HEMOGLOBIN 11.6 g/dL 13.0-16.8 L TESTED AT [place] [id number] (BEAKER) (test code [facility] = 1856) [address]ONOBIU AT [facility] [address] [place] [facility] [place] [address] POCT-BLOOD GASES, [id number] 20:08:00 Test Item Value Reference Range Interpretation Comments TEMP, CELSIUS-POC 37.0 (BEAKER) (test code = 1834) FIO2-POC (BEAKER) TESTED AT [facility] [address] (test code = 1835) [place] [address] PH, VENOUS-POC 7.483 7.320-7.420 H (BEAKER) (test code = 1842) PCO2, VENOUS-POC 42.8 mm Hg 41.0-51.0 (BEAKER) (test code = 1843) PO2, VENOUS-POC 50.0 mm Hg 25.0-40.0 H (BEAKER) (test code = 1844) SO2, VENOUS-POC 87.0 % 40.0-70.0 H (BEAKER) (test code = 1845) HCO3, VENOUS-POC 32.1 meq/L 21.0-29.0 H (BEAKER) (test code = 1846) BASE EXCESS, 9.0 meq/L -2.0-3.0 H VENOUS-POC (BEAKER) (test code = 1847) [id number] 20:08:00 Test Item Value Reference Range Interpretation Comments POC-SODIUM (BEAKER) 136 meq/L 135-148 TESTED A T [place] [address] (test code = 1542) DL [facility] [address] [id number] 20:08:00 Test Item Value Reference Range Interpretation Comments POC-POTASSIUM 4.5 meq/L 3.6-5.5 TESTED AT [place] [address] (BEAKER) (test code [facility] [address] = 1540) [id number] 20:08:00 Test Item Value Reference Range Interpretation Comments POC-GLUCOSE (BEAKER) 84 mg/dL 70-110 TESTED AT [place] [address] (test code = 1855) DL [place] [facility] [address] POCT-CALCIUM [id number] 20:08:00 Test Item Value Reference Range Interpretation Comments POC-CALCIUM IONIZED 1.25 mmol/L 1.12-1.27 TESTED A T [place] [address] ([facility]) (test code = [facility] 1536) [address] POCT-LACTIC ACID, [id number] 20:08:00 Test Item Value Reference Range Interpretation Comments POC-LACTIC ACID, 2.6 mmol/L 0.4-1.3 H TESTED AT [place] [address] ARTERIAL ([facility]) DL [facility] (test code = 2804) [address] POCT-GLUCOSE [id number] 19:25:00 Test Item Value Reference Range Interpretation Comments POC-GLUCOSE METER 81 mg/dL 70-110 TESTED AT [place] [address] ([facility]) (test code = [facility] Shauna [facility] [address] 1538) POCT-GLUCOSE [id number] 22:27:00 Test Item Value Reference Range Interpretation Comments POC-GLUCOSE METER 110 mg/dL 70-110 TESTED AT [place] [address] ([facility]) (test code = [facility] 1538) [address] POCT-GLUCOSE [id number] 04:51:00 Test Item Value Reference Range Interpretation Comments POC-GLUCOSE METER 75 mg/dL 70-110 TESTED AT [place] [address] ([facility] (test code = [facility] [address] 1538) POCT-GLUCOSE [id number] 00:08:00 Test Item Value Reference Range Interpretation Comments POC-GLUCOSE METER 76 mg/dL 70-110 TESTED AT [place] [address] ([facility]) (test code = [place] [address] 1538) POCT-GLUCOSE [id number] 21:37:00 Test Item Value Reference Range Interpretation Comments POC-GLUCOSE METER 69 mg/dL 70-110 L TESTED AT [place] [address] ([facility]) (test code = [place] [address] 1538) POCT-GLUCOSE [id number] 06:40:00 Test Item Value Reference Range Interpretation Comments POC-GLUCOSE METER 72 mg/dL 70-110 TESTED AT [place] [address] ([facility]) (test code = [place] [address] 1538) POCT-GLUCOSE [id number] 06:14:00 Test Item Value Reference Range Interpretation Comments POC-GLUCOSE METER 64 mg/dL 70-110 L TESTED AT [place] [address] ([facility]) (test code = [place] [address] 1538) POCT-GLUCOSE [id number] 05:42:00 Test Item Value Reference Range Interpretation Comments POC-GLUCOSE METER 58 mg/dL 70-110 L TESTED AT [place] [address] ([facility]) (test code = [place] [address] 1538) POCT-GLUCOSE [id number] 03:44:00 Test Item Value Reference Range Interpretation Comments POC-GLUCOSE METER 73 mg/dL 70-110 TESTED AT [place] [address] ([facility]) (test code = [place] [address] 1538) POCT-GLUCOSE [id number] 00:42:00 Test Item Value Reference Range Interpretation Comments POC-GLUCOSE METER 77 mg/dL 70-110 TESTED AT [place] [address] ([facility]) (test code = [place] [address] 1538) POCT-GLUCOSE [id number] 18:17:00 Test Item Value Reference Range Interpretation Comments POC-GLUCOSE METER 84 mg/dL 70-110 TESTED AT [place] [address] ([facility]) (test code = [place] [address] 1538) POCT-GLUCOSE [id number] 12:37:00 Test Item Value Reference Range Interpretation Comments POC-GLUCOSE METER 90 mg/dL 70-110 TESTED AT [place] [address] ([facility]) (test code = ROWDY Villatoro [facility] [address] 1538) POCT-GLUCOSE [id number] 00:13:00 Test Item Value Reference Range Interpretation Comments POC-GLUCOSE METER 82 mg/dL 70-110 TESTED AT [place] [address] ([facility]) (test code = ROWDY Villatoro [facility] [address] 1538) POCT-GLUCOSE [id number] 18:06:00 Test Item Value Reference Range Interpretation Comments POC-GLUCOSE METER 109 mg/dL 70-110 TESTED AT [place] [address] ([facility]) (test code = ROWDY Villatoro [facility] 1538) [address] POCT-GLUCOSE [id number] 13:37:00 Test Item Value Reference Range Interpretation Comments POC-GLUCOSE METER 103 mg/dL 70-110 TESTED AT [place] [address] ([facility]) (test code = ROWDY Villatoro [facility] 1538) [address] POCT-GLUCOSE [id number] 10:10:00 Test Item Value Reference Range Interpretation Comments POC-GLUCOSE METER 72 mg/dL 70-110 TESTED AT [place] [address] ([facility]) (test code = ROWDY Villatoro [facility] [address] 1538) POCT-GLUCOSE [id number] 09:02:00 Test Item Value Reference Range Interpretation Comments POC-GLUCOSE METER 65 mg/dL 70-110 L TESTED AT [place] [address] ([facility]) (test code = ROWDY Villatoro [facility] [address] 1538) POCT-GLUCOSE [id number] 08:18:00 Test Item Value Reference Range Interpretation Comments POC-GLUCOSE METER 67 mg/dL 70-110 L Notified R Ector GREENBERG/TESTED AT ([facility]) (test code = [address] 1538) [facility] [address] POCT-GLUCOSE [id number] 21:48:00 Test Item Value Reference Range Interpretation Comments POC-GLUCOSE METER 101 mg/dL 70-110 TESTED AT [place] [address] ([facility]) (test code = ROWDY Villatoro [facility] 1538) [address] POCT-GLUCOSE [id number] 20:09:00 Test Item Value Reference Range Interpretation Comments POC-GLUCOSE METER 75 mg/dL 70-110 TESTED AT [place] [address] ([facility]) (test code = ROWDY Villatoro [facility] [address] 1538) POCT-GLUCOSE [id number] 18:29:00 Test Item Value Reference Range Interpretation Comments POC-GLUCOSE METER 100 mg/dL 70-110 TESTED AT [place] [address] ([facility]) (test code = ROWDY Villatoro [facility] 1538) [address] RAD, SKULL, LESS THAN 4 [id number] 17:37:00Reason for exam:->h/o head trauma, need to r/o retained metal or implantsShould this be performedat the bedside?->NoFINAL REPORT Skull dated 11/28/2018 Comment: 2 views of skull obtained in frontal and lateral projection. No metallic foreign body is seen in the calvarium. The frontal, sphenoid, ethmoid, maxillary sinuses are clear. Orbital rim is intact. Signed: Jaciel Rodriguezeport Verified Andrei e/Time: 11/29/2018 17:37:13 Reading Location: [address] Consult Reading Room Electronicallysigned by: JACIEL RODRIGUEZ M.D. on 11/29/2018 05:37 PMPOCT- GLUCOSE [id number] 17:08:00 Test Item Value Reference Range Interpretation Comments POC-GLUCOSE METER 75 mg/dL 70-110 TESTED AT [place] [address] ([facility]) (test code = ROWDY Villatoro [facility] [address] 1538) POCT-GLUCOSE [id number] 16:33:00 Test Item Value Reference Range Interpretation Comments POC-GLUCOSE METER 87 mg/dL 70-110 TESTED AT [place] [address] ([facility]) (test code = ROWDY Villatoro [facility] [address] 1538) POCT-GLUCOSE [id number] 15:26:00 Test Item Value Reference Range Interpretation Comments POC-GLUCOSE METER 162 mg/dL 70-110 H TESTED AT [facility] 67 ([facility]) (test code = ROWDY Villatoro [facility] 1538) [address] POCT-GLUCOSE [id number] 13:59:00 Test Item Value Reference Range Interpretation Comments POC-GLUCOSE METER 96 mg/dL 70-110 TESTED AT [place] [address] ([facility]) (test code = ROWDY Villatoro [facility] [address] 1538) POCT-GLUCOSE [id number] 13:07:00 Test Item Value Reference Range Interpretation Comments POC-GLUCOSE METER 116 mg/dL 70-110 H TESTED AT [place] [address] ([facility]) (test code = ROWDY Villatoro [facility] 1538) [address] POCT-GLUCOSE [id number] 12:15:00 Test Item Value Reference Range Interpretation Comments POC-GLUCOSE METER 89 mg/dL 70-110 TESTED AT [place] [address] ([facility]) (test code = ROWDY Villatoro [facility] [address] 1538) POCT-GLUCOSE [id number] 11:06:00 Test Item Value Reference Range Interpretation Comments POC-GLUCOSE METER 102 mg/dL 70-110 TESTED AT [place] [address] ([facility]) (test code = ROWDY Villatoro [facility] 1538) [address] POCT-GLUCOSE [id number] 10:02:00 Test Item Value Reference Range Interpretation Comments POC-GLUCOSE METER 87 mg/dL 70-110 TESTED AT [place] [address] ([facility]) (test code = ROWDY Villatoro [facility] [address] 1538) HEMOGLOBIN [id number] 09:45:00 Test Item Value Reference Range Interpretation Comments HEMOGLOBIN A1C ([facility]) (test code = 5.5 % 4.3-6.1 368) POCT-GLUCOSE [id number] 09:04:00 Test Item Value Reference Range Interpretation Comments POC-GLUCOSE METER 93 mg/dL 70-110 TESTED AT [place] [address] ([facility]) (test code = ROWDY Villatoro [facility] [address] 1538) POCT-GLUCOSE [id number] 08:26:00 Test Item Value Reference Range Interpretation Comments POC-GLUCOSE METER 78 mg/dL 70-110 TESTED AT [place] [address] ([facility]) (test code = ROWDY Villatoro [facility] [address] 1538) U/S, ABDOMINAL, WITH [id number] 08:23:00Reason for exam:- >Transaminitis. RUQ U/s with doppler requested.FINAL REPORT HISTORY : Transaminitis COMPARISON : None. COMMENT :Ultrasound e xamination of the right upper quadrant with color [...] evaluation. Signed: Gonzalo Richard MDReport Verified Date/Time: 11/29/2018 08:23:38 Reading Location: [address] Ultrasound Reading Room POCT-GLUCOSE [id number] 07:29:00 Test Item Value Reference Range Interpretation Comments POC-GLUCOSE METER 86 mg/dL 70-110 TESTED AT [place] [address] ([facility]) (test code = [place] [address] 1538) POCT-GLUCOSE [id number] 06:50:00 Test Item Value Reference Range Interpretation Comments POC-GLUCOSE METER 56 mg/dL 70-110 L TESTED AT [place] [address] ([facility]) (test code = ROWDY Villatoro [facility] [address] 1538) POCT-GLUCOSE [id number] 06:12:00 Test Item Value Reference Range Interpretation Comments POC-GLUCOSE METER 83 mg/dL 70-110 TESTED AT [place] [address] ([facility]) (test code = [place] Shauna [facility] [address] 1538) POCT-GLUCOSE [id number] 05:03:00 Test Item Value Reference Range Interpretation Comments POC-GLUCOSE METER 87 mg/dL 70-110 TESTED AT [place] [address] ([facility]) (test code = [facility] [address] 1538) POCT-GLUCOSE [id number] 04:11:00 Test Item Value Reference Range Interpretation Comments POC-GLUCOSE METER 61 mg/dL 70-110 L TESTED AT [place] [address] ([facility]) (test code = [facility] [address] 1538) PROTHROMBIN [id number] 03:34:00 Test Item Value Reference Range Interpretation Comments PROTIME ([facility]) (test code = 13.1 seconds 11.7-14.7 759) INR ([facility]) (test code = 370) 1.0 <=5.9 RECOMMENDED COUMADIN/WARFARIN INR THERAPY RANGESSTANDARD DOSE: 2.0 - 3.0 Includes: PROPHYLAXIS forvenous thrombosis, systemic embolization; TREATMENT for venous thrombosis and/or pulmonary embolus.HIGH RISK: Target INR is 2.5-3.5 for patients with mechanical heart valves.POCT-GLUCOSE [id number] 03:14:00 Test Item Value Reference Range Interpretation Comments POC-GLUCOSE METER 62 mg/dL 70-110 L TESTED AT [place] [address] ([facility]) (test code = [facility] [address] 1538) [id number] 03:08:00 Test Item Value Reference Range Interpretation Comments PHOSPHORUS ([facility]) (test code = 2.7 mg/dL 2.3-4.7 604) Check Serum Phosphorus level 4 hours after IV phosphorus replacement or 8 hours after PO replacementcompleted.[id number] 03:08:00 Test Item Value Reference Range Interpretation Comments MAGNESIUM ([facility]) (test code = 1.8 mg/dL 1.6-2.6 627) Check Serum Phosphorus level 4 hours after IV phosphorus replacement or 8 hours after PO replacementcompleted.BASIC METABOLIC [id number] 03:08:00 Test Item Value Reference Range Interpretation Comments SODIUM (BEAKER) 139 meq/L 136-145 (test code = 381) POTASSIUM (BEAKER) 4.3 meq/L 3.5-5.1 (test code = 379) CHLORIDE (BEAKER) 104 meq/L 98-107 (test code = 382) CO2 (BEAKER) (test 29 meq/L 22-29 code = 355) BLOOD UREA NITROGEN 8 mg/dL 7-21 (BEAKER) (test code = 354) CREATININE (BEAKER) 0.56 mg/dL 0.57-1.25 L (test code = 358) GLUCOSE RANDOM 62 mg/dL 70-105 L (BEAKER) (test code = 652) CALCIUM (BEAKER) 9.2 mg/dL 8.4-10.2 (test code = 697) EGFR (BEAKER) (test 185 mL/min/1.73 ESTIM ATED GFR IS code = 1092) sq m NOT ACCURATE CREATININE CLEARANCE IN PREDICTING GLOMERULAR FILTRATION RATE . ESTIMATED GFR I S NOT APPLICABLE FOR DIALYSIS PATIEN TS. Check Serum Phosphorus level 4 hours after IV phosphorus replacement or 8 hours after PO replacementcompleted.[id number] 03:04:00 Test Item Value Reference Range Interpretation Comments CORTISOL, TOTAL (BEAKER) (test 10.1 ug/dL 3.7-19.4 code = 2755) Obtain if BG < 60CBC W/PLT COUNT & AUTO [id number] 02:53:00 Test Item Value Reference Range Interpretation Comments WHITE BLOOD CELL COUNT (BEAKER) 5.7 K/ L 3.5-10.5 (test code = 775) RED BLOOD CELL COUNT (BEAKER) 3.49 M/ L 4.63-6.08 L (test code = 761) HEMOGLOBIN (BEAKER) (test code = 11.0 GM/DL 13.7-17.5 L 410) HEMATOCRIT (BEAKER) (test code = 34.0 % 40.1-51.0 L 411) MEAN CORPUSCULAR VOLUME (BEAKER) 97.4 fL 79.0-92.2 H (test code = 753) MEAN CORPUSCULAR HEMOGLOBIN 31.5 pg 25.7-32.2 (BEAKER) (test code = 751) MEAN CORPUSCULAR HEMOGLOBIN CONC 32.4 GM/DL 32.3-36.5 (BEAKER) (test code = 752) RED CELL DISTRIBUTION WIDTH 15.8 % 11.6-14.4 H (BEAKER) (test code = 412) PLATELET COUNT (BEAKER) (test 118 K/CU MM 150-450 L code = 756) MEAN PLATELET VOLUME (BEAKER) 13.4 fL 9.4-12.4 H (test code = 754) NUCLEATED RED BLOOD CELLS 0 /100 WBC 0-0 (BEAKER) (test code = 413) NEUTROPHILS RELATIVE PERCENT 38 % (BEAKER) (test code = 429) LYMPHOCYTES RELATIVE PERCENT 49 % (BEAKER) (test code = 430) MONOCYTES RELATIVE PERCENT 10 % (BEAKER) (test code = 431) EOSINOPHILS RELATIVE PERCENT 2 % (BEAKER) (test code = 432) BASOPHILS RELATIVE PERCENT 1 % (BEAKER) (test code = 437) NEUTROPHILS ABSOLUTE COUNT 2.17 K/ L 1.78-5.38 (BEAKER) (test code = 670) LYMPHOCYTES ABSOLUTE COUNT 2.79 K/ L 1.32-3.57 (BEAKER) (test code = 414) MONOCYTES ABSOLUTE COUNT (BEAKER) 0.58 K/ L 0.30-0.82 (test code = 415) EOSINOPHILS ABSOLUTE COUNT 0.13 K/ L 0.04-0.54 (BEAKER) (test code = 416) BASOPHILS ABSOLUTE COUNT (BEAKER) 0.03 K/ L 0.01-0.08 (test code = 417) IMMATURE GRANULOCYTES-RELATIVE 0 % 0-1 PERCENT (BEAKER) (test code = 2801) KETONE, [id number] 02:53:00 Test Item Value Reference Range Interpretation Comments KETONES, BLOOD (BEAKER) (test code 0.1 mmol/L <0.4 = 1103) [id number] 02:39:00 Test Item Value Reference Range Interpretation Comments GLUCOSE RANDOM (BEAKER) (test code = 59 mg/dL 70-105 L 652) Obtain if BG < 60POCT-GLUCOSE [id number] 02:05:00 Test Item Value Reference Range Interpretation Comments POC-GLUCOSE METER 55 mg/dL 70-110 L TESTED AT [place] [address] (BEAKER) (test code = ROWDY Villatoro [facility] [address] 1538) POCT-GLUCOSE [id number] 01:23:00 Test Item Value Reference Range Interpretation Comments POC-GLUCOSE METER 51 mg/dL 70-110 L TESTED AT [place] [address] ([facility]) (test code = ROWDY Villatoro [facility] [address] 1538) RAD, CHEST, 1 VIEW, NON [id number] 22:00:00Reason for exam:->assess for retained metal piecesShould [...] upright PA and lateral chest radiograph for further evaluation. There is gaseous distention of the stomach and visualized bowel in the upper abdomen, nonspecific but possibly reflecting dysmotility. Dedicated abdominal imaging could be performed for further evaluation if warranted. Signed: [facility] Verified Date/Time: 11/28/2018 22:00:23 Reading Location: [address] Reading Room POCT-GLUCOSE [id number] 21:53:00 Test Item Value Reference Range Interpretation Comments POC-GLUCOSE METER 146 mg/dL 70-110 H TESTED AT [place] [address] ([facility]) (test code = ROWDY Villatoro [facility] 1538) [id number] POCT-GLUCOSE [id number] 21:50:00 Test Item Value Reference Range Interpretation Comments POC-GLUCOSE METER 57 mg/dL 70-110 L TESTED AT [place] [address] ([facility]) (test code = ROWDY Villatoro [facility] [address] 1538) POCT-GLUCOSE [id number] 18:21:00 Test Item Value Reference Range Interpretation Comments POC-GLUCOSE METER 87 mg/dL 70-110 TESTED AT [place] [address] ([facility]) (test code = ROWDY Villatoro [facility] [address] 1538) EEG AWAKE AND [id number] 16:20:00Reason for exam:->seizureShould this be performed at the bedside?->YesDate(s) of EE11/28/18 DATE OF REPORT: 11/28/18 ACC: [id number] EEG Number: [id number] Test Location: Inpatient ICU Start time: 15:15 Stop time: 15:36 ICD-10: R56.9 CPT Code: 50176 HISTORY: 53 yo male withhistory of schizophrenia, autonomic neuropathy, TBI, MDD, anxiety who presents from OSH after a 30 second generalized seizure with LOC. MEDICATIONS THAT COULD AFFECT EEG: Baclofen, Divalproex, Docusate sodium, Famotidine, Lidocaine, NS, Olanzapine TECHNICAL SUMMARY: This is a digital video-EEG r ecorded with 32 input channels reviewed with bipolar [...] recordings. Edu Burns MD, MS Neurophysiology/Epilepsy Attending POCT-GLUCOSE METER 2018-11-28 14:15:00 Test Item Value Reference Range Interpretation Comments POC-GLUCOSE METER 94 mg/dL 70-110 TESTED AT [facility] [address] ([facility]) (test code = ROWDY Villatoro [facility] [address] 1538) VITAMIN [id number] 13:57:00 Test Item Value Reference Range Interpretation Comments VITAMIN B12 (BEAKER) (test code = 1054 pg/mL 213-816 H 774) FOLATE, [id number] 13:57:00 Test Item Value Reference Range Interpretation Comments FOLATE (BEAKER) (test code = 362) 9.4 ng/mL >=7.0 POCT-GLUCOSE [id number] 13:38:00 Test Item Value Reference Range Interpretation Comments POC-GLUCOSE METER 68 mg/dL 70-110 L TESTED AT [facility] ([facility] [facility]) (test code = [facility] [address] 1538) POCT-GLUCOSE [id number] 13:30:00 Test Item Value Reference Range Interpretation Comments POC-GLUCOSE METER 62 mg/dL 70-110 L TESTED AT [place] [address] ([facility]) (test code = [facility] [address] 1538) VALPROIC ACID LEVEL, [id number] 13:18:00 Test Item Value Reference Range Interpretation Comments VALPROIC ACID TOTAL (BEAKER) (test 43 ug/mL 50-100 L code = 924) Therapeutic range for some clinical conditions may be >100 ug/mLHEPATITIS PANEL, [id number] 13:14:00 Test Item Value Reference Range Interpretation Comments HEPATITIS A IGM ANTIBODY (BEAKER) Nonreactive Nonreactive (test code = 498) HEPATITIS B CORE IGM ANTIBODY Nonreactive Nonreactive (BEAKER) (test code = 645) HEPATITIS C ANTIBODY (BEAKER) Nonreactive Nonreactive (test code = 367) HEPATITIS B SURFACE ANTIGEN (2) Nonreactive Nonreactive (BEAKER) (test code = 2585) BASIC METABOLIC [id number] 12:07:00 Test Item Value Reference Range Interpretation Comments SODIUM (BEAKER) 140 meq/L 136-145 (test code = 381) POTASSIUM (BEAKER) 4.4 meq/L 3.5-5.1 Specimen slightly (test code = 379) hemolyzed CHLORIDE (BEAKER) 107 meq/L 98-107 (test code = 382) CO2 (BEAKER) (test 26 meq/L 22-29 code = 355) BLOOD UREA NITROGEN 8 mg/dL 7-21 (BEAKER) (test code = 354) CREATININE (BEAKER) 0.60 mg/dL 0.57-1.25 Specimen slightly (test code = 358) hemolyzed GLUCOSE RANDOM 70 mg/dL 70-105 (BEAKER) (test code = 652) CALCIUM (BEAKER) 9.2 mg/dL 8.4-10.2 (test code = 697) EGFR (BEAKER) (test 171 mL/min/1.73 ESTIM ATED GFR IS code = 1092) sq m NOT ACCURATE CREATININE CLEARANCE IN PREDICTING GLOMERULAR FILTRATION RATE . ESTIMATED GFR I S NOT APPLICABLE FOR DIALYSIS PATIEN TS. COMPREHENSIVE METABOLIC [id number] 12:07:00 Test Item Value Reference Range Interpretation Comments TOTAL PROTEIN 6.9 gm/dL 6.0-8.3 Specimen sligh tly (BEAKER) (test code = hemoly zed 770) ALBUMIN (BEAKER) 3.0 g/dL 3.5-5.0 L Specimen sl ightly (test code = 1145) hemolyzed ALKALINE PHOSPHATASE 66 U/L 40-150 (BEAKER) (test code = 346) BILIRUBIN TOTAL 0.3 mg/dL 0.2-1.2 Specimen sli ghtly (BEAKER) (test code = hemoly zed 377) SODIUM (BEAKER) (test 140 meq/L 136-145 code = 381) POTASSIUM (BEAKER) 4.4 meq/L 3.5-5.1 Specimen slightly (test code = 379) hemolyzed CHLORIDE (BEAKER) 107 meq/L 98-107 (test code = 382) CO2 (BEAKER) (test 26 meq/L 22-29 code = 355) BLOOD UREA NITROGEN 8 mg/dL 7-21 (BEAKER) (test code = 354) CREATININE (BEAKER) 0.60 mg/dL 0.57-1.25 Specimen slightly (test code = 358) hemolyzed GLUCOSE RANDOM 70 mg/dL 70-105 (BEAKER) (test code = 652) CALCIUM (BEAKER) 9.2 mg/dL 8.4-10.2 (test code = 697) AST (SGOT) (BEAKER) 42 U/L 5-34 H Specimen slightly (test code = 353) hemolyzed ALT (SGPT) (BEAKER) 70 U/L 6-55 H Specimen slightly (test code = 347) hemolyzed EGFR (BEAKER) (test 171 ESTIMATE D GFR IS code = 1092) mL/min/1.73 sq NOT ACCURA TE m CREATININE CLEARANCE IN PREDICTING GLOMERULAR FILTRATION RATE . ESTIMATED GFR I S NOT APPLICABLE FOR DIALYSIS PATIEN TS. CBC W/PLT COUNT & AUTO [id number] 11:39:00 Test Item Value Reference Range Interpretation Comments WHITE BLOOD CELL COUNT (BEAKER) 4.5 K/ L 3.5-10.5 (test code = 775) RED BLOOD CELL COUNT (BEAKER) 3.53 M/ L 4.63-6.08 L (test code = 761) HEMOGLOBIN (BEAKER) (test code = 11.1 GM/DL 13.7-17.5 L 410) HEMATOCRIT (BEAKER) (test code = 36.2 % 40.1-51.0 L 411) MEAN CORPUSCULAR VOLUME (BEAKER) 102.5 fL 79.0-92.2 H (test code = 753) MEAN CORPUSCULAR HEMOGLOBIN 31.4 pg 25.7-32.2 (BEAKER) (test code = 751) MEAN CORPUSCULAR HEMOGLOBIN CONC 30.7 GM/DL 32.3-36.5 L (BEAKER) (test code = 752) RED CELL DISTRIBUTION WIDTH 16.2 % 11.6-14.4 H (BEAKER) (test code = 412) PLATELET COUNT (BEAKER) (test 116 K/CU MM 150-450 L code = 756) MEAN PLATELET VOLUME (BEAKER) 12.9 fL 9.4-12.4 H (test code = 754) NUCLEATED RED BLOOD CELLS 0 /100 WBC 0-0 (BEAKER) (test code = 413) NEUTROPHILS RELATIVE PERCENT 42 % (BEAKER) (test code = 429) LYMPHOCYTES RELATIVE PERCENT 51 % (BEAKER) (test code = 430) MONOCYTES RELATIVE PERCENT 6 % (BEAKER) (test code = 431) EOSINOPHILS RELATIVE PERCENT 2 % (BEAKER) (test code = 432) BASOPHILS RELATIVE PERCENT 0 % (BEAKER) (test code = 437) NEUTROPHILS ABSOLUTE COUNT 1.87 K/ L 1.78-5.38 (BEAKER) (test code = 670) LYMPHOCYTES ABSOLUTE COUNT 2.28 K/ L 1.32-3.57 (BEAKER) (test code = 414) MONOCYTES ABSOLUTE COUNT (BEAKER) 0.25 K/ L 0.30-0.82 L (test code = 415) EOSINOPHILS ABSOLUTE COUNT 0.09 K/ L 0.04-0.54 ([facility]) (test code = 416) BASOPHILS ABSOLUTE COUNT ([facility]) 0.01 K/ L 0.01-0.08 (test code = 417) IMMATURE GRANULOCYTES-RELATIVE 0 % 0-1 PERCENT ([facility]) (test code = 2801) POCT-GLUCOSE [id number] 09:29:00 Test Item Value Reference Range Interpretation Comments POC-GLUCOSE METER 71 mg/dL 70-110 TESTED AT [place] [address] ([facility]) (test code = ROWDY Villatoro [facility] [address] 1538) POCT-GLUCOSE [id number] 08:59:00 Test Item Value Reference Range Interpretation Comments POC-GLUCOSE METER 49 mg/dL 70-110 L TESTED AT [place] [address] ([facility]) (test code = [facility] Shauna [facility] [address] 1538) POCT-GLUCOSE [id number] 23:27:00 Test Item Value Reference Range Interpretation Comments POC-GLUCOSE METER 96 mg/dL 70-110 TESTED AT [place] [address] ([facility]) (test code = [facility] Shauna [facility] [address] 1538) POCT-GLUCOSE [id number] 20:35:00 Test Item Value Reference Range Interpretation Comments POC-GLUCOSE METER 85 mg/dL 70-110 TESTED AT [place] [address] ([facility]) (test code = [facility] Sahuna [facility] [address] 1538) POCT-GLUCOSE [id number] 18:55:00 Test Item Value Reference Range Interpretation Comments POC-GLUCOSE METER 98 mg/dL 70-110 TESTED AT [place] [address] ([facility]) (test code = [facility] [address] 1538) POCT-GLUCOSE [id number] 12:28:00 Test Item Value Reference Range Interpretation Comments POC-GLUCOSE METER 74 mg/dL 70-110 TESTED AT [place] [address] ([facility]) (test code = [facility] [address] 1538) COMPREHENSIVE METABOLIC [id number] 11:21:00 Test Item Value Reference Range Interpretation Comments TOTAL PROTEIN 7.6 gm/dL 6.0-8.3 ([facility]) (test code = 770) ALBUMIN ([facility]) 3.5 g/dL 3.5-5.0 (test code = 1145) ALKALINE PHOSPHATASE 76 U/L 40-150 (BEAKER) (test code = 346) BILIRUBIN TOTAL 0.4 mg/dL 0.2-1.2 (BEAKER) (test code = 377) SODIUM (BEAKER) (test 140 meq/L 136-145 code = 381) POTASSIUM (BEAKER) 4.5 meq/L 3.5-5.1 (test code = 379) CHLORIDE (BEAKER) 105 meq/L 98-107 (test code = 382) CO2 (BEAKER) (test 30 meq/L 22-29 H code = 355) BLOOD UREA NITROGEN 12 mg/dL 7-21 (BEAKER) (test code = 354) CREATININE (BEAKER) 0.62 mg/dL 0.57-1.25 (test code = 358) GLUCOSE RANDOM 73 mg/dL 70-105 (BEAKER) (test code = 652) CALCIUM (BEAKER) 9.5 mg/dL 8.4-10.2 (test code = 697) AST (SGOT) (BEAKER) 53 U/L 5-34 H (test code = 353) ALT (SGPT) (BEAKER) 93 U/L 6-55 H (test code = 347) EGFR (BEAKER) (test 164 ESTIMATE D GFR IS code = 1092) mL/min/1.73 sq NOT ACCURA TE m CREATININE CLEARANCE IN PREDICTING GLOMERULAR FILTRATION RATE . ESTIMATED GFR I S NOT APPLICABLE FOR DIALYSIS PATIEN TS. TSH/FREE T4 IF [id number] 10:19:00 Test Item Value Reference Range Interpretation Comments THYROID STIMULATING HORMONE 0.48 uIU/mL 0.35-4.94 (BEAKER) (test code = 772) [id number] 10:19:00 Test Item Value Reference Range Interpretation Comments CORTISOL, TOTAL (BEAKER) (test code 6.9 ug/dL 3.7-19.4 = 2755) TROPONIN [id number] 10:05:00 Test Item Value Reference Range Interpretation Comments TROPONIN I (BEAKER) (test code = 397) < ng/mL 0.00-0.03 Troponin I (TnI) levels [...] acidosis, acute neurological disease, and persistent tachyarrhythmia.PROTHROMBIN [id number] 09:31:00 Test Item Value Reference Range Interpretation Comments PROTIME (BEAKER) (test code = 16.2 seconds 11.7-14.7 H 759) INR (BEAKER) (test code = 370) 1.3 <=5.9 RECOMMENDED COUMADIN/WARFARIN INR THERAPY RANGESSTANDARD DOSE: 2.0 - 3.0 Includes: PROPHYLAXIS forvenous thrombosis, systemic embolization; TREATMENT for venous thrombosis and/or pulmonary embolus.HIGH RISK: Target INR is 2.5-3.5 for patients with mechanical heart valves.CBC W/PLT COUNT & AUTO DIFFERENTIAL 2018-11-27 09:26:00 Test Item Value Reference Range Interpretation Comments WHITE BLOOD CELL COUNT (BEAKER) 4.8 K/ L 3.5-10.5 (test code = 775) RED BLOOD CELL COUNT (BEAKER) 2.94 M/ L 4.63-6.08 L (test code = 761) HEMOGLOBIN (BEAKER) (test code = 9.2 GM/DL 13.7-17.5 L 410) HEMATOCRIT (BEAKER) (test code = 30.1 % 40.1-51.0 L 411) MEAN CORPUSCULAR VOLUME (BEAKER) 102.4 fL 79.0-92.2 H (test code = 753) MEAN CORPUSCULAR HEMOGLOBIN 31.3 pg 25.7-32.2 (BEAKER) (test code = 751) MEAN CORPUSCULAR HEMOGLOBIN CONC 30.6 GM/DL 32.3-36.5 L (BEAKER) (test code = 752) RED CELL DISTRIBUTION WIDTH 16.2 % 11.6-14.4 H (BEAKER) (test code = 412) PLATELET COUNT (BEAKER) (test code 93 K/CU MM 150-450 L = 756) MEAN PLATELET VOLUME (BEAKER) 12.9 fL 9.4-12.4 H (test code = 754) NUCLEATED RED BLOOD CELLS (BEAKER) 0 /100 WBC 0-0 (test code = 413) NEUTROPHILS RELATIVE PERCENT 66 % (BEAKER) (test code = 429) LYMPHOCYTES RELATIVE PERCENT 23 % (BEAKER) (test code = 430) MONOCYTES RELATIVE PERCENT 10 % (BEAKER) (test code = 431) EOSINOPHILS RELATIVE PERCENT 1 % (BEAKER) (test code = 432) BASOPHILS RELATIVE PERCENT 0 % (BEAKER) (test code = 437) NEUTROPHILS ABSOLUTE COUNT 3.18 K/ L 1.78-5.38 (BEAKER) (test code = 670) LYMPHOCYTES ABSOLUTE COUNT 1.10 K/ L 1.32-3.57 L (BEAKER) (test code = 414) MONOCYTES ABSOLUTE COUNT (BEAKER) 0.47 K/ L 0.30-0.82 (test code = 415) EOSINOPHILS ABSOLUTE COUNT 0.06 K/ L 0.04-0.54 (BEAKER) (test code = 416) BASOPHILS ABSOLUTE COUNT (BEAKER) 0.01 K/ L 0.01-0.08 (test code = 417) IMMATURE GRANULOCYTES-RELATIVE 0 % 0-1 PERCENT (BEAKER) (test code = 2801) POCT-GLUCOSE [id number] 07:19:00 Test Item Value Reference Range Interpretation Comments POC-GLUCOSE METER 128 mg/dL 70-110 H TESTED AT [place] [address] [facility] (test code = [facility] 1538) [address] POCT-GLUCOSE [id number] 07:19:00 Test Item Value Reference Range Interpretation Comments POC-GLUCOSE METER 46 mg/dL 70-110 L TESTED AT [place] [address] ([facility] (test code = [facility] [address] 1538)
[2020-10-26 00:30] LABS: Urine Blood NEGATIVE (NEG); Urine Glucose NEGATIVE (NEG); Urine Protein NEGATIVE (NEG)
[2020-10-26 00:43] LABS: Barbiturates NEGATIVE (NEGATIVE); Benzodiazepines NEGATIVE (NEGATIVE); Cocaine NEGATIVE (NEGATIVE); METHAMPHETAM NEGATIVE (NEGATIVE); Methadone NEGATIVE (NEGATIVE); Opiates NEGATIVE (NEGATIVE); Phencyclidine NEGATIVE (NEGATIVE); THC Cannibis NEGATIVE (NEGATIVE)
[2020-10-26 01:19] LABS: Calcium Oxalate Crystals- Ur FEW (NONE SEEN); Urine Bacteria 20-50 /HPF (NONE SEEN); Urine Mucus 3+ /HPF (NONE SEEN); Urine RBC <5 /HPF (NONE SEEN)
--- NOTE | 2020-10-26 12:10 | EDPHYS ---
Physician Documentation [facility] Name: Mariano Mauricio Age: 55 yrs Sex: Male : 1965 Arrival Date: 10/25/2020 Time: 19:36 Bed 17 Private MD: ED Physician Lamonte Mcqueen HPI: 10/25 20:31 This 55 yrs old Black Male presents to ER via EMS with complaints of Agressive Behavior.mh7 20:31 The patient presents to the emergency department with Yelling at care facility staff. mh7 20:34 Onset: The symptoms/episode began/occurred 3 day(s) ago. Past psychiatric history: 7 Prior diagnosis: depression, schizophrenia, Psychiatric medications include: Zyprexa, Primary psychiatric physician: the patient has not had a prior suicide gesture, it is unknown whether or not the patient has a previous inpatient psychiatric history, the patient's last psychiatric treatment was 3 day(s) ago. Associated signs and symptoms: Pertinent negatives: abdominal pain, anxiety, chest pain, chills, delusions, depression, fever, hallucinations, headache, homicidal ideation, nausea, night sweats, palpitations, paranoia, shortness of breath, substance abuse, suicide ideation, tremor, vomiting. Severity of symptoms: At their worst the symptoms were moderate 3 day(s) ago, in the emergency department the symptoms have improved markedly. Patient sent to ED by care facility due to aggressive behavior with yelling and kicking at staff. reportedly has not taken his psych medications in 3 days Patient admits to yelling at staff. He denies any suicidal or homicidal ideations. he denies any auditory or visual hallucinations. He denies any complaints.. Historical: - Allergies: 19:43 Keflex; zb - Home Meds: 19:43 benztropine 1 mg Oral tab 1 tab 2 times per day [Active]; Depakote Sprinkles 125 mg zb Oral cpSP 2 caps every 6 hours [Active]; folic acid 1 mg Oral tab 1 tab once daily [Active]; Lasix 40 mg Oral tab [Active]; trazodone 150 mg Oral tab [Active]; Zyprexa 15 mg Oral tab 1 tab once daily [Active]; - PMHx: 19:43 Anxiety; Autonomic neuropathy; constipation; dehydration; insomnia; Major Depressive zb Disorder; personailty disorder; pseudobulbar affect; Schizophrenia; traumatic brain injury; vit d deficiency; - PSHx: 19:43 Unable to obtain; zb - Immunization history:: Adult Immunizations up to date. - Social history:: Smoking status: unknown. ROS: 20:34 Constitutional: Negative for fever, chills, and weight loss, Eyes: Negative for injury, mh7 pain, redness, and discharge, ENT: Negative for injury, pain, and discharge, Neck: Negative for injury, pain, and swelling, Cardiovascular: Negative for chest pain, palpitations, and edema, Respiratory: Negative for shortness of breath, cough, wheezing, and pleuritic chest pain, Abdomen/GI: Negative for abdominal pain, nausea, vomiting, diarrhea, and constipation, Back: Negative for injury and pain, : Negative for injury, bleeding, discharge, and swelling, MS/Extremity: Negative for injury and deformity, Skin: Negative for injury, rash, and discoloration, Neuro: Negative for headache, weakness, numbness, tingling, and seizure, Allergy/Immunology: Negative for hives, rash, and allergies, Endocrine: Negative for neck swelling, polydipsia, polyuria, polyphagia, and marked weight changes, Hematologic/Lymphatic: Negative for swollen nodes, abnormal bleeding, and unusual bruising. Exam: 20:34 Constitutional: This is a well developed, well nourished patient who is awake, alert, mh7 and in no acute distress. Head/Face: Normocephalic, atraumatic. Eyes: Pupils equal round and reactive to light, extra-ocular motions intact. Lids and lashes normal. Conjunctiva and sclera are non-icteric and not injected. Cornea within normal limits. Periorbital areas with no swelling, redness, or edema. Neck: Trachea midline, no thyromegaly or masses palpated, and no cervical lymphadenopathy. Supple, full range of motion without nuchal rigidity, or vertebral point tenderness. No Meningismus. Chest/axilla: Normal chest wall appearance and motion. Nontender with no deformity. No lesions are appreciated. Cardiovascular: Regular rate and rhythm with a normal S1 and S2. No gallops, murmurs, or rubs. Normal PMI, no JVD. No pulse deficits. Respiratory: Lungs have equal breath sounds bilaterally, clear to auscultation and percussion. No rales, rhonchi or wheezes noted. No increased work of breathing, no retractions or nasal flaring. Abdomen/GI: Soft, non-tender, with normal bowel sounds. No distension or tympany. No guarding or rebound. No evidence of tenderness throughout. Back: No spinal tenderness. No costovertebral tenderness. Full range of motion. Skin: Warm, dry with normal turgor. Normal color with no rashes, no lesions, and no evidence of cellulitis. MS/ Extremity: Pulses equal, no cyanosis. Neurovascular intact. Full, normal range of motion. Neuro: Awake and alert, GCS 15, oriented to person, place, time, and situation. Cranial nerves II-XII grossly intact. Motor strength 5/5 in all extremities. Sensory grossly intact. Cerebellar exam normal. Normal gait. 20:34 Psych: Behavior/mood is cooperative, Affect is calm, Oriented to person, place, time, Patient has no thoughts/intents to harm self or others. Judgement / Insight is normal. Memory is normal. Delusions/hallucinations are not present. Vital Signs: 19:37 BP 140 / 86; Pulse 90; Resp 16; Temp 98.6; Pulse Ox 95% on R/A; Weight 74.84 kg; Height zb 5 ft. 10 in. (177.80 cm); Pain 0/10; 03/06 03:00 BP 123 / 99; Pulse 72; Resp 16; Pulse Ox 97% on R/A; rv 06:00 BP 121 / 86; Pulse 68; Resp 16; Pulse Ox 97% on R/A; rv 07:05 BP 138 / 99; Pulse 75; Resp 17; Pulse Ox 98% on R/A; Pain 0/10; rb3 08:00 BP 129 / 88; Pulse 67; Resp 17; Pulse Ox 99% on R/A; rb3 09:00 BP 133 / 85; Pulse 72; Resp 18; Pulse Ox 98% on R/A; rb3 10:00 rb3 11:00 rb3 12:00 BP 131 / 86; Pulse 69; Resp 19; Pulse Ox 98% on R/A; rb3 13:00 BP 123 / 89; Pulse 71; Resp 17; Pulse Ox 99% ; rb3 03/05 19:37 Body Mass Index 23.67 (74.84 kg, 177.80 cm) zb 10:00 pt. refused rb3 11:00 pt. refused rb3 MDM: 06:24 ED course: half-way reported to nurse that patient has been behaving this way for [facility] the past 3 weeks. They refused to take patient back into their facility. Patient refuses lab work.. 08:15 Patient medically screened. [facility] 10/25 20:05 Order name: Urine Drug Screen [facility] 10/26 00:17 Order name: Urine Dipstick--Ancillary (enter results) [facility] 10/26 00:31 Order name: Urine Dipstick-Ancillary; Complete Time: 00:56 EDMS 10/26 00:43 Order name: Urine Drug Screen; Complete Time: 00:56 EDMI 10/26 00:57 Order name: Urine Microscopic Only [facility] 10/26 01:19 Order name: Urine Microscopic Only; Complete Time: 08:16 EDMS 10/25 20:05 Order name: Urine Dipstick-Ancillary (obtain specimen); Complete Time: 00:16 [facility] 10/26 11:09 Order name: COVID-19 : Document "Date of Symptom Onset" if Symptomatic. [facility] 10/26 11:39 Order name: Valproic Acid (depakote) [facility] 10/26 13:08 Order name: Urine Culture EDMI Administered Medications: 13:16 Not Given (provider discretion): Ativan 2 mg IM once rb3 13:16 Not Given (provider discretion): Geodon 20 mg IM once rb3 13:16 Not Given (provider discretion): NS 0.9% 500 ml IV at bolus once rb3 13:16 Not Given (provider discretion): NS 0.9% 1000 ml IV at 125 ml/hr continuous rb3 Disposition: 10/26/20 12:09 Discharged to Home. Impression: Schizophrenia, Mental disorder, not otherwise specified. - Condition is Stable. - Discharge Instructions: Paranoia, Schizophrenia. - Medication Reconciliation Form, Thank You Letter, Antibiotic Education, Prescription Opioid Use, SBAR form form. - Follow up: Private Physician; When: 2 - 3 days; Reason: Recheck today's complaints, Continuance of care, Re-evaluation by your physician. Follow up: Aram Mccormick MD; When: 2 - 3 days; Reason: Recheck today's complaints, Re-evaluation by your physician. - Problem is new. - Symptoms have improved. Signatures: Dispatcher [employer] Lamonte Harrington MD MD cha Holmes, Maurice, MD MD mh7 Brown, Zipporah, RN RN zb Barber, Rebecca, RN RN rb3 Corrections: (The following items were deleted from the chart) 13:16 11:06 Restrain Patient ordered. wendy 3 13:17 10/25 20:05 IV Saline Lock ordered. roger 3 10/26 13:17 03 20:05 Labs collected and sent ordered. Cr 3 10/26 13:24 12:09 10/26/2020 12:09 Discharged to Home. Impression: Schizophrenia; Mental disorder, rb3 not otherwise specified. Condition is Stable. Forms are SBAR form, Medication Reconciliation Form, Thank You Letter, Antibiotic Education, Prescription Opioid Use. Follow up: Private Physician; When: 2 - 3 days; Reason: Recheck today's complaints, Continuance of care, Re-evaluation by your physician. Follow up: Aram Mccormick; When: 2 - 3 days; Reason: Recheck today's complaints, Re-evaluation by your physician. Problem is new. Symptoms have improved. wendy
--- NOTE | 2020-10-26 12:10 | ER ---
Nurse's Notes [facility] Name: Mariano Mauricio Age: 55 yrs Sex: Male : 1965 Arrival Date: 10/25/2020 Time: 19:36 Bed 17 Private MD: Diagnosis: Schizophrenia;Mental disorder, not otherwise specified Presentation: 10/25 19:37 Chief complaint: EMS states: pt coming from [facility]. EMS was called zb because he was yelling and trying to kick the staff. History of depression, schizophrenia. Patient has been off his medications for x3 days. Last normal account was Wednesday. Coronavirus screen: At this time, the client does not indicate any symptoms associated with coronavirus-19. Ebola Screen: No symptoms or risks identified at this time. Initial Sepsis Screen: Does the patient meet any 2 criteria? No. Patient's initial sepsis screen is negative. Does the patient have a suspected source of infection? No. Patient's initial sepsis screen is negative. Risk Assessment: Do you want to hurt yourself or someone else? Unable to obtain. Onset of symptoms was October 25, 2020. 19:37 Acuity: KEV 3 zb 19:37 Method Of Arrival: EMS: [facility] z Triage Assessment: 19:43 General: Appears unkempt, Behavior is cooperative, anxious, flat. Pain: Denies pain. zb EENT: Eyes are tearing on right eye bilateral eye redness. . Neuro: Level of Consciousness is awake, alert, obeys commands, Oriented to person, place, situation. Cardiovascular: No deficits noted. Respiratory: No deficits noted. GI: No deficits noted. : No deficits noted. Derm: Skin is intact, is healthy with good turgor, Skin is dry, Skin is normal, Skin temperature is warm. Musculoskeletal: No deficits noted. Historical: - Allergies: 19:43 Keflex; zb - Home Meds: 19:43 benztropine 1 mg Oral tab 1 tab 2 times per day [Active]; Depakote Sprinkles 125 mg zb Oral cpSP 2 caps every 6 hours [Active]; folic acid 1 mg Oral tab 1 tab once daily [Active]; Lasix 40 mg Oral tab [Active]; trazodone 150 mg Oral tab [Active]; Zyprexa 15 mg Oral tab 1 tab once daily [Active]; - PMHx: 19:43 Anxiety; Autonomic neuropathy; constipation; dehydration; insomnia; Major Depressive zb Disorder; personailty disorder; pseudobulbar affect; Schizophrenia; traumatic brain injury; vit d deficiency; - PSHx: 19:43 Unable to obtain; zb - Immunization history:: Adult Immunizations up to date. - Social history:: Smoking status: unknown. Screenin:50 Abuse screen: unable to assess properly. Nutritional screening: No deficits noted. zb Tuberculosis screening: No symptoms or risk factors identified. Fall Risk None identified. Assessment: 19:45 Reassessment: See triage note. zb 19:52 Reassessment: ECP at bedside. zb 20:00 Reassessment: Spoke to angelica at [facility]. she states that patient has a zb history of aggressive behavior when he is off his medication. Patient has been refusing care at facility patient has been non-complaint for 2 weeks or more. 3 weeks ago he broke her hand. He has been attempting to harm staff by using his wheelchair and ramming it into people. patient has attempted to kick staff. Patient told the DON a couple days ago " he was going to F them up". 20:13 Reassessment: patient denies blood work or IV start. Notified ECP. zb 20:29 Reassessment: explain to patient that we still needed to get blood work. patient zb educated on why. Patient denies blood work. notified ECP. 20:40 Reassessment: primary nurse states pt refuses blood draw and orders at this time, pt is sg alert and oriented, states does not want blood work. is aware. 22:06 Reassessment: pt laying in bed at this time. no changes. zb 22:30 Reassessment: Called Angelica and discussed them taking patient back in to the facility. Angelica arnold states patient is aggressive and needs to be sent to a facility. notified Angelica that I spoke to his court appointed guardian who agrees that he needs to be seen and evaluated but wasn't sure if the ER was the placed to do it. Advised Angelica that patient is refusing labs at this time. Since patient appears to be alert and orient x3 we are unable to force the patient. notified ECP. 22:50 Reassessment: DON with [facility] on phone. states pt was sent for being manipulative and zb combative and kicking at residents and staff this evening. HALEY states pt has refused his medications the last three days, and she needs him evaluated in the ED because [facility] is not a behavioral unit. explained to DON the patient is currently alert and oriented and is refusing blood work at this time, HALEY states that is just what he does " you can look at his nurses notes and his diagnosis and simply see that this man is not in his right state of mind." Explained that pt is currently in the ED, and if he lets us obtain a blood sample and results to send to [facility] for evaluation then we can proceed. HALEY states " do not send him back to this facility." ECP notified. 23:08 Reassessment: phlebo at bedside to see if the patient will allow for them to obtain sg blood sample at this time. 10/26 00:07 Reassessment: pt reports needs to use the urinal, pt assisted with urinal by ED staff, sg a urine has been collected. 00:31 Reassessment: Pt refusing blood draw. ea 01:00 Reassessment: refused blood extraction and IV. rv 02:00 Neuro: Level of Consciousness is awake, alert, Oriented to person, place. rv Cardiovascular: Patient's skin is warm and dry. Respiratory: Airway is patent Respiratory effort is even, unlabored. 03:00 Reassessment: patient is still refusing blood extraction and IV. rv 04:00 Neuro: Level of Consciousness is awake, alert, obeys commands, Oriented to person, rv place. Cardiovascular: Patient's skin is warm and dry. Respiratory: Airway is patent Respiratory effort is even, unlabored. 06:19 Reassessment: patient is alert and oriented to person and place. noted to be relaxed rv all night. denies being threat to self or the others. refused medical treatment and demanded to be transferred back to the facility. charge nurse talked to the DON of [facility]. patient is calm and relaxed all night. did not complain of pain. 07:05 General: Appears in no apparent distress. comfortable, Behavior is calm, uncooperative, rb3 Pt. refused to have blood work drawn at this time. He wants to be transferred back to the facility.. Pain: Denies pain. Neuro: Level of Consciousness is awake, alert, obeys commands, Oriented to person, place. Cardiovascular: Patient's skin is warm and dry. Respiratory: Airway is patent Respiratory effort is even, unlabored, Respiratory pattern is regular, symmetrical. Musculoskeletal: Reports ROM limited in his hands. 07:44 Reassessment: Assisted the pt. with eating a sandwich and drinking a soda. Assisted rb3 with urinal after meal. 08:30 Reassessment: Patient appears in no apparent distress at this time. Patient and/or rb3 family updated on plan of care and expected duration. Pain level reassessed. Patient is alert, oriented x 3, equal unlabored respirations, skin warm/dry/pink. Patient denies pain at this time. 09:00 Reassessment: Pt. refused labs being drawn. Dr. Mcqueen notified. rb3 09:08 Reassessment: Pt. yelled out, when I went into his room, he asked for a drink. Gave the rb3 pt. a soda. 10:00 Reassessment: Patient appears in no apparent distress at this time. Patient and/or rb3 family updated on plan of care and expected duration. Pain level reassessed. Patient is alert, oriented x 3, equal unlabored respirations, skin warm/dry/pink. Patient denies pain at this time. 10:50 Reassessment: Patient appears in no apparent distress at this time. Visitor at the rb3 bedside. 11:50 Reassessment: Pt. resting with eyes closed, respirations even, unlabored. Call light rb3 within reach. Bed in low, locked position, two side rails are up. 12:35 Reassessment: Gave report to Bev at [facility]. Information from the [place] rb3 was given. All questions asked and answered. [facility] is unable to provide transportation back to the facility because they don't have transportation services available on the weekend. Samina Resident Care Provider notified, she will call EMS for transport. 12:50 Reassessment: Discharge pending due to transportation. rb3 13:09 Reassessment: Gave report to [facility]. rb3 13:15 Reassessment: Patient appears in no apparent distress at this time. Patient and/or rb3 family updated on plan of care and expected duration. Pain level reassessed. Patient is alert, oriented x 3, equal unlabored respirations, skin warm/dry/pink. Patient denies pain at this time. Vital Signs: 10/25 19:37 BP 140 / 86; Pulse 90; Resp 16; Temp 98.6; Pulse Ox 95% on R/A; Weight 74.84 kg; Height zb 5 ft. 10 in. (177.80 cm); Pain 0/10; 10/26 03:00 BP 123 / 99; Pulse 72; Resp 16; Pulse Ox 97% on R/A; rv 06:00 BP 121 / 86; Pulse 68; Resp 16; Pulse Ox 97% on R/A; rv 07:05 BP 138 / 99; Pulse 75; Resp 17; Pulse Ox 98% on R/A; Pain 0/10; rb3 08:00 BP 129 / 88; Pulse 67; Resp 17; Pulse Ox 99% on R/A; rb3 09:00 BP 133 / 85; Pulse 72; Resp 18; Pulse Ox 98% on R/A; rb3 10:00 rb3 11:00 rb3 12:00 BP 131 / 86; Pulse 69; Resp 19; Pulse Ox 98% on R/A; rb3 13:00 BP 123 / 89; Pulse 71; Resp 17; Pulse Ox 99% ; rb3 10/25 19:37 Body Mass Index 23.67 (74.84 kg, 177.80 cm) zb 10:00 pt. refused rb3 11:00 pt. refused rb3 ED Course: 10/25 19:36 Patient arrived in ED. zb 19:40 Triage completed. zb 19:44 Michael Pendleton MD is Attending Physician. [facility] 19:50 Patient has correct armband on for positive identification. Bed in low position. Call zb light in reach. Side rails up X 1. Pulse ox on. NIBP on. Door closed. Noise minimized. 19:52 Arm band placed on. zb 20:13 Ledy Cortes, RN is Primary Nurse. zb 10/26 00:12 Urine collected: clean catch specimen, eddie colored, Amount Voided: 600mL. sg 08:15 Attending Physician role handed off by Michael Pendleton MD wendy 08:15 Lamonte Mcqueen MD is Attending Physician. [facility] 08:40 called and connected Kerri Donis with Dr. Mcqueen. eb 08:[address] Mcqueen with Corina from the [facility]. eb 09:31 called [facility] and spoke with Elizabeth/ She is unaware of any eb communication between the guardian and their intake department/ she requests that we fax over patient clinicals to [phone]. 09:49 connected the Psychiatrist division field inspector for [facility] with Dr. Mcqueen for patient eb transfer consultation. 11:[address] [facility] called to decline the patient in transfer/ per her physician he eb does not meet criteria for their facility. 12:08 Aram Mccormick MD is Referral Physician. wendy 13:22 No provider procedures requiring assistance completed. Patient did not have IV access rb3 during this emergency room visit. Administered Medications: 13:16 Not Given (provider discretion): Ativan 2 mg IM once rb3 13:16 Not Given (provider discretion): Geodon 20 mg IM once rb3 13:16 Not Given (provider discretion): NS 0.9% 500 ml IV at bolus once rb3 13:16 Not Given (provider discretion): NS 0.9% 1000 ml IV at 125 ml/hr continuous rb3 Output: 07:46 Urine: 850ml (Voided); Total: 850ml. rb3 13:17 Urine: 900ml (Voided); Stool: 1 (Formed Stool) ; Total: 1750ml. rb3 Outcome: 12:09 Discharge ordered by . wendy 13:22 Discharged to fdc. Report called to Bev at [facility] rb3 13:22 Condition: stable 13:22 Discharge instructions given to EMS, Instructed on discharge instructions, Demonstrated understanding of instructions, Prescriptions given X none 13:24 Patient left the ED. rb3 Addendum: 10/30/2020 09:34 Addendum: Culture Results: Positive urine culture. Phone call Attempt #1 left voice a a5 mail to [facility] nurse to call back. Signatures: Chu Hoover, Lamonte Seo RN, MD MD cha Calderon, Audri RN RN aa5 Kassidy Valencia RN RN ea Botello, Elizabeth eb Vicente, Ronaldo, RN RN rv Holmes, Maurice, MD MD 7 Brown, Ledy, RN RN zb Faith, Reina, RN RN rb3 Corrections: (The following items were deleted from the chart) 10/25 23:09 22:50 Reassessment: DON with [facility] on phone. states pt was sent for being manipulative zb and combative and kicking at residents and staff this evening. DON states pt has refused his medications the last three days, and she needs him evaluated in the ED because [facility] is not a behavioral unit. explained to DON the patient is currently alert and oriented and is refusing blood work at this time, DON states that is just what he does " you can look at his nurses notes and his diagnosis and simply see that this man is not in his right state of mind." Explained that pt is currently in the ED, and if he lets us obtain a blood sample and results to send to [facility] for evaluation then we can proceed. DON states " do not send him back to this facility." 10/26 06:29 06:19 Reassessment: patient is alert and oriented to person and place. noted to be rv relaxed all night. denies being threat to self or the others. refused medical treatment and demanded to be transferred back to the facility. charge nurse talked to the DON of [facility]. patient is calm and cooperative all night. did not complain of pain. rv 13:23 12:35 Reassessment: Gave report to Bev at [facility]. Information from rb3 the [facility] was given. All questions asked and answered. [facility] is unable to provide transportation back to the facility because they don't have transportation services available on the weekend. Samina Resident Care Provider notified, she will call EMS for transport. rb3
[2020-10-26 13:30] VITALS: TEMP 98.6
[2020-10-26 13:42] VITALS: BP 123/89; O2SAT 99
== END 2020-10-26 13:24 | disposition home or self-care (01) ==
LOC: ER 19:23
DX: F20.9 Schizophrenia, unspecified (principal); F99 Mental disorder, not otherwise specified; Z53.29 Procedure and treatment not carried out because of patient's decision for other reasons; Z87.820 Personal history of traumatic brain injury; Z88.1 Allergy status to other antibiotic agents
CPT/HCPCS: 80307; 81003; 81015; 87077; 87086; 87088; 87186; 99284

== ENCOUNTER 2020-11-11 18:41 | Emergency (ER) | payer OTHER ==
--- OUTSIDE RECORDS SUMMARY | 2020-11-11 18:45 | XMS REPORT | Continuity of Care Document ---
:1965 Author Organization [facility] t Address 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 00:00: 00 Discharge Discharge Disease Active 2014-08 Robson ris planning planning 1 Health issues issues 00:00: 00 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 08-23 Health injury injury 00:00: 00 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 arris e of hand e of hand 08-23 Heal th joint joint 00:00: 00 Altered Altered Disease Active 2014-08 Finn mental mental 08-23 Health state state 00:00: 00 Psychosoci Psychosoci Disease Active 2014-08 Overview : Finn barnes 0-29 Formatt[facility] Health stressors stressors 00:00: g of [...] tive disorder disorder Paranoid Paranoid Disease Active Maeve s schizophre schizophre He alth lewis lewis 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 Disease Active Robson ris brain brain Health injury injury Schizophre Schizophre Disease Active H arris [facility] Health Allergies, Adverse Reactions, Alerts Allergy Allergy Status Severity Reaction(s) Onset Inactive Treating Comm ents Source Name Type Date Date Clinician Shannon Adam Active [place] Allergy ty to 03-06 Health Informat adverse 00:00: ion reaction 00 Availabl s to e drug Social History Social Habit Start Date Stop Date Quantity Comments Source Sex Assigned At [facility] alth Alcohol intake 2015-07-07 2015-07-07 [facility]00 non-drinker of alcohol (finding) Smoking Status Start Date Stop Date Source Never smoker [facility] Medications Ordered Filled Start Stop Current Ordering Indication Dosage Frequency Signature Comments Components Source Medication Medication Date Date Medication? Clinician (SIG) Name Name baclofen 2014-08 Yes Contracture 10mg Q.5D Take 1 Briseno (LIORESAL) 1-18 of hand tablet by [facility] 10 mg 00:00: joint, mouth 2 tablet 00 unspecified times laterality daily. OLANZapine 2014-08 Yes Paranoid 5mg Take 1 H arris (ZYPREXA) 5 1-18 schizophren tablet by [facility] mg tablet 00:00: ia mouth 2 00 times daily as needed (Severe agitation) . paliperidon 2014-08 Yes Disorganize 9mg Take 1 Briseno e (INVEGA) 1-18 d tablet by [facility] 9 mg 00:00: schizophren mouth extended 00 ia every release morning. tablet divalproex 2014-08 Yes Disorganize 2000mg QD Take 4 Briseno (DEPAKOTE 1-18 d tablets by [facility]) 500 mg 00:00: schizophren mouth extended 00 ia daily. release tablet paliperidon 2014-08 Yes Paranoid 9mg Take 1 Briseno e (INVEGA) 1-09 schizophren tablet by Health 9 mg 00:00: ia mouth extended 00 every release morning. tablet Procedures This patient has no known procedures. Plan of Care Planned Activity Planned Date Details Comments Source Future Scheduled Test 2020-05-23 00:00:00 IMM Influenza [facility] Seasonal May to October (>/= 19 yrs) [code = IMM Influenza Seasonal May to October (>/= 19 yrs)] Future Scheduled Test 2015 00:00:00 Screening for [facility] malignant neoplasm of colon (procedure) [code = 988120831] Results Test Description Test Time Test Comments Results Result Comments Source POCT-GLUCOSE METER 2019-01-07 05:12:00 Test Item Value Reference Range Interpretation Comme nts POC-GLUCOSE METER (BEAKER) (test 83 mg/dL 70-[address] [facility] [address] [place] [address] code = 1538) [facility] 7703 0 POCT-GLUCOSE [id number] 00:21:00 Test Item Value Reference Range Interpretation Comments POC-GLUCOSE METER 105 mg/dL 70-110 TESTED AT [place] [address] ([facility] (test code = [facility] 1538) [address] POCT-GLUCOSE [id number] 21:50:00 Test Item Value Reference Range Interpretation Comments POC-GLUCOSE METER 131 mg/dL 70-110 H TESTED AT [place] [address] ([facility]) (test code = [facility] 1538) [address] POCT-GLUCOSE [id number] 21:11:00 Test Item Value Reference Range Interpretation Comments POC-GLUCOSE METER 117 mg/dL 70-110 H TESTED AT [place] [address] ([facility]) (test code = [facility] 1538) [address] POCT-GLUCOSE [id number] 06:11:00 Test Item Value Reference Range Interpretation Comments POC-GLUCOSE METER 70 mg/dL 70-110 TESTED AT [place] [address] ([facility]) (test code = [facility] [address] 1538) BASIC METABOLIC [id number] 04:55:00 Test Item Value Reference Range Interpretation [...] NOT APPLICABLE FOR DIALYSIS PATIEN TS. POCT-GLUCOSE [id number] 04:08:00 Test Item Value Reference Range Interpretation Comments POC-GLUCOSE METER 78 mg/dL 70-110 TESTED AT [place] [address] ([facility]) (test code = [place] [address] 1538) POCT-GLUCOSE [id number] 02:11:00 Test Item Value Reference Range Interpretation Comments POC-GLUCOSE METER 106 mg/dL 70-110 TESTED AT [place] [address] ([facility]) (test code = [place] 1538) [address] POCT-GLUCOSE [id number] 23:55:00 Test Item Value Reference Range Interpretation Comments POC-GLUCOSE METER 101 mg/dL 70-110 TESTED AT [place] [address] ([facility]) (test code = [place] 1538) [address] POCT-GLUCOSE [id number] 22:27:00 Test Item Value Reference Range Interpretation Comments POC-GLUCOSE METER 86 mg/dL 70-110 TESTED AT [place] [address] ([facility]) (test code = [place] [address] 1538) POCT-GLUCOSE [id number] 20:03:00 Test Item Value Reference Range Interpretation Comments POC-GLUCOSE METER 139 mg/dL 70-110 H TESTED AT [place] [address] ([facility]) (test code = [place] 1538) [address] POCT-GLUCOSE [id number] 12:24:00 Test Item Value Reference Range Interpretation Comments POC-GLUCOSE METER 89 mg/dL 70-110 TESTED AT [place] [address] ([facility]) (test code = [place] [address] 1538) MISCELLANEOUS LAB [id number] 07:51:00 Test Item Value Reference Range Interpretation Comments SCAN RESULT (test code = 9268336) POCT-GLUCOSE [id number] 05:36:00 Test Item Value Reference Range Interpretation Comments POC-GLUCOSE METER 73 mg/dL 70-110 TESTED AT [place] [address] ([facility]) (test code = [place] [address] 1538) POCT-GLUCOSE [id number] 02:11:00 Test Item Value Reference Range Interpretation Comments POC-GLUCOSE METER 86 mg/dL 70-110 TESTED AT [place] [address] ([facility]) (test code = ROWDY Villatoro [facility] [address] 1538) POCT-GLUCOSE [id number] 00:09:00 Test Item Value Reference Range Interpretation Comments POC-GLUCOSE METER 84 mg/dL 70-110 TESTED AT [place] [address] ([facility]) (test code = ROWDY Villatoro [facility] [address] 1538) POCT-GLUCOSE [id number] 22:11:00 Test Item Value Reference Range Interpretation Comments POC-GLUCOSE METER 93 mg/dL 70-110 TESTED AT [place] [address] ([facility]) (test code = ROWDY Villatoro [facility] [address] 1538) POCT-GLUCOSE [id number] 20:14:00 Test Item Value Reference Range Interpretation Comments POC-GLUCOSE METER 98 mg/dL 70-110 TESTED AT [place] [address] ([facility]) (test code = ROWDY Villatoro [facility] [address] 1538) POCT-GLUCOSE [id number] 15:36:00 Test Item Value Reference Range Interpretation Comments POC-GLUCOSE METER 60 mg/dL 70-110 L TESTED AT [place] [address] ([facility]) (test code = ROWDY Villatoro [facility] [address] 1538) POCT-GLUCOSE [id number] 12:10:00 Test Item Value Reference Range Interpretation Comments POC-GLUCOSE METER 73 mg/dL 70-110 TESTED AT [place] [address] ([facility]) (test code = ROWDY Villatoro [facility] [address] 1538) POCT-GLUCOSE [id number] 09:25:00 Test Item Value Reference Range Interpretation Comments POC-GLUCOSE METER 95 mg/dL 70-110 TESTED AT [place] [address] ([facility]) (test code = MARLENETX Shauna [facility] [address] 1538) BASIC METABOLIC [id number] 07:34:00 Test Item Value Reference Range Interpretation [...] PATIEN TS. CBC W/PLT COUNT & AUTO [id number] 06:35:00 Test Item Value Reference Range Interpretation [...] PERCENT (BEAKER) (test code = 2801) POCT-GLUCOSE [id number] 23:54:00 Test Item Value Reference Range Interpretation Comments POC-GLUCOSE METER 105 mg/dL 70-110 TESTED AT [place] [address] ([facility]) (test code = [facility] 1538) [address] POCT-GLUCOSE [id number] 20:19:00 Test Item Value Reference Range Interpretation Comments POC-GLUCOSE METER 128 mg/dL 70-110 H TESTED AT [place] [address] ([facility]) (test code = [facility] 1538) [address] [id number] 13:24:00 Test Item Value Reference Range Interpretation Comments GLUCOSE RANDOM (BEAKER) (test code = 99 mg/dL 70-105 652) BASIC METABOLIC [id number] 13:24:00 Test Item Value Reference Range Interpretation [...] NOT APPLICABLE FOR DIALYSIS PATIEN TS. KETONE, [id number] 13:11:00 Test Item Value Reference Range Interpretation Comments KETONES, BLOOD (BEAKER) (test code 0.1 mmol/L <0.4 = 1103) TISSUE [id number] 12:48:00Surgical Pathology Report Case: [id number] Authorizing Provider: Blaine Venegas Collected: 12/30/2018 1728 Ordering Location: [place] [address] ICU Received: 01/02/2019 2020 Pathologist: Catracho Early MD Specimens: A) - [...] DIAGNOSTIC COMMENT. Signing Pathologist Direct Phone Line: [phone] signed by Catracho Early MD on 01/03/2019 [...] confirm or exclude the presence of a malignancy.[id number], 77771, 91276o3, [id number], 36394Fvwrtnhlz is upper endoscopy, biopsy, FNA with ultrasound. [...] evaluated Immunohistochemistry technical testing was performed at [facility], Pathology Laboratory where it was [...] to perform high complexity clinical laboratory testing.POCT-GLUCOSE [id number] 08:57:00 Test Item Value Reference Range Interpretation Comments POC-GLUCOSE METER 60 mg/dL 70-110 L TESTED AT [place] [address] ([facility] (test code = [facility] Shauna [facility] [address] 1538) POCT-GLUCOSE [id number] 18:36:00 Test Item Value Reference Range Interpretation Comments POC-GLUCOSE METER 82 mg/dL 70-110 TESTED AT [place] [address] ([facility]) (test code = [facility] [address] 1538) BLOOD [id number] 12:01:00 Test Item Value Reference Range Interpretation Comments CULTURE (BEAKER) (test No growth in 5 days code = 1095) BLOOD [id number] 12:01:00 Test Item Value Reference Range Interpretation Comments CULTURE (BEAKER) (test No growth in 5 days code = 1095) [id number] 08:38:00 Test Item Value Reference Range Interpretation Comments SCAN RESULT (test code = 8310831) INSULIN-LIKE GROWTH [id number] 08:38:00 Test Item Value Reference Range Interpretation Comments SCAN RESULT (test code = 2112690) POCT-GLUCOSE [id number] 20:47:00 Test Item Value Reference Range Interpretation Comments POC-GLUCOSE METER 109 mg/dL 70-110 TESTED AT [place] [address] ([facility]) (test code = [facility] 1538) [address] POCT-GLUCOSE [id number] 19:04:00 Test Item Value Reference Range Interpretation Comments POC-GLUCOSE METER 86 mg/dL 70-110 TESTED AT [place] [address] ([facility]) (test code = [facility] [address] 1538) BASIC METABOLIC [id number] 16:38:00 Test Item Value Reference Range Interpretation [...] PATIEN TS. CBC W/PLT COUNT & AUTO [id number] 07:03:00 Test Item Value Reference Range Interpretation [...] 0-1 PERCENT (BEAKER) (test code = 2801) [id number] 06:49:00 Test Item Value Reference Range Interpretation Comments PHOSPHORUS (BEAKER) (test code = 4.0 mg/dL 2.3-4.7 604) [id number] 06:49:00 Test Item Value Reference Range Interpretation Comments MAGNESIUM (BEAKER) (test code = 1.7 mg/dL 1.6-2.6 627) BASIC METABOLIC [id number] 06:49:00 Test Item Value Reference Range Interpretation [...] NOT APPLICABLE FOR DIALYSIS PATIEN TS. POCT-GLUCOSE [id number] 06:18:00 Test Item Value Reference Range Interpretation Comments POC-GLUCOSE METER 112 mg/dL 70-[address] [facility] 6720 (BEAKER) (test code = ROWDY Villatoro [place] 1538) [address] POCT-GLUCOSE [id number] 02:10:00 Test Item Value Reference Range Interpretation Comments POC-GLUCOSE METER 106 mg/dL 70-[address] [facility] 6720 (BEAKER) (test code = [facility] 1538) [address] BASIC METABOLIC [id number] 23:16:00 Test Item Value Reference Range Interpretation [...] hemolyzed GLUCOSE RANDOM 134 mg/dL 70-105 H (BEAKER) (test code = 652) CALCIUM (BEAKER) 8.9 mg/dL 8.4-10.2 (test code = 697) EGFR (BEAKER) (test 143 mL/min/1.73 ESTIM ATED GFR IS code = 1092) sq m NOT ACCURATE CREATININE CLEARANCE IN PREDICTING GLOMERULAR FILTRATION RATE . ESTIMATED GFR I S NOT APPLICABLE FOR DIALYSIS PATIEN TS. POCT-GLUCOSE [id number] 22:45:00 Test Item Value Reference Range Interpretation Comments POC-GLUCOSE METER 151 mg/dL 70-[address] [facility] 6720 (BEAKER) (test code = [facility] [place] 1538) [address] POCT-GLUCOSE [id number] 16:40:00 Test Item Value Reference Range Interpretation Comments POC-GLUCOSE METER 83 mg/dL 70-[address] [facility] 6720 (BEAKER) (test code = [facility] [address] 1538) VALPROIC ACID LEVEL, [id number] 14:48:00 Test Item Value Reference Range Interpretation Comments VALPROIC ACID TOTAL (BEAKER) (test 36 ug/mL 50-100 L code = 924) Therapeutic range for some clinical conditions may be >100 ug/mLDraw as trough 30-60 minutes prior to next dosePOCT-GLUCOSE [id number] 11:42:00 Test Item Value Reference Range Interpretation Comments POC-GLUCOSE METER 88 mg/dL 70-110 TESTED AT [place] [address] ([facility]) (test code = [facility] [address] 1538) POCT-GLUCOSE [id number] 08:35:00 Test Item Value Reference Range Interpretation Comments POC-GLUCOSE METER 127 mg/dL 70-110 H TESTED AT [place] [address] ([facility]) (test code = [facility] 1538) [address] CBC W/PLT COUNT & AUTO [id number] 08:20:00 Test Item Value Reference Range Interpretation [...] 0-1 PERCENT (BEAKER) (test code = 2801) [id number] 05:58:00 Test Item Value Reference Range Interpretation Comments PHOSPHORUS (BEAKER) (test code = 3.7 mg/dL 2.3-4.7 604) [id number] 05:58:00 Test Item Value Reference Range Interpretation Comments MAGNESIUM (BEAKER) (test code = 1.9 mg/dL 1.6-2.6 627) BASIC METABOLIC [id number] 05:58:00 Test Item Value Reference Range Interpretation [...] NOT APPLICABLE FOR DIALYSIS PATIEN TS. POCT-GLUCOSE [id number] 21:55:00 Test Item Value Reference Range Interpretation Comments POC-GLUCOSE METER 114 mg/dL 70-[address] [facility] 6720 ([facility] (test code = ROWDY Shauna [place] 1538) [address] BASIC METABOLIC [id number] 19:08:00 Test Item Value Reference Range Interpretation Comments SODIUM (BEAKER) 143 meq/L 136-145 (test code = 381) POTASSIUM (BEAKER) 3.7 meq/L 3.5-5.1 (test code = 379) CHLORIDE (BEAKER) 106 meq/L 98-107 (test code = 382) CO2 (BEAKER) (test 31 meq/L 22-29 H code = 355) BLOOD UREA NITROGEN 5 mg/dL 7-21 L (BEAKER) (test code = 354) CREATININE (BEAKER) 0.66 mg/dL 0.57-1.25 (test code = 358) GLUCOSE RANDOM 116 mg/dL 70-105 H (BEAKER) (test code = 652) CALCIUM (BEAKER) 8.7 mg/dL 8.4-10.2 (test code = 697) EGFR (BEAKER) (test 153 mL/min/1.73 ESTIM ATED GFR IS code = 1092) sq m NOT ACCURATE CREATININE CLEARANCE IN PREDICTING GLOMERULAR FILTRATION RATE . ESTIMATED GFR I S NOT APPLICABLE FOR DIALYSIS PATIEN TS. VANCOMYCIN LEVEL, [id number] 13:10:00 Test Item Value Reference Range Interpretation Comments VANCOMYCIN TROUGH (BEAKER) (test 14.6 ug/mL 10.0-20.0 code = 522) INSULIN, [id number] 12:44:00 Test Item Value Reference Range Interpretation Comments SCAN RESULT (test code = 6994859) POCT-GLUCOSE [id number] 12:29:00 Test Item Value Reference Range Interpretation Comments POC-GLUCOSE METER 113 mg/dL 70-[address] [facility] 6720 (BEAKER) (test code = ROWDY Villatoro [facility] 1538) [address] POCT-GLUCOSE [id number] 08:28:00 Test Item Value Reference Range Interpretation Comments POC-GLUCOSE METER 102 mg/dL 70-[address] [facility] 6720 (BEAKER) (test code = ROWDY Villatoro [facility] 1538) [address] VANCOMYCIN LEVEL, [id number] 04:16:00 Test Item Value Reference Range Interpretation Comments VANCOMYCIN TROUGH (BEAKER) (test 38.8 ug/mL 10.0-20.0 HH code = 522) CBC W/PLT COUNT & AUTO [id number] 03:36:00 Test Item Value Reference Range Interpretation Comments WHITE BLOOD CELL COUNT (BEAKER) 5.6 K/ L 3.5-10.5 (test code = 775) RED BLOOD CELL COUNT (BEAKER) 3.13 M/ L 4.63-6.08 L (test code [...] 0-1 PERCENT (BEAKER) (test code = 2801) [id number] 03:35:00 Test Item Value Reference Range Interpretation Comments PHOSPHORUS (BEAKER) (test code = 4.4 mg/dL 2.3-4.7 604) [id number] 03:35:00 Test Item Value Reference Range Interpretation Comments MAGNESIUM (BEAKER) (test code = 1.7 mg/dL 1.6-2.6 627) BASIC METABOLIC [id number] 03:35:00 Test Item Value Reference Range Interpretation [...] NOT APPLICABLE FOR DIALYSIS PATIEN TS. POCT-GLUCOSE [id number] 00:16:00 Test Item Value Reference Range Interpretation Comments POC-GLUCOSE METER 91 mg/dL 70-110 TESTED AT [place] [address] ([facility]) (test code = ROWDY Villatoro [facility] [address] 1538) POCT-GLUCOSE [id number] 17:57:00 Test Item Value Reference Range Interpretation Comments POC-GLUCOSE METER 88 mg/dL 70-110 TESTED AT [place] [address] ([facility]) (test code = [facility] Shauna [facility] [address] 1538) POCT-GLUCOSE [id number] 11:45:00 Test Item Value Reference Range Interpretation Comments POC-GLUCOSE METER 81 mg/dL 70-110 TESTED AT [place] [address] ([facility]) (test code = [facility] Shauna [place] [address] 1538) POCT-GLUCOSE [id number] 09:14:00 Test Item Value Reference Range Interpretation Comments POC-GLUCOSE METER 92 mg/dL 70-110 TESTED AT [place] [address] ([facility]) (test code = [facility] Shauna [place] [address] 1538) POCT-GLUCOSE [id number] 08:32:00 Test Item Value Reference Range Interpretation Comments POC-GLUCOSE METER 69 mg/dL 70-110 L Notified R Ector GREENBERG/TESTED AT ([facility]) (test code = [address] 1538) [facility] 7703 0 HEPATIC FUNCTION [id number] 07:07:00 Test Item Value Reference Range Interpretation [...] = 29 U/L 5-34 353) ALT (SGPT) ([facility] (test code = 41 U/L 6-55 347) POCT-GLUCOSE [id number] 06:29:00 Test Item Value Reference Range Interpretation Comments POC-GLUCOSE METER 82 mg/dL 70-[address] [facility] 6720 (BEAKER) (test code = [place] [address] 7498) [id number] 05:12:00 Test Item Value Reference Range Interpretation Comments PHOSPHORUS (BEAKER) (test code = 3.1 mg/dL 2.3-4.7 604) [id number] 05:12:00 Test Item Value Reference Range Interpretation Comments MAGNESIUM (BEAKER) (test code = 1.6 mg/dL 1.6-2.6 627) BASIC METABOLIC [id number] 05:12:00 Test Item Value Reference Range Interpretation [...] APPLICABLE FOR DIALYSIS PATIEN TS. LACTIC ACID, [id number] 05:05:00 Test Item Value Reference Range Interpretation Comments LACTATE BLOOD VENOUS (2) (BEAKER) 0.8 mmol/L 0.5-2.2 (test code = 2872) CBC W/PLT COUNT & AUTO [id number] 04:51:00 Test Item Value Reference Range Interpretation [...] PERCENT (BEAKER) (test code = 2801) CT, [id number] 03:14:00Pt will require sedation given by the [...] MDReport Verified Date/Time: 12/29/2018 03:14:03 Reading Location: [address] Reading Room POCT-GLUCOSE [id number] 00:20:00 Test Item Value Reference Range Interpretation Comments POC-GLUCOSE METER 88 mg/dL 70-110 TESTED AT [place] [address] ([facility]) (test code = [facility] [address] 1538) POCT-GLUCOSE [id number] 22:16:00 Test Item Value Reference Range Interpretation Comments POC-GLUCOSE METER 70 mg/dL 70-110 TESTED AT [place] [address] ([facility]) (test code = [facility] [address] 1538) POCT-GLUCOSE [id number] 18:45:00 Test Item Value Reference Range Interpretation Comments POC-GLUCOSE METER 87 mg/dL 70-110 TESTED AT [place] [address] ([facility]) (test code = [facility] [address] 1538) LACTIC ACID, [id number] 17:43:00 Test Item Value Reference Range Interpretation Comments LACTATE BLOOD VENOUS (2) ([facility]) 0.6 mmol/L 0.5-2.2 (test code = 2872) POCT-GLUCOSE [id number] 15:52:00 Test Item Value Reference Range Interpretation Comments POC-GLUCOSE METER 74 mg/dL 70-110 TESTED AT [place] [address] (BEAKER) (test code = ROWDY Villatoro [facility] [address] 1538) URINALYSIS W/ REFLEX URINE [id number] 15:43:00 Test Item Value Reference Range Interpretation [...] (test code = 2795) RAPID DRUG SCREEN, [id number] 15:31:00 Test Item Value Reference Range Interpretation [...] URINE (BEAKER) Negative Negative (test code = 8911) DRUG CUTOFF CONC.Cocaine 300 ng/mL Cannabinoid 50 ng/mL Benzodiazepine 200 ng/mLBarbiturate 200 ng/mLPhencyclidine 25 ng/mLOpiate 300 ng/mLMethadone 300 ng/mLAmphetamine/ 1000 ng/mL MethamphetamineOxycodone 300 ng/mLThis assay provides an unconfirmed qualitative test result for the clinical management of patients in emergency situations. Chain of custody not maintained. Some nmhl-hum-thejkfb medications, as well as adulterants, may cause inaccurate results. Clinical correlation should be applied. A more comprehensive drug screen or confirmation of a detected drug may be performed upon request. LACTIC ACID, [id number] 15:22:00 Test Item Value Reference Range Interpretation Comments LACTATE BLOOD VENOUS 0.7 mmol/L 0.5-2.2 Specime n slightly (2) ([facility]) (test hemolyzed code = 2872) POCT-GLUCOSE [id number] 15:02:00 Test Item Value Reference Range Interpretation Comments POC-GLUCOSE METER 69 mg/dL 70-110 L Notified R Ector MD/TESTED AT ([facility]) (test code = [address] 1538) [facility] 7703 0 POCT-GLUCOSE [id number] 14:09:00 Test Item Value Reference Range Interpretation Comments POC-GLUCOSE METER 59 mg/dL 70-110 L Notified R Ector MD/TESTED AT ([facility]) (test code = [address] 1538) [facility] 7703 0 [id number] 13:13:00 Test Item Value Reference Range Interpretation Comments PROCALCITONIN ([facility]) (test code = < ng/mL <0.05 3036) SEPSIS RISK (ng/mL)Low: 0.05-0.50Intermediate: 0.51-2.00High: >=2.01LACTIC ACID, [id number] 12:59:00 Test Item Value Reference Range Interpretation Comments LACTATE BLOOD VENOUS 0.7 mmol/L 0.5-2.2 Specime n slightly (2) ([facility]) (test hemolyzed code = 2872) POCT-GLUCOSE [id number] 12:59:00 Test Item Value Reference Range Interpretation Comments POC-GLUCOSE METER 74 mg/dL 70-110 TESTED AT [place] [address] ([facility]) (test code = ROWDY Villatoro [facility] [address] 1538) [id number] 11:13:00 Test Item Value Reference Range Interpretation Comments PHOSPHORUS (BEAKER) (test code = 2.7 mg/dL 2.3-4.7 604) [id number] 11:13:00 Test Item Value Reference Range Interpretation Comments MAGNESIUM (BEAKER) (test code = 1.7 mg/dL 1.6-2.6 627) POCT-GLUCOSE [id number] 11:03:00 Test Item Value Reference Range Interpretation Comments POC-GLUCOSE METER 198 mg/dL 70-[address] [facility] 6720 (BEAKER) (test code = ROWDY [place] 1538) [address] CBC W/PLT COUNT & AUTO [id number] 10:56:00 Test Item Value Reference Range Interpretation Comments WHITE BLOOD CELL COUNT (BEAKER) 5.9 K/ L 3.5-10.5 (test code = 775) RED BLOOD CELL COUNT (BEAKER) 3.11 M/ L 4.63-6.08 L (test code [...] Received comment: User comments: Slide comments:BLOOD GAS, [id number] 10:55:00 Test Item Value Reference Range Interpretation [...] code = 1819) 21.0 % LACTIC ACID, [id number] 10:20:00 Test Item Value Reference Range Interpretation Comments LACTATE BLOOD VENOUS 0.7 mmol/L 0.5-2.2 Specime n markedly (2) (BEAKER) (test hemolyzed code = 2872) POCT-GLUCOSE [id number] 10:17:00 Test Item Value Reference Range Interpretation Comments POC-GLUCOSE METER 78 mg/dL 70-110 TESTED AT [place] [address] ([facility]) (test code = [facility] [address] 1538) BLOOD GAS, [id number] 10:04:00 Test Item Value Reference Range Interpretation [...] (test code = 1819) 21.0 % POCT-GLUCOSE [id number] 08:21:00 Test Item Value Reference Range Interpretation Comments POC-GLUCOSE METER 98 mg/dL 70-110 TESTED AT [place] [address] ([facility]) (test code = [facility] [address] 1538) POCT-GLUCOSE [id number] 05:51:00 Test Item Value Reference Range Interpretation Comments POC-GLUCOSE METER 108 mg/dL 70-110 TESTED AT [place] [address] ([facility]) (test code = [facility] 1538) [address] POCT-GLUCOSE [id number] 04:28:00 Test Item Value Reference Range Interpretation Comments POC-GLUCOSE METER 112 mg/dL 70-110 H TESTED AT [place] [address] ([facility]) (test code = [facility] 1538) [address] TSH/FREE T4 IF [id number] 04:05:00 Test Item Value Reference Range Interpretation Comments THYROID STIMULATING HORMONE 0.58 uIU/mL 0.35-4.94 (BEAKER) (test code = 772) BASIC METABOLIC [id number] 03:47:00 Test Item Value Reference Range Interpretation [...] NOT APPLICABLE FOR DIALYSIS PATIEN TS. POCT-GLUCOSE [id number] 01:57:00 Test Item Value Reference Range Interpretation Comments POC-GLUCOSE METER 130 mg/dL 70-110 H TESTED AT [place] [address] ([facility] (test code = [facility] 1538) 10329 POCT-GLUCOSE [id number] 00:11:00 Test Item Value Reference Range Interpretation Comments POC-GLUCOSE METER 122 mg/dL 70-110 H TESTED AT [place] [address] ([facility]) (test code = ROWDY Villatoro [facility] 1538) [address] POCT-GLUCOSE [id number] 22:23:00 Test Item Value Reference Range Interpretation Comments POC-GLUCOSE METER 103 mg/dL 70-110 TESTED AT [place] [address] ([facility]) (test code = ROWDY Villatoro [facility] 1538) [address] POCT-GLUCOSE [id number] 20:34:00 Test Item Value Reference Range Interpretation Comments POC-GLUCOSE METER 114 mg/dL 70-110 H TESTED AT [place] [address] ([facility]) (test code = ROWDY Villatoro [facility] 1538) [address] POCT-GLUCOSE [id number] 15:59:00 Test Item Value Reference Range Interpretation Comments POC-GLUCOSE METER 158 mg/dL 70-110 H TESTED AT [place] [address] ([facility]) (test code = ROWDY Villatoro [facility] 1538) [address]14 POCT-GLUCOSE [id number] 12:26:00 Test Item Value Reference Range Interpretation Comments POC-GLUCOSE METER 104 mg/dL 70-110 TESTED AT [place] [address] ([facility]) (test code = [facility] Shauna [facility] 1538) [address] KETONE, [id number] 10:04:00 Test Item Value Reference Range Interpretation Comments KETONES, BLOOD ([facility]) (test code 0.1 mmol/L <0.4 = 1103) POCT-GLUCOSE [id number] 08:37:00 Test Item Value Reference Range Interpretation Comments POC-GLUCOSE METER 153 mg/dL 70-110 H TESTED AT [place] [address] ([facility]) (test code = [facility] Shauna [facility] 1538) [address]390 POCT-GLUCOSE [id number] 08:37:00 Test Item Value Reference Range Interpretation Comments POC-GLUCOSE METER 61 mg/dL 70-110 L Trever Barney MD/TESTED AT ([facility]) (test code = [address] 1538) [facility] 7703 0 VALPROIC ACID LEVEL, [id number] 06:44:00 Test Item Value Reference Range Interpretation Comments VALPROIC ACID TOTAL ([facility]) (test 34 ug/mL 50-100 L code = 924) Therapeutic range for some clinical conditions may be >100 ug/mLPOCT-GLUCOSE [id number] 06:30:00 Test Item Value Reference Range Interpretation Comments POC-GLUCOSE METER 129 mg/dL 70-110 H TESTED AT [place] [address] ([facility]) (test code = ROWDY Villatoro [facility] 1538) 23640 POCT-GLUCOSE [id number] 00:19:00 Test Item Value Reference Range Interpretation Comments POC-GLUCOSE METER 113 mg/dL 70-110 H TESTED AT [place] [address] ([facility]) (test code = MARLENENOEMI Villatoro [facility] 1538) [address] POCT-GLUCOSE [id number] 20:22:00 Test Item Value Reference Range Interpretation Comments POC-GLUCOSE METER 74 mg/dL 70-110 TESTED AT [place] [address] ([facility]) (test code = MARLENETX Shauna [facility] [address] 1538) POCT-GLUCOSE [id number] 18:07:00 Test Item Value Reference Range Interpretation Comments POC-GLUCOSE METER 108 mg/dL 70-110 TESTED AT [place] [address] ([facility]) (test code = ROWDY Villatoro [facility] 1538) 25[address] [id number] 18:02:00 Test Item Value Reference Range Interpretation Comments GLUCOSE RANDOM ([facility]) (test code = 65 mg/dL 70-105 L 652) KETONE, [id number] 18:00:00 Test Item Value Reference Range Interpretation Comments KETONES, BLOOD ([facility]) (test code 0.1 mmol/L <0.4 = 1103) POCT-GLUCOSE [id number] 17:03:00 Test Item Value Reference Range Interpretation Comments POC-GLUCOSE METER 66 mg/dL 70-110 L Notified R Ector GREENBERG/TESTED AT ([facility]) (test code = [place] [address] [place] 1538) [facility] 7703 0 POCT-GLUCOSE [id number] 16:05:00 Test Item Value Reference Range Interpretation Comments POC-GLUCOSE METER 76 mg/dL 70-110 TESTED AT [place] [address] ([facility]) (test code = ROWDY Villatoro [facility] [address] 1538) POCT-GLUCOSE [id number] 13:19:00 Test Item Value Reference Range Interpretation Comments POC-GLUCOSE METER 103 mg/dL 70-110 TESTED AT [place] [address] ([facility]) (test code = ROWDY Villatoro [facility] 1538) [address]134 POCT-GLUCOSE [id number] 10:02:00 Test Item Value Reference Range Interpretation Comments POC-GLUCOSE METER 75 mg/dL 70-110 TESTED AT [place] [address] ([facility]) (test code = ROWDY Villatoro [facility] [address] 1538) POCT-GLUCOSE [id number] 08:29:00 Test Item Value Reference Range Interpretation Comments POC-GLUCOSE METER 89 mg/dL 70-110 TESTED AT [place] [address] ([facility]) (test code = ROWDY Villatoro [facility] [address] 1538) POCT-GLUCOSE [id number] 04:10:00 Test Item Value Reference Range Interpretation Comments POC-GLUCOSE METER 114 mg/dL 70-110 H TESTED AT [place] [address] ([facility]) (test code = ROWDY Villatoro [facility] 1538) 63191 POCT-GLUCOSE [id number] 01:15:00 Test Item Value Reference Range Interpretation Comments POC-GLUCOSE METER 137 mg/dL 70-110 H TESTED AT [place] [address] ([facility]) (test code = ROWDY Villatoro [facility] 1538) 10488 POCT-GLUCOSE [id number] 21:27:00 Test Item Value Reference Range Interpretation Comments POC-GLUCOSE METER 105 mg/dL 70-110 TESTED AT [place] [address] ([facility]) (test code = ROWDY Villatoro [facility] 1538) 09327 POCT-GLUCOSE [id number] 17:30:00 Test Item Value Reference Range Interpretation Comments POC-GLUCOSE METER 109 mg/dL 70-110 TESTED AT [place] [address] ([facility]) (test code = ROWDY Villatoro [facility] 1538) 20963 POCT-GLUCOSE [id number] 13:03:00 Test Item Value Reference Range Interpretation Comments POC-GLUCOSE METER 125 mg/dL 70-110 H TESTED AT [place] [address] ([facility]) (test code = ROWDY Villatoro [facility] 1538) 22358 POCT-GLUCOSE [id number] 13:03:00 Test Item Value Reference Range Interpretation Comments POC-GLUCOSE METER 63 mg/dL 70-110 L TESTED AT [place] [address] ([facility]) (test code = ROWDY Villatoro [facility] [address] 1538) BASIC METABOLIC [id number] 12:34:00 Test Item Value Reference Range Interpretation [...] PATIEN TS. CBC W/PLT COUNT & AUTO [id number] 11:13:00 Test Item Value Reference Range Interpretation [...] EOSINOPHILS ABSOLUTE COUNT 0.12 K/ L 0.04-0.54 (BEAKER) (test code = 416) BASOPHILS ABSOLUTE COUNT (BEAKER) 0.02 K/ L 0.01-0.08 (test code = 417) IMMATURE GRANULOCYTES-RELATIVE 0 % 0-1 PERCENT (BEAKER) (test code = 2801) POCT-GLUCOSE [id number] 10:16:00 Test Item Value Reference Range Interpretation Comments POC-GLUCOSE METER 130 mg/dL 70-110 H TESTED AT [place] [address] ([facility]) (test code = ROWDY Villatoro [facility] 1538) 66236 POCT-GLUCOSE [id number] 08:29:00 Test Item Value Reference Range Interpretation Comments POC-GLUCOSE METER 75 mg/dL 70-110 TESTED AT [place] [address] ([facility]) (test code = ROWDY Villatoro [facility] [address] 1538) POCT-GLUCOSE [id number] 08:29:00 Test Item Value Reference Range Interpretation Comments POC-GLUCOSE METER 48 mg/dL 70-110 L Notified Shauna Barney MD/TESTED AT ([facility]) (test code = [address] 1538) [facility] 7703 0 MISCELLANEOUS LAB [id number] 11:35:00 Test Item Value Reference Range Interpretation Comments SCAN RESULT (test code = 1159738) MISCELLANEOUS LAB [id number] 12:54:00 Test Item Value Reference Range Interpretation Comments SCAN RESULT (test code = 0334936) BLOOD [id number] 20:01:00 Test Item Value Reference Range Interpretation Comments CULTURE (BEAKER) (test No growth in 5 days code = 1095) BLOOD [id number] 02:01:00 Test Item Value Reference Range Interpretation Comments CULTURE (BEAKER) (test No growth in 5 days code = 1095) POCT-GLUCOSE [id number] 05:16:00 Test Item Value Reference Range Interpretation Comments POC-GLUCOSE METER 83 mg/dL 70-[address] [facility] 6720 (BEAKER) (test code = [facility] [address] 1538) POCT-GLUCOSE [id number] 21:57:00 Test Item Value Reference Range Interpretation Comments POC-GLUCOSE METER 75 mg/dL 70-[address] [facility] 6720 (BEAKER) (test code = [facility] [address] 1538) CORTISOL,60 [id number] 18:57:00 Test Item Value Reference Range Interpretation [...] a study by Harjinder et al (CARLOS 2000,283(8):[id number]), the ACTH Stimulation Test provides important prognostic [...] serum cortisollevel 60 minutes after cosyntropin administration.CORTISOL,30 [id number] 18:11:00 Test Item Value Reference Range Interpretation [...] serum cortisollevel 60 minutes after cosyntropin administration.POCT-GLUCOSE [id number] 17:52:00 Test Item Value Reference Range Interpretation Comments POC-GLUCOSE METER 74 mg/dL 70-[address] [facility] 6720 ([facility]) (test code = [place] [address] 1538) CORTISOL,[id number] 15:02:00 Test Item Value Reference Range Interpretation Comments CORTISOL, BASELINE ([facility]) (test 9.7 ug/dL code = [...] and Procedure Section on The Source.BASIC METABOLIC [id number] 14:44:00 Test Item Value Reference Range Interpretation [...] APPLICABLE FOR DIALYSIS PATIEN TS. LACTIC ACID, [id number] 14:39:00 Test Item Value Reference Range Interpretation Comments LACTATE BLOOD 4.6 mmol/L 0.5-2.2 H Specimen sligh tly ARTERIAL (2) (BEAKER) hemoly zed (test code = 2874) PROTHROMBIN [id number] 14:05:00 Test Item Value Reference Range Interpretation [...] EOSINOPHILS ABSOLUTE COUNT 0.20 K/ L 0.04-0.54 ([facility]) (test code = 416) BASOPHILS ABSOLUTE COUNT ([facility]) 0.03 K/ L 0.01-0.08 (test code = 417) IMMATURE GRANULOCYTES-RELATIVE 0 % 0-1 PERCENT ([facility]) (test code = 2801) POCT-GLUCOSE [id number] 13:12:00 Test Item Value Reference Range Interpretation Comments POC-GLUCOSE METER 126 mg/dL 70-110 H TESTED AT [place] [address] ([facility]) (test code = ROWDY Villatoro [facility] 1538) 16148 POCT-GLUCOSE [id number] 08:09:00 Test Item Value Reference Range Interpretation Comments POC-GLUCOSE METER 87 mg/dL 70-110 TESTED AT [place] [address] ([facility]) (test code = ROWDY Villatoro [facility] 70809 1538) POCT-GLUCOSE [id number] 07:29:00 Test Item Value Reference Range Interpretation Comments POC-GLUCOSE METER 52 mg/dL 70-110 L TESTED AT [place] [address] ([facility]) (test code = [facility] Shauna [facility] [address] 1538) POCT-GLUCOSE [id number] 01:49:00 Test Item Value Reference Range Interpretation Comments POC-GLUCOSE METER 94 mg/dL 70-110 TESTED AT [place] [address] ([facility]) (test code = MARLENETX Shauna [facility] 79658 1538) POCT-GLUCOSE [id number] 18:53:00 Test Item Value Reference Range Interpretation Comments POC-GLUCOSE METER 124 mg/dL 70-110 H TESTED AT [place] [address] ([facility]) (test code = [facility] Shauna [facility] 1538) [address]163 POCT-GLUCOSE [id number] 18:12:00 Test Item Value Reference Range Interpretation Comments POC-GLUCOSE METER 60 mg/dL 70-110 L Notified R Ector GREENBERG/TESTED AT ([facility]) (test code = [address] 1538) [facility] 7703 0 POCT-GLUCOSE [id number] 13:18:00 Test Item Value Reference Range Interpretation Comments POC-GLUCOSE METER 81 mg/dL 70-110 TESTED AT [place] [address] ([facility]) (test code = [facility] [address] 1538) POCT-GLUCOSE [id number] 08:05:00 Test Item Value Reference Range Interpretation Comments POC-GLUCOSE METER 108 mg/dL 70-[address] [facility] 6720 (BEAKER) (test code = ROWYD Villatoro [facility] 1538) [address] POCT-GLUCOSE [id number] 08:02:00 Test Item Value Reference Range Interpretation Comments POC-GLUCOSE METER 67 mg/dL 70-110 L Notified R Ector GREENBERG/TESTED AT (BEAKER) (test code = [facility] 67[address] [facility] 7703 0 URINALYSIS WITH MICROSCOPIC IF [id number] 06:38:00 Test Item Value Reference Range Interpretation [...] = 2795) RAD, CHEST, 1 VIEW, NON [id number] 23:12:00Reason for exam:->FeverShould this be performed at [...] MDReport Verified Date/Time: 12/04/2018 23:12:24 Reading Location: [facility] Neuro ReadingRoom VALPROIC ACID LEVEL, TOTAL 2018-12-04 21:41:00 Test Item Value Reference Range Interpretation Comments VALPROIC ACID TOTAL (BEAKER) (test 37 ug/mL 50-100 L code = 924) Therapeutic range for some clinical conditions may be >100 ug/mLPOCT-GLUCOSE [id number] 21:30:00 Test Item Value Reference Range Interpretation Comments POC-GLUCOSE METER 86 mg/dL 70-[address] [facility] 6720 (BEAKER) (test code = ROWDY Villatoro [facility] [address]85 1538) PROTHROMBIN [id number] 21:00:00 Test Item Value Reference Range Interpretation Comments PROTIME (BEAKER) (test code = 13.9 seconds 11.7-14.7 759) INR (BEAKER) (test code = 370) 1.1 <=5.9 RECOMMENDED COUMADIN/WARFARIN INR THERAPY RANGESSTANDARD DOSE: 2.0 - 3.0 Includes: PROPHYLAXIS forvenous thrombosis, systemic embolization; TREATMENT for venous thrombosis and/or pulmonary embolus.HIGH RISK: Target INR is 2.5-3.5 for patients with mechanical heart valves.LACTIC ACID, [id number] 20:58:00 Test Item Value Reference Range Interpretation Comments LACTATE BLOOD VENOUS 2.3 mmol/L 0.5-2.2 H Specime n slightly (2) (BEAKER) (test hemolyzed code = 2872) [id number] 20:51:00 Test Item Value Reference Range Interpretation Comments PHOSPHORUS (BEAKER) (test code = 2.9 mg/dL 2.3-4.7 604) Check Serum Phosphorus level 4 hours after IV phosphorus replacement or 8 hours after PO replacementcompleted.[id number] 20:51:00 Test Item Value Reference Range Interpretation Comments MAGNESIUM (BEAKER) (test code = 1.7 mg/dL 1.6-2.6 627) Check Serum Phosphorus level 4 hours after IV phosphorus replacement or 8 hours after PO replacementcompleted.BASIC METABOLIC [id number] 20:51:00 Test Item Value Reference Range Interpretation [...] after PO replacementcompleted.CBC W/PLT COUNT & AUTO [id number] 20:28:00 Test Item Value Reference Range Interpretation [...] 0-1 PERCENT (BEAKER) (test code = 2801) [id number] 20:09:00 Test Item Value Reference Range Interpretation Comments POC-HEMATOCRIT 34 % 40-50 L TESTED AT [place] [address] (BEAKER) (test code = ROWDY Villatoro [facility] [address] 7959) [id number] 20:09:00 Test Item Value Reference Range Interpretation Comments POC-HEMOGLOBIN 11.6 g/dL 13.0-16.8 L TESTED AT [place] [address] (BEAKER) (test code DL [facility] = 1856) [address]BONYWH AT [place] [address] DL [facility] [address] POCT-BLOOD GASES, [id number] 20:08:00 Test Item Value Reference Range Interpretation Comments TEMP, CELSIUS-POC 37.0 (BEAKER) (test code = 1834) FIO2-POC (BEAKER) TESTED AT [place] [address] (test code = 1835) [facility] [address] PH, VENOUS-POC 7.483 7.320-7.420 H (BEAKER) (test [...] H VENOUS-POC (BEAKER) (test code = 1847) [id number] 20:08:00 Test Item Value Reference Range Interpretation Comments POC-SODIUM ([facility]) 136 meq/L 135-148 TESTED A [place] [address] (test code = 1542) [facility] [address] [id number] 20:08:00 Test Item Value Reference Range Interpretation Comments POC-POTASSIUM 4.5 meq/L 3.6-5.5 TESTED AT [place] [address] ([facility]) (test code [facility] [address] = 1540) [id number] 20:08:00 Test Item Value Reference Range Interpretation Comments POC-GLUCOSE ([facility]) 84 mg/dL 70-110 TESTED AT [place] [address] (test code = 1855) [facility] [address] POCT-CALCIUM [id number] 20:08:00 Test Item Value Reference Range Interpretation Comments POC-CALCIUM IONIZED 1.25 mmol/L 1.12-1.27 TESTED [place] [address] ([facility]) (test code = [facility] 1536) [address] POCT-LACTIC ACID, [id number] 20:08:00 Test Item Value Reference Range Interpretation Comments POC-LACTIC ACID, 2.6 mmol/L 0.4-1.3 H TESTED AT [place] [address] ARTERIAL ([facility]) [facility] (test code = 2804) [address] POCT-GLUCOSE [id number] 19:25:00 Test Item Value Reference Range Interpretation Comments POC-GLUCOSE METER 81 mg/dL 70-110 TESTED AT [place] [address] ([facility]) (test code = ROWDY Villatoro [facility] [address] 1538) POCT-GLUCOSE [id number] 22:27:00 Test Item Value Reference Range Interpretation Comments POC-GLUCOSE METER 110 mg/dL 70-110 TESTED AT [place] [address] ([facility]) (test code = ROWDY Villatoro [facility] 1538) [address] POCT-GLUCOSE [id number] 04:51:00 Test Item Value Reference Range Interpretation Comments POC-GLUCOSE METER 75 mg/dL 70-110 TESTED AT [place] [address] ([facility]) (test code = ROWDY Villatoro [facility] [address] 1538) POCT-GLUCOSE [id number] 00:08:00 Test Item Value Reference Range Interpretation Comments POC-GLUCOSE METER 76 mg/dL 70-110 TESTED AT [place] [address] ([facility]) (test code = ROWDY Villatoro [facility] [address] 1538) POCT-GLUCOSE [id number] 21:37:00 Test Item Value Reference Range Interpretation Comments POC-GLUCOSE METER 69 mg/dL 70-110 L TESTED AT [place] [address] ([facility]) (test code = ROWDY Villatoro [facility] [address] 1538) POCT-GLUCOSE [id number] 06:40:00 Test Item Value Reference Range Interpretation Comments POC-GLUCOSE METER 72 mg/dL 70-110 TESTED AT [place] [address] ([facility]) (test code = ROWDY Villatoro [facility] [id number] 1538) POCT-GLUCOSE [id number] 06:14:00 Test Item Value Reference Range Interpretation Comments POC-GLUCOSE METER 64 mg/dL 70-110 L TESTED AT [place] [address] ([facility]) (test code = ROWDY Villatoro [facility] [id number] 1538) POCT-GLUCOSE [id number] 05:42:00 Test Item Value Reference Range Interpretation Comments POC-GLUCOSE METER 58 mg/dL 70-110 L TESTED AT [place] [address] ([facility]) (test code = [facility] Shauna [facility] [id number] 1538) POCT-GLUCOSE [id number] 03:44:00 Test Item Value Reference Range Interpretation Comments POC-GLUCOSE METER 73 mg/dL 70-110 TESTED AT [place] [address] ([facility]) (test code = [place] [address] 1538) POCT-GLUCOSE [id number] 00:42:00 Test Item Value Reference Range Interpretation Comments POC-GLUCOSE METER 77 mg/dL 70-110 TESTED AT [place] [address] ([facility]) (test code = [place] [address] 1538) POCT-GLUCOSE [id number] 18:17:00 Test Item Value Reference Range Interpretation Comments POC-GLUCOSE METER 84 mg/dL 70-110 TESTED AT [place] [address] ([facility]) (test code = [place] [address] 1538) POCT-GLUCOSE [id number] 12:37:00 Test Item Value Reference Range Interpretation Comments POC-GLUCOSE METER 90 mg/dL 70-110 TESTED AT [place] [address] ([facility]) (test code = [place] [address] 1538) POCT-GLUCOSE [id number] 00:13:00 Test Item Value Reference Range Interpretation Comments POC-GLUCOSE METER 82 mg/dL 70-110 TESTED AT [place] [address] ([facility]) (test code = [place] [address] 1538) POCT-GLUCOSE [id number] 18:06:00 Test Item Value Reference Range Interpretation Comments POC-GLUCOSE METER 109 mg/dL 70-110 TESTED AT [place] [address] ([facility]) (test code = ROWDY Villatoro [place] 1538) [address] POCT-GLUCOSE [id number] 13:37:00 Test Item Value Reference Range Interpretation Comments POC-GLUCOSE METER 103 mg/dL 70-110 TESTED AT [place] [address] ([facility]) (test code = MARLENENE Shauna [place] 1538) [address] POCT-GLUCOSE [id number] 10:10:00 Test Item Value Reference Range Interpretation Comments POC-GLUCOSE METER 72 mg/dL 70-110 TESTED AT [place] [address] ([facility]) (test code = [place] [address] 1538) POCT-GLUCOSE [id number] 09:02:00 Test Item Value Reference Range Interpretation Comments POC-GLUCOSE METER 65 mg/dL 70-110 L TESTED AT [place] [address] ([facility]) (test code = ROWDY Villatoro [facility] [address] 1538) POCT-GLUCOSE [id number] 08:18:00 Test Item Value Reference Range Interpretation Comments POC-GLUCOSE METER 67 mg/dL 70-110 L Notified Shauna Barney MD/TESTED AT ([facility]) (test code = [place] [address] [facility] 7[address] 0 POCT-GLUCOSE [id number] 21:48:00 Test Item Value Reference Range Interpretation Comments POC-GLUCOSE METER 101 mg/dL 70-110 TESTED AT [place] [address] ([facility]) (test code = ROWDY Villatoro [facility] 1538) [address] POCT-GLUCOSE [id number] 20:09:00 Test Item Value Reference Range Interpretation Comments POC-GLUCOSE METER 75 mg/dL 70-110 TESTED AT [place] [address] ([facility]) (test code = ROWDY Villatoro [facility] [address] 1538) POCT-GLUCOSE [id number] 18:29:00 Test Item Value Reference Range Interpretation Comments POC-GLUCOSE METER 100 mg/dL 70-110 TESTED AT [place] [address] ([facility]) (test code = MARLENETX Shauna [facility] 1538) [address] RAD, SKULL, LESS THAN 4 [id number] 17:37:00Reason for exam:->h/o head trauma, need to r/o retained metal or implantsShould this be performedat the bedside?->NoFINAL REPORT Skull dated 11/28/2018 Comment: 2 views of skull obtained in frontal and lateral projection. No metallic foreign body is seen in the calvarium. The frontal, sphenoid, ethmoid, maxillary sinuses are clear. Orbital rim is intact. Signed: Jaciel Rodriguez MDReport Verified Andrei e/Time: 11/29/2018 17:37:13 Reading Location: [facility] [id number] Consult Reading Room Electronicallysigned by: JACIEL RODRIGUEZ M.D. on 11/29/2018 05:37 PMPOCT- GLUCOSE [id number] 17:08:00 Test Item Value Reference Range Interpretation Comments POC-GLUCOSE METER 75 mg/dL 70-110 TESTED AT [place] [address] ([facility]) (test code = MARLENETX Shauna [facility] [address] 1538) POCT-GLUCOSE [id number] 16:33:00 Test Item Value Reference Range Interpretation Comments POC-GLUCOSE METER 87 mg/dL 70-110 TESTED AT [place] [address] ([facility]) (test code = ROWDY Villatoro [facility] [address] 1538) POCT-GLUCOSE [id number] 15:26:00 Test Item Value Reference Range Interpretation Comments POC-GLUCOSE METER 162 mg/dL 70-110 H TESTED AT [place] [address] ([facility]) (test code = [facility] Shauna [facility] 1538) [address] POCT-GLUCOSE [id number] 13:59:00 Test Item Value Reference Range Interpretation Comments POC-GLUCOSE METER 96 mg/dL 70-110 TESTED AT [place] [address] ([facility]) (test code = [facility] Shauna [facility] [address] 1538) POCT-GLUCOSE [id number] 13:07:00 Test Item Value Reference Range Interpretation Comments POC-GLUCOSE METER 116 mg/dL 70-110 H TESTED AT [place] [address] ([facility]) (test code = [facility] Shauna [facility] 1538) [address] POCT-GLUCOSE [id number] 12:15:00 Test Item Value Reference Range Interpretation Comments POC-GLUCOSE METER 89 mg/dL 70-110 TESTED AT [place] [address] ([facility]) (test code = [facility] Shauna [facility] [address] 1538) POCT-GLUCOSE [id number] 11:06:00 Test Item Value Reference Range Interpretation Comments POC-GLUCOSE METER 102 mg/dL 70-110 TESTED AT [place] [address] ([facility]) (test code = [facility] 1538) [address] POCT-GLUCOSE [id number] 10:02:00 Test Item Value Reference Range Interpretation Comments POC-GLUCOSE METER 87 mg/dL 70-110 TESTED AT [place] [address] ([facility]) (test code = [facility] [address] 1538) HEMOGLOBIN [id number] 09:45:00 Test Item Value Reference Range Interpretation Comments HEMOGLOBIN A1C ([facility]) (test code = 5.5 % 4.3-6.1 368) POCT-GLUCOSE [id number] 09:04:00 Test Item Value Reference Range Interpretation Comments POC-GLUCOSE METER 93 mg/dL 70-110 TESTED AT [place] [address] ([facility]) (test code = [place] [address] 1538) POCT-GLUCOSE [id number] 08:26:00 Test Item Value Reference Range Interpretation Comments POC-GLUCOSE METER 78 mg/dL 70-110 TESTED AT [place] [id number] ([facility]) (test code = [place] [address] 1538) U/S, ABDOMINAL, WITH [id number] 08:23:00Reason for exam:- >Transaminitis. RUQ U/s with [...] Doppler evaluation. Signed: Gonzalo Richard Verified Date/Time: 11/29/2018 08:23:38 Reading Location: [address] Ultrasound Reading Room POCT-GLUCOSE [id number] 07:29:00 Test Item Value Reference Range Interpretation Comments POC-GLUCOSE METER 86 mg/dL 70-110 TESTED AT [place] [address] ([facility]) (test code = ROWDY Villatoro [facility] [address] 1538) POCT-GLUCOSE [id number] 06:50:00 Test Item Value Reference Range Interpretation Comments POC-GLUCOSE METER 56 mg/dL 70-110 L TESTED AT [place] [address] ([facility]) (test code = ROWDY Villatoro [facility] [address] 1538) POCT-GLUCOSE [id number] 06:12:00 Test Item Value Reference Range Interpretation Comments POC-GLUCOSE METER 83 mg/dL 70-110 TESTED AT [place] [address] ([facility]) (test code = ROWDY Villatoro [facility] [address] 1538) POCT-GLUCOSE [id number] 05:03:00 Test Item Value Reference Range Interpretation Comments POC-GLUCOSE METER 87 mg/dL 70-110 TESTED AT [place] [address] ([facility]) (test code = ROWDY Villatoro [facility] [address] 1538) POCT-GLUCOSE [id number] 04:11:00 Test Item Value Reference Range Interpretation Comments POC-GLUCOSE METER 61 mg/dL 70-110 L TESTED AT [place] [address] ([facility]) (test code = ROWDY Villatoro [facility] [address] 1538) PROTHROMBIN [id number] 03:34:00 Test Item Value Reference Range Interpretation Comments PROTIME ([facility]) (test code = 13.1 seconds 11.7-14.7 759) INR ([facility]) (test code = 370) 1.0 <=5.9 RECOMMENDED COUMADIN/WARFARIN INR THERAPY RANGESSTANDARD DOSE: 2.0 - 3.0 Includes: PROPHYLAXIS forvenous thrombosis, systemic embolization; TREATMENT for venous thrombosis and/or pulmonary embolus.HIGH RISK: Target INR is 2.5-3.5 for patients with mechanical heart valves.POCT-GLUCOSE [id number] 03:14:00 Test Item Value Reference Range Interpretation Comments POC-GLUCOSE METER 62 mg/dL 70-[address] [facility] 6720 (BEAKER) (test code = [place] [address] 1538) [id number] 03:08:00 Test Item Value Reference Range Interpretation Comments PHOSPHORUS (BEAKER) (test code = 2.7 mg/dL 2.3-4.7 604) Check Serum Phosphorus level 4 hours after IV phosphorus replacement or 8 hours after PO replacementcompleted.[id number] 03:08:00 Test Item Value Reference Range Interpretation Comments MAGNESIUM (BEAKER) (test code = 1.8 mg/dL 1.6-2.6 627) Check Serum Phosphorus level 4 hours after IV phosphorus replacement or 8 hours after PO replacementcompleted.BASIC METABOLIC [id number] 03:08:00 Test Item Value Reference Range Interpretation [...] phosphorus replacement or 8 hours after PO replacementcompleted.[id number] 03:04:00 Test Item Value Reference Range Interpretation Comments CORTISOL, TOTAL (BEAKER) (test 10.1 ug/dL 3.7-19.4 code = 2755) Obtain if BG < 60CBC W/PLT COUNT & AUTO [id number] 02:53:00 Test Item Value Reference Range Interpretation [...] PERCENT (BEAKER) (test code = 2801) KETONE, [id number] 02:53:00 Test Item Value Reference Range Interpretation Comments KETONES, BLOOD (BEAKER) (test code 0.1 mmol/L <0.4 = 1103) [id number] 02:39:00 Test Item Value Reference Range Interpretation Comments GLUCOSE RANDOM (BEAKER) (test code = 59 mg/dL 70-105 L 652) Obtain if BG < 60POCT-GLUCOSE [id number] 02:05:00 Test Item Value Reference Range Interpretation Comments POC-GLUCOSE METER 55 mg/dL 70-[address] [facility] 6720 ([facility]) (test code = BANNERNOEMI Villatoro [facility] [address] 1538) POCT-GLUCOSE [id number] 01:23:00 Test Item Value Reference Range Interpretation Comments POC-GLUCOSE METER 51 mg/dL 70-110 L TESTED AT [place] [address] ([facility]) (test code = [facility] [address] 1538) RAD, CHEST, 1 VIEW, NON [id number] 22:00:00Reason for exam:->assess for retained metal piecesShould [...] Signed: Nicole Real MDReport Verified Date/Time: 11/28/2018 22:00:23 Reading Location: [address] Reading Room POCT-GLUCOSE [id number] 21:53:00 Test Item Value Reference Range Interpretation Comments POC-GLUCOSE METER 146 mg/dL 70-110 H TESTED AT [place] [address] ([facility]) (test code = ROWDY Villatoro [facility] 1538) [address] POCT-GLUCOSE [id number] 21:50:00 Test Item Value Reference Range Interpretation Comments POC-GLUCOSE METER 57 mg/dL 70-110 L TESTED AT [place] [address] ([facility]) (test code = ROWDY Villatoro [facility] [address] 1538) POCT-GLUCOSE [id number] 18:21:00 Test Item Value Reference Range Interpretation Comments POC-GLUCOSE METER 87 mg/dL 70-110 TESTED AT [place] [address] ([facility]) (test code = ROWDY Villatoro [facility] [address] 1538) EEG AWAKE AND [id number] 16:20:00Reason for exam:->seizureShould this be performed at the bedside?->YesDate(s) of EE11/28/18 DATE OF REPORT: 11/28/18 ACC: [id number] EEG Number: [id number] Test Location: Inpatient ICU Start time: 15:15 Stop time: 15:36 ICD-10: R56.9 CPT Code: 94999 HISTORY: 53 yo male withhistory of schizophrenia, [...] POC-GLUCOSE METER 94 mg/dL 70-110 TESTED AT [place] [address] ([facility]) (test code = [facility] [address] 1538) VITAMIN [id number] 13:57:00 Test Item Value Reference Range Interpretation Comments VITAMIN B12 ([facility]) (test code = 1054 pg/mL 213-816 H 774) FOLATE, [id number] 13:57:00 Test Item Value Reference Range Interpretation Comments FOLATE ([facility]) (test code = 362) 9.4 ng/mL >=7.0 POCT-GLUCOSE [id number] 13:38:00 Test Item Value Reference Range Interpretation Comments POC-GLUCOSE METER 68 mg/dL 70-110 L TESTED AT [place] [address] ([facility]) (test code = [facility] [address] 1538) POCT-GLUCOSE [id number] 13:30:00 Test Item Value Reference Range Interpretation Comments POC-GLUCOSE METER 62 mg/dL 70-110 L TESTED AT [place] [address] ([facility]) (test code = [facility] [address] 1538) VALPROIC ACID LEVEL, [id number] 13:18:00 Test Item Value Reference Range Interpretation Comments VALPROIC ACID TOTAL ([facility]) (test 43 ug/mL 50-100 L code = 924) Therapeutic range for some clinical conditions may be >100 ug/mLHEPATITIS PANEL, [id number] 13:14:00 Test Item Value Reference Range Interpretation Comments HEPATITIS A IGM ANTIBODY ([facility] Nonreactive Nonreactive (test code = 498) HEPATITIS B CORE IGM ANTIBODY Nonreactive Nonreactive (BEAKER) (test code = 645) HEPATITIS C ANTIBODY (BEAKER) Nonreactive Nonreactive (test code = 367) HEPATITIS B SURFACE ANTIGEN (2) Nonreactive Nonreactive (BEAKER) (test code = 2585) BASIC METABOLIC [id number] 12:07:00 Test Item Value Reference Range Interpretation [...] APPLICABLE FOR DIALYSIS PATIEN TS. COMPREHENSIVE METABOLIC [id number] 12:07:00 Test Item Value Reference Range Interpretation [...] PATIEN TS. CBC W/PLT COUNT & AUTO [id number] 11:39:00 Test Item Value Reference Range Interpretation [...] EOSINOPHILS ABSOLUTE COUNT 0.09 K/ L 0.04-0.54 (BEAKER) (test code = 416) BASOPHILS ABSOLUTE COUNT (BEAKER) 0.01 K/ L 0.01-0.08 (test code = 417) IMMATURE GRANULOCYTES-RELATIVE 0 % 0-1 PERCENT (BEAKER) (test code = 2801) POCT-GLUCOSE [id number] 09:29:00 Test Item Value Reference Range Interpretation Comments POC-GLUCOSE METER 71 mg/dL 70-110 TESTED AT [place] [address] ([facility]) (test code = [facility] [address] 1538) POCT-GLUCOSE [id number] 08:59:00 Test Item Value Reference Range Interpretation Comments POC-GLUCOSE METER 49 mg/dL 70-110 L TESTED AT [place] [address] ([facility]) (test code = [facility] [address] 1538) POCT-GLUCOSE [id number] 23:27:00 Test Item Value Reference Range Interpretation Comments POC-GLUCOSE METER 96 mg/dL 70-110 TESTED AT [place] [address] ([facility]) (test code = [facility] [address] 1538) POCT-GLUCOSE [id number] 20:35:00 Test Item Value Reference Range Interpretation Comments POC-GLUCOSE METER 85 mg/dL 70-110 TESTED AT [place] [address] (BEAKER) (test code = ROWDY Villatoro [facility] [address] 1538) POCT-GLUCOSE [id number] 18:55:00 Test Item Value Reference Range Interpretation Comments POC-GLUCOSE METER 98 mg/dL 70-[address] [facility] 6720 (BEAKER) (test code = ROWDY Villatoro [facility] [address] 1538) POCT-GLUCOSE [id number] 12:28:00 Test Item Value Reference Range Interpretation Comments POC-GLUCOSE METER 74 mg/dL 70-110 TESTED AT [place] [address] ([facility] (test code = [facility] Shauna [facility] [address] 1538) COMPREHENSIVE METABOLIC [id number] 11:21:00 Test Item Value Reference Range Interpretation Comments TOTAL PROTEIN 7.6 gm/dL 6.0-8.3 (BEAKER) (test code = 770) ALBUMIN (BEAKER) 3.5 g/dL 3.5-5.0 (test code = 1145) [...] FOR DIALYSIS PATIEN TS. TSH/FREE T4 IF [id number] 10:19:00 Test Item Value Reference Range Interpretation Comments THYROID STIMULATING HORMONE 0.48 uIU/mL 0.35-4.94 (BEAKER) (test code = 772) [id number] 10:19:00 Test Item Value Reference Range Interpretation Comments CORTISOL, TOTAL (BEAKER) (test code 6.9 ug/dL 3.7-19.4 = 2755) TROPONIN [id number] 10:05:00 Test Item Value Reference Range Interpretation [...] acidosis, acute neurological disease, and persistent tachyarrhythmia.PROTHROMBIN TIME/[id number] 09:31:00 Test Item Value Reference Range Interpretation [...] PERCENT (BEAKER) (test code = 2801) POCT-GLUCOSE [id number] 07:19:00 Test Item Value Reference Range Interpretation Comments POC-GLUCOSE METER 128 mg/dL 70-[address] [facility] 6720 (BEAKER) (test code = ROWDY HILARIO 1538) [address] POCT-GLUCOSE [id number] 07:19:00 Test Item Value Reference Range Interpretation Comments POC-GLUCOSE METER 46 mg/dL 70-[address] [facility] 6720 ([place]) (test code = ROWDY [place] [id number] 3358)
[2020-11-11 19:28] LABS: Absolute Lymphocytes (CBC) 2.7 K/uL (0.7-4.9); Basophils % 0.9 % (0-1.3); Hematocrit 37.2 % (39.6-49.0); Lymphocytes % 41.8 % (15.3-44.8); MPV 8.6 fL (7.6-11.3); RBC Red Blood Cell Count 4.09 M/uL (4.33-5.43)
[2020-11-11 19:42] LABS: Protime INR 0.97
[2020-11-11 19:52] LABS: ALT/SGPT 16 U/L (12-78); AST/SGOT 16 U/L (15-37); Albumin 3.4 g/dL (3.4-5.0); Alkaline Phosphatase 70 U/L (45-117); BUN Blood Urea Nitrogen 7 mg/dL (7-18); Bicarbonate 28 mmol/L (21-32); Bilirubin Direct 0.1 mg/dL (0-0.2); Bilirubin Total 0.3 mg/dL (0.2-1.0); Glucose Level 87 mg/dL (74-106); Potassium 4.2 mmol/L (3.5-5.1); Protein, Total 7.8 g/dL (6.4-8.2); Sodium Level 140 mmol/L (136-145)
--- NOTE | 2020-11-11 21:09 | EDPHYS ---
Physician Documentation [facility] Name: Mariano Mauricio Age: 55 yrs Sex: Male : 1965 Arrival Date: 11/11/2020 Time: 18:44 Bed 4 Private MD: ED Physician Jesus Spear HPI: 11/11 20:28 This 55 yrs old Black Male presents to ER via EMS with complaints of Refused to take jr8 meds at [facility]. 20:28 Onset: The symptoms/episode began/occurred acutely, today. Past psychiatric history: jr8 Prior diagnosis: bipolar disorder, schizophrenia. Associated signs and symptoms: The patient has no apparent associated signs or symptoms. Severity of symptoms: At their worst the symptoms were mild in the emergency department the symptoms have resolved. It is unknown whether or not the patient has had similar symptoms in the past. The patient has not recently seen a physician. This is a 55 y/o M that presented to ED vis EMS after being called out by [facility] for anger management problems and refusing to take his medications. Patient with known psychiatric conditions. Patient upon arrival to ED is calm and non aggressive. When asked if he wants to hurt himself or others says no. Stated that he feels better at this time. Was upset earlier. Historical: - Allergies: 18:48 Keflex; sv - PMHx: 18:48 Anxiety; Autonomic neuropathy; constipation; dehydration; insomnia; Major Depressive sv Disorder; personailty disorder; pseudobulbar affect; Schizophrenia; traumatic brain injury; vit d deficiency; Contracture; Dysphagia; - Immunization history:: Adult Immunizations. - Social history:: Smoking status: Patient denies any tobacco usage or history of. - Code Status:: Full code. ROS: 20:28 Constitutional: Negative for fever, chills, and weight loss. jr8 20:28 Psych: Positive for Behavioral problems. 20:28 All other systems are negative. Exam: 20:28 Eyes: Pupils equal round and reactive to light, extra-ocular motions intact. Lids and jr8 lashes normal. Conjunctiva and sclera are non-icteric and not injected. Cornea within normal limits. Periorbital areas with no swelling, redness, or edema. ENT: Nares patent. No nasal discharge, no septal abnormalities noted. Tympanic membranes are normal and external auditory canals are clear. Oropharynx with no redness, swelling, or masses, exudates, or evidence of obstruction, uvula midline. Mucous membranes moist. Neck: Trachea midline, no thyromegaly or masses palpated, and no cervical lymphadenopathy. Supple, full range of motion without nuchal rigidity, or vertebral point tenderness. No Meningismus. Cardiovascular: Regular rate and rhythm with a normal S1 and S2. No gallops, murmurs, or rubs. Normal PMI, no JVD. No pulse deficits. Respiratory: Lungs have equal breath sounds bilaterally, clear to auscultation and percussion. No rales, rhonchi or wheezes noted. No increased work of breathing, no retractions or nasal flaring. Abdomen/GI: Soft, non-tender, with normal bowel sounds. No distension or tympany. No guarding or rebound. No evidence of tenderness throughout. Back: No spinal tenderness. No costovertebral tenderness. Full range of motion. Skin: Warm, dry with normal turgor. Normal color with no rashes, no lesions, and no evidence of cellulitis. 20:28 Neuro: Orientation: to person, place, situation, Mentation: able to follow commands, Cranial nerves: CN I not tested, CN II- XII are normal as tested, extraocular movements are intact, Facial palsy and sensory deficits are absent. Motor: moves all fours, Sensation: no obvious gross deficits, seizure activity, is not displayed by the patient, Abnormal movements: there are no abnormal movements. 20:28 Psych: Behavior/mood is cooperative, Affect is calm, Oriented to person, place, Patient has no thoughts/intents to harm self or others. Judgement / Insight is normal. Memory is normal. Vital Signs: 18:37 BP 121 / 60; Pulse 76; Resp 16; Temp 99.2; Pulse Ox 100% ; sv 19:25 BP 124 / 47; Pulse 82; Resp 18; Pulse Ox 98% on R/A; mg2 21:53 BP 120 / 50; Pulse 81; Resp 18; Pulse Ox 98% on R/A; mg2 MDM: 18:45 Patient medically screened. 8 21:05 Data reviewed: vital signs, nurses notes, lab test result(s). Data interpreted: Pulse jr8 oximetry: on room air is 98 %. Interpretation: normal. Counseling: I had a detailed discussion with the patient and/or guardian regarding: the historical points, exam findings, and any diagnostic results supporting the discharge/admit diagnosis, lab results, the need for outpatient follow up, a psychiatrist, to return to the emergency department if symptoms worsen or persist or if there are any questions or concerns that arise at home. ED course: Discussed case with [facility] and that there is no s/s of HI or SI and is calm currently. They were concerned because he has acted out before and wants a formal psych evaluation. We reached out to [facility] for formal evaluation but stated that he can be seen on an outpatient basis. That this does not necessitate emergent psych need or transfer. 11/11 18:45 Order name: Acetaminophen [facility] 11/11 18:45 Order name: Basic Metabolic Panel [facility] 11/11 18:45 Order name: CBC with Diff [facility] 11/11 18:45 Order name: ETOH Level [facility] 11/11 18:45 Order name: Hepatic Function [facility] 11/11 18:45 Order name: PT-INR; Complete Time: 20:08 [facility] 11/11 18:45 Order name: Ptt, Activated; Complete Time: 20:08 [facility] 11/11 18:45 Order name: Salicylate; Complete Time: 20:08 [facility] 11/11 18:45 Order name: Urine Drug Screen [facility] 11/11 18:46 Order name: Acetaminophen Level; Complete Time: 20:08 [facility] 11/11 18:46 Order name: Basic Metabolic Panel; Complete Time: 20:08 [facility] 11/11 18:46 Order name: CBC with Automated Diff; Complete Time: 20:08 [facility] 11/11 18:46 Order name: Alcohol Serum/Plasma; Complete Time: 20:08 [facility] 11/11 18:46 Order name: Liver (Hepatic) Function; Complete Time: 20:08 [facility] 11/11 18:45 Order name: EKG; Complete Time: 18:46 [facility] 11/11 18:45 Order name: EKG - Nurse/Tech; Complete Time: 19:18 [facility] 11/11 18:45 Order name: IV Saline Lock; Complete Time: 19:18 [facility] 11/11 18:45 Order name: Labs collected and sent; Complete Time: 19:18 [facility] 11/11 18:45 Order name: Urine Dipstick-Ancillary (obtain specimen); Complete Time: 21:08 [facility] 11/11 21:08 Order name: Urine Dipstick--Ancillary (enter results) mw2 11/11 21:09 Order name: Urine Dipstick-Ancillary EDMS Administered Medications: No medications were administered Disposition: 11/12 07:26 Co-signature as Attending Physician, Jesus Spear MD. rn Disposition: 11/11/20 21:08 Discharged to Home. Impression: Personal history of mental and behavioral disorders - aggitation and aggressive behavior . - Condition is Stable. - Discharge Instructions: Schizophrenia. - Medication Reconciliation Form, Thank You Letter, Antibiotic Education, Prescription Opioid Use form. - Follow up: Private Physician; When: 1 - 2 days; Reason: Recheck today's complaints, Continuance of care, Re-evaluation by your physician. - Problem is new. - Symptoms have improved. Signatures: Dispatcher [employer] EDMS Morena Howard RN RN sv Nieto, Roman, MD MD rn Roszak, Josh, PA PA jr8 Araceli Navarro RN RN Corrections: (The following items were deleted from the chart) 11/11 22:46 21:08 11/11/2020 21:08 Discharged to Home. Impression: Personal history of mental and wh behavioral disorders - aggitation and aggressive behavior . Condition is Stable. Forms are Medication Reconciliation Form, Thank You Letter, Antibiotic Education, Prescription Opioid Use. Follow up: Private Physician; When: 1 - 2 days; Reason: Recheck today's complaints, Continuance of care, Re-evaluation by your physician. Problem is new. Symptoms have improved. jr8
--- NOTE | 2020-11-11 21:09 | ER ---
Nurse's Notes [facility] Name: Mariano Mauricio Age: 55 yrs Sex: Male : 1965 Arrival Date: 11/11/2020 Time: 18:44 Bed 4 Private MD: Diagnosis: Personal history of mental and behavioral disorders-aggitation and aggressive behavior Presentation: 11/11 18:37 Chief complaint: EMS states: called out by staff at [facility] for pt being combative, pt did sv not take his regular medications this morning. PD here and have written an KRISTI on the pt. Coronavirus screen: Client denies travel out of the [place] in the last 14 days. At this time, the client does not indicate any symptoms associated with coronavirus-19. Ebola Screen: No symptoms or risks identified at this time. Initial Sepsis Screen: Does the patient meet any 2 criteria? No. Patient's initial sepsis screen is negative. Does the patient have a suspected source of infection? No. Patient's initial sepsis screen is negative. Risk Assessment: Do you want to hurt yourself or someone else? Patient reports no desire to harm self or others. Onset of symptoms was November 11, 2020. 18:37 Method Of Arrival: EMS: [facility] sv 18:37 Acuity: KEV 3 sv Triage Assessment: 18:49 General: Appears in no apparent distress. well developed, Behavior is cooperative, sv quiet, not speaking at this time. Pain: Unable to use pain scale. FLACC scale score is 0 out of 10. Neuro: Level of Consciousness is awake, alert, obeys commands, Oriented to answers questions by shaking head yes and no. Respiratory: Airway is patent Respiratory effort is even, unlabored, Respiratory pattern is regular, symmetrical. Derm: Skin is normal. Historical: - Allergies: 18:48 Keflex; sv - PMHx: 18:48 Anxiety; Autonomic neuropathy; constipation; dehydration; insomnia; Major Depressive sv Disorder; personailty disorder; pseudobulbar affect; Schizophrenia; traumatic brain injury; vit d deficiency; Contracture; Dysphagia; - Immunization history:: Adult Immunizations. - Social history:: Smoking status: Patient denies any tobacco usage or history of. - Code Status:: Full code. Screenin:19 Abuse screen: Denies threats or abuse. Denies injuries from another. Nutritional mg2 screening: No deficits noted. Tuberculosis screening: No symptoms or risk factors identified. Fall Risk IV access (20 points). Assessment: 19:18 General: Appears in no apparent distress. Behavior is quiet. Pain: Unable to use pain mg2 scale. Patient appears confused. Neuro: Level of Consciousness is awake, Oriented to none. Cardiovascular: Capillary refill < 3 seconds Patient's skin is warm and dry. Respiratory: Airway is patent Respiratory effort is even, unlabored, Respiratory pattern is regular, symmetrical. GI: No signs and/or symptoms were reported involving the gastrointestinal system. : No signs and/or symptoms were reported regarding the genitourinary system. EENT: No signs and/or symptoms were reported regarding the EENT system. Derm: Skin is intact, is healthy with good turgor, Skin is normal. Musculoskeletal: Circulation, motion, and sensation intact. Capillary refill < 3 seconds. 19:25 Reassessment: patient refused straight catheter. mg2 20:35 Reassessment: Spoke with [facility] Nurse explained situation in regards with the Pt, Nurse kavya claimed Pt was threatening to hurt himself and others and is a threat to other Pts. They would just wanted that Pt be evaluated by a Mental Institution. Notified Provider and Charge Nurse of exchange. 21:00 Reassessment: Patient appears in no apparent distress at this time. Patient and/or wh family updated on plan of care and expected duration. Pain level reassessed. 22:00 [facility]ass[facility]: [facility] she is in dialogue with [facility] DON. Explained that Pt will be discharged and that per [facility] Pt does not meet criteria and can follow up out patient. 22:45 Reassessment:. mg2 Vital Signs: 18:37 BP 121 / 60; Pulse 76; Resp 16; Temp 99.2; Pulse Ox 100% ; sv 19:25 BP 124 / 47; Pulse 82; Resp 18; Pulse Ox 98% on R/A; mg2 21:53 BP 120 / 50; Pulse 81; Resp 18; Pulse Ox 98% on R/A; mg2 ED Course: 18:44 Patient arrived in ED. sv 18:45 Ritchie Darling PA is PHCP. jr8 18:45 Jesus Spear MD is Attending Physician. jr8 18:46 Triage completed. sv 18:49 Arm band placed on. sv 18:50 Patient has correct armband on for positive identification. Bed in low position. Call light in reach. Side rails up X2. Pulse ox on. NIBP on. Head of bed elevated. 19:07 Daorn Eldridge, RN is Primary Nurse. mg2 19:20 No provider procedures requiring assistance completed. Inserted saline lock: 20 gauge mg2 in left forearm, using aseptic technique. Blood collected. 20:48 called [facility] [phone] spoke to Will to have a screener evaluate mw2 patient. 21:00 Will from [facility] called back to inform us that the screener recommends mw2 outpatient. He stated " the patient is not an immediate threat and the screener recommends outpatient.". 22:45 IV discontinued, intact, bleeding controlled, No redness/swelling at site. Pressure mg2 dressing applied. Administered Medications: No medications were administered Outcome: 21:08 Discharge ordered by MD. hoff 22:46 Discharged to care home. Report called to [facility] per [employer] Operator 22:46 Condition: stable 22:46 Instructed on discharge instructions, follow up and referral plans. 22:46 Patient left the ED. Signatures: Morena Howard, RN RN Ritchie Darling PA PA jr8 Araceli Navarro, RN RN Geovanna De Leon 2 Daron Eldridge, RN RN mg2 Corrections: (The following items were deleted from the chart) 18:50 18:50 Door closed. Head of bed elevated. [facility]
[2020-11-11 21:26] LABS: Barbiturates NEGATIVE (NEGATIVE); Benzodiazepines NEGATIVE (NEGATIVE); Cocaine NEGATIVE (NEGATIVE); METHAMPHETAM NEGATIVE (NEGATIVE); Methadone NEGATIVE (NEGATIVE); Opiates NEGATIVE (NEGATIVE); Phencyclidine NEGATIVE (NEGATIVE); THC Cannibis NEGATIVE (NEGATIVE)
[2020-11-11 22:09] LABS: Urine Blood NEGATIVE (NEG); Urine Glucose NEGATIVE (NEG); Urine Protein NEGATIVE (NEG)
[2020-11-11 22:56] VITALS: BP 120/50; O2SAT 98
--- NOTE | 2020-11-12 06:20 | EKG ---
Test Date: 2020-11-11 Test Time: 18:13:24 [employer]: AYANNA MEASUREMENT RESULTS: Intervals: Rate: 87 MI: 140 QRSD: 80 QT: 398 QTc: 478 Ora: P: 53 MI: 140 QRS: 26 T: 71 INTERPRETIVE STATEMENTS: Normal sinus rhythm Prolonged QT Abnormal ECG Compared to ECG 11/26/2018 22:42:18 Prolonged QT interval now present ST (T wave) deviation no longer present Possible ischemia no longer present Electronically Signed On 11-12-20 06:19:18 CDT by Melvin Sun
== END 2020-11-11 22:46 | disposition home or self-care (01) ==
LOC: ER 18:41
DX: R45.1 Restlessness and agitation (principal); Z86.59 Personal history of other mental and behavioral disorders
CPT/HCPCS: 36415; 80048; 80076; 80307; 80320; 80329; 81003; 85025; 85610; 85730; 93005; 99284

== ENCOUNTER 2022-12-17 17:19 | Emergency (ER) | payer OTHER ==
--- OUTSIDE RECORDS SUMMARY | 2022-12-17 17:31 | XMS REPORT | Continuity of Care Document ---
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 hours by every 6 oral route oral route hours by as needed. as needed. oral route as needed. Artificial Artificial No 1drop(s Q1D Artificial [facility] ) [facility] (carboxymet (carboxymet (carboxyme hylcellulos hylcellulos thylcellul e) 1 % eye e) 1 % eye ose) 1 % drops Apply drops Apply eye drops 1 drop 1 drop Apply 1 every day every day drop every by by day by ophthalmic ophthalmic ophthalmic route. route. route. folic acid folic acid No folic acid [facility] 1 mg tablet 1 mg tablet 1 mg M edical Take 1 Take 1 tablet tablet tablet Take 1 every day every day tablet by oral by oral every day route for route for by oral 30 days. 30 days. route for 30 days. haloperidol haloperidol No haloperido [facility] 10 mg 10 mg l 10 mg Medical tablet Take tablet Take tablet 1 tablet 1 tablet Take 1 every day every day tablet by oral by oral every day route in route in by oral the morning the morning route in for 30 for 30 the days. days. morning for 30 days. haloperidol haloperidol No haloperido [facility] 20 mg 20 mg l 20 mg Medical tablet Take tablet Take tablet 1 tablet 1 tablet Take 1 every day every day tablet by oral by oral every day route at route at by oral bedtime. bedtime. route at bedtime. haloperidol haloperidol No haloperido [facility] decanoate decanoate l Medic al 100 mg/mL 100 mg/mL decanoate intramuscul intramuscul 100 mg/mL ar solution ar solution intramuscu amt 150mg: amt 150mg: lar intramuscul intramuscul solution ar once a ar once a amt 150mg: day on the day on the intramuscu lar once a month month day on the the month loratadine loratadine No 1 Q1D loratadine [facility] 10 mg 10 mg 10 mg Medical tablet Take tablet Take tablet 1 tablet 1 tablet Take 1 every day every day tablet by oral by oral every day route. route. by oral route. Lotion Lotion No Lotion [facility] apply body apply body apply body Medical lotion lotion lotion daily daily daily Maalox Maalox No 10mL Q1D Maalox [facility] ical 200 mg-200 200 mg-200 200 mg-200 mg-20 mg/5 mg-20 mg/5 mg-20 mg/5 mL oral mL oral mL oral suspension suspension suspension Take 10 mL Take 10 mL Take 10 mL every day every day every day by oral by oral by oral route as route as route as needed. needed. needed. olanzapine olanzapine No olanzapine [facility] 20 mg 20 mg 20 mg Medical tablet amt: tablet amt: tablet 1: orally 1: orally amt: 1: at bedtime at bedtime orally at bedtime Senna Plus Senna Plus No 2 Q1D Senna Plus [facility] 8.6 mg-50 8.6 mg-50 8.6 mg-50 Medical mg capsule mg capsule mg capsule Take 2 Take 2 Take 2 tablets tablets tablets every day every day every day by oral by oral by oral route. route. route. valproic valproic No valproic [facility] via acid (as acid (as acid (as Med ical sodium sodium sodium salt) 250 salt) 250 salt) 250 mg/5 mL mg/5 mL mg/5 mL oral oral oral solution solution solution Take 15 mL Take 15 mL Take 15 mL 3 times a 3 times a 3 times a day by oral day by oral day by route for route for oral route 30 days. 30 days. for 30 days. acetaminoph acetaminoph No 2 Q6H acetaminop [facility] en 325 mg en 325 mg hen 325 mg Medical tablet Take tablet Take tablet 2 tablets 2 tablets Take 2 every 6 every 6 tablets hours by hours by every 6 oral route oral route hours by as needed. as needed. oral route as needed. Artificial Artificial No 1drop(s Q1D Artificial [facility] ) [facility] (carboxymet (carboxymet (carboxyme hylcellulos hylcellulos thylcellul e) 1 % eye e) 1 % eye ose) 1 % drops Apply drops Apply eye drops 1 drop 1 drop Apply 1 every day every day drop every by by day by ophthalmic ophthalmic ophthalmic route. route. route. folic acid folic acid No folic acid [facility] 1 mg tablet 1 mg tablet 1 mg M edical Take 1 Take 1 tablet tablet tablet Take 1 every day every day tablet by oral by oral every day route for route for by oral 30 days. 30 days. route for 30 days. haloperidol haloperidol No haloperido [facility] 10 mg 10 mg l 10 mg Medical tablet Take tablet Take tablet 1 tablet 1 tablet Take 1 every day every day tablet by oral by oral every day route in route in by oral the morning the morning route in for 30 for 30 the days. days. morning for 30 days. haloperidol haloperidol No haloperido [facility] 20 mg 20 mg l 20 mg Medical tablet Take tablet Take tablet 1 tablet 1 tablet Take 1 every day every day tablet by oral by oral every day route at route at by oral bedtime. bedtime. route at bedtime. haloperidol haloperidol No haloperido [facility] decanoate decanoate l Medic al 100 mg/mL 100 mg/mL decanoate intramuscul intramuscul 100 mg/mL ar solution ar solution intramuscu amt 150mg: amt 150mg: lar intramuscul intramuscul solution ar once a ar once a amt 150mg: day on the day on the intramuscu of lar once a month month day on the of the month loratadine loratadine No 1 Q1D loratadine [facility] 10 mg 10 mg 10 mg Medical tablet Take tablet Take tablet 1 tablet 1 tablet Take 1 every day every day tablet by oral by oral every day route. route. by oral route. Lotion Lotion No Lotion [facility] apply body apply body apply body Medical lotion lotion lotion daily daily daily Maalox Maalox No 10mL Q1D Maalox [facility] ical 200 mg-200 200 mg-200 200 mg-200 mg-20 mg/5 mg-20 mg/5 mg-20 mg/5 mL oral mL oral mL oral suspension suspension suspension Take 10 mL Take 10 mL Take 10 mL every day every day every day by oral by oral by oral route as route as route as needed. needed. needed. olanzapine olanzapine No olanzapine [facility] 20 mg 20 mg 20 mg Medical tablet amt: tablet amt: tablet 1: orally 1: orally amt: 1: at bedtime at bedtime orally at bedtime Senna Plus Senna Plus No 2 Q1D Senna Plus [facility] 8.6 mg-50 8.6 mg-50 8.6 mg-50 Medical mg capsule mg capsule mg capsule Take 2 Take 2 Take 2 tablets tablets tablets every day every day every day by oral by oral by oral route. route. route. valproic valproic No valproic [facility] via acid (as acid (as acid (as Med ical sodium sodium sodium salt) 250 salt) 250 salt) 250 mg/5 mL mg/5 mL mg/5 mL oral oral oral solution solution solution Take 15 mL Take 15 mL Take 15 mL 3 times a 3 times a 3 times a day by oral day by oral day by route for route for oral route 30 days. 30 days. for 30 days. acetaminoph acetaminoph No 2 Q6H acetaminop [facility] en 325 mg en 325 mg hen 325 mg Medical tablet Take tablet Take tablet 2 tablets 2 tablets Take 2 every 6 every 6 tablets hours by hours by every 6 oral route oral route hours by as needed. as needed. oral route as needed. Artificial Artificial No 1drop(s Q1D Artificial [facility] ) [facility] (carboxymet (carboxymet (carboxyme hylcellulos hylcellulos thylcellul e) 1 % eye e) 1 % eye ose) 1 % drops Apply drops Apply eye drops 1 drop 1 drop Apply 1 every day every day drop every by by day by ophthalmic ophthalmic ophthalmic route. route. route. folic acid folic acid No folic acid [facility] 1 mg tablet 1 mg tablet 1 mg M edical Take 1 Take 1 tablet tablet tablet Take 1 every day every day tablet by oral by oral every day route for route for by oral 30 days. 30 days. route for 30 days. haloperidol haloperidol No haloperido [facility] 10 mg 10 mg l 10 mg Medical tablet Take tablet Take tablet 1 tablet 1 tablet Take 1 every day every day tablet by oral by oral every day route in route in by oral the morning the morning route in for 30 for 30 the days. days. morning for 30 days. haloperidol haloperidol No haloperido [facility] 20 mg 20 mg l 20 mg [facility] tablet Take tablet Take tablet 1 tablet 1 tablet Take 1 every day every day tablet by oral by oral every day route at route at by oral bedtime. bedtime. route at bedtime. haloperidol haloperidol No haloperido [facility] decanoate decanoate l Medic al 100 mg/mL 100 mg/mL decanoate intramuscul intramuscul 100 mg/mL ar solution ar solution intramuscu amt 150mg: amt 150mg: lar intramuscul intramuscul solution ar once a ar once a amt 150mg: day on the day on the intramuscu of lar once a month month day on the the month loratadine loratadine No 1 Q1D loratadine [facility] 10 mg 10 mg 10 mg [facility] tablet Take tablet Take tablet 1 tablet 1 tablet Take 1 every day every day tablet by oral by oral every day route. route. by oral route. Lotion Lotion No Lotion [facility] apply body apply body apply body Medical lotion lotion lotion daily daily daily Maalox Maalox No 10mL Q1D Maalox [facility] ical 200 mg-200 200 mg-200 200 mg-200 mg-20 mg/5 mg-20 mg/5 mg-20 mg/5 mL oral mL oral mL oral suspension suspension suspension Take 10 mL Take 10 mL Take 10 mL every day every day every day by oral by oral by oral route as route as route as needed. needed. needed. olanzapine olanzapine No olanzapine [facility] 20 mg 20 mg 20 mg Medical tablet amt: tablet amt: tablet 1: orally 1: orally amt: 1: at bedtime at bedtime orally at bedtime Senna Plus Senna Plus No 2 Q1D Senna Plus [facility] 8.6 mg-50 8.6 mg-50 8.6 mg-50 Medical mg capsule mg capsule mg capsule Take 2 Take 2 Take 2 tablets tablets tablets every day every day every day by oral by oral by oral route. route. route. valproic valproic No valproic [facility] via acid (as acid (as acid (as Med ical sodium sodium sodium salt) 250 salt) 250 salt) 250 mg/5 mL mg/5 mL mg/5 mL oral oral oral solution solution solution Take 15 mL Take 15 mL Take 15 mL 3 times a 3 times a 3 times a day by oral day by oral day by route for route for oral route 30 days. 30 days. for 30 days. acetaminoph acetaminoph No 2 Q6H acetaminop [facility] en 325 mg en 325 mg hen 325 mg Medical tablet Take tablet Take tablet 2 tablets 2 tablets Take 2 every 6 every 6 tablets hours by hours by every 6 oral route oral route hours by as needed. as needed. oral route as needed. Artificial Artificial No 1drop(s Q1D Artificial [facility] ) [facility] (carboxymet (carboxymet (carboxyme hylcellulos hylcellulos thylcellul e) 1 % eye e) 1 % eye ose) 1 % drops Apply drops Apply eye drops 1 drop 1 drop Apply 1 every day every day drop every by by day by ophthalmic ophthalmic ophthalmic route. route. route. folic acid folic acid No folic acid [facility] 1 mg tablet 1 mg tablet 1 mg M edical Take 1 Take 1 tablet tablet tablet Take 1 every day every day tablet by oral by oral every day route for route for by oral 30 days. 30 days. route for 30 days. haloperidol haloperidol No haloperido [facility] 10 mg 10 mg l 10 mg [facility] tablet Take tablet Take tablet 1 tablet 1 tablet Take 1 every day every day tablet by oral by oral every day route in route in by oral the morning the morning route in for 30 for 30 the days. days. morning for 30 days. haloperidol haloperidol No haloperido [facility] 20 mg 20 mg l 20 mg [facility] tablet Take tablet Take tablet 1 tablet 1 tablet Take 1 every day every day tablet by oral by oral every day route at route at by oral bedtime. bedtime. route at bedtime. loratadine loratadine No 1 Q1D loratadine [facility] 10 mg 10 mg 10 mg [facility] tablet Take tablet Take tablet 1 tablet 1 tablet Take 1 every day every day tablet by oral by oral every day route. route. by oral route. Lotion Lotion No Lotion [facility] apply body apply body apply body Medical lotion lotion lotion daily daily daily Maalox Maalox No 10mL Q1D Maalox [facility] ical 200 mg-200 200 mg-200 200 mg-200 mg-20 mg/5 mg-20 mg/5 mg-20 mg/5 mL oral mL oral mL oral suspension suspension suspension Take 10 mL Take 10 mL Take 10 mL every day every day every day by oral by oral by oral route as route as route as needed. needed. needed. olanzapine olanzapine No olanzapine [facility] 20 mg 20 mg 20 mg [facility] tablet amt: tablet amt: tablet 1: orally 1: orally amt: 1: at bedtime at bedtime orally at bedtime Senna Plus Senna Plus No 2 Q1D Senna Plus [facility] 8.6 mg-50 8.6 mg-50 8.6 mg-50 Medical mg capsule mg capsule mg capsule Take 2 Take 2 Take 2 tablets tablets tablets every day every day every day by oral by oral by oral route. route. route. valproic valproic No valproic [facility] via acid (as acid (as acid (as Med ical sodium sodium sodium salt) 250 salt) 250 salt) 250 mg/5 mL mg/5 mL mg/5 mL oral oral oral solution solution solution Take 15 mL Take 15 mL Take 15 mL 3 times a 3 times a 3 times a day by oral day by oral day by route for route for oral route 30 days. 30 days. for 30 days. acetaminoph acetaminoph No 2 Q6H acetaminop [facility] en 325 mg en 325 mg hen 325 mg Medical tablet Take tablet Take tablet 2 tablets 2 tablets Take 2 every 6 every 6 tablets hours by hours by every 6 oral route oral route hours by as needed. as needed. oral route as needed. Artificial Artificial No 1drop(s Q1D Artificial [facility] ) [facility] (carboxymet (carboxymet (carboxyme hylcellulos hylcellulos thylcellul e) 1 % eye e) 1 % eye ose) 1 % drops Apply drops Apply eye drops 1 drop 1 drop Apply 1 every day every day drop every by by day by ophthalmic ophthalmic ophthalmic route. route. route. folic acid folic acid No folic acid [facility] 1 mg tablet 1 mg tablet 1 mg M edical Take 1 Take 1 tablet tablet tablet Take 1 every day every day tablet by oral by oral every day route for route for by oral 30 days. 30 days. route for 30 days. haloperidol haloperidol No haloperido [facility] 10 mg 10 mg l 10 mg Medical tablet Take tablet Take tablet 1 tablet 1 tablet Take 1 every day every day tablet by oral by oral every day route in route in by oral the morning the morning route in for 30 for 30 the days. days. morning for 30 days. haloperidol haloperidol No haloperido [facility] 20 mg 20 mg l 20 mg [facility] tablet Take tablet Take tablet 1 tablet 1 tablet Take 1 every day every day tablet by oral by oral every day route at route at by oral bedtime. bedtime. route at bedtime. loratadine loratadine No 1 Q1D loratadine [facility] 10 mg 10 mg 10 mg [facility] tablet Take tablet Take tablet 1 tablet 1 tablet Take 1 every day every day tablet by oral by oral every day route. route. by oral route. Lotion Lotion No Lotion [facility] apply body apply body apply body Medical lotion lotion lotion daily daily daily Maalox Maalox No 10mL Q1D Maalox [facility] ical 200 mg-200 200 mg-200 200 mg-200 mg-20 mg/5 mg-20 mg/5 mg-20 mg/5 mL oral mL oral mL oral suspension suspension suspension Take 10 mL Take 10 mL Take 10 mL every day every day every day by oral by oral by oral route as route as route as needed. needed. needed. olanzapine olanzapine No olanzapine [facility] 20 mg 20 mg 20 mg [facility] tablet amt: tablet amt: tablet 1: orally 1: orally amt: 1: at bedtime at bedtime orally at bedtime Senna Plus Senna Plus No 2 Q1D Senna Plus [facility] 8.6 mg-50 8.6 mg-50 8.6 mg-50 Medical mg capsule mg capsule mg capsule Take 2 Take 2 Take 2 tablets tablets tablets every day every day every day by oral by oral by oral route. route. route. valproic valproic No valproic [facility] via acid (as acid (as acid (as Med ical sodium sodium sodium salt) 250 salt) 250 salt) 250 mg/5 mL mg/5 mL mg/5 mL oral oral oral solution solution solution Take 15 mL Take 15 mL Take 15 mL 3 times a 3 times a 3 times a day by oral day by oral day by route for route for oral route 30 days. 30 days. for 30 days. acetaminoph acetaminoph No 2 Q6H acetaminop [facility] en 325 mg en 325 mg hen 325 mg Medical tablet Take tablet Take tablet 2 tablets 2 tablets Take 2 every 6 every 6 tablets hours by hours by every 6 oral route oral route hours by as needed. as needed. oral route as needed. Artificial Artificial No 1drop(s Q1D Artificial [facility] ) [facility] (carboxymet (carboxymet (carboxyme hylcellulos hylcellulos thylcellul e) 1 % eye e) 1 % eye ose) 1 % drops Apply drops Apply eye drops 1 drop 1 drop Apply 1 every day every day drop every by by day by ophthalmic ophthalmic ophthalmic route. route. route. folic acid folic acid No folic acid [facility] 1 mg tablet 1 mg tablet 1 mg M edical Take 1 Take 1 tablet tablet tablet Take 1 every day every day tablet by oral by oral every day route for route for by oral 30 days. 30 days. route for 30 days. haloperidol haloperidol No haloperido [facility] 10 mg 10 mg l 10 mg Medical tablet Take tablet Take tablet 1 tablet 1 tablet Take 1 every day every day tablet by oral by oral every day route in route in by oral the morning the morning route in for 30 for 30 the days. days. morning for 30 days. haloperidol haloperidol No haloperido [facility] 20 mg 20 mg l 20 mg [facility] tablet Take tablet Take tablet 1 tablet 1 tablet Take 1 every day every day tablet by oral by oral every day route at route at by oral bedtime. bedtime. route at bedtime. loratadine loratadine No 1 Q1D loratadine [facility] 10 mg 10 mg 10 mg [facility] tablet Take tablet Take tablet 1 tablet 1 tablet Take 1 every day every day tablet by oral by oral every day route. route. by oral route. Lotion Lotion No Lotion [facility] apply body apply body apply body Medical lotion lotion lotion daily daily daily Maalox Maalox No 10mL Q1D Maalox [facility] ical 200 mg-200 200 mg-200 200 mg-200 mg-20 mg/5 mg-20 mg/5 mg-20 mg/5 mL oral mL oral mL oral suspension suspension suspension Take 10 mL Take 10 mL Take 10 mL every day every day every day by oral by oral by oral route as route as route as needed. needed. needed. olanzapine olanzapine No olanzapine [facility] 20 mg 20 mg 20 mg [facility] tablet amt: tablet amt: tablet 1: orally 1: orally amt: 1: at bedtime at bedtime orally at bedtime Senna Plus Senna Plus No 2 Q1D Senna Plus [facility] 8.6 mg-50 8.6 mg-50 8.6 mg-50 Medical mg capsule mg capsule mg capsule Take 2 Take 2 Take 2 tablets tablets tablets every day every day every day by oral by oral by oral route. route. route. valproic valproic No valproic [facility] via acid (as acid (as acid (as Med ical sodium sodium sodium salt) 250 salt) 250 salt) 250 mg/5 mL mg/5 mL mg/5 mL oral oral oral solution solution solution Take 15 mL Take 15 mL Take 15 mL 3 times a 3 times a 3 times a day by oral day by oral day by route for route for oral route 30 days. 30 days. for 30 days. acetaminoph acetaminoph No 2 Q6H acetaminop [facility] en 325 mg en 325 mg hen 325 mg Medical tablet Take tablet Take tablet 2 tablets 2 tablets Take 2 every 6 every 6 tablets hours by hours by every 6 oral route oral route hours by as needed. as needed. oral route as needed. Artificial Artificial No 1drop(s Q1D Artificial [facility] T[facility] ) [facility] (carboxymet (carboxymet (carboxyme hylcellulos hylcellulos thylcellul e) 1 % eye e) 1 % eye ose) 1 % drops Apply drops Apply eye drops 1 drop 1 drop Apply 1 every day every day drop every by by day by ophthalmic ophthalmic ophthalmic route. route. route. folic acid folic acid No folic acid [facility] 1 mg tablet 1 mg tablet 1 mg M edical Take 1 Take 1 tablet tablet tablet Take 1 every day every day tablet by oral by oral every day route for route for by oral 30 days. 30 days. route for 30 days. haloperidol haloperidol No haloperido [facility] 10 mg 10 mg l 10 mg Medical tablet Take tablet Take tablet 1 tablet 1 tablet Take 1 every day every day tablet by oral by oral every day route in route in by oral the morning the morning route in for 30 for 30 the days. days. morning for 30 days. haloperidol haloperidol No haloperido [facility] 20 mg 20 mg l 20 mg [facility] tablet Take tablet Take tablet 1 tablet 1 tablet Take 1 every day every day tablet by oral by oral every day route at route at by oral bedtime. bedtime. route at bedtime. loratadine loratadine No 1 Q1D loratadine [facility] 10 mg 10 mg 10 mg [facility] tablet Take tablet Take tablet 1 tablet 1 tablet Take 1 every day every day tablet by oral by oral every day route. route. by oral route. Lotion Lotion No Lotion [facility] apply body apply body apply body Medical lotion lotion lotion daily daily daily Maalox Maalox No 10mL Q1D Maalox [facility] ical 200 mg-200 200 mg-200 200 mg-200 mg-20 mg/5 mg-20 mg/5 mg-20 mg/5 mL oral mL oral mL oral suspension suspension suspension Take 10 mL Take 10 mL Take 10 mL every day every day every day by oral by oral by oral route as route as route as needed. needed. needed. olanzapine olanzapine No olanzapine [facility] 20 mg 20 mg 20 mg [facility] tablet amt: tablet amt: tablet 1: orally 1: orally amt: 1: at bedtime at bedtime orally at bedtime Senna Plus Senna Plus No 2 Q1D Senna Plus [facility] 8.6 mg-50 8.6 mg-50 8.6 mg-50 Medical mg capsule mg capsule mg capsule Take 2 Take 2 Take 2 tablets tablets tablets every day every day every day by oral by oral by oral route. route. route. valproic valproic No valproic [facility] via acid (as acid (as acid (as Med ical sodium sodium sodium salt) 250 salt) 250 salt) 250 mg/5 mL mg/5 mL mg/5 mL oral oral oral solution solution solution Take 15 mL Take 15 mL Take 15 mL 3 times a 3 times a 3 times a day by oral day by oral day by route for route for oral route 30 days. 30 days. for 30 days. acetaminoph acetaminoph No 2 Q6H acetaminop [facility] en 325 mg en 325 mg hen 325 mg Medical tablet Take tablet Take tablet 2 tablets 2 tablets Take 2 every 6 every 6 tablets hours by hours by every 6 oral route oral route hours by as needed. as needed. oral route as needed. Artificial Artificial No 1drop(s Q1D Artificial [facility] T[facility] T[facility] ) [facility] (carboxymet (carboxymet (carboxyme hylcellulos hylcellulos thylcellul e) 1 % eye e) 1 % eye ose) 1 % drops Apply drops Apply eye drops 1 drop 1 drop Apply 1 every day every day drop every by by day by ophthalmic ophthalmic ophthalmic route. route. route. folic acid folic acid No folic acid [facility] 1 mg tablet 1 mg tablet 1 mg M edical Take 1 Take 1 tablet tablet tablet Take 1 every day every day tablet by oral by oral every day route for route for by oral 30 days. 30 days. route for 30 days. haloperidol haloperidol No haloperido [facility] 10 mg 10 mg l 10 mg Medical tablet Take tablet Take tablet 1 tablet 1 tablet Take 1 every day every day tablet by oral by oral every day route in route in by oral the morning the morning route in for 30 for 30 the days. days. morning for 30 days. haloperidol haloperidol No haloperido [facility] 20 mg 20 mg l 20 mg [facility] tablet Take tablet Take tablet 1 tablet 1 tablet Take 1 every day every day tablet by oral by oral every day route at route at by oral bedtime. bedtime. route at bedtime. loratadine loratadine No 1 Q1D loratadine [facility] 10 mg 10 mg 10 mg [facility] tablet Take tablet Take tablet 1 tablet 1 tablet Take 1 every day every day tablet by oral by oral every day route. route. by oral route. Lotion Lotion No Lotion [facility] apply body apply body apply body Medical lotion lotion lotion daily daily daily Maalox Maalox No 10mL Q1D Maalox [facility] ical 200 mg-200 200 mg-200 200 mg-200 mg-20 mg/5 mg-20 mg/5 mg-20 mg/5 mL oral mL oral mL oral suspension suspension suspension Take 10 mL Take 10 mL Take 10 mL every day every day every day by oral by oral by oral route as route as route as needed. needed. needed. olanzapine olanzapine No olanzapine [facility] 20 mg 20 mg 20 mg [facility] tablet amt: tablet amt: tablet 1: orally 1: orally amt: 1: at bedtime at bedtime orally at bedtime Senna Plus Senna Plus No 2 Q1D Senna Plus [facility] 8.6 mg-50 8.6 mg-50 8.6 mg-50 Medical mg capsule mg capsule mg capsule Take 2 Take 2 Take 2 tablets tablets tablets every day every day every day by oral by oral by oral route. route. route. valproic valproic No valproic [facility] via acid (as acid (as acid (as Med ical sodium sodium sodium salt) 250 salt) 250 salt) 250 mg/5 mL mg/5 mL mg/5 mL oral oral oral solution solution solution Take 15 mL Take 15 mL Take 15 mL 3 times a 3 times a 3 times a day by oral day by oral day by route for route for oral route 30 days. 30 days. for 30 days. acetaminoph acetaminoph No 2 Q6H acetaminop [facility] en 325 mg en 325 mg hen 325 mg Medical tablet Take tablet Take tablet 2 tablets 2 tablets Take 2 every 6 every 6 tablets hours by hours by every 6 oral route oral route hours by as needed. as needed. oral route as needed. Artificial Artificial No 1drop(s Q1D Artificial [facility] T[facility] Tears ) [facility] (carboxymet (carboxymet (carboxyme hylcellulos hylcellulos thylcellul e) 1 % eye e) 1 % eye ose) 1 % drops Apply drops Apply eye drops 1 drop 1 drop Apply 1 every day every day drop every by by day by ophthalmic ophthalmic ophthalmic route. route. route. folic acid folic acid No folic acid [facility] 1 mg tablet 1 mg tablet 1 mg M edical Take 1 Take 1 tablet tablet tablet Take 1 every day every day tablet by oral by oral every day route for route for by oral 30 days. 30 days. route for 30 days. haloperidol haloperidol No haloperido [facility] 10 mg 10 mg l 10 mg [facility] tablet Take tablet Take tablet 1 tablet 1 tablet Take 1 every day every day tablet by oral by oral every day route in route in by oral the morning the morning route in for 30 for 30 the days. days. morning for 30 days. haloperidol haloperidol No haloperido [facility] 20 mg 20 mg l 20 mg [facility] tablet Take tablet Take tablet 1 tablet 1 tablet Take 1 every day every day tablet by oral by oral every day route at route at by oral bedtime. bedtime. route at bedtime. loratadine loratadine No 1 Q1D loratadine [facility] 10 mg 10 mg 10 mg [facility] tablet Take tablet Take tablet 1 tablet 1 tablet Take 1 every day every day tablet by oral by oral every day route. route. by oral route. Lotion Lotion No Lotion [facility] apply body apply body apply body Medical lotion lotion lotion daily daily daily Maalox Maalox No 10mL Q1D Maalox [facility] ical 200 mg-200 200 mg-200 200 mg-200 mg-20 mg/5 mg-20 mg/5 mg-20 mg/5 mL oral mL oral mL oral suspension suspension suspension Take 10 mL Take 10 mL Take 10 mL every day every day every day by oral by oral by oral route as route as route as needed. needed. needed. olanzapine olanzapine No olanzapine [facility] 20 mg 20 mg 20 mg [facility] tablet amt: tablet amt: tablet 1: orally 1: orally amt: 1: at bedtime at bedtime orally at bedtime Senna Plus Senna Plus No 2 Q1D Senna Plus [facility] 8.6 mg-50 8.6 mg-50 8.6 mg-50 Medical mg capsule mg capsule mg capsule Take 2 Take 2 Take 2 tablets tablets tablets every day every day every day by oral by oral by oral route. route. route. valproic valproic No valproic [facility] via acid (as acid (as acid (as Med ical sodium sodium sodium salt) 250 salt) 250 salt) 250 mg/5 mL mg/5 mL mg/5 mL oral oral oral solution solution solution Take 15 mL Take 15 mL Take 15 mL 3 times a 3 times a 3 times a day by oral day by oral day by route for route for oral route 30 days. 30 days. for 30 days. acetaminoph acetaminoph No 2 Q6H acetaminop [facility] en 325 mg en 325 mg hen 325 mg [facility] tablet Take tablet Take tablet 2 tablets 2 tablets Take 2 every 6 every 6 tablets hours by hours by every 6 oral route oral route hours by as needed. as needed. oral route as needed. Artificial Artificial No 1drop(s Q1D Artificial [facility] Tears Tears ) [facility] (carboxymet (carboxymet (carboxyme hylcellulos hylcellulos thylcellul e) 1 % eye e) 1 % eye ose) 1 % drops Apply drops Apply eye drops 1 drop 1 drop Apply 1 every day every day drop every by by day by ophthalmic ophthalmic ophthalmic route. route. route. folic acid folic acid No folic acid [facility] 1 mg tablet 1 mg tablet 1 mg M edical Take 1 Take 1 tablet tablet tablet Take 1 every day every day tablet by oral by oral every day route for route for by oral 30 days. 30 days. route for 30 days. haloperidol haloperidol No haloperido [facility] 10 mg 10 mg l 10 mg [facility] tablet Take tablet Take tablet 1 tablet 1 tablet Take 1 every day every day tablet by oral by oral every day route in route in by oral the morning the morning route in for 30 for 30 the days. days. morning for 30 days. haloperidol haloperidol No haloperido [facility] 20 mg 20 mg l 20 mg [facility] tablet Take tablet Take tablet 1 tablet 1 tablet Take 1 every day every day tablet by oral by oral every day route at route at by oral bedtime. bedtime. route at bedtime. loratadine loratadine No 1 Q1D loratadine [facility] mg 10 mg 10 mg [facility] tablet Take tablet Take tablet 1 tablet 1 tablet Take 1 every day every day tablet by oral by oral every day route. route. by oral route. Lotion Lotion No Lotion [facility] apply body apply body apply body Medical lotion lotion lotion daily daily daily Maalox Maalox No 10mL Q1D Maalox [facility] ical 200 mg-200 200 mg-200 200 mg-200 mg-20 mg/5 mg-20 mg/5 mg-20 mg/5 mL oral mL oral mL oral suspension suspension suspension Take 10 mL Take 10 mL Take 10 mL every day every day every day by oral by oral by oral route as route as route as needed. needed. needed. olanzapine olanzapine No olanzapine [facility] 20 mg 20 mg 20 mg [facility] tablet amt: tablet amt: tablet 1: orally 1: orally amt: 1: at bedtime at bedtime orally at bedtime Senna Plus Senna Plus No 2 Q1D Senna Plus [facility] 8.6 mg-50 8.6 mg-50 8.6 mg-50 Medical mg capsule mg capsule mg capsule Take 2 Take 2 Take 2 tablets tablets tablets every day every day every day by oral by oral by oral route. route. route. valproic valproic No valproic [facility] via acid (as acid (as acid (as Med ical sodium sodium sodium salt) 250 salt) 250 salt) 250 mg/5 mL mg/5 mL mg/5 mL oral oral oral solution solution solution Take 15 mL Take 15 mL Take 15 mL 3 times a 3 times a 3 times a day by oral day by oral day by route for route for oral route 30 days. 30 days. for 30 days. acetaminoph acetaminoph No 2 Q6H acetaminop [facility] en 325 mg en 325 mg hen 325 mg [facility] tablet Take tablet Take tablet 2 tablets 2 tablets Take 2 every 6 every 6 tablets hours by hours by every 6 oral route oral route hours by as needed. as needed. oral route as needed. Artificial Artificial No 1drop(s Q1D Artificial [facility] Tears Tears ) [facility] (carboxymet (carboxymet (carboxyme hylcellulos hylcellulos thylcellul e) 1 % eye e) 1 % eye ose) 1 % drops Apply drops Apply eye drops 1 drop 1 drop Apply 1 every day every day drop every by by day by ophthalmic ophthalmic ophthalmic route. route. route. folic acid folic acid No folic acid [facility] 1 mg tablet 1 mg tablet 1 mg M edical Take 1 Take 1 tablet tablet tablet Take 1 every day every day tablet by oral by oral every day route for route for by oral 30 days. 30 days. route for 30 days. haloperidol haloperidol No haloperido [facility] 10 mg 10 mg l 10 mg [facility] tablet Take tablet Take tablet 1 tablet 1 tablet Take 1 every day every day tablet by oral by oral every day route in route in by oral the morning the morning route in for 30 for 30 the days. days. morning for 30 days. haloperidol haloperidol No haloperido [facility] 20 mg 20 mg l 20 mg [facility] tablet Take tablet Take tablet 1 tablet 1 tablet Take 1 every day every day tablet by oral by oral every day route at route at by oral bedtime. bedtime. route at bedtime. loratadine loratadine No 1 Q1D loratadine [facility] 10 mg 10 mg 10 mg [facility] tablet Take tablet Take tablet 1 tablet 1 tablet Take 1 every day every day tablet by oral by oral every day route. route. by oral route. Lotion Lotion No Lotion [facility] apply body apply body apply body Medical lotion lotion lotion daily daily daily Maalox Maalox No 10mL Q1D Maalox [facility] ical 200 mg-200 200 mg-200 200 mg-200 mg-20 mg/5 mg-20 mg/5 mg-20 mg/5 mL oral mL oral mL oral suspension suspension suspension Take 10 mL Take 10 mL Take 10 mL every day every day every day by oral by oral by oral route as route as route as needed. needed. needed. olanzapine olanzapine No olanzapine [facility] 20 mg 20 mg 20 mg [facility] tablet amt: tablet amt: tablet 1: orally 1: orally amt: 1: at bedtime at bedtime orally at bedtime Senna Plus Senna Plus No 2 Q1D Senna Plus [facility] 8.6 mg-50 8.6 mg-50 8.6 mg-50 Medical mg capsule mg capsule mg capsule Take 2 Take 2 Take 2 tablets tablets tablets every day every day every day by oral by oral by oral route. route. route. valproic valproic No valproic [facility] via acid (as acid (as acid (as Med ical sodium sodium sodium salt) 250 salt) 250 salt) 250 mg/5 mL mg/5 mL mg/5 mL oral oral oral solution solution solution Take 15 mL Take 15 mL Take 15 mL 3 times a 3 times a 3 times a day by oral day by oral day by route for route for oral route 30 days. 30 days. for 30 days. acetaminoph acetaminoph No 2 Q6H acetaminop [facility] en 325 mg en 325 mg hen 325 mg [facility] tablet Take tablet Take tablet 2 tablets 2 tablets Take 2 every 6 every 6 tablets hours by hours by every 6 oral route oral route hours by as needed. as needed. oral route as needed. Artificial Artificial No 1drop(s Q1D Artificial [facility] Tears Tears ) [facility] (carboxymet (carboxymet (carboxyme hylcellulos hylcellulos thylcellul e) 1 % eye e) 1 % eye ose) 1 % drops Apply drops Apply eye drops 1 drop 1 drop Apply 1 every day every day drop every by by day by ophthalmic ophthalmic ophthalmic route. route. route. folic acid folic acid No folic acid [facility] 1 mg tablet 1 mg tablet 1 mg M edical Take 1 Take 1 tablet tablet tablet Take 1 every day every day tablet by oral by oral every day route for route for by oral 30 days. 30 days. route for 30 days. haloperidol haloperidol No haloperido [facility] 10 mg 10 mg l 10 mg [facility] tablet Take tablet Take tablet 1 tablet 1 tablet Take 1 every day every day tablet by oral by oral every day route in route in by oral the morning the morning route in for 30 for 30 the days. days. morning for 30 days. haloperidol haloperidol No haloperido [facility] 20 mg 20 mg l 20 mg [facility] tablet Take tablet Take tablet 1 tablet 1 tablet Take 1 every day every day tablet by oral by oral every day route at route at by oral bedtime. bedtime. route at bedtime. loratadine loratadine No 1 Q1D loratadine [facility] 10 mg 10 mg 10 mg [facility] tablet Take tablet Take tablet 1 tablet 1 tablet Take 1 every day every day tablet by oral by oral every day route. route. by oral route. Lotion Lotion No Lotion [facility] apply body apply body apply body Medical lotion lotion lotion daily daily daily Maalox Maalox No 10mL Q1D Maalox [facility] ical 200 mg-200 200 mg-200 200 mg-200 mg-20 mg/5 mg-20 mg/5 mg-20 mg/5 mL oral mL oral mL oral suspension suspension suspension Take 10 mL Take 10 mL Take 10 mL every day every day every day by oral by oral by oral route as route as route as needed. needed. needed. olanzapine olanzapine No olanzapine [facility] 20 mg 20 mg 20 mg [facility] tablet amt: tablet amt: tablet 1: orally 1: orally amt: 1: at bedtime at bedtime orally at bedtime Senna Plus Senna Plus No 2 Q1D Senna Plus [facility] 8.6 mg-50 8.6 mg-50 8.6 mg-50 Medical mg capsule mg capsule mg capsule Take 2 Take 2 Take 2 tablets tablets tablets every day every day every day by oral by oral by oral route. route. route. valproic valproic No valproic [facility] via acid (as acid (as acid (as Med ical sodium sodium sodium salt) 250 salt) 250 salt) 250 mg/5 mL mg/5 mL mg/5 mL oral oral oral solution solution solution Take 15 mL Take 15 mL Take 15 mL 3 times a 3 times a 3 times a day by oral day by oral day by route for route for oral route 30 days. 30 days. for 30 days. acetaminoph acetaminoph No 2 Q6H acetaminop [facility] en 325 mg en 325 mg hen 325 mg [facility] tablet Take tablet Take tablet 2 tablets 2 tablets Take 2 every 6 every 6 tablets hours by hours by every 6 oral route oral route hours by as needed. as needed. oral route as needed. Artificial Artificial No 1drop(s Q1D Artificial [facility] Tears Tears ) [facility] (carboxymet (carboxymet (carboxyme hylcellulos hylcellulos thylcellul e) 1 % eye e) 1 % eye ose) 1 % drops Apply drops Apply eye drops 1 drop 1 drop Apply 1 every day every day drop every by by day by ophthalmic ophthalmic ophthalmic route. route. route. folic acid folic acid No folic acid [facility] 1 mg tablet 1 mg tablet 1 mg M edical Take 1 Take 1 tablet tablet tablet Take 1 every day every day tablet by oral by oral every day route for route for by oral 30 days. 30 days. route for 30 days. haloperidol haloperidol No haloperido [facility] 10 mg 10 mg l 10 mg [facility] tablet Take tablet Take tablet 1 tablet 1 tablet Take 1 every day every day tablet by oral by oral every day route in route in by oral the morning the morning route in for 30 for 30 the days. days. morning for 30 days. haloperidol haloperidol No haloperido [facility] 20 mg 20 mg l 20 mg [facility] tablet Take tablet Take tablet 1 tablet 1 tablet Take 1 every day every day tablet by oral by oral every day route at route at by oral bedtime. bedtime. route at bedtime. loratadine loratadine No 1 Q1D loratadine [facility] 10 mg 10 mg 10 mg [facility] tablet Take tablet Take tablet 1 tablet 1 tablet Take 1 every day every day tablet by oral by oral every day route. route. by oral route. Lotion Lotion No Lotion [facility] apply body apply body apply body Medical lotion lotion lotion daily daily daily Maalox Maalox No 10mL Q1D Maalox [facility] ical 200 mg-200 200 mg-200 200 mg-200 mg-20 mg/5 mg-20 mg/5 mg-20 mg/5 mL oral mL oral mL oral suspension suspension suspension Take 10 mL Take 10 mL Take 10 mL every day every day every day by oral by oral by oral route as route as route as needed. needed. needed. olanzapine olanzapine No olanzapine [facility] 20 mg 20 mg 20 mg [facility] tablet amt: tablet amt: tablet 1: orally 1: orally amt: 1: at bedtime at bedtime orally at bedtime Senna Plus Senna Plus No 2 Q1D Senna Plus [facility] 8.6 mg-50 8.6 mg-50 8.6 mg-50 Medical mg capsule mg capsule mg capsule Take 2 Take 2 Take 2 tablets tablets tablets every day every day every day by oral by oral by oral route. route. route. valproic valproic No valproic [facility] via acid (as acid (as acid (as Med ical sodium sodium sodium salt) 250 salt) 250 salt) 250 mg/5 mL mg/5 mL mg/5 mL oral oral oral solution solution solution Take 15 mL Take 15 mL Take 15 mL 3 times a 3 times a 3 times a day by oral day by oral day by route for route for oral route 30 days. 30 days. for 30 days. acetaminoph acetaminoph No 2 Q6H acetaminop [facility] en 325 mg en 325 mg hen 325 mg Medical tablet Take tablet Take tablet 2 tablets 2 tablets Take 2 every 6 every 6 tablets hours by hours by every 6 oral route oral route hours by as needed. as needed. oral route as needed. Artificial Artificial No 1drop(s Q1D Artificial [facility] Tears Tears ) [facility] (carboxymet (carboxymet (carboxyme hylcellulos hylcellulos thylcellul e) 1 % eye e) 1 % eye ose) 1 % drops Apply drops Apply eye drops 1 drop 1 drop Apply 1 every day every day drop every by by day by ophthalmic ophthalmic ophthalmic route. route. route. folic acid folic acid No folic acid [facility] 1 mg tablet 1 mg tablet 1 mg M edical Take 1 Take 1 tablet tablet tablet Take 1 every day every day tablet by oral by oral every day route for route for by oral 30 days. 30 days. route for 30 days. haloperidol haloperidol No haloperido [facility] 10 mg 10 mg l 10 mg [facility] tablet Take tablet Take tablet 1 tablet 1 tablet Take 1 every day every day tablet by oral by oral every day route in route in by oral the morning the morning route in for 30 for 30 the days. days. morning for 30 days. haloperidol haloperidol No haloperido [facility] 20 mg 20 mg l 20 mg [facility] tablet Take tablet Take tablet 1 tablet 1 tablet Take 1 every day every day tablet by oral by oral every day route at route at by oral bedtime. bedtime. route at bedtime. loratadine loratadine No 1 Q1D loratadine [facility] 10 mg 10 mg 10 mg [facility] tablet Take tablet Take tablet 1 tablet 1 tablet Take 1 every day every day tablet by oral by oral every day route. route. by oral route. Lotion Lotion No Lotion [facility] apply body apply body apply body Medical lotion lotion lotion daily daily daily Maalox Maalox No 10mL Q1D Maalox [facility] ical 200 mg-200 200 mg-200 200 mg-200 mg-20 mg/5 mg-20 mg/5 mg-20 mg/5 mL oral mL oral mL oral suspension suspension suspension Take 10 mL Take 10 mL Take 10 mL every day every day every day by oral by oral by oral route as route as route as needed. needed. needed. olanzapine olanzapine No olanzapine [facility] 20 mg 20 mg 20 mg [facility] tablet amt: tablet amt: tablet 1: orally 1: orally amt: 1: at bedtime at bedtime orally at bedtime Senna Plus Senna Plus No 2 Q1D Senna Plus [facility] 8.6 mg-50 8.6 mg-50 8.6 mg-50 Medical mg capsule mg capsule mg capsule Take 2 Take 2 Take 2 tablets tablets tablets every day every day every day by oral by oral by oral route. route. route. valproic valproic No valproic [facility] via acid (as acid (as acid (as Med ical sodium sodium sodium salt) 250 salt) 250 salt) 250 mg/5 mL mg/5 mL mg/5 mL oral oral oral solution solution solution Take 15 mL Take 15 mL Take 15 mL 3 times a 3 times a 3 times a day by oral day by oral day by route for route for oral route 30 days. 30 days. for 30 days. Immunizations Ordered Immunization Filled Immunization Date Status Commen ts Source Name Name influenza, influenza, 2021-07-24 Completed [facility] injectable, injectable, 00:00:00 quadrivalent quadrivalent influenza, influenza, 2021-07-24 [facility], 00:00:00 quadrivalent quadrivalent influenza, influenza, 2021-07-24 [facility], inject[facility], 00:00:00 quadrivalent quadrivalent influenza, influenza, 2021-07-24 Completed [facility] injectable, injectable, 00:00:00 quadrivalent quadrivalent influenza, influenza, 2021-07-24 Completed [facility] injectable, injectable, 00:00:00 quadrivalent quadrivalent influenza, influenza, 2021-07-24 Completed [facility] injectable, injectable, 00:00:00 quadrivalent quadrivalent influenza, influenza, 2021-07-24 Completed [facility] injectable, injectable, 00:00:00 quadrivalent quadrivalent influenza, influenza, 2021-07-24 Completed [facility] injectable, injectable, 00:00:00 quadrivalent quadrivalent influenza, influenza, 2021-07-24 Completed [facility] injectable, injectable, 00:00:00 quadrivalent quadrivalent influenza, influenza, 2021-07-24 Completed [facility] injectable, injectable, 00:00:00 quadrivalent quadrivalent influenza, influenza, 2021-07-24 Completed [facility] injectable, injectable, 00:00:00 quadrivalent quadrivalent influenza, influenza, 2021-07-24 Completed [facility] injectable, injectable, 00:00:00 quadrivalent quadrivalent influenza, influenza, 2021-07-24 Completed [facility] injectable, injectable, 00:00:00 quadrivalent quadrivalent influenza, influenza, 2021-07-24 Completed [facility] injectable, injectable, 00:00:00 quadrivalent quadrivalent influenza, influenza, 2021-07-24 Completed [facility] injectable, injectable, 00:00:00 quadrivalent quadrivalent influenza, influenza, 2021-07-24 Completed [facility] injectable, injectable, 00:00:00 quadrivalent quadrivalent influenza, influenza, 2021-07-24 Completed [facility] injectable, injectable, 00:00:00 quadrivalent quadrivalent influenza, influenza, 2021-07-24 Completed [facility] injectable, injectable, 00:00:00 quadrivalent quadrivalent influenza, influenza, 2021-07-24 Completed [facility] injectable, injectable, 00:00:00 quadrivalent quadrivalent Vital Signs Vital Name Observation Time Observation Value Comments Source BP Diastolic 2022-12-08 00:00:00 74 mm[Hg] [facility] Height 2022-12-08 00:00:00 72 [in_i] [facility] BMI (Body Mass Index) 2022-12-08 00:00:00 32.4 kg/m2 [facility] BP Systolic 2022-12-08 00:00:00 128 mm[Hg] [facility] Weight 2022-12-08 00:00:00 3826 [oz_av] [facility] BP Diastolic 2022-11-18 00:00:00 71 mm[Hg] [facility] Height 2022-11-18 00:00:00 72 [in_i] [facility] BMI (Body Mass Index) 2022-11-18 00:00:00 32.6 kg/m2 [facility] BP Systolic 2022-11-18 00:00:00 134 mm[Hg] [facility] Weight 2022-11-18 00:00:00 3842 [oz_av] [facility] BP Diastolic 2022-09-29 00:00:00 68 mm[Hg] [facility] Height 2022-09-29 00:00:00 72 [in_i] [facility] BMI (Body Mass Index) 2022-09-29 00:00:00 32.4 kg/m2 [facility] BP Systolic 2022-09-29 00:00:00 109 mm[Hg] [facility] Weight 2022-09-29 00:00:00 3828 [oz_av] [facility] BP Diastolic 2022-09-01 00:00:00 72 mm[Hg] [facility] Height 2022-09-01 00:00:00 72 [in_i] [facility] BMI (Body Mass Index) 2022-09-01 00:00:00 31.5 kg/m2 [facility] BP Systolic 2022-09-01 00:00:00 145 mm[Hg] [facility] Weight 2022-09-01 00:00:00 3712 [oz_av] [facility] BP Diastolic 2022-08-25 00:00:00 70 mm[Hg] [facility] Height 2022-08-25 00:00:00 72 [in_i] [facility] BMI (Body Mass Index) 2022-08-25 00:00:00 31.5 kg/m2 [facility] BP Systolic 2022-08-25 00:00:00 110 mm[Hg] [facility] Weight 2022-08-25 00:00:00 3712 [oz_av] [facility] BP Diastolic 2022-08-11 00:00:00 73 mm[Hg] [facility] Height 2022-08-11 00:00:00 72 [in_i] [facility] BMI (Body Mass Index) 2022-08-11 00:00:00 30.7 kg/m2 [facility] BP Systolic 2022-08-11 00:00:00 124 mm[Hg] [facility] Weight 2022-08-11 00:00:00 3620 [oz_av] [facility] BP Diastolic 2022-07-03 00:00:00 70 mm[Hg] [facility] Height 2022-07-03 00:00:00 72 [in_i] [facility] BMI (Body Mass Index) 2022-07-03 00:00:00 30.7 kg/m2 [facility] BP Systolic 2022-07-03 00:00:00 128 mm[Hg] [facility] Weight 2022-07-03 00:00:00 3620 [oz_av] [facility] BP Diastolic 2022-05-19 00:00:00 67 mm[Hg] [facility] Height 2022-05-19 00:00:00 72 [in_i] [facility] BMI (Body Mass Index) 2022-05-19 00:00:00 29.8 kg/m2 [facility] BP Systolic 2022-05-19 00:00:00 110 mm[Hg] [facility] Weight 2022-05-19 00:00:00 3520 [oz_av] [facility] BP Diastolic 2022-04-30 00:00:00 72 mm[Hg] [facility] Height 2022-04-30 00:00:00 72 [in_i] [facility] BMI (Body Mass Index) 2022-04-30 00:00:00 25.6 kg/m2 [facility] BP Systolic 2022-04-30 00:00:00 132 mm[Hg] [facility] Weight 2022-04-30 00:00:00 3025 [oz_av] [facility] BP Diastolic 2022-04-07 00:00:00 69 mm[Hg] [facility] Height 2022-04-07 00:00:00 72 [in_i] [facility] BMI (Body Mass Index) 2022-04-07 00:00:00 25.6 kg/m2 [facility] BP Systolic 2022-04-07 00:00:00 127 mm[Hg] [facility] Weight 2022-04-07 00:00:00 3025 [oz_av] [facility] BP Diastolic 2022-03-13 00:00:00 62 mm[Hg] [facility] Height 2022-03-13 00:00:00 72 [in_i] [facility] BMI (Body Mass Index) 2022-03-13 00:00:00 25.6 kg/m2 [facility] BP Systolic 2022-03-13 00:00:00 134 mm[Hg] [facility] Weight 2022-03-13 00:00:00 3025 [oz_av] [facility] BP Diastolic 2022-02-19 00:00:00 86 mm[Hg] [facility] Height 2022-02-19 00:00:00 72 [in_i] [facility] BMI (Body Mass Index) 2022-02-19 00:00:00 25.6 kg/m2 [facility] BP Systolic 2022-02-19 00:00:00 128 mm[Hg] [facility] Weight 2022-02-19 00:00:00 3025 [oz_av] [facility] BP Diastolic 2022-02-03 00:00:00 72 mm[Hg] [facility] Height 2022-02-03 00:00:00 72 [in_i] [facility] BMI (Body Mass Index) 2022-02-03 00:00:00 25.6 kg/m2 [facility] BP Systolic 2022-02-03 00:00:00 129 mm[Hg] [facility] Weight 2022-02-03 00:00:00 3025 [oz_av] [facility] BP Diastolic 2022-01-06 00:00:00 62 mm[Hg] [facility] Height 2022-01-06 00:00:00 72 [in_i] [facility] BMI (Body Mass Index) 2022-01-06 00:00:00 25.5 kg/m2 [facility] BP Systolic 2022-01-06 00:00:00 130 mm[Hg] [facility] Weight 2022-01-06 00:00:00 3008 [oz_av] [facility] BP Diastolic 2021-12-24 00:00:00 74 mm[Hg] [facility] Height 2021-12-24 00:00:00 72 [in_i] [facility] BMI (Body Mass Index) 2021-12-24 00:00:00 25.2 kg/m2 [facility] BP Systolic 2021-12-24 00:00:00 132 mm[Hg] [facility] Weight 2021-12-24 00:00:00 2976 [oz_av] [facility] BP Diastolic 2021-12-12 00:00:00 69 mm[Hg] [facility] Height 2021-12-12 00:00:00 72 [in_i] [facility] BMI (Body Mass Index) 2021-12-12 00:00:00 25.2 kg/m2 [facility] BP Systolic 2021-12-12 00:00:00 124 mm[Hg] [facility] Weight 2021-12-12 00:00:00 2976 [oz_av] [facility] BP Diastolic 2021-12-04 00:00:00 69 mm[Hg] [facility] Height 2021-12-04 00:00:00 72 [in_i] [facility] BMI (Body Mass Index) 2021-12-04 00:00:00 25.2 kg/m2 [facility] BP Systolic 2021-12-04 00:00:00 124 mm[Hg] [facility] Weight 2021-12-04 00:00:00 2976 [oz_av] [facility] Height 2020-12-03 16:44:00 185.42 CM Weight 2020-12-03 16:44:00 103.19 KG Weight 2020-12-02 07:00:00 103.19 KG Weight 2020-11-25 07:00:00 110.94 KG Weight 2020-11-18 07:00:00 105.77 KG Height 2020-11-13 15:17:00 198.12 CM Weight 2020-11-13 15:17:00 107.22 KG Height 2020-11-13 08:26:00 195.58 CM Weight 2020-11-13 08:26:00 115.21 KG Weight 2019-09-11 07:00:00 110.22 KG Weight 2019-09-04 07:00:00 125.64 KG Weight 2019-08-28 10:09:00 122.1 KG Height 2019-08-22 12:30:00 185.42 CM Weight 2019-08-22 12:30:00 113.39 KG Procedures Procedure Date / Time Performing Clinician Source Performed INSRT INFUS DEVC SUP VENA 2020-12-03 00:00:00 [facility] CAVA PERQ Center ULTRASONOGRAPHY SUP VENA 2020-12-03 00:00:00 [facility] Plan of Care Planned Activity Planned Date Details Comments Source Future Scheduled Test 2023-05-23 00:00:00 IMM Influenza [facility] Seasonal (>/= 19 yrs) [code = IMM Influenza Seasonal (>/= 19 yrs)] Future Scheduled Test 2015 00:00:00 Screening for [facility] malignant neoplasm of colon (procedure) [code = 427173892] Future Scheduled Test 1965 00:00:00 COVID-19 Vaccine [facility] (#1) [code = COVID-19 Vaccine (#1)] Future Appointment 2022-12-29 00:00:00 Audelia Figueroa [address] [place] [id number] Instructions [facility] Medical Encounters Start End Encounter Admission Attending Care Care Encounter Source Date/Time Date/Time Type Type Clinicians Facility Department ID 2022-12-08 2022-12-08 Audelia TALAVERA [facility] [id number] [facility] 00:00:00 00:00:00 JOSE L Figueroa: Health - Med ica [address] [address] , Ph. 2022-11-192022-11-19 Outpatient [facility] PRIV PRIV [id number] [facility] 00:00:00 00:00:00 d_J [id number] Medica l 2022-11-19 2022-11-19 Outpatient [facility] PRIV PRIV 239 [id number] [facility] 00:00:00 00:00:00 d_J [id number] Medica l 2022-11-18 2022-11-18 Aud[facility] 329 [facility] 00:00:00 00:00:00 JOSE L Figueroa: Health - Med ical [address] [address] , Ph. 2022-11-17 2022-11-17 Outpatient [facility]od PRIV PRIV 239 [id number] [facility] 00:00:00 00:00:00 d_J [id number] Medica l 2022-11-02 2022-11-02 Outpatient [facility] PRIV PRIV 239 [id number] [facility] 00:00:00 00:00:00 d_J [id number] Medica l 2022-09-29 2022-09-29 Audelia [facility] 207 [facility] 00:00:00 00:00:00 JOSE L Figueroa: Health - Med ical [address] [address] , Ph. 2022-09-11 2022-09-11 Outpatient [facility]od PRIV PRIV 239 [id number] [facility] 00:00:00 00:00:00 d_J [id number] Medica l 2022-09-11 2022-09-11 Outpatient [facility]Tod PRIV PRIV 239 [id number] [facility] 00:00:00 00:00:00 d_J [id number] Medica l 2022-09-11 2022-09-11 Outpatient [facility]Tod PRIV PRIV 239 [id number] [facility] 00:00:00 00:00:00 d_J [id number] Medica l 2022-09-112022-09-11 Outpatient [facility]od PRIV PRIV 239 [id number] [facility] 00:00:00 00:00:00 d_J [id number] Medica l 2022-09-01 2022-09-01 Outpatient [facility] PRIV PRIV 239 [id number] [facility] 00:00:00 00:00:00 d_J [id number] Medica l 2022-09-01 2022-09-01 Outpatient [facility] PRIV PRIV 239 [id number] [facility] 00:00:00 00:00:00 d_J [id number] Medica l 2022-09-01 2022-09-01 Neymar Jessica [facility] [id number] [facility] 00:00:00 00:00:00 [facility] - Med ical MD: [address] [address] , Ph. 2022-08-25 2022-08-[facility] [id number] [facility] 00:00:00 00:00:00 JOSE L Figueroa: Health - Med ical [address] [address] , Ph. 2022-08-11 2022-08-11 Audelia [facility] [id number] [facility] 00:00:00 00:00:00 JOSE L Figueroa: Health - Med ical [address] [address] , Ph. 2022-07-14 2022-07-14 Outpatient [facility]Tod PRIV PRIV [id number] [facility] 00:00:00 00:00:00 d_J [id number] Medica l 2022-07-14 2022-07-14 Outpatient [facility] PRIV PRIV 239 [id number] [facility] 00:00:00 00:00:00 d_J [id number] Medica l 2022-07-14 2022-07-14 Outpatient [facility] PRIV PRIV 239 [id number] [facility] 00:00:00 00:00:00 d_J [id number] Medica l 2022-07-03 2022-07-03 Audelia [facility] [id number] [facility] 00:00:00 00:00:00 JOSE L Figueroa: Health - Med ical [address] [address] , Ph. 2022-06-01 2022-06-01 Outpatient [facility]od PRIV PRIV 239 [id number] [facility] 00:00:00 00:00:00 d_J [id number] Medica l 2022-05-19 2022-05-19 Audelia [facility] [id number] [facility] 00:00:00 00:00:00 JOSE L Figueroa: Health - Med ical [address] [address] , Ph. 2022-05-05 2022-05-05 Outpatient [facility]Tod PRIV PRIV 239 [id number] [facility] 00:00:00 00:00:00 d_J [id number] Medica l 2022-04-30 2022-04-30 Outpatient Larry, [facility] PRIV [id number] 00:00:00 00:00:00 Neymar Jessica [id number] 2022-04-30 2022-04-30 [facility] 202 [facility] 00:00:00 00:00:00 [facility] - Med ical MD: [address] [address] , Ph. 2022-04-16 2022-04-16 [facility] 202 [facility] 00:00:00 00:00:00 [facility] - Med ical MD: [address] [address] , Ph. 2022-04-07 2022-04-07 Audelia [facility] [id number] [facility] 00:00:00 00:00:00 JOSE L Figueroa: Health - Med ical [address] [address] , Ph. 2022-04-07 2022-04-07 Outpatient Henry, PRIV PRIV [id number] 00:00:00 00:00:00 Audelia [id number] 2022-04-03 2022-04-03 Outpatient [facility]Tod PRIV PRIV 239 [id number] [facility] 00:00:00 00:00:00 d_J [id number] Medica l 2022-03-22 2022-03-22 Outpatient [facility] PRIV PRIV 239 [id number] [facility] 00:00:00 00:00:00 d_J [id number] Medica l 2022-03-13 2022-03-13 Outpatient [facility] PRIV PRIV 239 [id number] [facility] 12:41:00 12:41:00 d_J [id number] Medica l 2022-03-13 2022-03-13 Aud[facility] [id number] [facility] 00:00:00 00:00:00 JOSE L Figueroa: Health - Med ical [address] [address] , Ph. 2022-03-13 2022-03-13 Outpatient Henry, PRIV PRIV [id number] 00:00:00 00:00:00 Audelia [id number] 2022-02-27 2022-02-27 Outpatient [facility]Tod PRIV PRIV 239 [id number] [facility] 11:49:00 11:49:00 d_J [id number] Medica l 2022-02-23 2022-02-23 Outpatient [facility]Tod PRIV PRIV 239 [id number] [facility] 10:56:00 10:56:00 d_J [id number] Medica l 2022-02-19 2022-02-19 Outpatient [facility] PRIV PRIV 239 [id number] [facility] 09:21:00 09:21:00 d_J [id number] Medica l 2022-02-19 2022-02-19 Neymar Jessica [facility] 30 [facility] 00:00:00 00:00:00 Larry [facility] - Med ical MD: [address] [address] , Ph. 2022-02-19 2022-02-19 Outpatient Larry, [facility] PRIV [id number] 00:00:00 00:00:00 Neymar Jessica [id number] 2022-02-12 2022-02-12 Outpatient [facility]Tod PRIV PRIV 239 [id number] [facility] 05:48:00 05:48:00 d_J [id number] Medica l 2022-02-03 2022-02-03 Outpatient [facility] PRIV PRIV 239 [id number] [facility] 03:49:00 03:49:00 d_J [id number] Medica l 2022-02-03 2022-02-03 [facility] [id number] [facility] 00:00:00 00:00:00 JOSE L Figueroa: Health - Med ical [address] [address] , Ph. 2022-02-03 2022-02-03 Outpatient Henry [facility] [id number] 00:00:00 00:00:00 Audelia [id number] 2022-01-15 2022-01-15 Outpatient [facility]Tod PRIV PRIV 239 [id number] [facility] 01:43:00 01:43:00 d_J [id number] Medica l 2022-01-06 2022-01-06 Outpatient [facility]Tod PRIV PRIV 239 [id number] [facility] 05:07:00 05:07:00 d_J [id number] Medica l 2022-01-06 2022-01-06 Aud[facility] [id number] [facility] 00:00:00 00:00:00 JOSE L Figueroa: Health - Med ical [address] [address] , Ph. 2022-01-06 2022-01-06 Outpatient Henry, PRIV PRIV [id number] 00:00:00 00:00:00 Audelia [id number] 2021-12-29 2021-12-29 Outpatient [facility]Tod PRIV PRIV 239 [id number] [facility] 09:41:00 09:41:00 d_J [id number] Medica l 2021-12-27 2021-12-27 Outpatient [facility]Tod PRIV PRIV 239 [id number] [facility] 10:45:00 10:45:00 d_J [id number] Medica l 2021-12-24 2021-12-24 Outpatient [facility]Tod PRIV PRIV 239 [id number] [facility] 06:49:00 06:49:00 d_J [id number] Medica l 2021-12-24 2021-12-24 Neymar Jessica [facility] 04 [facility] 00:00:00 00:00:00 Larry [facility] Med ical MD: [address] [address] , Ph. 2021-12-24 2021-12-24 Outpatient Larry, PRIV PRIV [id number] 00:00:00 00:00:00 Neymar Jessica [id number] 2021-12-23 Outpatient [facility]Tod PRIV PRIV 239 [id number] [facility] 07:25:00 07:25:00 d_J [id number] Medica l 2021-12-21 2021-12-21 Outpatient [facility]Tod PRIV PRIV 239 [id number] [facility] 10:43:00 10:43:00 d_J [id number] Medica l 2021-12-13 2021-12-13 Outpatient [facility]Tod PRIV PRIV 239 [id number] [facility] 10:43:00 10:43:00 d_J [id number] Medica l 2021-12-12 2021-12-12 Outpatient [facility]Tod PRIV PRIV 239 [id number] [facility] 05:14:00 05:14:00 d_J [id number] Medica l 2021-12-12 2021-12-12 Aud[facility] 422 [facility] 00:00:00 00:00:00 JOSE L Figueroa: Health - Med ical [address] [address] , Ph. 2021-12-12 2021-12-12 Outpatient Henry, PRIV PRIV [id number] 00:00:00 00:00:00 Audelia [id number] 2021-12-04 2021-12-04 Outpatient [facility]Tod PRIV PRIV [id number] [facility] 05:33:00 05:33:00 d_J [id number] Medica l 2021-12-04 2021-12-04 Outpatient Henry, PRIV PRIV [id number] 00:00:00 00:00:00 Audelia [id number] 2021-12-04 2021-12-04 Aud[facility] [id number] [facility] 00:00:00 00:00:00 JOSE L Figueroa: Health - Med ical [address] [place] [address] , Ph. 2021-12-04 2021-12-04 Outpatient Henry, PRIV PRIV [id number] 00:00:00 00:00:00 Audelia [id number] 2021-12-03 2021-12-03 Outpatient GC_[facility]_Tod PRIV PRIV [id number] [facility] 04:46:00 04:46:00 semaj_[place] [id number] Medica l 2021-12-01 2021-12-01 Outpatient GC_[facility]_Spa PRIV PRIV [id number] [facility] 12:35:00 12:35:00 [id number] 2020[facility]12-04 [id number] [facility] 10:26:00 00:00:00 [facility] 2019-08-22 2019-09-12 Inpatient E [facility] [id number] [facility] 12:18:00 18:30:00 [facility] Results Test Description Test Time Test Comments Results Result Comments Source GLUCOMETER GLUCOSE- LAB USE ONLY 2020-12-09 15:48:00 Test Item Value Reference Range Interpretation Comme nts GLUCOMETER (test code = GMG) 125 mg/dL 70-100 H Meter ID: [id number]: [id number] KAREN SMITH GLUCOMETER GLUCOSE- LAB USE [id number] 14:50:00 Test Item Value Reference Range Interpretation Comments GLUCOMETER (test code = 68 mg/dL 70-100 L Mete r ID: GMG) [id number] tor: [id number] HEAD W/O [id number] 14:08:47 [facility] : 1965 Sex: MEXAM: CT BRAIN WITHOUT CONTRASTINDICATION: Altered mental statusCOMPARISON: December 03, 2020TECHNIQUE: Routine axial noncontrast CT images of the brain were obtained.IV contrast: None.DLP: 1569 mGy-cmFINDINGS: No intra-axial or extra-axial fluid collections are identified. No acute hemorrhage.There is normal differentiation of the [place] and white matter. There is mild ventriculomegaly similar to the prior examination.No midline shift or mass effect. The basal cisterns are patent. The posterior fossa and fourth ventricle are normal.The paranasal sinuses and mastoid air cells are clear. No calvarial lesions. Skull base is intact. Orbits and globes are unremarkable.IMPRESSION:No acute intracranial abnormality. No intracranial hemorrhage.Persistent mild ventriculomegaly similar to the prior examination. This can be seen in patients with normal pressure hydrocephalus. Correlate with the appropriate clinical history.LOCATION: [id number] CT exam was performed according to our departmental dose optimization program, whichincludes automated exposure control, adjustment of the mA and/or kV according to the patient size and/or use of iterative reconstructive technique.Electronically signed by: Shital Moise MD 12/09/2020 2:08 PM CDT [id number] GLUCOSE- LAB USE [id number] 10:13:00 Test Item Value Reference Range Interpretation Comments GLUCOMETER (test code = 95 mg/dL 70-100 Mete r ID: GMG) [id number] tor: [id number] KIM KIRAN GLUCOMETER GLUCOSE- LAB USE [id number] 06:18:00 Test Item Value Reference Range Interpretation Comments GLUCOMETER (test code = 78 mg/dL 70-100 Mete r ID: GMG) [id number] tor: [id number] AGB Villatoro [facility] COMPREHENSIVE METABOLIC CARLOS *WW*2020-12-09 05:16:00 Test Item Value Reference Range Interpretation Comments GLUCOSE (test code 87 mg/dL 75-100 = 06D) SODIUM (test code 139 mmol/L 136-145 = 01A) POTASSIUM (test 4.1 mmol/L 3.6-5.1 code = 01B) CHLORIDE (test 104 mmol/L 98-107 code = 04A) CO2 (test code = 32 mmol/L 22-32 02A) ANION GAP (test 7.1 mmol/L code = ANG) BUN (test code = 11 mg/dL 7-18 05D) CREATININE (test 0.6 mg/dL 0.7-1.3 L code = 03E) GFR (test code = 112 See_Comment [Automated GFR) mL/min/1.73m\\S\\2 message] Th e system which generated this result transmit herb reference range : >=90. The reference range was not used to interpret this result as normal/abnormal . GFR 129 See_Comment [Automated HUNGARIAN (test mL/min/1.73m\\S\\2 message] The code = GFRAA) system which generated this result transmit herb reference range : >=90. The reference range was not used to interpret this result as normal/abnormal . EGFR (test code = eGFR BY EGFR) CKD-EPI CALCULATION IS NOT RECOMMENDED FOR PATIENTS UNDER 18 YEARS OF AGE. BUN/CREA (test 18 12-20 code = BCR) CALCIUM (test code 9.3 mg/dL 8.3-9.5 = 09D) BILI TOTAL (test 0.3 mg/dL 0.2-1.0 code = 11A) PROTEIN (test code 7.6 g/dL 6.4-8.2 = 07D) ALBUMIN (test code 2.6 g/dL 3.5-4.8 L = 08D) GLOBULIN (test 5.1 g/dL 1.5-3.8 H code = GLB) ALB/GLOB (test 0.5 1.0-2.6 L code = AGRR) ALK PHOS (test 94 IU/L 42-121 code = 35A) AST (test code = 64 IU/L See_Comment H [Automated 30A) message] The system which generated this result transmit herb reference range : <=42. The reference range was not used to interpret this result as normal/abnormal . ALT (test code = 73 IU/L See_Comment [Automated 31A) message] The system which generated this result transmit herb reference range : <=78. The reference range was not used to interpret this result as normal/abnormal . CBC (INCLUDES AUTOMATED DIFFERENTIAL)*[id number] 05:03:00 Test Item Value Reference Range Interpretation Comments WBC (test code = WBC) 5.7 10\\S\\3/uL 4.5-11.0 RBC (test code = RBC) 3.78 10\\S\\6/uL 4.20-5.60 L HGB (test code = HBG) 11.2 g/dL 14.0-18.0 L HCT (test code = HCT) 33.9 % 35.0-46.0 L MCV (test code = MCV) 89.7 fL 80.0-94.0 MCH (test code = MCH) 29.6 pg 27.0-31.0 MCHC (test code = MCHC) 33.0 g/dL 32.0-36.0 RDW (test code = RDW) 16.8 % 11.5-14.5 H PLT (test code = PLT) 76 10\\S\\3/uL 130-400 L MPV (test code = MPV) 12.2 fL 9.4-12.4 NEUTROP # (test code = NE#) 2.1 10\\S\\3/uL 2.0-8.0 LYMPH # (test code = LY#) 2.3 10\\S\\3/uL 1.2-4.0 MONOCYTE # (test code = MO#) 1.1 10\\S\\3/uL 0.0-1.1 EOSINOPH # (test code = EO#) 0.1 10\\S\\3/uL 0.0-0.7 BASOPHIL # (test code = BA#) 0.0 10\\S\\3/uL 0.0-0.3 IG # (test code = IG#) 0.06 10\\S\\3/uL 0.00-0.06 NRBC # (test code = NRBC#) 0.02 10\\S\\3/uL 0.00-0.01 H NEUTROPH % (test code = NE%) 36.2 % 35.0-73.0 LYMPH % (test code = LY%) 40.3 % 20.0-55.0 MONO % (test code = MO%) 19.8 % 2.5-10.0 H EOSINOPH % (test code = EO%) 1.9 % 0.0-5.0 BASOPHIL % (test code = BA%) 0.7 % 0.0-2.0 IG % (test code = IG%) 1.1 % 0.0-0.8 H NRBC% (test code = NRBC%) 0.4 % 0.0-0.2 H MANDIFF (test code = WMDIFF) NO NO RBC MORPH (test code = NORMAL WRBCMOR) GLUCOMETER GLUCOSE- LAB USE [id number] 19:20:00 Test Item Value Reference Range Interpretation Comments GLUCOMETER (test code = 115 mg/dL 70-100 H Mete r ID: GMG) [id number] tor: [id number] GAB R EYES GLUCOMETER GLUCOSE- LAB USE [id number] 15:50:00 Test Item Value Reference Range Interpretation Comments GLUCOMETER (test code = 80 mg/dL 70-100 Mete r ID: GMG) [id number] tor: 66299 KIM ABEL NANDEZ GLUCOMETER GLUCOSE- LAB USE [id number] 10:19:00 Test Item Value Reference Range Interpretation Comments GLUCOMETER (test code = 101 mg/dL 70-100 H Mete r ID: GMG) [id number] tor: 08726 KIM ABEL NANDEZ GLUCOMETER GLUCOSE- LAB USE [id number] 06:13:00 Test Item Value Reference Range Interpretation Comments GLUCOMETER (test code = 87 mg/dL 70-100 Mete r ID: GMG) [id number] tor: [id number] GAB R EYES COMPREHENSIVE METABOLIC CARLOS *WW*2020-12-08 06:00:00 Test Item Value Reference Range Interpretation Comments GLUCOSE (test code 102 mg/dL 75-100 H = 06D) SODIUM (test code 139 mmol/L 136-145 = 01A) POTASSIUM (test 4.6 mmol/L 3.6-5.1 code = 01B) CHLORIDE (test 107 mmol/L 98-107 code = 04A) CO2 (test code = 30 mmol/L 22-32 02A) ANION GAP (test 6.6 mmol/L code = ANG) BUN (test code = 10 mg/dL 7-18 05D) CREATININE (test 0.5 mg/dL 0.7-1.3 L code = 03E) GFR (test code = 121 See_Comment [Automated GFR) mL/min/1.73m\\S\\2 message] Th e system which generated this result transmit herb reference range : >=90. The reference range was not used to interpret this result as normal/abnormal . GFR 140 See_Comment [Automated HUNGARIAN (test mL/min/1.73m\\S\\2 message] The code = GFRAA) system which generated this result transmit herb reference range : >=90. The reference range was not used to interpret this result as normal/abnormal . EGFR (test code = eGFR BY EGFR) CKD-EPI CALCULATION IS NOT RECOMMENDED FOR PATIENTS UNDER 18 YEARS OF AGE. BUN/CREA (test 20 12-20 code = BCR) CALCIUM (test code 9.5 mg/dL 8.3-9.5 = 09D) BILI TOTAL (test 0.4 mg/dL 0.2-1.0 code = 11A) PROTEIN (test code 7.7 g/dL 6.4-8.2 = 07D) ALBUMIN (test code 2.6 g/dL 3.5-4.8 L = 08D) GLOBULIN (test 5.1 g/dL 1.5-3.8 H code = GLB) ALB/GLOB (test 0.5 1.0-2.6 L code = AGRR) ALK PHOS (test 96 IU/L 42-121 code = 35A) AST (test code = 103 IU/L See_Comment H [Automated 30A) message] The system which generated this result transmit herb reference range : <=42. The reference range was not used to interpret this result as normal/abnormal . ALT (test code = 94 IU/L See_Comment H [Automated 31A) message] The system which generated this result transmit herb reference range : <=78. The reference range was not used to interpret this result as normal/abnormal . CBC (INCLUDES AUTOMATED DIFFERENTIAL)*[id number] 05:50:00 Test Item Value Reference Range Interpretation Comments WBC (test code = WBC) 4.4 10\\S\\3/uL 4.5-11.0 L RBC (test code = RBC) 3.68 10\\S\\6/uL 4.20-5.60 L HGB (test code = HBG) 10.9 g/dL 14.0-18.0 L HCT (test code = HCT) 33.6 % 35.0-46.0 L MCV (test code = MCV) 91.3 fL 80.0-94.0 MCH (test code = MCH) 29.6 pg 27.0-31.0 MCHC (test code = MCHC) 32.4 g/dL 32.0-36.0 RDW (test code = RDW) 17.3 % 11.5-14.5 H PLT (test code = PLT) 71 10\\S\\3/uL 130-400 L MPV (test code = MPV) 12.7 fL 9.4-12.4 H NEUTROP # (test code = NE#) 2.2 10\\S\\3/uL 2.0-8.0 LYMPH # (test code = LY#) 1.2 10\\S\\3/uL 1.2-4.0 MONOCYTE # (test code = MO#) 0.8 10\\S\\3/uL 0.0-1.1 EOSINOPH # (test code = EO#) 0.0 10\\S\\3/uL 0.0-0.7 BASOPHIL # (test code = BA#) 0.0 10\\S\\3/uL 0.0-0.3 IG # (test code = IG#) 0.03 10\\S\\3/uL 0.00-0.06 NRBC # (test code = NRBC#) 0.03 10\\S\\3/uL 0.00-0.01 H NEUTROPH % (test code = NE%) 50.9 % 35.0-73.0 LYMPH % (test code = LY%) 28.3 % 20.0-55.0 MONO % (test code = MO%) 18.7 % 2.5-10.0 H EOSINOPH % (test code = EO%) 0.9 % 0.0-5.0 BASOPHIL % (test code = BA%) 0.5 % 0.0-2.0 IG % (test code = IG%) 0.7 % 0.0-0.8 NRBC% (test code = NRBC%) 0.7 % 0.0-0.2 H MANDIFF (test code = WMDIFF) NO NO RBC MORPH (test code = NORMAL WRBCMOR) GLUCOMETER GLUCOSE- LAB USE [id number] 19:35:00 Test Item Value Reference Range Interpretation Comments GLUCOMETER (test code = 90 mg/dL 70-100 Mete r ID: GMG) [id number] tor: [id number] GAB R EYES GLUCOMETER GLUCOSE- LAB USE [id number] 15:36:00 Test Item Value Reference Range Interpretation Comments GLUCOMETER (test code = 87 mg/dL 70-100 ОЛЕГ MARK METERMeter ID: GMG) [id number] tor: [id number] MATTHEWU PA UL GLUCOMETER GLUCOSE- LAB USE [id number] 12:20:00 Test Item Value Reference Range Interpretation Comments GLUCOMETER (test code = 86 mg/dL 70-100 Mete r ID: GMG) [id number] tor: [id number] AWAIS RIVERA XR ABDOMEN 1 VIEW PORTABLE *WW*2020-12-07 07:20:50 [facility] 1965 Sex: MReason for exam: NG tube placementAbdomen, single view.The Dobbhoff feeding tube tip is in the upper stomach. The stomach is decompressed with the tip of the tube pointing towards the antrum of stomach.The bowel gas pattern shows some air-filled small bowel loops, nondistended overall. No evidence of free air seen.IMPRESSION: Dobbhoff feeding tube in the decompressed stomach with its tip pointed towards the antrum.Some air-filled small bowel loops could indicate enteritis or ileus effect. No distended loops seen for obstruction.Location: 19Electronically signed by: Sean Barber MD 12/07/2020 7:20 AM CDT COMPREHENSIVE METABOLIC CARLOS *WW*2020-12-07 05:11:00 Test Item Value Reference Range Interpretation Comments GLUCOSE (test code 72 mg/dL 75-100 L = 06D) SODIUM (test code 141 mmol/L 136-145 = 01A) POTASSIUM (test 3.9 mmol/L 3.6-5.1 code = 01B) CHLORIDE (test 110 mmol/L 98-107 H code = 04A) CO2 (test code = 29 mmol/L 22-32 02A) ANION GAP (test 5.9 mmol/L code = ANG) BUN (test code = 8 mg/dL 7-18 05D) CREATININE (test 0.5 mg/dL 0.7-1.3 L code = 03E) GFR (test code = 118 See_Comment [Automated GFR) mL/min/1.73m\\S\\2 message] Th e system which generated this result transmit herb reference range : >=90. The reference range was not used to interpret this result as normal/abnormal . GFR 136 See_Comment [Automated HUNGARIAN (test mL/min/1.73m\\S\\2 message] The code = GFRAA) system which generated this result transmit herb reference range : >=90. The reference range was not used to interpret this result as normal/abnormal . EGFR (test code = eGFR BY EGFR) CKD-EPI CALCULATION IS NOT RECOMMENDED FOR PATIENTS UNDER 18 YEARS OF AGE. BUN/CREA (test 15 12-20 code = BCR) CALCIUM (test code 8.7 mg/dL 8.3-9.5 = 09D) BILI TOTAL (test 0.3 mg/dL 0.2-1.0 code = 11A) PROTEIN (test code 6.7 g/dL 6.4-8.2 = 07D) ALBUMIN (test code 2.4 g/dL 3.5-4.8 L = 08D) GLOBULIN (test 4.3 g/dL 1.5-3.8 H code = GLB) ALB/GLOB (test 0.6 1.0-2.6 L code = AGRR) ALK PHOS (test 64 IU/L 42-121 code = 35A) AST (test code = 58 IU/L See_Comment H [Automated 30A) message] The system which generated this result transmit herb reference range : <=42. The reference range was not used to interpret this result as normal/abnormal . ALT (test code = 35 IU/L See_Comment [Automated 31A) message] The system which generated this result transmit herb reference range : <=78. The reference range was not used to interpret this result as normal/abnormal . CBC (INCLUDES AUTOMATED DIFFERENTIAL)*[id number] 04:53:00 Test Item Value Reference Range Interpretation Comments WBC (test code = WBC) 4.7 10\\S\\3/uL 4.5-11.0 RBC (test code = RBC) 3.31 10\\S\\6/uL 4.20-5.60 L HGB (test code = HBG) 10.0 g/dL 14.0-18.0 L HCT (test code = HCT) 30.4 % 35.0-46.0 L MCV (test code = MCV) 91.8 fL 80.0-94.0 MCH (test code = MCH) 30.2 pg 27.0-31.0 MCHC (test code = MCHC) 32.9 g/dL 32.0-36.0 RDW (test code = RDW) 17.4 % 11.5-14.5 H PLT (test code = PLT) 70 10\\S\\3/uL 130-400 L MPV (test code = MPV) 11.7 fL 9.4-12.4 NEUTROP # (test code = NE#) 1.9 10\\S\\3/uL 2.0-8.0 L LYMPH # (test code = LY#) 1.7 10\\S\\3/uL 1.2-4.0 MONOCYTE # (test code = MO#) 1.0 10\\S\\3/uL 0.0-1.1 EOSINOPH # (test code = EO#) 0.0 10\\S\\3/uL 0.0-0.7 BASOPHIL # (test code = BA#) 0.0 10\\S\\3/uL 0.0-0.3 IG # (test code = IG#) 0.06 10\\S\\3/uL 0.00-0.06 NRBC # (test code = NRBC#) 0.03 10\\S\\3/uL 0.00-0.01 H NEUTROPH % (test code = NE%) 40.7 % 35.0-73.0 LYMPH % (test code = LY%) 35.9 % 20.0-55.0 MONO % (test code = MO%) 20.9 % 2.5-10.0 H EOSINOPH % (test code = EO%) 0.8 % 0.0-5.0 BASOPHIL % (test code = BA%) 0.4 % 0.0-2.0 IG % (test code = IG%) 1.3 % 0.0-0.8 H NRBC% (test code = NRBC%) 0.6 % 0.0-0.2 H MANDIFF (test code = WMDIFF) NO NO RBC MORPH (test code = NORMAL WRBCMOR) GLUCOMETER GLUCOSE- LAB USE [id number] 04:17:00 Test Item Value Reference Range Interpretation Comments GLUCOMETER (test code = 66 mg/dL 70-100 L Mete r ID: GMG) [id number] tor: [id number] ISRAEL BABY XR ABDOMEN 1 VIEW PORTABLE *WW*2020-12-06 22:24:15 [facility] : 1965 Sex: MDICTATION LOCATION: [id number]: Male, 55 years of age with Nasogastric tube in situEXAM: ABDOMEN, ONE VIEWCOMPARISON: Previous abdomen x-ray performed 3 hours agoFINDINGS: AP view is provided. Image is centered over left upper quadrant so part of the right abdomen and pelvis excluded from [id number]. Dobbhoff feeding tube again seen with tip in mid stomach. No unusual calcifications are seen. Bowel gas pattern is normal. There is no abnormal mass or significant bowel distention. No acute bony abnormalities. IMPRESSION: Dobbhoff feeding tube is still in the mid stomach.Electronically signed by: Mallorie Hall MD 12/06/2020 10:24 PM CDT [id number] GLUCOSE- LAB USE [id number] 20:24:00 Test Item Value Reference Range Interpretation Comments GLUCOMETER (test code = 75 mg/dL 70-100 Mete r ID: GMG) [id number] tor: [id number] ISRAEL BABY CPK *WW*2020-12-06 18:45:00 Test Item Value Reference Range Interpretation Comments CPK (test code = 32A) 607 IU/L 39-308 H XR ABDOMEN 1 VIEW PORTABLE *WW*2020-12-06 18:43:25 [facility] : 1965 Sex: MKUBDictation lo cation N 13Clinical history Dobbhoff tube placementTECHNIQUE:Frontal view of the upper two thirds ofthe abdomen was obtained. There is a Dobbhoff feeding tube projecting in the proximal third to middle third of the stomach. Ideally, its tip should be placed at the distal stomach or within the duodenum prior to use. Air scattered in the large and small bowel with fecal pattern consistent with a constipation.IMPRESSION:The Dobbhoff feeding tube projects in the proximal stomach. Ideally its tip shouldbe placed at the distal stomach are within the duodenum prior to use. Recommend advancement of the Dobbhoff by approximately 10 cm with follow-up KUB.Electronically signed by: Karmen Schmitt MD :43 PM CDT [id number] GLUCOSE- LAB USE [id number] 16:42:00 Test Item Value Reference Range Interpretation Comments GLUCOMETER (test code = 86 mg/dL 70-100 Mete r ID: GMG) [id number] tor: [id number] AWAIS RIVERA XR ABDOMEN 1 VIEW PORTABLE *WW*2020-12-06 15:57:22 [facility] : 1965 Sex: MExam: KUBHISTORY: ConstipationLocation: [id number]:Comparison is made with exam of 12/03/2020. Large amount of stoolseen throughout the colon consistent with constipation with slight improvement. No evidence of smallbowel obstruction or visceromegaly.IMPRESSION:1. Moderate constipation. Possible slight improvement.E lectronically signed by: Spike Negron MD 12/06/2020 3:57 PM CDT [id number] GLUCOSE- LAB USE [id number] 12:17:00 Test Item Value Reference Range Interpretation Comments GLUCOMETER (test code = 83 mg/dL 70-100 Mete r ID: GMG) [id number] tor: [id number] AWAIS RIVERA GLUCOMETER GLUCOSE- LAB USE [id number] 08:27:00 Test Item Value Reference Range Interpretation Comments GLUCOMETER (test code = 52 mg/dL 70-100 LL ОЛЕГ FLORES METERMeter ID: GMG) [id number] tor: 2014 AUDELIA LA COMPREHENSIVE METABOLIC CARLOS *WW*2020-12-06 06:05:00 Test Item Value Reference Range Interpretation Comments GLUCOSE (test code 59 mg/dL 75-100 LL = 06D) SODIUM (test code 143 mmol/L 136-145 = 01A) POTASSIUM (test 3.8 mmol/L 3.6-5.1 code = 01B) CHLORIDE (test 110 mmol/L 98-107 H code = 04A) CO2 (test code = 31 mmol/L 22-32 02A) ANION GAP (test 5.8 mmol/L code = ANG) BUN (test code = 10 mg/dL 7-18 05D) CREATININE (test 0.5 mg/dL 0.7-1.3 L code = 03E) GFR (test code = 124 See_Comment [Automated GFR) mL/min/1.73m\\S\\2 message] Th e system which generated this result transmit herb reference range : >=90. The reference range was not used to interpret this result as normal/abnormal . GFR 144 See_Comment [Automated HUNGARIAN (test mL/min/1.73m\\S\\2 message] The code = GFRAA) system which generated this result transmit herb reference range : >=90. The reference range was not used to interpret this result as normal/abnormal . EGFR (test code = eGFR BY EGFR) CKD-EPI CALCULATION IS NOT RECOMMENDED FOR PATIENTS UNDER 18 YEARS OF AGE. BUN/CREA (test 21 12-20 H code = BCR) CALCIUM (test code 8.4 mg/dL 8.3-9.5 = 09D) BILI TOTAL (test 0.3 mg/dL 0.2-1.0 code = 11A) PROTEIN (test code 6.9 g/dL 6.4-8.2 = 07D) ALBUMIN (test code 2.5 g/dL 3.5-4.8 L = 08D) GLOBULIN (test 4.4 g/dL 1.5-3.8 H code = GLB) ALB/GLOB (test 0.6 1.0-2.6 L code = AGRR) ALK PHOS (test 61 IU/L 42-121 code = 35A) AST (test code = 74 IU/L See_Comment H [Automated 30A) message] The system which generated this result transmit herb reference range : <=42. The reference range was not used to interpret this result as normal/abnormal . ALT (test code = 39 IU/L See_Comment [Automated 31A) message] The system which generated this result transmit herb reference range : <=78. The reference range was not used to interpret this result as normal/abnormal . CBC (INCLUDES AUTOMATED DIFFERENTIAL)*[id number] 05:14:00 Test Item Value Reference Range Interpretation Comments WBC (test code = WBC) 5.0 10\\S\\3/uL 4.5-11.0 RBC (test code = RBC) 3.50 10\\S\\6/uL 4.20-5.60 L HGB (test code = HBG) 10.3 g/dL 14.0-18.0 L HCT (test code = HCT) 32.0 % 35.0-46.0 L MCV (test code = MCV) 91.4 fL 80.0-94.0 MCH (test code = MCH) 29.4 pg 27.0-31.0 MCHC (test code = MCHC) 32.2 g/dL 32.0-36.0 RDW (test code = RDW) 17.3 % 11.5-14.5 H PLT (test code = PLT) 103 10\\S\\3/uL 130-400 L MPV (test code = MPV) 11.4 fL 9.4-12.4 NEUTROP # (test code = NE#) 3.1 10\\S\\3/uL 2.0-8.0 LYMPH # (test code = LY#) 1.1 10\\S\\3/uL 1.2-4.0 L MONOCYTE # (test code = MO#) 0.8 10\\S\\3/uL 0.0-1.1 EOSINOPH # (test code = EO#) 0.1 10\\S\\3/uL 0.0-0.7 BASOPHIL # (test code = BA#) 0.0 10\\S\\3/uL 0.0-0.3 IG # (test code = IG#) 0.03 10\\S\\3/uL 0.00-0.06 NRBC # (test code = NRBC#) 0.05 10\\S\\3/uL 0.00-0.01 H NEUTROPH % (test code = NE%) 60.5 % 35.0-73.0 LYMPH % (test code = LY%) 21.0 % 20.0-55.0 MONO % (test code = MO%) 16.7 % 2.5-10.0 H EOSINOPH % (test code = EO%) 1.0 % 0.0-5.0 BASOPHIL % (test code = BA%) 0.2 % 0.0-2.0 IG % (test code = IG%) 0.6 % 0.0-0.8 NRBC% (test code = NRBC%) 1.0 % 0.0-0.2 H MANDIFF (test code = WMDIFF) NO NO RBC MORPH (test code = NORMAL WRBCMOR) Arterial Blood [id number] 11:40:00 Test Item Value Reference Range Interpretation Comments pH (test code = 7.377 7.350-7.450 PHRT) pCO2 (test code 54.0 mmHg 35.0-45.0 HH = PCO2RT) pO2 (test code = 105.0 mmHg 80.0-110.0 PO2RT) HCO3? (test code 31.0 mmol/L 22.0-26.0 H = HCO3) COOPER (test code = 5.2 mmol/L -3.0-3.0 H COOPER) tHb (test code = 11.2 g/dL 14.0-18.0 L THBRT) sO2 (test code = 97.7 % 92.0-100.0 SO2RT) FO2Hb (test code 96.2 % 94.0-100.0 = [id number]) FCOHb (test code 0.9 % 0.0-3.0 = FCOHBRT) FMetHb (test 0.7 % 0.2-0.6 H code = FMETHBRT) ABGTEMP (test * Temp Corrected code = ABGTEMP) Values* ABGTEMP (test 37.0 ?C code = ABGTEMP.) pH (T) (test 7.377 7.350-7.450 code = PHTEMP) pCO2 (T) (test 54.0 mmHg 35.0-45.0 HH code = [id number]) pO2 (T) (test 105.0 mmHg 80.0-110.0 code = GB0GLNR) Device (test BIPAP MACHINE code = DEVICE) FI02 (test code 21.0 % = FI02) Liter_flow (test code = LF) VENPAR (test * Ventilator code = VENPAR) Parameters * SIMV (test code = SIMV) A/C (test code = A/C) APRV (test code = APRV) Press Control (test code = PC) CPAP (test code = CPAP) PEEP (test code = PEEP) PS (test code = PS) PIP (test code = PIP) I_Time (test code = ITIME) I : E Ratio (test code = IERATIO) Vt (test code = VT) BIPAP INSP (test 12 code = BIPAPINP) BIPAP EXP (test 6 code = BIPAPEXP) Kan test (test Positive code = ATEST) SAMPLE SITE Artery, Right (test code = Radial SSITE) COMMENT (test call back to Sunshine Lemus reported code = CO) Jed RN as: call back t o Jed Lemus RN On 12/05/2020 11:4 4 By [id number] reported as: (blank) On 12/05/2020 11:4 0 By AXR2 AMMONIA BLOOD 2020-12-05 10:34:00 Test Item Value Reference Range Interpretation Comments AMMONIA (test code = 54A) 18 umol/L 11-32 CBC WITH MANUAL DIFF 2020-12-05 06:46:00 Test Item Value Reference Range Interpretation Comments WBC (test code = 4.3 10\\S\\3/uL 4.5-11.0 L WBC) RBC (test code = 3.67 10\\S\\6/uL 4.20-5.60 L RBC) HGB (test code = 10.8 g/dL 14.0-18.0 L HBG) HCT (test code = 33.6 % 35.0-46.0 L HCT) MCV (test code = 91.6 fL 80.0-94.0 MCV) MCH (test code = 29.4 pg 27.0-31.0 MCH) MCHC (test code = 32.1 g/dL 32.0-36.0 MCHC) RDW (test code = 17.2 % 11.5-14.5 H RDW) PLT (test code = 118 10\\S\\3/uL 130-400 L PLT) MPV (test code = 11.9 fL 9.4-12.4 MPV) NEUTROP # (test 2.4 10\\S\\3/uL 2.0-8.0 code = NE#) LYMPH # (test 0.9 10\\S\\3/uL 1.2-4.0 L code = LY#) MONOCYTE # (test 0.9 10\\S\\3/uL 0.0-1.1 code = MO#) EOSINOPH # (test 0.0 10\\S\\3/uL 0.0-0.7 code = EO#) BASOPHIL # (test 0.0 10\\S\\3/uL 0.0-0.3 code = BA#) IG # (test code = 0.02 10\\S\\3/uL 0.00-0.06 IG#) NRBC # (test code 0.03 10\\S\\3/uL 0.00-0.01 H = NRBC#) NEUTROPH % (test 56.2 % 35.0-73.0 code = NE%) LYMPH % (test 21.1 % 20.0-55.0 code = LY%) MONO % (test code 21.1 % 2.5-10.0 H = MO%) EOSINOPH % (test 0.9 % 0.0-5.0 code = EO%) BASOPHIL % (test 0.2 % 0.0-2.0 code = BA%) IG % (test code = 0.5 % 0.0-0.8 IG%) NRBC% (test code 0.7 % 0.0-0.2 H = NRBC%) MAN DIFF (test MANUAL code = HMDIFF) DIFFERENTIAL SEG (test code = 54 % 42-75 SEG) BAND (test code = 0 % 0-8 BAND) LYMPH (test code 28 % 20-51 = LYMPH) MONO (test code = 16 % 3-11 H MONO) EOS (test code = 2 % See_Comment [Automated EOS) message] The sy stem which generated this result transmitted reference range : <=10. The refer ence range was not u sed to interpret th is result as normal/abnormal . BASO (test code = 0 % 0-2 BASO) RBC MORPH (test NORMAL NORMAL code = RBCMORN) PLT EST (test DECREASED ADEQUATE A code = PLTEST) PLT MORPH (test NORMAL (1.5-3 um) NORMAL code = PLTMOR) COMPREHENSIVE METABOLIC CARLOS *WW*2020-12-05 05:16:00 Test Item Value Reference Range Interpretation Comments GLUCOSE (test code 68 mg/dL 75-100 L = 06D) SODIUM (test code 141 mmol/L 136-145 = 01A) POTASSIUM (test 3.9 mmol/L 3.6-5.1 code = 01B) CHLORIDE (test 107 mmol/L 98-107 code = 04A) CO2 (test code = 33 mmol/L 22-32 H 02A) ANION GAP (test 4.9 mmol/L code = ANG) BUN (test code = 11 mg/dL 7-18 05D) CREATININE (test 0.4 mg/dL 0.7-1.3 L code = 03E) GFR (test code = 131 See_Comment [Automated GFR) mL/min/1.73m\\S\\2 message] Th e system which generated this result transmit herb reference range : >=90. The reference range was not used to interpret this result as normal/abnormal . GFR 152 See_Comment [Automated HUNGARIAN (test mL/min/1.73m\\S\\2 message] The code = GFRAA) system which generated this result transmit herb reference range : >=90. The reference range was not used to interpret this result as normal/abnormal . EGFR (test code = eGFR BY EGFR) CKD-EPI CALCULATION IS NOT RECOMMENDED FOR PATIENTS UNDER 18 YEARS OF AGE. BUN/CREA (test 27 12-20 H code = BCR) CALCIUM (test code 8.5 mg/dL 8.3-9.5 = 09D) BILI TOTAL (test 0.3 mg/dL 0.2-1.0 code = 11A) PROTEIN (test code 7.2 g/dL 6.4-8.2 = 07D) ALBUMIN (test code 2.6 g/dL 3.5-4.8 L = 08D) GLOBULIN (test 4.6 g/dL 1.5-3.8 H code = GLB) ALB/GLOB (test 0.6 1.0-2.6 L code = AGRR) ALK PHOS (test 64 IU/L 42-121 code = 35A) AST (test code = 89 IU/L See_Comment H [Automated 30A) message] The system which generated this result transmit herb reference range : <=42. The reference range was not used to interpret this result as normal/abnormal . ALT (test code = 43 IU/L See_Comment [Automated 31A) message] The system which generated this result transmit herb reference range : <=78. The reference range was not used to interpret this result as normal/abnormal . Arterial Blood [id number] 10:42:00 Test Item Value Reference Range Interpretation Comments pH (test code = PHRT) 7.377 7.350-7.450 pCO2 (test code = 61.6 mmHg 35.0-45.0 HH PCO2RT) pO2 (test code = 178.0 mmHg 80.0-110.0 H PO2RT) HCO3? (test code = 35.4 mmol/L 22.0-26.0 H HCO3) COOPER (test code = COOPER) 8.8 mmol/L -3.0-3.0 H tHb (test code = 11.3 g/dL 14.0-18.0 L THBRT) sO2 (test code = 99.4 % 92.0-100.0 SO2RT) FO2Hb (test code = 98.2 % 94.0-100.0 FD9AWCT) FCOHb (test code = 0.7 % 0.0-3.0 FCOHBRT) FMetHb (test code = 0.4 % 0.2-0.6 FMETHBRT) ABGTEMP (test code = * Temp Corrected Values* ABGTEMP) ABGTEMP (test code = 37.0 ?C ABGTEMP.) pH (T) (test code = 7.377 7.350-7.450 PHTEMP) pCO2 (T) (test code = 61.6 mmHg 35.0-45.0 HH [id number]) pO2 (T) (test code = 178.0 mmHg 80.0-110.0 H DO4DANR) Device (test code = BIPAP MACHINE DEVICE) FI02 (test code = 30.0 % FI02) Liter_flow (test code = LF) VENPAR (test code = * Ventilator Parameters VENPAR) * SIMV (test code = SIMV) A/C (test code = A/C) APRV (test code = APRV) Press Control (test code = PC) CPAP (test code = CPAP) PEEP (test code = PEEP) PS (test code = PS) PIP (test code = PIP) I_Time (test code = ITIME) I : E Ratio (test code = IERATIO) Vt (test code = VT) BIPAP INSP (test code 12 = BIPAPINP) BIPAP EXP (test code 6 = BIPAPEXP) Kan test (test code Positive = ATEST) SAMPLE SITE (test Artery, Right Radial code = SSITE) COMMENT (test code = CO) BRAIN NATRIURETIC PEPTIDE *WW*2020-12-04 06:13:00 Test Item Value Reference Range Interpretation Comments proBNP (test code = PBNP) 17 pg/mL 0-125 CARDIAC PROFILE *WW*2020-12-04 05:50:00 Test Item Value Reference Range Interpretation Comments TROPONIN I (test code = A84) <0.015 ng/mL 0.000-0.045 COMPREHENSIVE METABOLIC CARLOS *WW*2020-12-04 05:40:00 Test Item Value Reference Range Interpretation Comments GLUCOSE (test code 94 mg/dL 75-100 = 06D) SODIUM (test code 143 mmol/L 136-145 = 01A) POTASSIUM (test 3.6 mmol/L 3.6-5.1 code = 01B) CHLORIDE (test 104 mmol/L 98-107 code = 04A) CO2 (test code = 38 mmol/L 22-32 H 02A) ANION GAP (test 4.6 mmol/L code = ANG) BUN (test code = 15 mg/dL 7-18 05D) CREATININE (test 0.5 mg/dL 0.7-1.3 L code = 03E) GFR (test code = 123 See_Comment [Automated GFR) mL/min/1.73m\\S\\2 message] Th e system which generated this result transmit herb reference range : >=90. The reference range was not used to interpret this result as normal/abnormal . GFR 142 See_Comment [Automated HUNGARIAN (test mL/min/1.73m\\S\\2 message] The code = GFRAA) system which generated this result transmit herb reference range : >=90. The reference range was not used to interpret this result as normal/abnormal . EGFR (test code = eGFR BY EGFR) CKD-EPI CALCULATION IS NOT RECOMMENDED FOR PATIENTS UNDER 18 YEARS OF AGE. BUN/CREA (test 31 12-20 H code = BCR) CALCIUM (test code 8.7 mg/dL 8.3-9.5 = 09D) BILI TOTAL (test 0.3 mg/dL 0.2-1.0 code = 11A) PROTEIN (test code 7.0 g/dL 6.4-8.2 = 07D) ALBUMIN (test code 2.6 g/dL 3.5-4.8 L = 08D) GLOBULIN (test 4.4 g/dL 1.5-3.8 H code = GLB) ALB/GLOB (test 0.6 1.0-2.6 L code = AGRR) ALK PHOS (test 60 IU/L 42-121 code = 35A) AST (test code = 88 IU/L See_Comment H [Automated 30A) message] The system which generated this result transmit herb reference range : <=42. The reference range was not used to interpret this result as normal/abnormal . ALT (test code = 41 IU/L See_Comment [Automated 31A) message] The system which generated this result transmit herb reference range : <=78. The reference range was not used to interpret this result as normal/abnormal . CBC (INCLUDES AUTOMATED DIFFERENTIAL)*[id number] 05:28:00 Test Item Value Reference Range Interpretation Comments WBC (test code = WBC) 3.1 10\\S\\3/uL 4.5-11.0 L RBC (test code = RBC) 3.61 10\\S\\6/uL 4.20-5.60 L HGB (test code = HBG) 10.8 g/dL 14.0-18.0 L HCT (test code = HCT) 32.9 % 35.0-46.0 L MCV (test code = MCV) 91.1 fL 80.0-94.0 MCH (test code = MCH) 29.9 pg 27.0-31.0 MCHC (test code = MCHC) 32.8 g/dL 32.0-36.0 RDW (test code = RDW) 16.6 % 11.5-14.5 H PLT (test code = PLT) 136 10\\S\\3/uL 130-400 MPV (test code = MPV) 10.9 fL 9.4-12.4 NEUTROP # (test code = NE#) 1.5 10\\S\\3/uL 2.0-8.0 L LYMPH # (test code = LY#) 1.1 10\\S\\3/uL 1.2-4.0 L MONOCYTE # (test code = MO#) 0.5 10\\S\\3/uL 0.0-1.1 EOSINOPH # (test code = EO#) 0.0 10\\S\\3/uL 0.0-0.7 BASOPHIL # (test code = BA#) 0.0 10\\S\\3/uL 0.0-0.3 IG # (test code = IG#) 0.00 10\\S\\3/uL 0.00-0.06 NRBC # (test code = NRBC#) 0.02 10\\S\\3/uL 0.00-0.01 H NEUTROPH % (test code = NE%) 48.5 % 35.0-73.0 LYMPH % (test code = LY%) 35.1 % 20.0-55.0 MONO % (test code = MO%) 15.1 % 2.5-10.0 H EOSINOPH % (test code = EO%) 1.0 % 0.0-5.0 BASOPHIL % (test code = BA%) 0.3 % 0.0-2.0 IG % (test code = IG%) 0.0 % 0.0-0.8 NRBC% (test code = NRBC%) 0.7 % 0.0-0.2 H MANDIFF (test code = WMDIFF) NO NO RBC MORPH (test code = NORMAL WRBCMOR) URINALYSIS WITH [id number] 01:05:00 Test Item Value Reference Range Interpretation Comments COLOR (test code = COLU) DK YELLOW YELLOW A CLARITY (test code = CLA) CLOUDY CLEAR A GLUCOSE UR (test code = UA GLUCOSE) NEGATIVE NEGATIVE BILI UR (test code = BILE) NEGATIVE NEGATIVE KETONES UR (test code = ORION) TRACE NEGATIVE A SP GRAVITY (test code = SPGR) 1.031 1.005-1.030 H PH UR (test code = PH) 6.0 4.5-8.0 PROTEIN UR (test code = PU) TRACE NEGATIVE A UROBIL UR (test code = UROQ) 1.0 EU/dL 0.2-1.0 NITRITE UR (test code = NITRITE) NEGATIVE NEGATIVE BLOOD UR (test code = UA BLOOD) 1+ NEGATIVE A LEUK ES UR (test code = LEUK) 1+ NEGATIVE A WBC UR (test code = UWBC) 1 /HPF 0-3 RBC UR (test code = URBC) 2 /HPF 0-2 EPITH UR (test code = UEPC) FEW /LPF NONE A BACTERIA UR (test code = UBACT) NONE /HPF NONE CAST UR (test code = CAST) /LPF NONE CRYSTAL UR (test code = CRYU) / LPF NONE MUCUS UR (test code = MUC) FEW / HPF NONE A AMORPH UR (test code = ROSELIA) FEW / HPF NONE A TRICH UR (test code = UTRICH) /HPF NONE YEAST UR (test code = UY) /HPF NONE SPERM UR (test code = USPERM) /HPF NONE Arterial Blood [id number] 21:51:00 Test Item Value Reference Range Interpretation Comments pH (test code = PHRT) 7.341 7.350-7.450 L pCO2 (test code = 67.8 mmHg 35.0-45.0 HH PCO2RT) pO2 (test code = 259.0 mmHg 80.0-110.0 H PO2RT) HCO3? (test code = 35.7 mmol/L 22.0-26.0 H HCO3) COOPER (test code = COOPER) 8.2 mmol/L -3.0-3.0 H tHb (test code = 11.9 g/dL 14.0-18.0 L THBRT) sO2 (test code = 99.5 % 92.0-100.0 SO2RT) FO2Hb (test code = 98.3 % 94.0-100.0 WH7CCMT) FCOHb (test code = 0.6 % 0.0-3.0 FCOHBRT) FMetHb (test code = 0.6 % 0.2-0.6 FMETHBRT) ABGTEMP (test code = * Temp Corrected Values* ABGTEMP) ABGTEMP (test code = 37.0 ?C ABGTEMP.) pH (T) (test code = 7.341 7.350-7.450 L PHTEMP) pCO2 (T) (test code = 67.8 mmHg 35.0-45.0 HH [id number]) pO2 (T) (test code = 259.0 mmHg 80.0-110.0 H [id number]) Device (test code = BIPAP MACHINE DEVICE) FI02 (test code = 50.0 % FI02) Liter_flow (test code = LF) VENPAR (test code = * Ventilator Parameters VENPAR) * SIMV (test code = SIMV) A/C (test code = A/C) APRV (test code = APRV) Press Control (test code = PC) CPAP (test code = CPAP) PEEP (test code = PEEP) PS (test code = PS) PIP (test code = PIP) I_Time (test code = ITIME) I : E Ratio (test code = IERATIO) Vt (test code = VT) BIPAP INSP (test code 18 = BIPAPINP) BIPAP EXP (test code 10 = BIPAPEXP) Kan test (test code Positive = ATEST) SAMPLE SITE (test Artery, Right Radial code = SSITE) COMMENT (test code = CO) SARS-CoV (RAPID ANTIGEN)2020-12-03 21:09:00 Test Item Value Reference Range Interpretation Comments SARS-CoV (ANTIGEN) NEGATIVE NEGATIVE (test code = COVAG) COVID AG (test This test has been code = COVAGC) marketed under the FDA Emergency Use Authorization (EUA) to meet challenges of the COVID-19 pandemic. The validation standards normally enforced by the FDA and the [employer] ([employer]) are more stringent than those required for this test. Therefore, the result should be interpreted with caution and close attention to other clinical and epidemiological data VALPROIC ACID (DEPAKENE)2020-12-03 19:07:00 Test Item Value Reference Range Interpretation Comments VALP ACID (test code = 95A) 49.0 ug/mL 50.0-100.0 LL COMPREHENSIVE METABOLIC [id number] 19:04:00 Test Item Value Reference Range Interpretation Comments GLUCOSE (test code 83 mg/dL 75-100 = 06D) SODIUM (test code 140 mmol/L 136-145 = 01A) POTASSIUM (test 4.3 mmol/L 3.6-5.1 code = 01B) CHLORIDE (test 101 mmol/L 98-107 code = 04A) CO2 (test code = 36 mmol/L 22-32 H 02A) ANION GAP (test 7.3 mmol/L code = ANG) BUN (test code = 14 mg/dL 7-18 05D) CREATININE (test 0.5 mg/dL 0.7-1.3 L code = 03E) GFR (test code = 126 See_Comment [Automated GFR) mL/min/1.73m\\S\\2 message] Th e system which generated this result transmit herb reference range : >=90. The reference range was not used to interpret this result as normal/abnormal . GFR 146 See_Comment [Automated HUNGARIAN (test mL/min/1.73m\\S\\2 message] The code = GFRAA) system which generated this result transmit herb reference range : >=90. The reference range was not used to interpret this result as normal/abnormal . EGFR (test code = eGFR BY EGFR) CKD-EPI CALCULATION IS NOT RECOMMENDED FOR PATIENTS UNDER 18 YEARS OF AGE. BUN/CREA (test 31 12-20 H code = BCR) CALCIUM (test code 9.5 mg/dL 8.3-9.5 = 09D) BILI TOTAL (test 0.3 mg/dL 0.2-1.0 code = 11A) PROTEIN (test code 8.1 g/dL 6.4-8.2 = 07D) ALBUMIN (test code 2.9 g/dL 3.5-4.8 L = 08D) GLOBULIN (test 5.2 g/dL 1.5-3.8 H code = GLB) ALB/GLOB (test 0.6 1.0-2.6 L code = AGRR) ALK PHOS (test 66 IU/L 42-121 code = 35A) AST (test code = 104 IU/L See_Comment H [Automated 30A) message] The system which generated this result transmit herb reference range : <=42. The reference range was not used to interpret this result as normal/abnormal . ALT (test code = 43 IU/L See_Comment [Automated 31A) message] The system which generated this result transmit herb reference range : <=78. The reference range was not used to interpret this result as normal/abnormal . [id number] 18:59:00 Test Item Value Reference Range Interpretation Comments MAGNESIUM (test code = 48A) 2.5 mg/dL 1.8-2.4 H LACTIC [id number] 18:59:00 Test Item Value Reference Range Interpretation Comments LACTIC ACD (test code = LA) 0.8 mmol/L 0.4-2.0 TROPONIN [id number] 18:59:00 Test Item Value Reference Range Interpretation Comments TROPONIN I (test code = A84) <0.015 ng/mL 0.000-0.045 PRO TIME AND [id number] 18:59:00 Test Item Value Reference Range Interpretation Comments PT (test code = 11.5 s 9.8-13.6 TT) INR (test code = 1.0 INR) INRH (test code = SUGGESTED THERAPEUTIC INRH) RANGE FOR INR: 2.5 - 3.5 For Patients with Prosthetic Valves or Patients with recurrent Thromboembolic Events 2.0 - 3.0 For Most Other Applications PTT (test code = 66.7 s 20.2-38.0 H PTT) PTTH (test code = To monitor the PTTH) effectiveness of heparin, we offer the Anti-Xa (Heparin Assay). It can be used for either unfractionated or LMW Heparin. Order Code is ANTI-XA AMMONIA [id number] 18:55:00 Test Item Value Reference Range Interpretation Comments AMMONIA (test code = 54A) 18 umol/L 11-32 Venous Blood [id number] 18:46:00 Test Item Value Reference Range Interpretation Comments VpH (test code = 7.329 7.300-7.400 VPHRT) VpCO2 (test code = 73.8 mmHg 40.0-50.0 HH [id number]) VpO2 (test code = 40.5 mmHg 30.0-40.0 H VPO2RT) HCO3? (test code = 37.7 mmol/L 22.0-26.0 H HCO3) COOPER (test code = COOPER) 9.3 mmol/L -3.0-3.0 H tHb (test code = 13.0 g/dL 14.0-18.0 L THBRT) vsO2 (test code = 66.9 % 55.0-75.0 VSO2RT) FO2Hb (test code = 65.9 % [id number]) FCOHb (test code = 0.8 % FCOHBRTV) FMetHb (test code = 0.7 % FMETHBRTV) ABGTEMP (test code = * Temp Corrected Values* ABGTEMP) ABGTEMP (test code = 37.0 ?C ABGTEMP.) pH (T) (test code = 7.329 7.300-7.400 PHTEMPV) pCO2 (T) (test code = 73.8 mmHg 40.0-50.0 HH [id number]) pO2 (T) (test code = 40.5 mmHg 30.0-40.0 H [id number]) Device (test code = NASAL CANNULA DEVICE) FI02 (test code = % FI02) Liter_flow (test code 2.00 = LF) VENPAR (test code = * Ventilator Parameters VENPAR) * SIMV (test code = SIMV) A/C (test code = A/C) APRV (test code = APRV) Press Control (test code = PC) CPAP (test code = CPAP) PEEP (test code = PEEP) PS (test code = PS) PIP (test code = PIP) I_Time (test code = ITIME) I : E Ratio (test code = IERATIO) Vt (test code = VT) BIPAP INSP (test code = BIPAPINP) BIPAP EXP (test code = BIPAPEXP) SAMPLE SITE (test Vein code = SSITE) COMMENT (test code = CO) CBC (INCLUDES AUTOMATED DIFFERENTIAL)2020-12-03 18:41:00 Test Item Value Reference Range Interpretation Comments WBC (test code = WBC) 4.0 10\\S\\3/uL 4.5-11.0 L RBC (test code = RBC) 4.20 10\\S\\6/uL 4.20-5.60 HGB (test code = HBG) 12.6 g/dL 14.0-18.0 L HCT (test code = HCT) 39.0 % 35.0-46.0 MCV (test code = MCV) 92.9 fL 80.0-94.0 MCH (test code = MCH) 30.0 pg 27.0-31.0 MCHC (test code = MCHC) 32.3 g/dL 32.0-36.0 RDW (test code = RDW) 16.9 % 11.5-14.5 H PLT (test code = PLT) 151 10\\S\\3/uL 130-400 MPV (test code = MPV) 12.2 fL 9.4-12.4 NEUTROP # (test code = NE#) 1.9 10\\S\\3/uL 2.0-8.0 L LYMPH # (test code = LY#) 1.5 10\\S\\3/uL 1.2-4.0 MONOCYTE # (test code = MO#) 0.5 10\\S\\3/uL 0.0-1.1 EOSINOPH # (test code = EO#) 0.0 10\\S\\3/uL 0.0-0.7 BASOPHIL # (test code = BA#) 0.0 10\\S\\3/uL 0.0-0.3 IG # (test code = IG#) 0.04 10\\S\\3/uL 0.00-0.06 NRBC # (test code = NRBC#) 0.00 10\\S\\3/uL 0.00-0.01 NEUTROPH % (test code = NE%) 48.5 % 35.0-73.0 LYMPH % (test code = LY%) 37.6 % 20.0-55.0 MONO % (test code = MO%) 11.8 % 2.5-10.0 H EOSINOPH % (test code = EO%) 0.8 % 0.0-5.0 BASOPHIL % (test code = BA%) 0.3 % 0.0-2.0 IG % (test code = IG%) 1.0 % 0.0-0.8 H NRBC% (test code = NRBC%) 0.0 % 0.0-0.2 MANDIFF (test code = MDIFF) NO NO RBC MORPH (test code = RBCMOR) NORMAL GLUCOMETER GLUCOSE- LAB USE [id number] 18:06:00 Test Item Value Reference Range Interpretation Comments GLUCOMETER (test code 99 mg/dL 70-100 Result Not = GMG) ConfirmedMeter ID: [id number] tor: [id number] IRMA KIDD VALPROIC ACID (DEPAKENE)2020-12-03 05:42:00 Test Item Value Reference Range Interpretation Comments VALP ACID (test code = 95A) 59.7 ug/mL 50.0-100.0 SARS-CoV (RAPID ANTIGEN)2020-11-29 11:55:00 Test Item Value Reference Range Interpretation Comments SARS-CoV (ANTIGEN) NEGATIVE NEGATIVE (test code = COVAG) COVID AG (test This test has been code = COVAGC) marketed under the FDA Emergency Use Authorization (EUA) to meet challenges of the COVID-19 pandemic. The validation standards normally enforced by the FDA and the [employer] [employer] ([employer]) are more stringent than those required for this test. Therefore, the result should be interpreted with caution and close attention to other clinical and epidemiological data VALPROIC ACID (DEPAKENE)2020-11-28 06:15:00 Test Item Value Reference Range Interpretation Comments VALP ACID (test code = 95A) 67.5 ug/mL 50.0-100.0 COMPREHENSIVE METABOLIC [id number] 15:38:00 Test Item Value Reference Range Interpretation Comments GLUCOSE (test code 85 mg/dL 75-100 = 06D) SODIUM (test code 139 mmol/L 136-145 = 01A) POTASSIUM (test 3.9 mmol/L 3.6-5.1 code = 01B) CHLORIDE (test 100 mmol/L 98-107 code = 04A) CO2 (test code = 36 mmol/L 22-32 H 02A) ANION GAP (test 6.9 mmol/L code = ANG) BUN (test code = 9 mg/dL 7-18 05D) CREATININE (test 0.6 mg/dL 0.7-1.3 L code = 03E) GFR (test code = 113 See_Comment [Automated GFR) mL/min/1.73m\\S\\2 message] Th e system which generated this result transmit herb reference range : >=90. The reference range was not used to interpret this result as normal/abnormal . GFR 131 See_Comment [Automated HUNGARIAN (test mL/min/1.73m\\S\\2 message] The code = GFRAA) system which generated this result transmit herb reference range : >=90. The reference range was not used to interpret this result as normal/abnormal . EGFR (test code = eGFR BY EGFR) CKD-EPI CALCULATION IS NOT RECOMMENDED FOR PATIENTS UNDER 18 YEARS OF AGE. BUN/CREA (test 08-11 code = BCR) CALCIUM (test code 9.1 mg/dL 8.3-9.5 = 09D) BILI TOTAL (test 0.3 mg/dL 0.2-1.0 code = 11A) PROTEIN (test code 8.5 g/dL 6.4-8.2 H = 07D) ALBUMIN (test code 3.1 g/dL 3.5-4.8 L = 08D) GLOBULIN (test 5.4 g/dL 1.5-3.8 H code = GLB) ALB/GLOB (test 0.6 1.0-2.6 L code = AGRR) ALK PHOS (test 71 IU/L 42-121 code = 35A) AST (test code = 26 IU/L See_Comment [Automated 30A) message] The system which generated this result transmit herb reference range : <=42. The reference range was not used to interpret this result as normal/abnormal . ALT (test code = 22 IU/L See_Comment [Automated 31A) message] The system which generated this result transmit herb reference range : <=78. The reference range was not used to interpret this result as normal/abnormal . CBC (INCLUDES AUTOMATED DIFFERENTIAL)2020-11-27 15:24:00 Test Item Value Reference Range Interpretation Comments WBC (test code = WBC) 5.9 10\\S\\3/uL 4.5-11.0 RBC (test code = RBC) 4.23 10\\S\\6/uL 4.20-5.60 HGB (test code = HBG) 12.7 g/dL 14.0-18.0 L HCT (test code = HCT) 39.5 % 35.0-46.0 MCV (test code = MCV) 93.4 fL 80.0-94.0 MCH (test code = MCH) 30.0 pg 27.0-31.0 MCHC (test code = MCHC) 32.2 g/dL 32.0-36.0 RDW (test code = RDW) 16.3 % 11.5-14.5 H PLT (test code = PLT) 240 10\\S\\3/uL 130-400 MPV (test code = MPV) 11.4 fL 9.4-12.4 NEUTROP # (test code = NE#) 2.8 10\\S\\3/uL 2.0-8.0 LYMPH # (test code = LY#) 2.2 10\\S\\3/uL 1.2-4.0 MONOCYTE # (test code = MO#) 0.9 10\\S\\3/uL 0.0-1.1 EOSINOPH # (test code = EO#) 0.1 10\\S\\3/uL 0.0-0.7 BASOPHIL # (test code = BA#) 0.0 10\\S\\3/uL 0.0-0.3 IG # (test code = IG#) 0.01 10\\S\\3/uL 0.00-0.06 NRBC # (test code = NRBC#) 0.00 10\\S\\3/uL 0.00-0.01 NEUTROPH % (test code = NE%) 46.6 % 35.0-73.0 LYMPH % (test code = LY%) 36.9 % 20.0-55.0 MONO % (test code = MO%) 14.7 % 2.5-10.0 H EOSINOPH % (test code = EO%) 1.4 % 0.0-5.0 BASOPHIL % (test code = BA%) 0.2 % 0.0-2.0 IG % (test code = IG%) 0.2 % 0.0-0.8 NRBC% (test code = NRBC%) 0.0 % 0.0-0.2 MANDIFF (test code = MDIFF) NO NO RBC MORPH (test code = RBCMOR) NORMAL [id number] 16:56:00 Test Item Value Reference Range Interpretation Comments Hb A1C % (test code 5.3 % 3.8-6.4 = HBA) A1C % (test code = HbA1c (% ) A1C) Reference Range Normal <5.7 Prediabetes 5.7-6.4 Diabetic >=6.5 VALPROIC ACID (DEPAKENE)2020-11-13 16:53:00 Test Item Value Reference Range Interpretation Comments VALP ACID (test code = 95A) 31.3 ug/mL 50.0-100.0 LL [id number] 16:45:00 Test Item Value Reference Range Interpretation Comments LITHIUM (test code = 1.40 mmol/L 0.60-1.50 LI) LIH (test code = LIH) LIT HIUM THERAPEUTIC RANGE Acute meenu: 1.0-1.5 mmol/L Usman-term control 0.6-1.2 mmol/L Toxic level: > 2.0 mmol/L DRUGS OF [id number] 11:47:00 Test Item Value Reference Range Interpretation Comments DRUG SCRN (test code = URINE DRUG HDOA) SCREEN This is an unconfirmed screening result and should not be used for non-medical purposes CANNABINOD (test code Negative NEGATIVE = 88C) AMPHETAMINE (test code Negative NEGATIVE = 84A) BENZODIAZP (test code Negative NEGATIVE = 86A) BARBITURAT (test code Negative NEGATIVE = 85A) OPIATES (test code = Negative NEGATIVE 92B) COCAINE (test code = Negative NEGATIVE 87A) PHENCYCLID (test code Negative NEGATIVE = 66A) METHADONE (test code = Negative NEGATIVE 64A) DOAH (test code = DOAH.) URINE DRUG SCREEN Cut-off values are as follows: Cannabinoids 50 ng/mL Cocaine 300 ng/mL Amphetamines 1000 ng/mL Phencyclidine 25 ng/mL Benzodiazepines 200 ng.mL Methadone 300 ng/mL Barbiturates 200 ng/mL Opiates 2000 ng/mL URINALYSIS WITH [id number] 11:45:00 Test Item Value Reference Range Interpretation Comments COLOR (test code = COLU) YELLOW YELLOW CLARITY (test code = CLA) CLOUDY CLEAR A GLUCOSE UR (test code = UA GLUCOSE) NEGATIVE NEGATIVE BILI UR (test code = BILE) NEGATIVE NEGATIVE KETONES UR (test code = ORION) NEGATIVE NEGATIVE SP GRAVITY (test code = SPGR) 1.012 1.005-1.030 PH UR (test code = PH) 6.0 4.5-8.0 PROTEIN UR (test code = PU) NEGATIVE NEGATIVE UROBIL UR (test code = UROQ) 1.0 EU/dL 0.2-1.0 NITRITE UR (test code = NITRITE) NEGATIVE NEGATIVE BLOOD UR (test code = UA BLOOD) 1+ NEGATIVE A LEUK ES UR (test code = LEUK) NEGATIVE NEGATIVE WBC UR (test code = UWBC) 0 /HPF 0-3 RBC UR (test code = URBC) 4 /HPF 0-2 H EPITH UR (test code = UEPC) FEW /LPF NONE A BACTERIA UR (test code = UBACT) NONE /HPF NONE CAST UR (test code = CAST) /LPF NONE CRYSTAL UR (test code = CRYU) / LPF NONE MUCUS UR (test code = MUC) / HPF NONE AMORPH UR (test code = ROSELIA) / HPF NONE TRICH UR (test code = UTRICH) /HPF NONE YEAST UR (test code = UY) /HPF NONE SPERM UR (test code = USPERM) /HPF NONE [id number] 11:25:00 Test Item Value Reference Range Interpretation Comments FOLATE (test code = A75) 20.0 ng/mL 3.1-17.5 H LIPID [id number] 11:25:00 Test Item Value Reference Range Interpretation Comments CHOLESTROL (test code 173 mg/dL 140-200 = 44A) TRIGLYCERI (test code 127 mg/dL See_Comment [Auto mated message] = 42B) The system [employer] generated this result transmitted ref erence range: <=149. T he reference range was not used to int erpret this result as normal/abnormal . HDL (test code = 83D) 60.0 mg/dL 40.0-60.0 LDL (test code = 34B) 101 mg/dL See_Comment H [Auto mated message] The system [employer] generated this result transmitted ref erence range: <=99. Th e reference range was not used to int erpret this result as normal/abnormal . CHL/HDL (test code = 2.9 0.0-3.4 CHR) [id number] 11:25:00 Test Item Value Reference Range Interpretation Comments MAGNESIUM (test code = 48A) 2.3 mg/dL 1.8-2.4 THYROID PANEL/SCREEN (TSH)2020-11-13 11:07:00 Test Item Value Reference Range Interpretation Comments TSH (test code = A57) 0.501 uIU/mL 0.358-3.740 [id number] 10:57:00 Test Item Value Reference Range Interpretation Comments PREALBUMIN (test code = 08E) 19 mg/dL 18-38 [id number] 09:56:00 Test Item Value Reference Range Interpretation Comments ACETAMINPH (test code = 94M) <2.0 ug/mL 10.0-30.0 L ALCOHOL BLOOD (ETOH)2020-11-13 09:53:00 Test Item Value Reference Range Interpretation Comments ETOH (test code = ETHANOL HALC) The result is to be used only for medical purposes ALCOHOL (test <10 mg/dL See_Comment [Automated me ssage] code = 56A) The system [employer] generated this result transmit herb reference range : <=10. The refer ence range was not u sed to interpret th is result as normal/abnormal . COMPREHENSIVE METABOLIC [id number] 09:52:00 Test Item Value Reference Range Interpretation Comments GLUCOSE (test code 108 mg/dL 75-100 H = 06D) SODIUM (test code 140 mmol/L 136-145 = 01A) POTASSIUM (test 3.8 mmol/L 3.6-5.1 code = 01B) CHLORIDE (test 106 mmol/L 98-107 code = 04A) CO2 (test code = 29 mmol/L 22-32 02A) ANION GAP (test 8.8 mmol/L code = ANG) BUN (test code = 6 mg/dL 7-18 L 05D) CREATININE (test 0.8 mg/dL 0.7-1.3 code = 03E) GFR (test code = 99 See_Comment [Automated GFR) mL/min/1.73m\\S\\2 message] Th e system which generated this result transmit herb reference range : >=90. The reference range was not used to interpret this result as normal/abnormal . GFR 115 See_Comment [Automated HUNGARIAN (test mL/min/1.73m\\S\\2 message] The code = GFRAA) system which generated this result transmit herb reference range : >=90. The reference range was not used to interpret this result as normal/abnormal . EGFR (test code = eGFR BY EGFR) CKD-EPI CALCULATION IS NOT RECOMMENDED FOR PATIENTS UNDER 18 YEARS OF AGE. BUN/CREA (test 7 12-20 L code = BCR) CALCIUM (test code 8.2 mg/dL 8.3-9.5 L = 09D) BILI TOTAL (test 0.1 mg/dL 0.2-1.0 L code = 11A) PROTEIN (test code 7.6 g/dL 6.4-8.2 = 07D) ALBUMIN (test code 3.1 g/dL 3.5-4.8 L = 08D) GLOBULIN (test 4.5 g/dL 1.5-3.8 H code = GLB) ALB/GLOB (test 0.7 1.0-2.6 L code = AGRR) ALK PHOS (test 69 IU/L 42-121 code = 35A) AST (test code = 20 IU/L See_Comment [Automated 30A) message] The system which generated this result transmit herb reference range : <=42. The reference range was not used to interpret this result as normal/abnormal . ALT (test code = 11 IU/L See_Comment [Automated 31A) message] The system which generated this result transmit herb reference range : <=78. The reference range was not used to interpret this result as normal/abnormal . [id number] 09:40:00 Test Item Value Reference Range Interpretation Comments SALICYLATE (test code = 94B) 2.4 mg/dL 2.8-20.0 L AMMONIA [id number] 09:39:00 Test Item Value Reference Range Interpretation Comments AMMONIA (test code = 54A) 26 umol/L 11-32 CBC (INCLUDES AUTOMATED DIFFERENTIAL)2020-11-13 09:28:00 Test Item Value Reference Range Interpretation Comments WBC (test code = WBC) 6.0 10\\S\\3/uL 4.5-11.0 RBC (test code = RBC) 4.00 10\\S\\6/uL 4.20-5.60 L HGB (test code = HBG) 12.3 g/dL 14.0-18.0 L HCT (test code = HCT) 37.3 % 35.0-46.0 MCV (test code = MCV) 93.3 fL 80.0-94.0 MCH (test code = MCH) 30.8 pg 27.0-31.0 MCHC (test code = MCHC) 33.0 g/dL 32.0-36.0 RDW (test code = RDW) 16.2 % 11.5-14.5 H PLT (test code = PLT) 341 10\\S\\3/uL 130-400 MPV (test code = MPV) 9.9 fL 9.4-12.4 NEUTROP # (test code = NE#) 2.4 10\\S\\3/uL 2.0-8.0 LYMPH # (test code = LY#) 2.8 10\\S\\3/uL 1.2-4.0 MONOCYTE # (test code = MO#) 0.6 10\\S\\3/uL 0.0-1.1 EOSINOPH # (test code = EO#) 0.2 10\\S\\3/uL 0.0-0.7 BASOPHIL # (test code = BA#) 0.0 10\\S\\3/uL 0.0-0.3 IG # (test code = IG#) 0.02 10\\S\\3/uL 0.00-0.06 NRBC # (test code = NRBC#) 0.00 10\\S\\3/uL 0.00-0.01 NEUTROPH % (test code = NE%) 39.3 % 35.0-73.0 LYMPH % (test code = LY%) 45.9 % 20.0-55.0 MONO % (test code = MO%) 10.5 % 2.5-10.0 H EOSINOPH % (test code = EO%) 3.5 % 0.0-5.0 BASOPHIL % (test code = BA%) 0.5 % 0.0-2.0 IG % (test code = IG%) 0.3 % 0.0-0.8 NRBC% (test code = NRBC%) 0.0 % 0.0-0.2 MANDIFF (test code = MDIFF) NO NO RBC MORPH (test code = RBCMOR) NORMAL VALPROIC ACID (DEPAKENE)2019-09-08 05:12:00 Test Item Value Reference Range Interpretation Comments VALP ACID (test code = 95A) 57.0 ug/mL 50.0-100.0 VALPROIC ACID (DEPAKENE)2019-09-04 00:18:00 Test Item Value Reference Range Interpretation Comments VALP ACID (test code = 95A) 47.0 ug/mL 50.0-100.0 LL BASIC METABOLIC [id number] 00:03:00 Test Item Value Reference Range Interpretation Comments GLUCOSE (test code = 06D) 96 mg/dL 75-100 SODIUM (test code = 01A) 140 mmol/L 136-145 POTASSIUM (test code = 01B) 4.6 mmol/L 3.6-5.1 CHLORIDE (test code = 04A) 106 mmol/L 98-107 CO2 (test code = 02A) 30 mmol/L 22-32 ANION GAP (test code = ANG) 8.6 mmol/L BUN (test code = 05D) 15 mg/dL 7-18 CREATININE (test code = 03E) 0.8 mg/dL 0.7-1.3 BUN/CREA (test code = BCR) 20 12-20 CALCIUM (test code = 09D) 9.0 mg/dL 8.3-9.5 CBC (INCLUDES AUTOMATED DIFFERENTIAL)2019-09-03 23:55:00 Test Item Value Reference Range Interpretation Comments WBC (test code = WBC) 6.3 10\\S\\3/uL 4.5-11.0 RBC (test code = RBC) 3.65 10\\S\\6/uL 4.20-5.60 L HGB (test code = HBG) 11.3 g/dL 14.0-18.0 L HCT (test code = HCT) 33.6 % 35.0-46.0 L MCV (test code = MCV) 92.1 fL 80.0-94.0 MCH (test code = MCH) 31.0 pg 27.0-31.0 MCHC (test code = MCHC) 33.6 g/dL 32.0-36.0 RDW (test code = RDW) 16.5 % 11.5-14.5 H PLT (test code = PLT) 234 10\\S\\3/uL 130-400 MPV (test code = MPV) 10.5 fL 9.4-12.4 NEUTROP # (test code = NE#) 3.1 10\\S\\3/uL 2.0-8.0 LYMPH # (test code = LY#) 2.4 10\\S\\3/uL 1.2-4.0 MONOCYTE # (test code = MO#) 0.6 10\\S\\3/uL 0.0-1.1 EOSINOPH # (test code = EO#) 0.2 10\\S\\3/uL 0.0-0.7 BASOPHIL # (test code = BA#) 0.0 10\\S\\3/uL 0.0-0.3 IG # (test code = IG#) 0.04 10\\S\\3/uL 0.00-0.06 NRBC # (test code = NRBC#) 0.00 10\\S\\3/uL 0.00-0.01 NEUTROPH % (test code = NE%) 48.5 % 35.0-73.0 LYMPH % (test code = LY%) 37.9 % 20.0-55.0 MONO % (test code = MO%) 9.6 % 2.5-10.0 EOSINOPH % (test code = EO%) 2.9 % 0.0-5.0 BASOPHIL % (test code = BA%) 0.5 % 0.0-2.0 IG % (test code = IG%) 0.6 % 0.0-0.8 NRBC% (test code = NRBC%) 0.0 % 0.0-0.2 MANDIFF (test code = MDIFF) NO NO RBC MORPH (test code = RBCMOR) NORMAL VALPROIC ACID (DEPAKENE)2019-08-29 08:20:00 Test Item Value Reference Range Interpretation Comments VALP ACID (test code = 95A) 13.0 ug/mL 50.0-100.0 LL BASIC METABOLIC [id number] 08:03:00 Test Item Value Reference Range Interpretation Comments GLUCOSE (test code = 06D) 73 mg/dL 75-100 L SODIUM (test code = 01A) 140 mmol/L 136-145 POTASSIUM (test code = 01B) 4.5 mmol/L 3.6-5.1 CHLORIDE (test code = 04A) 108 mmol/L 98-107 H CO2 (test code = 02A) 31 mmol/L 22-32 ANION GAP (test code = ANG) 5.5 mmol/L BUN (test code = 05D) 10 mg/dL 7-18 CREATININE (test code = 03E) 0.6 mg/dL 0.7-1.3 L BUN/CREA (test code = BCR) 15 12-20 CALCIUM (test code = 09D) 8.6 mg/dL 8.3-9.5 [id number] 20:58:00 Test Item Value Reference Range Interpretation Comments Hb A1C % (test code = HBA) 5.8 % 4.2-6.3 VALPROIC ACID (DEPAKENE)2019-08-22 21:49:00 Test Item Value Reference Range Interpretation Comments VALP ACID (test code = 95A) 43.0 ug/mL 50.0-100.0 LL [id number] 21:45:00 Test Item Value Reference Range Interpretation Comments FOLATE (test code = A75) 22.8 ng/mL 3.1-17.5 H THYROID PANEL/SCREEN (TSH)2019-08-22 21:28:00 Test Item Value Reference Range Interpretation Comments TSH (test code = A57) 2.310 uIU/mL 0.358-3.740 [id number] 21:17:00 Test Item Value Reference Range Interpretation Comments PREALBUMIN (test code = 08E) 26 mg/dL 18-38 LIPID [id number] 21:17:00 Test Item Value Reference Range Interpretation Comments CHOLESTROL (test code = 44A) 165 mg/dL 140-200 TRIGLYCERI (test code = 42B) 69 mg/dL <=149 HDL (test code = 83D) 71.0 mg/dL 40.0-60.0 H LDL (test code = 34B) 78 mg/dL <=99 CHL/HDL (test code = CHR) 2.3 0.0-3.4 [id number] 21:05:00 Test Item Value Reference Range Interpretation Comments MAGNESIUM (test code = 48A) 2.2 mg/dL 1.8-2.4 COMPREHENSIVE METABOLIC [id number] 10:40:00 Test Item Value Reference Range Interpretation Comments GLUCOSE (test code = 06D) 66 mg/dL 75-100 L SODIUM (test code = 01A) 141 mmol/L 136-145 POTASSIUM (test code = 01B) 4.3 mmol/L 3.6-5.1 CHLORIDE (test code = 04A) 104 mmol/L 98-107 CO2 (test code = 02A) 33 mmol/L 22-32 H ANION GAP (test code = ANG) 8.3 mmol/L BUN (test code = 05D) 11 mg/dL 7-18 CREATININE (test code = 03E) 0.7 mg/dL 0.7-1.3 BUN/CREA (test code = BCR) 15 12-20 CALCIUM (test code = 09D) 9.3 mg/dL 8.3-9.5 BILI TOTAL (test code = 11A) 0.2 mg/dL 0.2-1.0 PROTEIN (test code = 07D) 8.2 g/dL 6.4-8.2 ALBUMIN (test code = 08D) 3.3 g/dL 3.5-4.8 L GLOBULIN (test code = GLB) 4.9 g/dL 1.5-3.8 H ALB/GLOB (test code = AGRR) 0.7 1.0-2.6 L ALK PHOS (test code = 35A) 65 IU/L 42-121 AST (test code = 30A) 18 IU/L <=42 ALT (test code = 31A) 21 IU/L <=78 [id number] 10:40:00 Test Item Value Reference Range Interpretation Comments ACETAMINPH (test code = 94M) <2.0 ug/mL 10.0-30.0 L ALCOHOL BLOOD (ETOH)2019-08-22 10:40:00 Test Item Value Reference Range Interpretation Comments ETOH (test code = HALC) ETHANOL The result is to be used only for medical purposes ALCOHOL (test code = <10 mg/dL <=10 56A) AMMONIA [id number] 10:33:00 Test Item Value Reference Range Interpretation Comments AMMONIA (test code = 54A) 34 umol/L 11-32 H [id number] 10:33:00 Test Item Value Reference Range Interpretation Comments SALICYLATE (test code = 94B) <1.7 mg/dL 2.8-20.0 L URINALYSIS WITH [id number] 10:32:00 Test Item Value Reference Range Interpretation Comments COLOR (test code = COLU) YELLOW YELLOW CLARITY (test code = CLA) CLOUDY CLEAR A GLUCOSE UR (test code = UA NEGATIVE NEGATIVE GLUCOSE) BILI UR (test code = BILE) NEGATIVE NEGATIVE KETONES UR (test code = NEGATIVE NEGATIVE ORION) SP GRAVITY (test code = 1.020 1.005-1.030 SPGR) PH UR (test code = PH) 7.0 4.5-8.0 PROTEIN UR (test code = PU) NEGATIVE NEGATIVE UROBIL UR (test code = 1.0 EU/dL 0.2-1.0 UROQ) NITRITE UR (test code = NEGATIVE NEGATIVE NITRITE) BLOOD UR (test code = UA NEGATIVE NEGATIVE BLOOD) LEUK ES UR (test code = 1+ NEGATIVE A LEUK) WBC UR (test code = UWBC) 3 /HPF 0-3 RBC UR (test code = URBC) 0 /HPF 0-2 EPITH UR (test code = UEPC) FEW /LPF NONE A RENAL EPITHELIAL BACTERIA UR (test code = NONE /HPF NONE UBACT) CAST UR (test code = CAST) /LPF NONE CRYSTAL UR (test code = / LPF NONE CRYU) MUCUS UR (test code = MUC) FEW / HPF NONE A AMORPH UR (test code = / HPF NONE ROSELIA) TRICH UR (test code = /HPF NONE UTRICH) YEAST UR (test code = UY) /HPF NONE SPERM UR (test code = /HPF NONE USPERM) CBC (INCLUDES AUTOMATED DIFFERENTIAL)2019-08-22 10:32:00 Test Item Value Reference Range Interpretation Comments WBC (test code = WBC) 9.2 10\\S\\3/uL 4.5-11.0 RBC (test code = RBC) 3.94 10\\S\\6/uL 4.20-5.60 L HGB (test code = HBG) 11.7 g/dL 14.0-18.0 L HCT (test code = HCT) 37.7 % 35.0-46.0 MCV (test code = MCV) 95.7 fL 80.0-94.0 H MCH (test code = MCH) 29.7 pg 27.0-31.0 MCHC (test code = MCHC) 31.0 g/dL 32.0-36.0 L RDW (test code = RDW) 16.3 % 11.5-14.5 H PLT (test code = PLT) 365 10\\S\\3/uL 130-400 MPV (test code = MPV) 10.6 fL 9.4-12.4 NEUTROP # (test code = NE#) 3.5 10\\S\\3/uL 2.0-8.0 LYMPH # (test code = LY#) 4.2 10\\S\\3/uL 1.2-4.0 H MONOCYTE # (test code = MO#) 1.3 10\\S\\3/uL 0.0-1.1 H EOSINOPH # (test code = EO#) 0.1 10\\S\\3/uL 0.0-0.7 BASOPHIL # (test code = BA#) 0.0 10\\S\\3/uL 0.0-0.3 IG # (test code = IG#) 0.06 10\\S\\3/uL 0.00-0.06 NRBC # (test code = NRBC#) 0.00 10\\S\\3/uL 0.00-0.01 NEUTROPH % (test code = NE%) 38.1 % 35.0-73.0 LYMPH % (test code = LY%) 45.6 % 20.0-55.0 MONO % (test code = MO%) 14.0 % 2.5-10.0 H EOSINOPH % (test code = EO%) 1.2 % 0.0-5.0 BASOPHIL % (test code = BA%) 0.4 % 0.0-2.0 IG % (test code = IG%) 0.7 % 0.0-0.8 NRBC% (test code = NRBC%) 0.0 % 0.0-0.2 MANDIFF (test code = MDIFF) NO NO RBC MORPH (test code = RBCMOR) NORMAL DRUGS OF [id number] 10:28:00 Test Item Value Reference Range Interpretation Comments DRUG SCRN (test code = URINE DRUG HDOA) SCREEN This is an unconfirmed screening result and should not be used for non-medical purposes CANNABINOD (test code Negative NEGATIVE = 88C) AMPHETAMINE (test code Negative NEGATIVE = 84A) BENZODIAZP (test code Negative NEGATIVE = 86A) BARBITURAT (test code Negative NEGATIVE = 85A) OPIATES (test code = Negative NEGATIVE 92B) COCAINE (test code = Negative NEGATIVE 87A) PHENCYCLID (test code Negative NEGATIVE = 66A) METHADONE (test code = Negative NEGATIVE 64A) DOAH (test code = DOAH.) URINE DRUG SCREEN Cut-off values are as follows: Cannabinoids 50 ng/mL Cocaine 300 ng/mL Amphetamines 1000 ng/mL Phencyclidine 25 ng/mL Benzodiazepines 200 ng.mL Methadone 300 ng/mL Barbiturates 200 ng/mL Opiates 2000 ng/mL POCT-GLUCOSE [id number] 05:12:00 Test Item Value Reference Range Interpretation Comments POC-GLUCOSE METER 83 mg/dL 70-110 TESTED AT [place] [address] ([facility]) (test code = [facility] [id number] 1538) POCT-GLUCOSE [id number] 00:21:00 Test Item Value Reference Range Interpretation Comments POC-GLUCOSE METER 105 mg/dL 70-110 TESTED AT [place] [address] ([facility]) (test code = [facility] 1538) [id number] POCT-GLUCOSE [id number] 21:50:00 Test Item Value Reference Range Interpretation Comments POC-GLUCOSE METER 131 mg/dL 70-110 H TESTED AT [place] [address] ([facility]) (test code = [facility] 1538) [id number] POCT-GLUCOSE [id number] 21:11:00 Test Item Value Reference Range Interpretation Comments POC-GLUCOSE METER 117 mg/dL 70-110 H TESTED AT [place] [address] ([facility]) (test code = [facility] Shauna [facility] 1538) [id number] POCT-GLUCOSE [id number] 06:11:00 Test Item Value Reference Range Interpretation Comments POC-GLUCOSE METER 70 mg/dL 70-110 TESTED AT [place] [address] ([facility]) (test code = [facility] Shauna [facility] [id number] 1538) BASIC METABOLIC [id number] 04:55:00 Test Item Value Reference Range Interpretation [...] NOT APPLICABLE FOR DIALYSIS PATIEN TS. POCT-GLUCOSE [id number] 04:08:00 Test Item Value Reference Range Interpretation Comments POC-GLUCOSE METER 78 mg/dL 70-110 TESTED AT [place] [address] ([facility]) (test code = [facility] [id number] 1538) POCT-GLUCOSE [id number] 02:11:00 Test Item Value Reference Range Interpretation Comments POC-GLUCOSE METER 106 mg/dL 70-110 TESTED AT [place] [address] ([facility]) (test code = [facility] 1538) [id number] POCT-GLUCOSE [id number] 23:55:00 Test Item Value Reference Range Interpretation Comments POC-GLUCOSE METER 101 mg/dL 70-110 TESTED AT [place] [address] ([facility]) (test code = ROWDY [place]ator[place] 1538) [id number] POCT-GLUCOSE [id number] 22:27:00 Test Item Value Reference Range Interpretation Comments POC-GLUCOSE METER 86 mg/dL 70-110 TESTED AT [place] [address] ([facility]) (test code = [place] [address] 1538) POCT-GLUCOSE [id number] 20:03:00 Test Item Value Reference Range Interpretation Comments POC-GLUCOSE METER 139 mg/dL 70-110 H TESTED AT [place] [address] ([facility]) (test code = ROWDY Villatoro [facility] 1538) [address] POCT-GLUCOSE [id number] 12:24:00 Test Item Value Reference Range Interpretation Comments POC-GLUCOSE METER 89 mg/dL 70-110 TESTED AT [place] [address] ([facility]) (test code = ROWDY Villatoro [facility] [address] 1538) MISCELLANEOUS LAB [id number] 07:51:00 Test Item Value Reference Range Interpretation Comments SCAN RESULT (test code = 3642997) POCT-GLUCOSE [id number] 05:36:00 Test Item Value Reference Range Interpretation Comments POC-GLUCOSE METER 73 mg/dL 70-110 TESTED AT [place] [address] ([facility]) (test code = ROWDY Villatoro [facility] [address] 1538) POCT-GLUCOSE [id number] 02:11:00 Test Item Value Reference Range Interpretation Comments POC-GLUCOSE METER 86 mg/dL 70-110 TESTED AT [place] [address] ([facility]) (test code = ROWDY Villatoro [facility] [address] 1538) POCT-GLUCOSE [id number] 00:09:00 Test Item Value Reference Range Interpretation Comments POC-GLUCOSE METER 84 mg/dL 70-110 TESTED AT [place] [address] ([facility]) (test code = ROWDY Villatoro [facility] [address] 1538) POCT-GLUCOSE [id number] 22:11:00 Test Item Value Reference Range Interpretation Comments POC-GLUCOSE METER 93 mg/dL 70-110 TESTED AT [place] [address] ([facility]) (test code = ROWDY Villatoro [facility] [address] 1538) POCT-GLUCOSE [id number] 20:14:00 Test Item Value Reference Range Interpretation Comments POC-GLUCOSE METER 98 mg/dL 70-110 TESTED AT [place] [address] (BEAKER) (test code = [facility] [address] 1538) POCT-GLUCOSE [id number] 15:36:00 Test Item Value Reference Range Interpretation Comments POC-GLUCOSE METER 60 mg/dL 70-110 L TESTED AT [place] [address] ([facility]) (test code = [facility] [address] 1538) POCT-GLUCOSE [id number] 12:10:00 Test Item Value Reference Range Interpretation Comments POC-GLUCOSE METER 73 mg/dL 70-110 TESTED AT [place] [address] ([facility]) (test code = [facility] [address] 1538) POCT-GLUCOSE [id number] 09:25:00 Test Item Value Reference Range Interpretation Comments POC-GLUCOSE METER 95 mg/dL 70-110 TESTED AT [place] [address] ([facility]) (test code = [facility] [address] 1538) BASIC METABOLIC [id number] 07:34:00 Test Item Value Reference Range Interpretation [...] PATIEN TS. CBC W/PLT COUNT & AUTO [id number] 06:35:00 Test Item Value Reference Range Interpretation [...] PERCENT (BEAKER) (test code = 2801) POCT-GLUCOSE [id number] 23:54:00 Test Item Value Reference Range Interpretation Comments POC-GLUCOSE METER 105 mg/dL 70-[address] [facility] 6720 (BEAKER) (test code = ROWDY Villatoro [facility] 1538) [address] POCT-GLUCOSE [id number] 20:19:00 Test Item Value Reference Range Interpretation Comments POC-GLUCOSE METER 128 mg/dL 70-[address] [facility] 6720 (BEAKER) (test code = ROWDY Villatoro [facility] 1538) [address] [id number] 13:24:00 Test Item Value Reference Range Interpretation Comments GLUCOSE RANDOM (BEAKER) (test code = 99 mg/dL 70-105 652) BASIC METABOLIC [id number] 13:24:00 Test Item Value Reference Range Interpretation [...] NOT APPLICABLE FOR DIALYSIS PATIEN TS. KETONE, [id number] 13:11:00 Test Item Value Reference Range Interpretation Comments KETONES, BLOOD (BEAKER) (test code 0.1 mmol/L <0.4 = 1103) TISSUE [id number] 12:48:00Surgical Pathology Report Case: [id number] Authorizing Provider: Blaine Venegas Collected: 12/30/2018 1728 Ordering Location: [place] [address] ICU Received: 01/02/2019 0754 Pathologist: Dago Early MD Specimens: A) - Stomach, Antrum, Lesser curvature Bx B) - Pancreas, Head, fnb of lesion C) - Pancreas, song-pancreatic mass fnb PART A GASTRIC ANTRUM LESSER CURVATURE, BIOPSY:ACTIVE CHRONIC GASTRITIS WITH INTESTINAL METAPLASIA.NEGATIVE FOR DYSPLASIA OR INVASIVE CARCINOMA.WARTHIN STARRY STAIN FOR HELICOBACTER IS NEGATIVE.IMMUNOSTAINS FOR HELICOBACTER ARE NEGATIVE.PART B HEAD OF PANCREAS, BIOPSY FOR SUSPECTED MASS:SCANT PORTIONS OF BENIGN GLANDULAR TISSUE.INSUFFICIENT FOR CONFIRMATION OR EXCLUSION OF MALIGNANCY.PART C SONG- PANCREATIC TISSUE, BIOPSY FOR SUSPECTED MASS:RARE LYMPHOID MATERIAL.INSUFFICIENT FOR CONFIRMATION OR EXCLUSION OF MALIGNANCY.SEE DIAGNOSTIC COMMENT. Signing Pathologist Direct Phone Line: [phone] signed by Catracho Early MD on 01/03/2019 at 12:48 PMPreliminary result electronically signed by Catracho Early MD on 01/02/2019 at 5:33 PMPART A: A dense reactive lymphoid population is identified in the lamina propria. Immunohistoch emical studies performed on block A1 demonstrate the lymphoid population to be comprised of CD20 positive B cells and CD3 positive T cells. Plasma cells are small and mature and they are polytypic for kappa and lambda light chains. There is no evidence of a hematopoietic neoplasm.PART C: Histological sections demonstrate rare portions of cytologically unremarkable lymphoid tissue. Immunohistochemicalstudies performed on block C1 demonstrate this population to be positive for CD45 and negative for cam 5.2 and synaptophysin. The sampled material is insufficient to confirm or exclude the presence of a malignancy.02135r6, 69065, 48973m0, 34567s2, 22486Lwdpgjhrb is upper endoscopy, biopsy, FNA with ultrasound. Preoperative and postoperative diagnoses pancreatic mass.A. Stomach antrum lesser curvaturebiopsy. B. Pancreas head FNB of lesion. C. Pancreas peripancreatic mass FNBThe specimen is received in three parts labeled with the patient's name, Mariano Mauricio, and accession number, [id number], which corresponds to the accompanying requisition.Specimen A is received in a biohazard bag in a specimen container and in formalin labeled "stomach antrum" and consists of four irregular fragments of veliz-whitetissue measuring 0.5 x 0.4 x 0.2 cm in aggregate, which are submitted in toto in one cassette.Specimen B is received in the same biohazard bag in a specimen container and in formalin labeled "pancreas head" and consists of a single minute core of veliz-red tissue measuring 0.3 cm in length x less than [...] of this case included the use of immun ohistochemistry or special stains.BLOCK A1- HELICOBACTER, CD20, CD3, KAPPA, LAMBDA WARTHIN STARRYBLOCK C1- CD45, CAM 5.2, SYNAPTOPHYSINControl Slides Examined: In-house known positive controls were evaluated along with the test tissue. These control slides run alongside of the patients sample show appr opriate staining. Internal positive and negative controls when available are evaluated Immunohistochemistry technical testing was performed at [facility], Pathology Laboratory where it was developed [...] to perform high complexity clinical laboratory testing.POCT-GLUCOSE [id number] 08:57:00 Test Item Value Reference Range Interpretation Comments POC-GLUCOSE METER 60 mg/dL 70-110 L TESTED AT [place] [address] ([facility]) (test code = ROWDY Villatoro [facility] [address] 1538) POCT-GLUCOSE [id number] 18:36:00 Test Item Value Reference Range Interpretation Comments POC-GLUCOSE METER 82 mg/dL 70-[address] [facility] 6720 ([facility]) (test code = MARLENEME Shauna [facility] [address] 1538) BLOOD [id number] 12:01:00 Test Item Value Reference Range Interpretation Comments CULTURE (BEAKER) (test No growth in 5 days code = 1095) BLOOD [id number] 12:01:00 Test Item Value Reference Range Interpretation Comments CULTURE (BEAKER) (test No growth in 5 days code = 1095) [id number] 08:38:00 Test Item Value Reference Range Interpretation Comments SCAN RESULT (test code = 4761830) INSULIN-LIKE GROWTH [id number] 08:38:00 Test Item Value Reference Range Interpretation Comments SCAN RESULT (test code = 4388721) POCT-GLUCOSE [id number] 20:47:00 Test Item Value Reference Range Interpretation Comments POC-GLUCOSE METER 109 mg/dL 70-110 TESTED AT [place] [address] ([facility]) (test code = [facility] 1538) [address] POCT-GLUCOSE [id number] 19:04:00 Test Item Value Reference Range Interpretation Comments POC-GLUCOSE METER 86 mg/dL 70-110 TESTED AT [place] [address] ([facility]) (test code = [facility] [address] 1538) BASIC METABOLIC [id number] 16:38:00 Test Item Value Reference Range Interpretation [...] PATIEN TS. CBC W/PLT COUNT & AUTO [id number] 07:03:00 Test Item Value Reference Range Interpretation [...] 0-1 PERCENT (BEAKER) (test code = 2801) [id number] 06:49:00 Test Item Value Reference Range Interpretation Comments PHOSPHORUS (BEAKER) (test code = 4.0 mg/dL 2.3-4.7 604) [id number] 06:49:00 Test Item Value Reference Range Interpretation Comments MAGNESIUM (BEAKER) (test code = 1.7 mg/dL 1.6-2.6 627) BASIC METABOLIC [id number] 06:49:00 Test Item Value Reference Range Interpretation [...] NOT APPLICABLE FOR DIALYSIS PATIEN TS. POCT-GLUCOSE [id number] 06:18:00 Test Item Value Reference Range Interpretation Comments POC-GLUCOSE METER 112 mg/dL 70-[address] [facility] 6720 (BEAKER) (test code = ROWDY Villatoro [place] 1538) [address] POCT-GLUCOSE [id number] 02:10:00 Test Item Value Reference Range Interpretation Comments POC-GLUCOSE METER 106 mg/dL 70-[address] [facility] 6720 (BEAKER) (test code = ROWDY Villatoro [place] 1538) [address] BASIC METABOLIC [id number] 23:16:00 Test Item Value Reference Range Interpretation [...] NOT APPLICABLE FOR DIALYSIS PATIEN TS. POCT-GLUCOSE [id number] 22:45:00 Test Item Value Reference Range Interpretation Comments POC-GLUCOSE METER 151 mg/dL 70-110 H TESTED AT [place] [address] ([facility]) (test code = [facility] 1538) [address] POCT-GLUCOSE [id number] 16:40:00 Test Item Value Reference Range Interpretation Comments POC-GLUCOSE METER 83 mg/dL 70-110 TESTED AT [place] [address] ([facility]) (test code = [facility] [address] 1538) VALPROIC ACID LEVEL, [id number] 14:48:00 Test Item Value Reference Range Interpretation Comments VALPROIC ACID TOTAL (BEAKER) (test 36 ug/mL 50-100 L code = 924) Therapeutic range for some clinical conditions may be >100 ug/mLDraw as trough 30-60 minutes prior to next dosePOCT-GLUCOSE [id number] 11:42:00 Test Item Value Reference Range Interpretation Comments POC-GLUCOSE METER 88 mg/dL 70-110 TESTED AT [place] [id number] ([facility]) (test code = [facility] [address] 1538) POCT-GLUCOSE [id number] 08:35:00 Test Item Value Reference Range Interpretation Comments POC-GLUCOSE METER 127 mg/dL 70-[address] [facility] 6720 (BEAKER) (test code = ROWDY [place] 1538) [address] CBC W/PLT COUNT & AUTO [id number] 08:20:00 Test Item Value Reference Range Interpretation [...] 0-1 PERCENT (BEAKER) (test code = 2801) [id number] 05:58:00 Test Item Value Reference Range Interpretation Comments PHOSPHORUS (BEAKER) (test code = 3.7 mg/dL 2.3-4.7 604) [id number] 05:58:00 Test Item Value Reference Range Interpretation Comments MAGNESIUM (BEAKER) (test code = 1.9 mg/dL 1.6-2.6 627) BASIC METABOLIC [id number] 05:58:00 Test Item Value Reference Range Interpretation [...] NOT APPLICABLE FOR DIALYSIS PATIEN TS. POCT-GLUCOSE [id number] 21:55:00 Test Item Value Reference Range Interpretation Comments POC-GLUCOSE METER 114 mg/dL 70-[address] [facility] 6720 (BEAKER) (test code = ROW[place] 1538) [address] BASIC METABOLIC [id number] 19:08:00 Test Item Value Reference Range Interpretation [...] APPLICABLE FOR DIALYSIS PATIEN TS. VANCOMYCIN LEVEL, [id number] 13:10:00 Test Item Value Reference Range Interpretation Comments VANCOMYCIN TROUGH (BEAKER) (test 14.6 ug/mL 10.0-20.0 code = 522) INSULIN, [id number] 12:44:00 Test Item Value Reference Range Interpretation Comments SCAN RESULT (test code = 9667319) POCT-GLUCOSE [id number] 12:29:00 Test Item Value Reference Range Interpretation Comments POC-GLUCOSE METER 113 mg/dL 70-110 H TESTED AT [place] [address] ([facility]) (test code = [facility] 1538) [address] POCT-GLUCOSE [id number] 08:28:00 Test Item Value Reference Range Interpretation Comments POC-GLUCOSE METER 102 mg/dL 70-110 TESTED AT [place] [id number] ([facility]) (test code = [facility] 1538) [address] VANCOMYCIN LEVEL, [id number] 04:16:00 Test Item Value Reference Range Interpretation Comments VANCOMYCIN TROUGH (BEAKER) (test 38.8 ug/mL 10.0-20.0 code = 522) CBC W/PLT COUNT & AUTO [id number] 03:36:00 Test Item Value Reference Range Interpretation [...] 0-1 PERCENT (BEAKER) (test code = 2801) [id number] 03:35:00 Test Item Value Reference Range Interpretation Comments PHOSPHORUS (BEAKER) (test code = 4.4 mg/dL 2.3-4.7 604) [id number] 03:35:00 Test Item Value Reference Range Interpretation Comments MAGNESIUM (BEAKER) (test code = 1.7 mg/dL 1.6-2.6 627) BASIC METABOLIC [id number] 03:35:00 Test Item Value Reference Range Interpretation [...] NOT APPLICABLE FOR DIALYSIS PATIEN TS. POCT-GLUCOSE [id number] 00:16:00 Test Item Value Reference Range Interpretation Comments POC-GLUCOSE METER 91 mg/dL 70-110 TESTED AT [place] [address] ([facility]) (test code = [facility] [address] 1538) POCT-GLUCOSE [id number] 17:57:00 Test Item Value Reference Range Interpretation Comments POC-GLUCOSE METER 88 mg/dL 70-110 TESTED AT [place] [address] ([facility]) (test code = [facility] [address] 1538) POCT-GLUCOSE [id number] 11:45:00 Test Item Value Reference Range Interpretation Comments POC-GLUCOSE METER 81 mg/dL 70-110 TESTED AT [place] [address] ([facility]) (test code = [facility] [address] 1538) POCT-GLUCOSE [id number] 09:14:00 Test Item Value Reference Range Interpretation Comments POC-GLUCOSE METER 92 mg/dL 70-110 TESTED AT [place] [address] (BEAKER) (test code = ROWDY Villatoro [facility] [address] 1538) POCT-GLUCOSE [id number] 08:32:00 Test Item Value Reference Range Interpretation Comments POC-GLUCOSE METER 69 mg/dL 70-110 L Notified R Ector GREENBERG/TESTED AT (BEAKER) (test code = [address] 1538) [facility] 7[address] HEPATIC FUNCTION [id number] 07:07:00 Test Item Value Reference Range Interpretation [...] code = 41 U/L 6-55 347) POCT-GLUCOSE [id number] 06:29:00 Test Item Value Reference Range Interpretation Comments POC-GLUCOSE METER 82 mg/dL 70-110 TESTED AT [place] [address] (BEAKER) (test code = ROWDY Villatoro [facility] [address] 1538) [id number] 05:12:00 Test Item Value Reference Range Interpretation Comments PHOSPHORUS (BEAKER) (test code = 3.1 mg/dL 2.3-4.7 604) [id number] 05:12:00 Test Item Value Reference Range Interpretation Comments MAGNESIUM (BEAKER) (test code = 1.6 mg/dL 1.6-2.6 627) BASIC METABOLIC [id number] 05:12:00 Test Item Value Reference Range Interpretation [...] APPLICABLE FOR DIALYSIS PATIEN TS. LACTIC ACID, [id number] 05:05:00 Test Item Value Reference Range Interpretation Comments LACTATE BLOOD VENOUS (2) (BEAKER) 0.8 mmol/L 0.5-2.2 (test code = 2872) CBC W/PLT COUNT & AUTO [id number] 04:51:00 Test Item Value Reference Range Interpretation [...] PERCENT (BEAKER) (test code = 2801) CT, [id number] 03:14:00Pt will require sedation given by the nurses prior to the his exam. He has TBI and does not have capacity to make decisions. Guardian consents to sedation for CT scanFINAL REPORT EXAMINATION: Noncontrast and contrast-enhanced CT examinations of the abdomen and pelvis CLINICAL HISTORY: Hypoglycemia concerning for pancreatic mass. Pancreatic massprotocol. COMPARISON EXAM: Ultrasound 11/29/2018. TECHNIQUE: Axial noncontrast tomographic images wereinitially acquired through the abdomen. Following the administration of IV contrast, axial tomographic images were acquired during the arterial phase through the abdomen. After a brief delay additionalaxial tomographic images were acquired during the venous [...] are also noted at the lung bases, rightgreater than left. Although a component of the lung consolidation is favored to reflect atelectasis,asymmetric reticulonodular opacities are also noted in the right lower lobe which may reflect a superimposed pneumonia. The pancreas demonstrates homogeneous enhancement but is mildly atrophic with fatty infiltration. No evidence of a discrete pancreatic mass, pancreatitis or pancreatic ductal dilatation.. The liver demonstrates relatively homogeneous contrast-enhancement without discrete mass. The gallbladder and bile ducts are decompressed. The spleen is unremarkable. The adrenal glands are normalin size and shape. No evidence of renal obstruction, nephrolithiasis or perinephric edema. The left k idney is associated with a 4 cm cyst. [...] vessels. Evaluation of the bowel is limited bythe absence of enteric contrast. The stomach is grossly unremarkable. The loops of small bowel are normal in caliber. A large volume of inspissated stool is noted in the colon extending to the rectum including a large stool ball in the rectal vault. In the left flank deep subcutaneous tissues there isan oval-shaped 8 cm fluid collection with a [...] overload / CHF. No evidence of a livermass to correlate with the recent ultrasound (11/29/2018). Nonspecific bladder wall thickening, urinalysis correlation recommended. Large colonic fecal burden concerning for constipation/impaction. No evidence of a pancreatic mass. Signed: Jaxson Real MDReport Verified Date/Time: 12/29/2018 03:14:03 Reading Location: [address] Reading Room POCT-GLUCOSE [id number] 00:20:00 Test Item Value Reference Range Interpretation Comments POC-GLUCOSE METER 88 mg/dL 70-110 TESTED AT [place] [address] (BEAKER) (test code = ROWDY Villatoro [facility] [address] 1538) POCT-GLUCOSE [id number] 22:16:00 Test Item Value Reference Range Interpretation Comments POC-GLUCOSE METER 70 mg/dL 70-110 TESTED AT [place] [address] (BEAKER) (test code = [facility] Shauna [facility] [address] 1538) POCT-GLUCOSE [id number] 18:45:00 Test Item Value Reference Range Interpretation Comments POC-GLUCOSE METER 87 mg/dL 70-110 TESTED AT [place] [address] (BEAKER) (test code = [facility] Shauna [facility] [address] 1538) LACTIC ACID, [id number] 17:43:00 Test Item Value Reference Range Interpretation Comments LACTATE BLOOD VENOUS (2) (BEAKER) 0.6 mmol/L 0.5-2.2 (test code = 2872) POCT-GLUCOSE [id number] 15:52:00 Test Item Value Reference Range Interpretation Comments POC-GLUCOSE METER 74 mg/dL 70-110 TESTED AT [place] [address] (BEAKER) (test code = [facility] [employer] [facility] [address] 1538) URINALYSIS W/ REFLEX URINE [id number] 15:43:00 Test Item Value Reference Range Interpretation [...] (test code = 2795) RAPID DRUG SCREEN, [id number] 15:31:00 Test Item Value Reference Range Interpretation [...] unconfirmed qualitative test result for the clinical managementof patients in emergency situations. Chain of custody not maintained. Some jrcx-hke-zyrovyn medications, as well as adulterants, may cause inaccurate results. Clinical correlation should be applied. A more comprehensive drug screen or confirmation of a detected drug may be performed upon request.LACTIC ACID, [id number] 15:22:00 Test Item Value Reference Range Interpretation Comments LACTATE BLOOD VENOUS 0.7 mmol/L 0.5-2.2 Specime n slightly (2) (BEAKER) (test hemolyzed code = 9232) POCT-GLUCOSE [id number] 15:02:00 Test Item Value Reference Range Interpretation Comments POC-GLUCOSE METER 69 mg/dL 70-110 L Notified R Ector MD/TESTED AT ([facility]) (test code = [address] 1538) [facility] [address] POCT-GLUCOSE [id number] 14:09:00 Test Item Value Reference Range Interpretation Comments POC-GLUCOSE METER 59 mg/dL 70-110 L Notified R N MD/TESTED AT ([facility]) (test code = [address] 1538) [facility] 7703 0 [id number] 13:13:00 Test Item Value Reference Range Interpretation Comments PROCALCITONIN ([facility]) (test code = < ng/mL <0.05 3036) SEPSIS RISK (ng/mL)Low: 0.05-0.50Intermediate: 0.51-2.00High: >=2.01LACTIC ACID, [id number] 12:59:00 Test Item Value Reference Range Interpretation Comments LACTATE BLOOD VENOUS 0.7 mmol/L 0.5-2.2 Specime n slightly (2) ([facility]) (test hemolyzed code = 2872) POCT-GLUCOSE [id number] 12:59:00 Test Item Value Reference Range Interpretation Comments POC-GLUCOSE METER 74 mg/dL 70-110 TESTED AT [place] [address] ([facility]) (test code = ROWDY Villatoro [facility] [address] 1538) [id number] 11:13:00 Test Item Value Reference Range Interpretation Comments PHOSPHORUS ([facility]) (test code = 2.7 mg/dL 2.3-4.7 604) [id number] 11:13:00 Test Item Value Reference Range Interpretation Comments MAGNESIUM ([facility]) (test code = 1.7 mg/dL 1.6-2.6 627) POCT-GLUCOSE [id number] 11:03:00 Test Item Value Reference Range Interpretation Comments POC-GLUCOSE METER 198 mg/dL 70-110 H TESTED AT [place] [address] ([facility]) (test code = ROWDY Villatoro [facility] 1538) [address] CBC W/PLT COUNT & AUTO [id number] 10:56:00 Test Item Value Reference Range Interpretation [...] Received comment: User comments: Slide comments:BLOOD GAS, [id number] 10:55:00 Test Item Value Reference Range Interpretation [...] code = 1819) 21.0 % LACTIC ACID, [id number] 10:20:00 Test Item Value Reference Range Interpretation Comments LACTATE BLOOD VENOUS 0.7 mmol/L 0.5-2.2 Specime n markedly (2) (BEAKER) (test hemolyzed code = 2872) POCT-GLUCOSE [id number] 10:17:00 Test Item Value Reference Range Interpretation Comments POC-GLUCOSE METER 78 mg/dL 70-110 TESTED AT [place] [address] ([facility]) (test code = [facility] [address] 1538) BLOOD GAS, [id number] 10:04:00 Test Item Value Reference Range Interpretation Comments PH VENOUS (AKER) (test code = 7.41 7.32-7.42 701) PCO2 VENOUS (BEAKER) (test code = 49 mmHg 41-51 755) PO2 VENOUS (AKER) (test code = 33 mmHg 25-40 702) O2 SATURATION VENOUS ([facility]) 79.6 % 40.0-70.0 H (test code = 703) HCO3 VENOUS ([facility]) (test code = 33 mmol/L 21-29 H 705) BASE EXCESS VENOUS ([facility]) (test 5.4 mmol/L -2.0-3.0 H code = 704) PATIENT TEMPERATURE ([facility]) (test 32.0 C code = 1818) FIO2 ([facility]) (test code = 1819) 21.0 % POCT-GLUCOSE [id number] 08:21:00 Test Item Value Reference Range Interpretation Comments POC-GLUCOSE METER 98 mg/dL 70-110 TESTED AT [place] [address] ([facility]) (test code = [facility] [address] 1538) POCT-GLUCOSE [id number] 05:51:00 Test Item Value Reference Range Interpretation Comments POC-GLUCOSE METER 108 mg/dL 70-110 TESTED AT [place] [address] ([facility]) (test code = [facility] 1538) [address] POCT-GLUCOSE [id number] 04:28:00 Test Item Value Reference Range Interpretation Comments POC-GLUCOSE METER 112 mg/dL 70-110 H TESTED AT [place] [address] ([facility]) (test code = [facility] 1538) [address] TSH/FREE T4 IF [id number] 04:05:00 Test Item Value Reference Range Interpretation Comments THYROID STIMULATING HORMONE 0.58 uIU/mL 0.35-4.94 ([facility]) (test code = 772) BASIC METABOLIC [id number] 03:47:00 Test Item Value Reference Range Interpretation [...] NOT APPLICABLE FOR DIALYSIS PATIEN TS. POCT-GLUCOSE [id number] 01:57:00 Test Item Value Reference Range Interpretation Comments POC-GLUCOSE METER 130 mg/dL 70-110 H TESTED AT [place] [address] ([facility]) ([facility] = [facility] 1538) [address] POCT-GLUCOSE [id number] 00:11:00 Test Item Value Reference Range Interpretation Comments POC-GLUCOSE METER 122 mg/dL 70-110 H TESTED AT [place] [address] ([facility]) (test code = [facility] Shauna [facility] 1538) [address] POCT-GLUCOSE [id number] 22:23:00 Test Item Value Reference Range Interpretation Comments POC-GLUCOSE METER 103 mg/dL 70-[address] [facility] 6720 ([facility]) (test code = [facility] Shauna [facility] 1538) [address] POCT-GLUCOSE [id number] 20:34:00 Test Item Value Reference Range Interpretation Comments POC-GLUCOSE METER 114 mg/dL 70-[address] [facility] 6720 ([facility]) (test code = [facility] Shauna [facility] 1538) [address]104 POCT-GLUCOSE [id number] 15:59:00 Test Item Value Reference Range Interpretation Comments POC-GLUCOSE METER 158 mg/dL 70-110 H TESTED AT [place] [address] ([facility]) (test code = ROWDY Villatoro [place] 1538) [address] POCT-GLUCOSE [id number] 12:26:00 Test Item Value Reference Range Interpretation Comments POC-GLUCOSE METER 104 mg/dL 70-110 TESTED AT [place] [address] ([facility]) (test code = [facility] Shauna [place] 1538) [address] KETONE, [id number] 10:04:00 Test Item Value Reference Range Interpretation Comments KETONES, BLOOD ([facility]) (test code 0.1 mmol/L <0.4 = 1103) POCT-GLUCOSE [id number] 08:37:00 Test Item Value Reference Range Interpretation Comments POC-GLUCOSE METER 153 mg/dL 70-110 H TESTED AT [place] [address] ([facility]) (test code = ROWDY Villatoro [facility] 1538) 87171 POCT-GLUCOSE [id number] 08:37:00 Test Item Value Reference Range Interpretation Comments POC-GLUCOSE METER 61 mg/dL 70-110 L Notified R Ector GREENBERG/TESTED AT ([facility]) (test code = [address] 1538) [place] [address] VALPROIC ACID LEVEL, [id number] 06:44:00 Test Item Value Reference Range Interpretation Comments VALPROIC ACID TOTAL ([facility]) (test 34 ug/mL 50-100 L code = 924) Therapeutic range for some clinical conditions may be >100 ug/mLPOCT-GLUCOSE [id number] 06:30:00 Test Item Value Reference Range Interpretation Comments POC-GLUCOSE METER 129 mg/dL 70-110 H TESTED AT [place] [address] ([facility]) (test code = ROWDY Villatoro [facility] 1538) [address]342 POCT-GLUCOSE [id number] 00:19:00 Test Item Value Reference Range Interpretation Comments POC-GLUCOSE METER 113 mg/dL 70-110 H TESTED AT [place] [address] ([facility]) (test code = [facility] Shauna [facility] 1538) 14011 POCT-GLUCOSE [id number] 20:22:00 Test Item Value Reference Range Interpretation Comments POC-GLUCOSE METER 74 mg/dL 70-110 TESTED AT [place] [address] ([facility]) (test code = [facility] [address] 1538) POCT-GLUCOSE [id number] 18:07:00 Test Item Value Reference Range Interpretation Comments POC-GLUCOSE METER 108 mg/dL 70-110 TESTED AT [place] [address] ([facility]) (test code = ROWDY Villatoro [facility] 1538) [address] [id number] 18:02:00 Test Item Value Reference Range Interpretation Comments GLUCOSE RANDOM ([facility]) (test code = 65 mg/dL 70-105 L 652) KETONE, [id number] 18:00:00 Test Item Value Reference Range Interpretation Comments KETONES, BLOOD ([facility]) (test code 0.1 mmol/L <0.4 = 1103) POCT-GLUCOSE [id number] 17:03:00 Test Item Value Reference Range Interpretation Comments POC-GLUCOSE METER 66 mg/dL 70-110 L Notified R Ector GREENBERG/TESTED AT ([facility]) (test code = [address] 1538) [facility] [address] 0 POCT-GLUCOSE [id number] 16:05:00 Test Item Value Reference Range Interpretation Comments POC-GLUCOSE METER 76 mg/dL 70-110 TESTED AT [place] [address] ([facility]) (test code = ROWYD Villatoro [facility] [address] 1538) POCT-GLUCOSE [id number] 13:19:00 Test Item Value Reference Range Interpretation Comments POC-GLUCOSE METER 103 mg/dL 70-110 TESTED AT [place] [address] ([facility]) (test code = ROWDY Villatoro [facility] 1538) [address] POCT-GLUCOSE [id number] 10:02:00 Test Item Value Reference Range Interpretation Comments POC-GLUCOSE METER 75 mg/dL 70-110 TESTED AT [place] [address] ([facility]) (test code = ROWDY Villatoro [facility] [address] 1538) POCT-GLUCOSE [id number] 08:29:00 Test Item Value Reference Range Interpretation Comments POC-GLUCOSE METER 89 mg/dL 70-110 TESTED AT [place] [address] ([facility]) (test code = ROWDY Villatoro [facility] [address] 1538) POCT-GLUCOSE [id number] 04:10:00 Test Item Value Reference Range Interpretation Comments POC-GLUCOSE METER 114 mg/dL 70-110 H TESTED AT [place] [address] ([facility]) (test code = [facility] 1538) 9[address] POCT-GLUCOSE [id number] 01:15:00 Test Item Value Reference Range Interpretation Comments POC-GLUCOSE METER 137 mg/dL 70-110 H TESTED AT [place] [address] ([facility]) (test code = [facility] 1538) [address] POCT-GLUCOSE [id number] 21:27:00 Test Item Value Reference Range Interpretation Comments POC-GLUCOSE METER 105 mg/dL 70-110 TESTED AT [place] [address] ([facility]) (test code = [facility] 1538) [address]88 POCT-GLUCOSE [id number] 17:30:00 Test Item Value Reference Range Interpretation Comments POC-GLUCOSE METER 109 mg/dL 70-110 TESTED AT [place] [address] ([facility]) (test code = [facility] 1538) 78797 POCT-GLUCOSE [id number] 13:03:00 Test Item Value Reference Range Interpretation Comments POC-GLUCOSE METER 125 mg/dL 70-110 H TESTED AT [place] [address] ([facility]) (test code = [facility] 1538) 9[address] POCT-GLUCOSE [id number] 13:03:00 Test Item Value Reference Range Interpretation Comments POC-GLUCOSE METER 63 mg/dL 70-110 L TESTED AT [place] [address] ([facility]) (test code = [facility] [address]78[address] 1538) BASIC METABOLIC [id number] 12:34:00 Test Item Value Reference Range Interpretation [...] PATIEN TS. CBC W/PLT COUNT & AUTO [id number] 11:13:00 Test Item Value Reference Range Interpretation [...] 417) IMMATURE GRANULOCYTES-RELATIVE 0 % 0-1 PERCENT (AKER) (test code = 2801) POCT-GLUCOSE [id number] 10:16:00 Test Item Value Reference Range Interpretation Comments POC-GLUCOSE METER 130 mg/dL 70-110 H TESTED AT [place] [address] ([facility]) (test code = ROWDY Villatoro [facility] 1538) 25532 POCT-GLUCOSE [id number] 08:29:00 Test Item Value Reference Range Interpretation Comments POC-GLUCOSE METER 75 mg/dL 70-110 TESTED AT [place] [address] ([facility]) (test code = [facility] [address] 1538) POCT-GLUCOSE [id number] 08:29:00 Test Item Value Reference Range Interpretation Comments POC-GLUCOSE METER 48 mg/dL 70-110 L Notified R Ector GREENBERG/TESTED AT ([facility]) (test code = [address] 1538) [facility] [address] MISCELLANEOUS LAB [id number] 11:35:00 Test Item Value Reference Range Interpretation Comments SCAN RESULT (test code = 0945428) MISCELLANEOUS LAB [id number] 12:54:00 Test Item Value Reference Range Interpretation Comments SCAN RESULT (test code = 0218740) BLOOD [id number] 20:01:00 Test Item Value Reference Range Interpretation Comments CULTURE (BEAKER) (test No growth in 5 days code = 1095) BLOOD [id number] 02:01:00 Test Item Value Reference Range Interpretation Comments CULTURE (BEAKER) (test No growth in 5 days code = 1095) POCT-GLUCOSE [id number] 05:16:00 Test Item Value Reference Range Interpretation Comments POC-GLUCOSE METER 83 mg/dL 70-110 TESTED AT [place] [address] ([facility]) (test code = [facility] 9[address] 1538) POCT-GLUCOSE [id number] 21:57:00 Test Item Value Reference Range Interpretation Comments POC-GLUCOSE METER 75 mg/dL 70-[address] [facility] 6720 ([facility]) (test code = [place] [address] 1538) CORTISOL,60 [id number] 18:57:00 Test Item Value Reference Range Interpretation Comments CORTISOL BASELINE NETWORKED 9.7 mcg/dL (RANDAL) (test code = 2307) CORTISOL 30 MINUTE NETWORKED 17.8 mcg/dL ([facility]) (test code = 2308) CORTISOL, 60 MINUTE (AKER) 23.6 ug/dL (test code = 1805) ACTH STIMULATION TEST INTERPRETATION GUIDELINES(Synonyms: Cortrosyn Test, Cosyntropin or Corticotropin Stimulation Test)Adenocorticotropic hormone (ACTH)is a tropic hormone, made in the pituitary gland, which travels trhough the bloodstream and stimulates the cortex of the adrenal glands to release co rtisol. Cortisol is a primary hormone, which aids the body's metabolism of fats, carbohydrates, and protein as well as sodium and potassium regulation.ACTH Stimulation Test: Exogenous administration ofbiologically active ACTH stimulates the secretion of cortisol [...] increase in cortisol after stimulation by ACTH isnormal. Post-stimulation cortisol concentration should be greater than 20 mcg/dL or the rate of risefrom baseline cortisol should be greater than or equal to 9 mcg/dL.Patients with sepsis or septic shock: According to a study by Harjindre et al (CARLOS 2000,283(8):1038-45), the ACTH Stimulation Test provides important prognostic information. This study defined 3 groups of patients with sepsis or septic shock: 1. Good Survival: Low basal cortisol (<or=34 mcg/dL) and high ACTH response (>9mcg/dL) 2.Intermediate Survival: Low basal cortisol (<34 mcg/dL) and low response to ACTH (<or=9 mcg/dL)OR High basal cortisol (>34 mcg/dL) or high ACTH response (>9 mcg/dL) 3. Poor Survival: High basal cortisol (>34 mcg/dL) and [...] Source.Do not run this test if systemic hydroco rtisone, methylprednisolone, prednisolone or prednisone has been administered within the past 24 hours. Draw baseline cortisol level just prior to cosyntropin administration. Administer cosyntropin 0.25 mg diluted in 2-5 mL of normal saline slow IV Push over a period of 2 minutes. Draw serum cortisol level 30 minutes after cosyntropin administration. Draw serum cortisol level 60 minutes after cosyntropin administration.CORTISOL,30 [id number] 18:11:00 Test Item Value Reference Range Interpretation [...] cortex of the adrenal glands to release co rtisol. Cortisol is a primary hormone, which aids the body's metabolism of fats, carbohydrates, and protein as well as sodium and potassium regulation.ACTH Stimulation Test: Exogenous administration ofbiologically active ACTH stimulates the secretion of cortisol [...] increase in cortisol after stimulation by ACTH isnormal. Post-stimulation cortisol concentration should be greater than 20 mcg/dL or the rate of risefrom baseline cortisol should be greater than or equal to 9 mcg/dL.Patients with sepsis or septic shock: According to a study by Harjinder et al (CARLOS 2000,283(8):1038-45), the ACTH Stimulation Test provides important prognostic information. This study defined 3 groups of patients with sepsis or septic shock: 1. Good Survival: Low basal cortisol (<or=34 mcg/dL) and high ACTH response (>9mcg/dL) 2.Intermediate Survival: Low basal cortisol (<34 mcg/dL) and low response to ACTH (<or=9 mcg/dL)OR High basal cortisol (>34 mcg/dL) or high ACTH response (>9 mcg/dL) 3. Poor Survival: High basal cortisol (>34 mcg/dL) and [...] Source.Do not run this test if systemic hydroco rtisone, methylprednisolone, prednisolone or prednisone has been administered within the past 24 hours. Draw baseline cortisol level just prior to cosyntropin administration. Administer cosyntropin 0.25 mg diluted in 2-5 mL of normal saline slow IV Push over a period of 2 minutes. Draw serum cortisol level 30 minutes after cosyntropin administration. Draw serum cortisol level 60 minutes after cosyntropin administration.POCT-GLUCOSE [id number] 17:52:00 Test Item Value Reference Range Interpretation Comments POC-GLUCOSE METER 74 mg/dL 70-[address] [facility] 6720 ([facility]) (test code = [place] [address] 1538) CORTISOL,[id number] 15:02:00 Test Item Value Reference Range Interpretation Comments CORTISOL, BASELINE ([facility]) (test 9.7 ug/dL code = 1803) ACTH STIMULATION TEST INTERPRETATION GUIDELINES(Synonyms: Cortrosyn Test, Cosyntropin or Corticotropin Stimulation Test)Adenocorticotropic hormone (ACTH)is a tropic hormone, made in the pituitary gland, which travels trhough the bloodstream and stimulates the cortex of the adrenal glands to release co rtisol. Cortisol is a primary hormone, which aids the body's metabolism of fats, carbohydrates, and protein as well as sodium and potassium regulation.ACTH Stimulation Test: Exogenous administration ofbiologically active ACTH stimulates the secretion of cortisol [...] increase in cortisol after stimulation by ACTH isnormal. Post-stimulation cortisol concentration should be greater than 20 mcg/dL or the rate of risefrom baseline cortisol should be greater than or equal to 9 mcg/dL.Patients with sepsis or septic shock: According to a study by Harjinder et al (CARLOS 2000,283(8):1038-45), the ACTH Stimulation Test provides important prognostic information. This study defined 3 groups of patients with sepsis or septic shock: 1. Good Survival: Low basal cortisol (<or=34 mcg/dL) and high ACTH response (>9mcg/dL) 2.Intermediate Survival: Low basal cortisol (<34 mcg/dL) and low response to ACTH (<or=9 mcg/dL)OR High basal cortisol (>34 mcg/dL) or high ACTH response (>9 mcg/dL) 3. Poor Survival: High basal cortisol (>34 mcg/dL) and [...] and Procedure Section on The Source.BASIC METABOLIC [id number] 14:44:00 Test Item Value Reference Range Interpretation [...] APPLICABLE FOR DIALYSIS PATIEN TS. LACTIC ACID, [id number] 14:39:00 Test Item Value Reference Range Interpretation Comments LACTATE BLOOD 4.6 mmol/L 0.5-2.2 H Specimen sligh tly ARTERIAL (2) (BEAKER) hemoly zed (test code = 2874) PROTHROMBIN [id number] 14:05:00 Test Item Value Reference Range Interpretation Comments PROTIME (BEAKER) (test code = 12.4 seconds 11.7-14.7 759) INR (BEAKER) (test code = 370) 0.9 <=5.9 RECOMMENDED COUMADIN/WARFARIN INR THERAPY RANGESSTANDARD DOSE: 2.0 - 3.0 Includes: PROPHYLAXIS for venous thrombosis, systemic embolization; TREATMENT for venous thrombosis and/or pulmonary embolus.HIGH RISK: Target INR is 2.5-3.5 for patients with mechanical heart valves.CBC W/PLT COUNT & AUTO [id number] 14:02:00 Test Item Value Reference Range Interpretation [...] PERCENT (BEAKER) (test code = 2801) POCT-GLUCOSE [id number] 13:12:00 Test Item Value Reference Range Interpretation Comments POC-GLUCOSE METER 126 mg/dL 70-[address] [facility] 6720 (BEAKER) (test code = ROWDY HILARIO 1538) [address] POCT-GLUCOSE [id number] 08:09:00 Test Item Value Reference Range Interpretation Comments POC-GLUCOSE METER 87 mg/dL 70-110 TESTED AT [place] [address] ([facility]) (test code = ROWDY Villatoro [facility] [address] 1538) POCT-GLUCOSE [id number] 07:29:00 Test Item Value Reference Range Interpretation Comments POC-GLUCOSE METER 52 mg/dL 70-110 L TESTED AT [place] [address] ([facility]) (test code = ROWDY Villatoro [facility] [address] 1538) POCT-GLUCOSE [id number] 01:49:00 Test Item Value Reference Range Interpretation Comments POC-GLUCOSE METER 94 mg/dL 70-110 TESTED AT [place] [address] ([facility]) (test code = ROWDY Villatoro [facility] [address] 1538) POCT-GLUCOSE [id number] 18:53:00 Test Item Value Reference Range Interpretation Comments POC-GLUCOSE METER 124 mg/dL 70-110 H TESTED AT [place] [address] ([facility]) (test code = ROWDY Villatoro [facility] 1538) [address] POCT-GLUCOSE [id number] 18:12:00 Test Item Value Reference Range Interpretation Comments POC-GLUCOSE METER 60 mg/dL 70-110 L Notified R N MD/TESTED AT ([facility]) (test code = [place] [address] DL 1538) [facility] 7703 0 POCT-GLUCOSE [id number] 13:18:00 Test Item Value Reference Range Interpretation Comments POC-GLUCOSE METER 81 mg/dL 70-110 TESTED AT [place] [address] ([facility]) (test code = ROWDY Villatoro [facility] [address] 1538) POCT-GLUCOSE [id number] 08:05:00 Test Item Value Reference Range Interpretation Comments POC-GLUCOSE METER 108 mg/dL 70-110 TESTED AT [place] [address] ([facility]) (test code = ROWDY Villatoro [facility] 1538) [address] POCT-GLUCOSE [id number] 08:02:00 Test Item Value Reference Range Interpretation Comments POC-GLUCOSE METER 67 mg/dL 70-110 L Notified R N MD/TESTED AT ([facility]) (test code = [place] [address] LD 1538) [facility] 7703 0 URINALYSIS WITH MICROSCOPIC IF [id number] 06:38:00 Test Item Value Reference Range Interpretation [...] = 2795) RAD, CHEST, 1 VIEW, NON [id number] 23:12:00Reason for exam:->FeverShould this be performed at [...] setting, may represent sequela of infection Signed: Kimberly Suazo MDReport Verified Date/Time: 12/04/2018 23:12:24 Reading Location: [address] Neuro Reading Room VALPROIC ACID LEVEL, TOTAL 2018-12-04 21:41:00 Test Item Value Reference Range Interpretation Comments VALPROIC ACID TOTAL (BEAKER) (test 37 ug/mL 50-100 L code = 924) Therapeutic range for some clinical conditions may be >100 ug/mLPOCT-GLUCOSE [id number] 21:30:00 Test Item Value Reference Range Interpretation Comments POC-GLUCOSE METER 86 mg/dL 70-[address] [facility] 6720 (BEAKER) (test code = [place] [address] 1538) PROTHROMBIN [id number] 21:00:00 Test Item Value Reference Range Interpretation Comments PROTIME (BEAKER) (test code = 13.9 seconds 11.7-14.7 759) INR (BEAKER) (test code = 370) 1.1 <=5.9 RECOMMENDED COUMADIN/WARFARIN INR THERAPY RANGESSTANDARD DOSE: 2.0 - 3.0 Includes: PROPHYLAXIS for venous thrombosis, systemic embolization; TREATMENT for venous thrombosis and/or pulmonary embolus.HIGH RISK: Target INR is 2.5-3.5 for patients with mechanical heart valves.LACTIC ACID, [id number] 20:58:00 Test Item Value Reference Range Interpretation Comments LACTATE BLOOD VENOUS 2.3 mmol/L 0.5-2.2 H Specime n slightly (2) (BEAKER) (test hemolyzed code = 2872) [id number] 20:51:00 Test Item Value Reference Range Interpretation Comments PHOSPHORUS (BEAKER) (test code = 2.9 mg/dL 2.3-4.7 604) Check Serum Phosphorus level 4 hours after IV phosphorus replacement or 8 hours after PO replacementcompleted.[id number] 20:51:00 Test Item Value Reference Range Interpretation Comments MAGNESIUM (BEAKER) (test code = 1.7 mg/dL 1.6-2.6 627) Check Serum Phosphorus level 4 hours after IV phosphorus replacement or 8 hours after PO replacementcompleted.BASIC METABOLIC [id number] 20:51:00 Test Item Value Reference Range Interpretation [...] after PO replacementcompleted.CBC W/PLT COUNT & AUTO [id number] 20:28:00 Test Item Value Reference Range Interpretation [...] 0-1 PERCENT (BEAKER) (test code = 2801) [id number] 20:09:00 Test Item Value Reference Range Interpretation Comments POC-HEMATOCRIT 34 % 40-50 L TESTED AT [place] [address] (BEAKER) (test code = [facility] [address] 1857) [id number] 20:09:00 Test Item Value Reference Range Interpretation Comments POC-HEMOGLOBIN 11.6 g/dL 13.0-16.8 L TESTED AT [place] [address] (BEAKER) (test code [facility] = 1856) [id number] AT [place] [address] DL [facility] [address] POCT-BLOOD GASES, [id number] 20:08:00 Test Item Value Reference Range Interpretation Comments TEMP, CELSIUS-POC 37.0 (BEAKER) (test code = 1834) FIO2-POC (BEAKER) TESTED AT [place] [address] (test code = 1835) DL [facility], [facility] [address] PH, VENOUS-POC 7.483 7.320-7.420 H (BEAKER) (test [...] H VENOUS-POC (BEAKER) (test code = 1847) [id number] 20:08:00 Test Item Value Reference Range Interpretation Comments POC-SODIUM (BEAKER) 136 meq/L 135-148 TESTED [place] [address] (test code = 1542) [facility] [address] [id number] 20:08:00 Test Item Value Reference Range Interpretation Comments POC-POTASSIUM 4.5 meq/L 3.6-5.5 TESTED AT [place] [address] ([facility]) (test code [facility] [address] = 1540) [id number] 20:08:00 Test Item Value Reference Range Interpretation Comments POC-GLUCOSE ([facility]) 84 mg/dL 70-110 TESTED AT [place] [address] (test code = 1855) [facility] [address] POCT-CALCIUM [id number] 20:08:00 Test Item Value Reference Range Interpretation Comments POC-CALCIUM IONIZED 1.25 mmol/L 1.12-1.27 TESTED [place] [address] ([facility]) (test code = [facility] 1536) [address] POCT-LACTIC ACID, [id number] 20:08:00 Test Item Value Reference Range Interpretation Comments POC-LACTIC ACID, 2.6 mmol/L 0.4-1.3 H TESTED AT [facility] 67 ARTERIAL ([facility]) DL [facility] (test code = 2804) [address] POCT-GLUCOSE [id number] 19:25:00 Test Item Value Reference Range Interpretation Comments POC-GLUCOSE METER 81 mg/dL 70-110 TESTED AT [place] [address] ([facility]) (test code = [facility] [address] 1538) POCT-GLUCOSE [id number] 22:27:00 Test Item Value Reference Range Interpretation Comments POC-GLUCOSE METER 110 mg/dL 70-110 TESTED AT [place] [address] ([facility] [facility]) (test code = [facility] 1538) [address] POCT-GLUCOSE [id number] 04:51:00 Test Item Value Reference Range Interpretation Comments POC-GLUCOSE METER 75 mg/dL 70-110 TESTED AT [place] [address] ([facility]) (test code = [place] [address] 1538) POCT-GLUCOSE [id number] 00:08:00 Test Item Value Reference Range Interpretation Comments POC-GLUCOSE METER 76 mg/dL 70-110 TESTED AT [place] [address] ([facility]) (test code = [place] [address] 1538) POCT-GLUCOSE [id number] 21:37:00 Test Item Value Reference Range Interpretation Comments POC-GLUCOSE METER 69 mg/dL 70-110 L TESTED AT [place] [address] ([facility]) (test code = [place] [address] 1538) POCT-GLUCOSE [id number] 06:40:00 Test Item Value Reference Range Interpretation Comments POC-GLUCOSE METER 72 mg/dL 70-110 TESTED AT [place] [address] ([facility]) (test code = [place] [address] 1538) POCT-GLUCOSE [id number] 06:14:00 Test Item Value Reference Range Interpretation Comments POC-GLUCOSE METER 64 mg/dL 70-110 L TESTED AT [place] [address] ([facility]) (test code = [place] [address] 1538) POCT-GLUCOSE [id number] 05:42:00 Test Item Value Reference Range Interpretation Comments POC-GLUCOSE METER 58 mg/dL 70-110 L TESTED AT [place] [address] ([facility]) (test code = [place] [address] 1538) POCT-GLUCOSE [id number] 03:44:00 Test Item Value Reference Range Interpretation Comments POC-GLUCOSE METER 73 mg/dL 70-110 TESTED AT [place] [address] ([facility]) (test code = [place] [address] 1538) POCT-GLUCOSE [id number] 00:42:00 Test Item Value Reference Range Interpretation Comments POC-GLUCOSE METER 77 mg/dL 70-110 TESTED AT [place] [address] ([facility]) (test code = [place] [address] 1538) POCT-GLUCOSE [id number] 18:17:00 Test Item Value Reference Range Interpretation Comments POC-GLUCOSE METER 84 mg/dL 70-110 TESTED AT [place] [address] ([facility]) (test code = ROWDY Villatoro [facility] [address] 1538) POCT-GLUCOSE [id number] 12:37:00 Test Item Value Reference Range Interpretation Comments POC-GLUCOSE METER 90 mg/dL 70-110 TESTED AT [place] [address] ([facility]) (test code = ROWDY Villatoro [facility] [address] 1538) POCT-GLUCOSE [id number] 00:13:00 Test Item Value Reference Range Interpretation Comments POC-GLUCOSE METER 82 mg/dL 70-110 TESTED AT [place] [address] ([facility]) (test code = ROWDY Villatoro [facility] [address] 1538) POCT-GLUCOSE [id number] 18:06:00 Test Item Value Reference Range Interpretation Comments POC-GLUCOSE METER 109 mg/dL 70-110 TESTED AT [place] [address] ([facility]) (test code = ROWDY Villatoro [facility] 1538) [address] POCT-GLUCOSE [id number] 13:37:00 Test Item Value Reference Range Interpretation Comments POC-GLUCOSE METER 103 mg/dL 70-110 TESTED AT [place] [address] ([facility]) (test code = ROWDY Villatoro [facility] 1538) [address] POCT-GLUCOSE [id number] 10:10:00 Test Item Value Reference Range Interpretation Comments POC-GLUCOSE METER 72 mg/dL 70-110 TESTED AT [place] [address] ([facility]) (test code = ROWDY Villatoro [facility] [address] 1538) POCT-GLUCOSE [id number] 09:02:00 Test Item Value Reference Range Interpretation Comments POC-GLUCOSE METER 65 mg/dL 70-110 L TESTED AT [place] [address] ([facility]) (test code = ROWDY Villatoro [facility] [address] 1538) POCT-GLUCOSE [id number] 08:18:00 Test Item Value Reference Range Interpretation Comments POC-GLUCOSE METER 67 mg/dL 70-110 L Notified R Ector GREENBERG/TESTED AT [facility]) (test code = [address] 1538) [facility] 7[address] 0 POCT-GLUCOSE [id number] 21:48:00 Test Item Value Reference Range Interpretation Comments POC-GLUCOSE METER 101 mg/dL 70-110 TESTED AT [place] [address] ([facility]) (test code = ROWDY Villatoro [facility] 1538) [address] POCT-GLUCOSE [id number] 20:09:00 Test Item Value Reference Range Interpretation Comments POC-GLUCOSE METER 75 mg/dL 70-110 TESTED AT [place] [address] ([facility]) (test code = ROWDY Villatoro [facility] [address] 1538) POCT-GLUCOSE [id number] 18:29:00 Test Item Value Reference Range Interpretation Comments POC-GLUCOSE METER 100 mg/dL 70-110 TESTED AT [place] [address] ([facility]) (test code = ROWDY Villatoro [facility] 1538) [address] RAD, SKULL, LESS THAN 4 [id number] 17:37:00Reason for exam:->h/o head trauma, need to r/o retained metal or implantsShould this be performedat the bedside?->NoFINAL REPORT Skull dated 11/28/2018 Comment: 2 views of skull obtained in frontaland lateral projection. No metallic foreign body is seen in the calvarium. The frontal, sphenoid, ethmoid, maxillary sinuses are clear. Orbital rim is intact. Signed: Jaciel Rodriguezort Verified Date/ Time: 11/29/2018 17:37:13 Reading Location: [address] Consult Reading Room POCT-GLUCOSE [id number] 17:08:00 Test Item Value Reference Range Interpretation Comments POC-GLUCOSE METER 75 mg/dL 70-110 TESTED AT [place] [address] ([facility]) (test code = ROWDY Villatoro [facility] [address] 1538) POCT-GLUCOSE [id number] 16:33:00 Test Item Value Reference Range Interpretation Comments POC-GLUCOSE METER 87 mg/dL 70-110 TESTED AT [place] [address] ([facility]) (test code = ROWDY Villatoro [facility] [address] 1538) POCT-GLUCOSE [id number] 15:26:00 Test Item Value Reference Range Interpretation Comments POC-GLUCOSE METER 162 mg/dL 70-110 H TESTED AT [place] [address] ([facility]) (test code = ROWDY Villatoro [facility] 1538) [address] POCT-GLUCOSE [id number] 13:59:00 Test Item Value Reference Range Interpretation Comments POC-GLUCOSE METER 96 mg/dL 70-110 TESTED AT [place] [address] ([facility]) (test code = ROWDY Villatoro [facility] [address] 1538) POCT-GLUCOSE [id number] 13:07:00 Test Item Value Reference Range Interpretation Comments POC-GLUCOSE METER 116 mg/dL 70-110 H TESTED AT [place] [address] ([facility]) (test code = [place] 1538) [address] POCT-GLUCOSE [id number] 12:15:00 Test Item Value Reference Range Interpretation Comments POC-GLUCOSE METER 89 mg/dL 70-110 TESTED AT [place] [address] ([facility]) (test code = ROWDY Villatoro [facility] [address] 1538) POCT-GLUCOSE [id number] 11:06:00 Test Item Value Reference Range Interpretation Comments POC-GLUCOSE METER 102 mg/dL 70-110 TESTED AT [place] [address] ([facility]) (test code = ROWDY Villatoro [facility] 1538) [address] POCT-GLUCOSE [id number] 10:02:00 Test Item Value Reference Range Interpretation Comments POC-GLUCOSE METER 87 mg/dL 70-110 TESTED AT [place] [address] ([facility]) (test code = ROWDY Villatoro [facility] [address] 1538) HEMOGLOBIN [id number] 09:45:00 Test Item Value Reference Range Interpretation Comments HEMOGLOBIN A1C ([facility]) (test code = 5.5 % 4.3-6.1 368) POCT-GLUCOSE [id number] 09:04:00 Test Item Value Reference Range Interpretation Comments POC-GLUCOSE METER 93 mg/dL 70-110 TESTED AT [place] [address] ([facility]) (test code = ROWDY Villatoro [facility] [address] 1538) POCT-GLUCOSE [id number] 08:26:00 Test Item Value Reference Range Interpretation Comments POC-GLUCOSE METER 78 mg/dL 70-110 TESTED AT [place] [address] ([facility]) (test code = ROWDY Villatoro [facility] [address] 1538) U/S, ABDOMINAL, WITH [id number] 08:23:00Reason for exam:- >Transaminitis. RUQ U/s with doppler requested.FINAL REPORT HISTORY : Transaminitis COMPARISON : None. COMMENT :Ultrasound exam ination of the right upper quadrant with color Doppler and spectral evaluation of the abdominal vasculature was performed. Please note evaluation of midline structures is limited secondary to prominentoverlying bowel gas. The patient has pancreas is unremarkable. The liver is normal in size gipuelpjz33.7 cm in length. There is a focal [...] Vascular:The main portal vein is patent with antegrade flow and diameter of 0.9 cm. Peak systolic velocity is 34.7 cm/s. The right and left portal veins are pat ent with antegrade flow. The proper hepatic artery [...] MDReport Verified Date/Time: 11/29/2018 08:23:38 Reading Location: [facility] P006J Ultrasound Reading Room POCT-GLUCOSE [id number] 07:29:00 Test Item Value Reference Range Interpretation Comments POC-GLUCOSE METER 86 mg/dL 70-110 TESTED AT [place] [address] ([facility]) (test code = [facility] [address] 1538) POCT-GLUCOSE [id number] 06:50:00 Test Item Value Reference Range Interpretation Comments POC-GLUCOSE METER 56 mg/dL 70-110 L TESTED AT [place] [address] ([facility]) (test code = [facility] [address] 1538) POCT-GLUCOSE [id number] 06:12:00 Test Item Value Reference Range Interpretation Comments POC-GLUCOSE METER 83 mg/dL 70-110 TESTED AT [place] [address] ([facility]) (test code = [facility] [address] 1538) POCT-GLUCOSE [id number] 05:03:00 Test Item Value Reference Range Interpretation Comments POC-GLUCOSE METER 87 mg/dL 70-110 TESTED AT [place] [address] ([facility]) (test code = [facility] [address] 1538) POCT-GLUCOSE [id number] 04:11:00 Test Item Value Reference Range Interpretation Comments POC-GLUCOSE METER 61 mg/dL 70-110 L TESTED AT [place] [address] ([facility]) (test code = [facility] [address] 1538) PROTHROMBIN [id number] 03:34:00 Test Item Value Reference Range Interpretation Comments PROTIME ([facility]) (test code = 13.1 seconds 11.7-14.7 759) INR ([facility]) (test code = 370) 1.0 <=5.9 RECOMMENDED COUMADIN/WARFARIN INR THERAPY RANGESSTANDARD DOSE: 2.0 - 3.0 Includes: PROPHYLAXIS for venous thrombosis, systemic embolization; TREATMENT for venous thrombosis and/or pulmonary embolus.HIGH RISK: Target INR is 2.5-3.5 for patients with mechanical heart valves.POCT-GLUCOSE [id number] 03:14:00 Test Item Value Reference Range Interpretation Comments POC-GLUCOSE METER 62 mg/dL 70-110 L TESTED AT [place] [address] ([facility]) (test code = [facility] [address] 1538) [id number] 03:08:00 Test Item Value Reference Range Interpretation Comments PHOSPHORUS ([facility]) (test code = 2.7 mg/dL 2.3-4.7 604) Check Serum Phosphorus level 4 hours after IV phosphorus replacement or 8 hours after PO replacementcompleted.[id number] 03:08:00 Test Item Value Reference Range Interpretation Comments MAGNESIUM (BEAKER) (test code = 1.8 mg/dL 1.6-2.6 627) Check Serum Phosphorus level 4 hours after IV phosphorus replacement or 8 hours after PO replacementcompleted.BASIC METABOLIC [id number] 03:08:00 Test Item Value Reference Range Interpretation [...] phosphorus replacement or 8 hours after PO replacementcompleted.[id number] 03:04:00 Test Item Value Reference Range Interpretation Comments CORTISOL, TOTAL (BEAKER) (test 10.1 ug/dL 3.7-19.4 code = 2755) Obtain if BG < 60CBC W/PLT COUNT & AUTO [id number] 02:53:00 Test Item Value Reference Range Interpretation [...] PERCENT (BEAKER) (test code = 2801) KETONE, [id number] 02:53:00 Test Item Value Reference Range Interpretation Comments KETONES, BLOOD (BEAKER) (test code 0.1 mmol/L <0.4 = 1103) [id number] 02:39:00 Test Item Value Reference Range Interpretation Comments GLUCOSE RANDOM (BEAKER) (test code = 59 mg/dL 70-105 L 652) Obtain if BG < 60POCT-GLUCOSE [id number] 02:05:00 Test Item Value Reference Range Interpretation Comments POC-GLUCOSE METER 55 mg/dL 70-110 L TESTED AT [place] [address] ([facility]) (test code = ROWDY Villatoro [facility] [address] 1538) POCT-GLUCOSE [id number] 01:23:00 Test Item Value Reference Range Interpretation Comments POC-GLUCOSE METER 51 mg/dL 70-110 L TESTED AT [place] [address] ([facility]) (test code = [facility] Shauna [facility] [address] 1538) RAD, CHEST, 1 VIEW, NON [id number] 22:00:00Reason for exam:->assess for retained metal piecesShould [...] the peripheral margin of the left lung. Artifactversus a tiny pneumothorax. Consider dedicated upright PA and lateral chest radiograph for further evaluation. There is gaseous distention of the stomach and visualized bowel in the upper abdomen, nonspecific but possibly reflecting dysmotility. Dedicated abdominal imaging could be performed for further evaluation if warranted. Signed: Jaxson Real MDReport Verified Date/Time: 11/28/2018 22:00:23 Reading Location: [address] Reading Room Electronically signed by: JAXSON REAL M.D. on 0 11/28/2018 10:00 PMPOCT-GLUCOSE [id number] 21:53:00 Test Item Value Reference Range Interpretation Comments POC-GLUCOSE METER 146 mg/dL 70-110 H TESTED AT [place] [address] ([facility]) (test code = [facility] Shauna [facility] 1538) [address] POCT-GLUCOSE [id number] 21:50:00 Test Item Value Reference Range Interpretation Comments POC-GLUCOSE METER 57 mg/dL 70-110 L TESTED AT [place] [address] ([facility]) (test code = [place] [address] 1538) POCT-GLUCOSE [id number] 18:21:00 Test Item Value Reference Range Interpretation Comments POC-GLUCOSE METER 87 mg/dL 70-[address] [facility] 6720 ([place]) (test code = [place] [address] 1538) EEG AWAKE AND [id number] 16:20:00Reason for exam:->seizureShould this be performed at the bedside?->YesDate(s) of EE11/28/18 DATE OF REPORT: 11/28/18 ACC: [id number] EEG Number: [id number] Test Location: Inpatient ICU Start time: 15:15 Stop time: 15:36 ICD-10: R56.9 CPT Code: 94137 HISTORY: 53 yo male with history of [...] was not performed. IMPRESSION: Abnormal Awake and DrowsyEEG Background slow CLINICAL CORRELATION: This is an abnormal EEG consistent with a mild encephalopathy. No epileptiform discharges or areas of focal dysfunction were seen. An EEG without epileptiform discharges does not exclude the possibility of epilepsy. If the clinical suspicion of epilepsy remains, consider additional EEG recordings. Edu Burns MD, MS Neurophysiology/Epilepsy Attending POCT-GLUCOSE [id number] 14:15:00 Test Item Value Reference Range Interpretation Comments POC-GLUCOSE METER 94 mg/dL 70-110 TESTED AT [place] [address] ([facility]) (test code = [facility] [address] 1538) VITAMIN [id number] 13:57:00 Test Item Value Reference Range Interpretation Comments VITAMIN B12 (BEAKER) (test code = 1054 pg/mL 213-816 H 774) FOLATE, [id number] 13:57:00 Test Item Value Reference Range Interpretation Comments FOLATE (BEAKER) (test code = 362) 9.4 ng/mL >=7.0 POCT-GLUCOSE [id number] 13:38:00 Test Item Value Reference Range Interpretation Comments POC-GLUCOSE METER 68 mg/dL 70-110 L TESTED AT [place] [address] ([facility]) (test code = [facility] [address] 1538) POCT-GLUCOSE [id number] 13:30:00 Test Item Value Reference Range Interpretation Comments POC-GLUCOSE METER 62 mg/dL 70-110 L TESTED AT [place] [address] ([facility]) (test code = [facility] [address] 1538) VALPROIC ACID LEVEL, [id number] 13:18:00 Test Item Value Reference Range Interpretation Comments VALPROIC ACID TOTAL (BEAKER) (test 43 ug/mL 50-100 L code = 924) Therapeutic range for some clinical conditions may be >100 ug/mLHEPATITIS PANEL, [id number] 13:14:00 Test Item Value Reference Range Interpretation Comments HEPATITIS A IGM ANTIBODY (BEAKER) Nonreactive Nonreactive (test code = 498) HEPATITIS B CORE IGM ANTIBODY Nonreactive Nonreactive (BEAKER) (test code = 645) HEPATITIS C ANTIBODY (BEAKER) Nonreactive Nonreactive (test code = 367) HEPATITIS B SURFACE ANTIGEN (2) Nonreactive Nonreactive (BEAKER) (test code = 2585) BASIC METABOLIC [id number] 12:07:00 Test Item Value Reference Range Interpretation [...] APPLICABLE FOR DIALYSIS PATIEN TS. COMPREHENSIVE METABOLIC [id number] 12:07:00 Test Item Value Reference Range Interpretation [...] PATIEN TS. CBC W/PLT COUNT & AUTO [id number] 11:39:00 Test Item Value Reference Range Interpretation [...] LYMPHOCYTES ABSOLUTE COUNT 2.28 K/ L 1.32-3.57 ([facility]) (test code = 414) MONOCYTES ABSOLUTE COUNT (AKER) 0.25 K/ L 0.30-0.82 L (test code = 415) EOSINOPHILS ABSOLUTE COUNT 0.09 K/ L 0.04-0.54 ([facility]) (test code = 416) BASOPHILS ABSOLUTE COUNT (AKER) 0.01 K/ L 0.01-0.08 (test code = 417) IMMATURE GRANULOCYTES-RELATIVE 0 % 0-1 PERCENT ([facility]) (test code = 2801) POCT-GLUCOSE [id number] 09:29:00 Test Item Value Reference Range Interpretation Comments POC-GLUCOSE METER 71 mg/dL 70-110 TESTED AT [place] [address] ([facility]) (test code = ROWDY Villatoro [facility] [address] 1538) POCT-GLUCOSE [id number] 08:59:00 Test Item Value Reference Range Interpretation Comments POC-GLUCOSE METER 49 mg/dL 70-110 L TESTED AT [place] [address] ([facility]) (test code = ROWDY Villatoro [facility] [address] 1538) POCT-GLUCOSE [id number] 23:27:00 Test Item Value Reference Range Interpretation Comments POC-GLUCOSE METER 96 mg/dL 70-110 TESTED AT [place] [address] ([facility]) (test code = ROWDY Villatoro [facility] [address] 1538) POCT-GLUCOSE [id number] 20:35:00 Test Item Value Reference Range Interpretation Comments POC-GLUCOSE METER 85 mg/dL 70-110 TESTED AT [place] [address] ([facility]) (test code = ROWDY Villatoro [facility] [address] 1538) POCT-GLUCOSE [id number] 18:55:00 Test Item Value Reference Range Interpretation Comments POC-GLUCOSE METER 98 mg/dL 70-110 TESTED AT [place] [address] ([facility]) (test code = ROWDY Villatoro [facility] [address] 1538) POCT-GLUCOSE [id number] 12:28:00 Test Item Value Reference Range Interpretation Comments POC-GLUCOSE METER 74 mg/dL 70-110 TESTED AT [place] [address] ([facility]) (test code = ROWDY Villatoro [facility] [address] 1538) COMPREHENSIVE METABOLIC [id number] 11:21:00 Test Item Value Reference Range Interpretation [...] S NOT APPLICABLE FOR DIALYSIS PATIEN TS. [id number] 10:19:00 Test Item Value Reference Range Interpretation Comments CORTISOL, TOTAL (BEAKER) (test code 6.9 ug/dL 3.7-19.4 = 2755) TSH/FREE T4 IF [id number] 10:19:00 Test Item Value Reference Range Interpretation Comments THYROID STIMULATING HORMONE 0.48 uIU/mL 0.35-4.94 (BEAKER) (test code = 772) TROPONIN [id number] 10:05:00 Test Item Value Reference Range Interpretation [...] acidosis, acute neurological disease, and persistent tachyarrhythmia.PROTHROMBIN [id number] 09:31:00 Test Item Value Reference Range Interpretation Comments PROTIME (BEAKER) (test code = 16.2 seconds 11.7-14.7 H 759) INR (BEAKER) (test code = 370) 1.3 <=5.9 RECOMMENDED COUMADIN/WARFARIN INR THERAPY RANGESSTANDARD DOSE: 2.0 - 3.0 Includes: PROPHYLAXIS for venous thrombosis, systemic embolization; TREATMENT for venous thrombosis and/or pulmonary embolus.HIGH RISK: Target INR is 2.5-3.5 for patients with mechanical heart valves.CBC W/PLT COUNT & AUTO [id number] 09:26:00 Test Item Value Reference Range Interpretation [...] PERCENT (BEAKER) (test code = 2801) POCT-GLUCOSE [id number] 07:19:00 Test Item Value Reference Range Interpretation Comments POC-GLUCOSE METER 128 mg/dL 70-110 H TESTED AT [place] [address] ([facility]) (test code = [facility] 1538) [address] POCT-GLUCOSE [id number] 07:19:00 Test Item Value Reference Range Interpretation Comments POC-GLUCOSE METER 46 mg/dL 70-110 L TESTED AT [place] [address] ([facility]) (test code = [facility] [address] 1538)
--- NOTE | 2022-12-17 18:20 | RAD REPORT ---
EXAM DESCRIPTION: CT - CTHCSPWOC - 12/17/2022 5:47 pm CLINICAL HISTORY: fall COMPARISON: Head C Spine Mpr Wo Con dated 07/30/2019; Head C Spine Mpr Wo Con dated 06/22/2016; CT HE AD CSPINE MPR WO CONTRAST dated 09/17/2015 TECHNIQUE: Axial thin cut noncontrast CT images of the head were obtained. Axial thin cut noncontrast CT images of the cervical spine were obtained. Multiplanar reformatted images were generated and reviewed. All CT scans are performed using dose optimization technique as appropriate and may include automated exposure control or mA/KV adjustment according to patient size. FINDINGS: CT HEAD WITHOUT CONTRAST: No acute hemorrhage, hydrocephalus or extra-axial collection is identified.No areas of brain edema or midline shift. The paranasal sinuses and mastoids are clear.The calvarium is intact. CT CERVICAL SPINE WITHOUT CONTRAST: No evidence of acute fracture or subluxation. No spondylolisthesis. Stable gentle reversal of cervica l lordosis. At least moderate central canal narrowing at the level of the posterior C1 arch, stable. 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 Multilevel degenerative changes with neural foraminal narrowings, up to severe bilaterally at C4-5 and C5-6 again noted. IMPRESSION: No acute traumatic intracranial or cervical spine findings. Stable chronic findings as above, including non healed fractures of the anterior and posterior C1 arc h right of midline inferior.
--- NOTE | 2022-12-17 18:36 | EDPHYS ---
Physician Documentation [facility] Name: Mariano Mauricio Age: 57 yrs Sex: Male : 1965 Arrival Date: 12/17/2022 Time: 17:19 Bed 12 Private MD: ED Physician Ricardo Chowdhury HPI: 12/17 17:23 This 57 yrs old Black Male presents to ER via Unassigned with complaints of Fall Injury.ms3 17:23 57-year-old male with past medical history of traumatic brain injury presents via [address] [facility] after a fall while getting into a wheelchair. Patient fell hitting the left side of his head. Patient denies pain, loss of consciousness, nausea, vomiting. Historical: - Allergies: 17:31 Keflex; ss - PMHx: 17:31 DYSPHAGIA; insomnia; dehydration; Contracture; Major Depressive Disorder; constipation; ss Anxiety; Autonomic neuropathy; personailty disorder; pseudobulbar affect; Schizophrenia; traumatic brain injury; vit d deficiency; - Immunization history:: Adult Immunizations unknown. - Social history:: Smoking status: Patient denies any tobacco usage or history of. ROS: 17:23 Constitutional: Negative for fever, and chills. ENT: Negative for injury, pain, and ms3 discharge, Neck: Negative for injury, pain, and swelling, Cardiovascular: Negative for chest pain, and palpitations. Respiratory: Negative for shortness of breath, cough, wheezing, and pleuritic chest pain, Abdomen/GI: Negative for abdominal pain, nausea, vomiting, diarrhea, and constipation, MS/Extremity: Negative for injury and deformity, Skin: Negative for injury, rash, and discoloration. 17:23 All other systems are negative. Exam: 17:23 Constitutional: This is a well developed, well nourished patient who is awake, alert, ms3 and in no acute distress. Head/Face: Normocephalic, atraumatic. Neck: Trachea midline, no cervical lymphadenopathy. Supple, full range of motion without nuchal rigidity, or vertebral point tenderness. No Meningismus. Chest/axilla: Normal chest wall appearance and motion. Nontender with no deformity. Cardiovascular: Regular rate and rhythm with a normal S1 and S2. No gallops, murmurs, or rubs. Normal PMI, no JVD. No pulse deficits. Respiratory: Lungs have equal breath sounds bilaterally, clear to auscultation and percussion. No rales, rhonchi or wheezes noted. No increased work of breathing, no retractions or nasal flaring. Abdomen/GI: Soft, non-tender, with normal bowel sounds. No distension or tympany. No guarding or rebound. No evidence of tenderness throughout. Back: No spinal tenderness. No costovertebral tenderness. Full range of motion. Skin: Warm, dry with normal turgor. Normal color with no rashes, no lesions, and no evidence of cellulitis. MS/ Extremity: Pulses equal, no cyanosis. Neurovascular intact. Full, normal range of motion. 17:23 Head/face: Noted is hematoma, that is moderate, of the forehead. Vital Signs: 17:42 BP 139 / 81; Pulse 71; Resp 16; Temp 97.9(O); Pulse Ox 99% ; Weight 80 kg; db 18:30 BP 140 / 79; Pulse 71; Resp 16; Pulse Ox 99% ; db MDM: 17:22 Patient medically screened. ms3 18:36 Differential diagnosis: closed head injury, contusion, fracture. Data reviewed: vital ms3 signs, nurses notes, radiologic studies, CT scan, and as a result, I will discharge patient. Historians other than the Patient: EMS: [facility]. Counseling: I had a detailed discussion with the patient and/or guardian regarding: the historical points, exam findings, and any diagnostic results supporting the discharge/admit diagnosis, radiology results, the need for outpatient follow up, to return to the emergency department if symptoms worsen or persist or if there are any questions or concerns that arise at home. ED course: Discussed CT findings with patient. Patient to follow-up with his primary care physician at the facility in 2 to 3 days. Patient understands agrees with plan. All questions were answered. Return precautions discussed include any worsening symptoms, or any concerns. 12/17 17:22 Order name: CT Head C Spine; Complete Time: 18:33 ms3 Administered Medications: No medications were administered Disposition Summary: 12/17/22 18:35 Discharge Ordered Location: Home ms3 Condition: Stable ms3 Diagnosis - Fall on same level, unspecified ms3 - Forehead hematoma ms3 Followup: ms3 - With: Private Physician - When: 2 - 3 days - Reason: Recheck today's complaints Discharge Instructions: - Discharge Summary Sheet ms3 - Hematoma ms3 - Fall Prevention in Hospitals, Adult ms3 Forms: - Medication Reconciliation Form ms3 - Thank You Letter ms3 - Antibiotic Education ms3 - Prescription Opioid Use ms3 - SBAR form wm Signatures: Dispatcher [employer] Phyllis Tinoco RN RN ss Ricardo Chowdhury, DO ms3 Angie Brink RN RN db
--- NOTE | 2022-12-17 18:36 | ER ---
Nurse's Notes [facility] Name: Mariano Mauricio Age: 57 yrs Sex: Male : 1965 Arrival Date: 12/17/2022 Time: 17:19 Bed 12 Private MD: Diagnosis: Fall on same level, unspecified;Forehead hematoma Presentation: 12/17 17:28 Chief complaint: Patient states: Fell while transferring to wheelchair at half-way. ss snf staff states that he hit his head. Pt has no complaints at this time. Coronavirus screen: Client denies travel out of the [place] in the last 14 days. Ebola Screen: Patient denies exposure to infectious person. Patient denies travel to an Ebola-affected area in the 21 days before illness onset. Initial Sepsis Screen: Does the patient meet any 2 criteria? No. Patient's initial sepsis screen is negative. Does the patient have a suspected source of infection? No. Patient's initial sepsis screen is negative. Risk Assessment: Do you want to hurt yourself or someone else? Patient reports no desire to harm self or others. Onset of symptoms was December 17, 2022. 17:28 Method Of Arrival: EMS: [facility] 17:28 Acuity: KEV 3 Triage Assessment: 18:12 General: Appears in no apparent distress. comfortable. db Historical: - Allergies: 17:31 Keflex; ss - PMHx: 17:31 DYSPHAGIA; insomnia; dehydration; Contracture; Major Depressive Disorder; constipation; ss Anxiety; Autonomic neuropathy; personailty disorder; pseudobulbar affect; Schizophrenia; traumatic brain injury; vit d deficiency; - Immunization history:: Adult Immunizations unknown. - Social history:: Smoking status: Patient denies any tobacco usage or history of. Screenin:[facility] ED Fall Risk Assessment (Adult) History of falling in the last 3 months, db including since admission Yes- physiologic fall (2 pts) Confusion or Disorientation No (0 pts) Intoxicated or Sedated No (0 pts) Impaired Gait Yes (1 pt) Mobility Assist Device Used Yes (1 pt) Altered Elimination Yes (1 pt) Score/Fall Risk Level 3 or more points = High Risk Oriented to surroundings, Maintained a safe environment, Educated pt \T\ family on fall prevention, incl call for assistance when getting out of bed, Hourly rounding (assess needs \T\ fall precautionary measures) done. Abuse screen: Denies threats or abuse. Denies injuries from another. Nutritional screening: No deficits noted. Tuberculosis screening: No symptoms or risk factors identified. Assessment: 17:35 Reassessment: Patient appears in no apparent distress at this time. Patient and/or db family updated on plan of care and expected duration. Pain level reassessed. patent from [facility]. Was found on the ground approximately at 1545. Patient has hx of stroke with slurred speech and weakness all over with contractures. General: Appears in no apparent distress. comfortable, Behavior is calm, cooperative. Pain: Complains of pain in forehead. Neuro: Level of Consciousness is awake, alert, obeys commands, Oriented to person, place, time, situation. 17:39 Reassessment: patient to CT. db 18:09 Reassessment: Power of [employer] Grace Donis [phone]. Patient is from [place] at [address] 18:35 Reassessment: Patient appears in no apparent distress at this time. Patient and/or db family updated on plan of care and expected duration. Pain level reassessed. Patient is alert, oriented x 3, equal unlabored respirations, skin warm/dry/pink. 18:35 Respiratory: Airway is patent Respiratory effort is even, unlabored, Respiratory db pattern is regular, symmetrical. 18:41 Reassessment: Dr. Chowdhury speaking with patient DIEGOA. db 18:43 Reassessment: Report given to Irma at [facility]. db 18:48 Reassessment: DC pending [facility] arrival. Notified Charge nurse. db 19:13 Reassessment: half-way gave ETA of approximately 2 hours for [facility] arrival.db Vital Signs: 17:42 BP 139 / 81; Pulse 71; Resp 16; Temp 97.9(O); Pulse Ox 99% ; Weight 80 kg; db 18:30 BP 140 / 79; Pulse 71; Resp 16; Pulse Ox 99% ; db ED Course: 17:22 Patient arrived in ED. ms3 17:22 Ricardo Chowdhury DO is Attending Physician. ms3 17:31 Triage completed. ss 17:31 Arm band placed on right wrist. ss 17:39 Angie Brink, TEDDY is Primary Nurse. db 17:48 CT Head C Spine In Process Unspecified. EDMS 18:46 No provider procedures requiring assistance completed. Patient did not have IV access db during this emergency room visit. 18:47 Patient has correct armband on for positive identification. Bed in low position. Call db light in reach. Side rails up X2. Pulse ox on. NIBP on. Lights dimmed. Warm blanket given. Administered Medications: No medications were administered Medication: 18:47 VIS not applicable for this client. db Outcome: 18:35 Discharge ordered by . ms3 18:46 Discharged to half-way. Report called to Irma ESPINAL at [facility] db 18:46 Condition: stable 18:46 Discharge instructions given to patient, half-way, Instructed on discharge instructions. 21:22 Patient left the ED. nj1 Signatures: Dispatcher [employer] EDMS Phyllis Rodriguez RN RN Ricardo Chowdhury DO DO ms3 Angie Brink RN RN db Bárbara Gutierrez RN RN nj1 Corrections: (The following items were deleted from the chart) 17:31 17:24 Chief complaint: ss ss 18:43 18:35 Reassessment: Report given to Irma at [facility] db db
[2022-12-17 21:26] VITALS: TEMP 97.9; O2SAT 99
[2022-12-17 21:28] VITALS: BP 140/79
== END 2022-12-17 21:22 | disposition home or self-care (01) ==
LOC: ER 17:19
DX: S00.83XA Contusion of other part of head, initial encounter (principal); W18.30XA Fall on same level, unspecified, initial encounter; Z88.1 Allergy status to other antibiotic agents
CPT/HCPCS: 70450; 72125